=== PATIENT | male | born 1960 | race African-American/Black ===

== ENCOUNTER 2017-02-05 11:26 | Inpatient (IN) | payer OTHER ==
[2017-02-05 11:47] VITALS: BMI 31.8
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
[2017-02-05] MEDS ORDERED: guaiFENesin/D-METHORPHAN HB 10 ML UNIT-DOSE CUPS PO PRN (15:00)
[2017-02-05] MEDS ORDERED: MAGNESIUM CITRATE 300 ML BOTTLE PO PRN (15:00)
[2017-02-05] MEDS ORDERED: LOPERAMIDE HCL 2 MG CAPSULE PO PRN (15:00)
[2017-02-05] MEDS ORDERED: diphenhydrAMINE HCL 50 MG CAPSULE PO PRN (15:00)
[2017-02-05] MEDS ORDERED: chlordiazePOXIDE HCL 25 MG CAPSULE PO PRN (15:00)
[2017-02-05] MEDS ORDERED: P-EPHED 60MG/TRIPROLIDI 2.5MG TABLET PO PRN (15:00)
[2017-02-05] MEDS ORDERED: NICOTINE POLACRILEX 2 MG GUM BUC PRN (15:00)
[2017-02-05] MEDS ORDERED: MAG HYDROX/AL HYDROX/SIMETH 30 ML UNIT-DOSE CUP PO PRN (15:00)
[2017-02-05] MEDS ORDERED: hydrOXYzine PAMOATE 25 MG CAPSULE (FP) PO PRN (15:00)
[2017-02-05] MEDS ORDERED: MAGNESIUM HYDROX 2400MG/30ML ORAL SUSPENSION 30 ML CUP PO PRN (15:00)
[2017-02-05] MEDS ORDERED: MENTHOL/PHENOL 1 EACH UD MM PRN (15:00)
[2017-02-05] MEDS ORDERED: IBUPROFEN 400 MG TABLET (FP) PO PRN (15:00)
[2017-02-05] MEDS ORDERED: chlordiazePOXIDE HCL 25 MG CAPSULE PO ONE (15:32)
[2017-02-05] MEDS: NICOTINE 14 MG/24 HOURS TOPICAL PATCH TD SCH (15:37)
[2017-02-05] MEDS: metFORMIN HCL 500 MG TABLET (FP) PO SCH (16:47)
[2017-02-05] MEDS: chlordiazePOXIDE HCL 25 MG CAPSULE PO SCH ×2 (16:47→22:04)
[2017-02-05 19:13] LABS: URINE APPEARANCE CLEAR; URINE BILIRUBIN NEGATIVE (NEGATIVE); URINE BLOOD NEGATIVE (NEGATIVE); URINE COLOR LTYELLOW; URINE GLUCOSE (UA) 3+ (NEGATIVE); URINE KETONE NEGATIVE (NEGATIVE); URINE LEUK ESTERASE NEGATIVE (NEGATIVE); URINE NITRITE NEGATIVE (NEGATIVE); URINE PROTEIN NEGATIVE (NEGATIVE); URINE UROBILINOGEN NEGATIVE E.U./dl (0.2-1.0)
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
[2017-02-05 19:48] LABS: HIV 1 & 2 AB NEGATIVE; HIV 1 AGp24 NEGATIVE
[2017-02-05] MEDS: QUEtiapine FUMARATE 200 MG TABLET PO SCH (22:04)
[2017-02-05] MEDS: THIAMINE HCL 100 MG TABLET (FP) PO SCH (22:04)
[2017-02-05] MEDS: ACETAMINOPHEN 325 MG TABLET (FP) PO PRN (22:06)
[2017-02-06] MEDS: chlordiazePOXIDE HCL 25 MG CAPSULE PO SCH ×4 (05:32→22:12)
[2017-02-06] MEDS: metFORMIN HCL 500 MG TABLET (FP) PO SCH ×2 (06:36→17:17)
[2017-02-06] MEDS: sitaGLIPtin PHOSPHATE 100 MG TABLET (FP) PO SCH (06:37)
[2017-02-06] MEDS: cloNIDine HCL 0.1 MG TABLET PO SCH ×2 (10:08→22:13)
[2017-02-06] MEDS: NICOTINE 14 MG/24 HOURS TOPICAL PATCH TD SCH (10:08)
[2017-02-06] MEDS: PRENATAL VITAMINS W/ FOLIC ACID TABLET (FP) PO SCH (10:08)
[2017-02-06] MEDS: SERTRALINE HCL 50 MG TABLET (FP) PO SCH (10:08)
[2017-02-06 10:10] LABS: MCH 32.4 pg (25.7-33.7); MCHC 33.9 g/dl (32.0-35.9); MEAN CELL VOLUME 95.6 fl (80-96); MEAN PLT VOLUME 8.5 fl (7.5-11.1); PLATELET COUNT 437 K/MM3 (134-434); RDW 12.5 % (11.9-15.9); WHITE BLOOD COUNT 10.8 K/mm3 (4.0-10.0)
--- NOTE | 2017-02-06 10:11 | PN ---
[facility] CIWA - CIWA Score Nausea/Vomitin-No Nausea/No Vomiting Muscle Tremors: 4-Moderate,w/Arms Extend Anxiety: 4-Mod. Anxious/Guarded Agitation: 4-Moderately Restless Paroxysmal Sweats: 1-Minimal Palms Moist Orientation: 0-Oriented Tacttile Disturbances: 3-Moderate Itch/Numb/Burn Auditory Disturbances: 0-None Visual Disturbances: 0-None Headache: 0-None Present CIWA-Ar Total Score: 16 [facility] Progress Note (SOAP) Subjective: ANIETY,TREMORS,SWEATS,INTERMITTENT SLEEP. I REVIEWED PT'S HOME MEDS ON HOME PHARMACY LIST TODAY. PT ON ENALAPRIL 10 MG PO DAILY ,SIMVASTATIN 40 MG PO NIGHTLY AND ATRIPLA 1 TAB PO DAILY(PROPHYLAXIS). PT DECLINED THESE MEDS REFUSING REORDERING AND WILL NOT TAKE THEM. HOWEVER, PT WANTS HIS CLONIDINE 0.2 MG PO BID REORDERED. PT ALSO ON VENTOLIN INH PRN AND SYMBICORT 160/4.5 MCG 2 PUFFS INH BID. Objective: 02/06/17 10:16 Vital Signs Temperature 96.6 F L 02/06/17 09:31 Pulse Rate 84 02/06/17 09:31 Respiratory Rate 20 02/06/17 09:31 Blood Pressure 143/79 02/06/17 09:31 O2 Sat by Pulse Oximetry (%) Laboratory Last Values WBC 10.8 K/mm3 (4.0-10.0) H 02/06/17 06:00 RBC 4.61 M/mm3 (4.00-5.60) 02/06/17 06:00 Hgb 14.9 GM/dL (11.7-16.9) 02/06/17 06:00 Hct 44.0 % (35.4-49) 02/06/17 06:00 MCV 95.6 fl (80-96) 02/06/17 06:00 MCHC 33.9 g/dl (32.0-35.9) 02/06/17 06:00 RDW 12.5 % (11.9-15.9) 02/06/17 06:00 Plt Count 437 K/MM3 (134-434) H 02/06/17 06:00 MPV 8.5 fl (7.5-11.1) 02/06/17 06:00 POC Glucometer 207 UNITS (()) 02/06/17 05:34 Urine Color Ltyellow 02/05/17 17:30 Urine Appearance Clear 02/05/17 17:30 Urine pH 5.0 (5.0-8.0) 02/05/17 17:30 Ur Specific [place] 1.015 (1.001-1.035) 02/05/17 17:30 Urine Protein Negative (NEGATIVE) 02/05/17 17:30 Urine Glucose (UA) 3+ (NEGATIVE) H 02/05/17 17:30 Urine Ketones Negative (NEGATIVE) 02/05/17 17:30 Urine Blood Negative (NEGATIVE) 02/05/17 17:30 Urine Nitrite Negative (NEGATIVE) 02/05/17 17:30 Urine Bilirubin Negative (NEGATIVE) 02/05/17 17:30 Urine Urobilinogen Negative E.U./dl (0.2-1.0) 02/05/17 17:30 Ur Leukocyte Esterase Negative (NEGATIVE) 02/05/17 17:30 HIV 1&2 Antibody Screen Negative 02/05/17 13:50 HIV P24 Antigen Negative 02/05/17 13:50 OTHER LAB RESULTS PENDING Assessment: 02/06/17 10:17 WITHDRAWAL SX Plan: CONTINUE DETOX INCREASE PO FLUIDS
[2017-02-06] MEDS ORDERED: ALBUTEROL SO4 18 GM HFA INHALER IH PRN (10:13)
[2017-02-06] MEDS ORDERED: ALBUTEROL SO4 18 GM HFA INHALER IH SCH (10:15)
[2017-02-06 11:05] LABS: ALBUMIN 4.2 g/dl (3.4-5.0); ALK PHOS 125 U/L (45-117); ANION GAP 9 (8-16); BILIRUBIN,TOTAL 0.4 mg/dL (0.2-1.0); CALCIUM 9.3 mg/dL (8.5-10.1); CO2 26 mmol/L (21-32); COCKROFT - GAULT 117.02; GLUCOSE,RANDOM 218 mg/dL (74-106); SGOT/AST 25 U/L (15-37); SGPT/ALT 46 U/L (12-78); TOT PROT 7.9 g/dl (6.4-8.2)
[2017-02-06] MEDS: BUDESONIDE/FORMETEROL FUMARATE 160/4.5 mcg INHALER IH SCH ×2 (12:33→22:12)
--- NOTE | 2017-02-06 17:38 | EKG ---
Test Reason : Blood Pressure : / mmHG Vent. Rate : 076 BPM Atrial Rate : 076 BPM P-R Int : 164 ms QRS Dur : 090 ms QT Int : 370 ms P-R-T Axes : 045 087 044 degrees QTc Int : 416 ms NORMAL SINUS RHYTHM MINIMAL VOLTAGE CRITERIA FOR LVH, MAY BE NORMAL VARIANT BORDERLINE ECG NO PREVIOUS ECGS AVAILABLE Confirmed by ETHEL LUO MD ([id number]) on 02/06/2017 5:37:51 PM Referred By: Confirmed By:ETHEL LUO MD
[2017-02-06] MEDS: QUEtiapine FUMARATE 200 MG TABLET PO SCH (22:13)
[2017-02-06] MEDS: ATORVASTATIN CA 20 MG TABLET (FP) PO SCH (22:13)
[2017-02-06] MEDS: THIAMINE HCL 100 MG TABLET (FP) PO SCH (22:13)
[2017-02-07] MEDS: chlordiazePOXIDE HCL 25 MG CAPSULE PO SCH ×2 (05:56→10:07)
[2017-02-07] MEDS: ACETAMINOPHEN 325 MG TABLET (FP) PO PRN ×2 (05:57→17:22)
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
[2017-02-07] MEDS: sitaGLIPtin PHOSPHATE 100 MG TABLET (FP) PO SCH (08:02)
[2017-02-07] MEDS: metFORMIN HCL 500 MG TABLET (FP) PO SCH ×2 (08:02→17:19)
[2017-02-07] MEDS: BUDESONIDE/FORMETEROL FUMARATE 160/4.5 mcg INHALER IH SCH ×2 (10:06→22:06)
[2017-02-07] MEDS: NICOTINE 14 MG/24 HOURS TOPICAL PATCH TD SCH (10:07)
[2017-02-07] MEDS: cloNIDine HCL 0.1 MG TABLET PO SCH ×2 (10:07→22:06)
[2017-02-07] MEDS: PRENATAL VITAMINS W/ FOLIC ACID TABLET (FP) PO SCH (10:07)
[2017-02-07] MEDS: SERTRALINE HCL 50 MG TABLET (FP) PO SCH (10:07)
--- NOTE | 2017-02-07 10:17 | PN ---
[facility] CIWA - CIWA Score Nausea/Vomitin-No Nausea/No Vomiting Muscle Tremors: 3 Anxiety: 3 Agitation: 4-Moderately Restless Paroxysmal Sweats: 3 Orientation: 0-Oriented Tacttile Disturbances: 0-None Auditory Disturbances: 0-None Visual Disturbances: 0-None Headache: 0-None Present CIWA-Ar Total Score: 13 [facility] Progress Note (SOAP) Subjective: Tremors,sweating,anxiety,interrupted sleep,restless. Pt. denies head trauma, he hit left shoulder against the wall on the side of his bed. Objective: 02/07/17 10:14 Vital Signs - 8 hr 02/07/17 02/07/17 02/07/17 03:30 05:50 05:52 Temperature 96.4 F L 96.4 F L Pulse Rate 82 82 Respiratory 18 18 18 Rate Blood Pressure 121/80 121/80 Laboratory Tests 02/05/17 02/05/17 02/05/17 06:00 13:50 13:52 WBC RBC Hgb Hct MCV MCHC RDW Plt Count MPV Sodium Potassium Chloride Carbon Dioxide Anion Gap BUN Creatinine Creat Clearance w eGFR POC Glucometer 177 Random Glucose Calcium Total Bilirubin AST ALT Alkaline Phosphatase Total Protein Albumin Urine Color Urine Appearance Urine pH Ur Specific [place] Urine Protein Urine Glucose (UA) Urine Ketones Urine Blood Urine Nitrite Urine Bilirubin Urine Urobilinogen Ur Leukocyte Esterase RPR Titer Hepatitis C Antibody <0.1 HIV 1&2 Antibody Screen Negative HIV P24 Antigen Negative 02/05/17 02/05/17 02/06/17 16:14 17:30 05:34 WBC RBC Hgb Hct MCV MCHC RDW Plt Count MPV Sodium Potassium Chloride Carbon Dioxide Anion Gap BUN Creatinine Creat Clearance w eGFR POC Glucometer 191 207 Random Glucose Calcium Total Bilirubin AST ALT Alkaline Phosphatase Total Protein Albumin Urine Color Ltyellow Urine Appearance Clear Urine pH 5.0 Ur Specific [place] 1.015 Urine Protein Negative Urine Glucose (UA) 3+ H Urine Ketones Negative Urine Blood Negative Urine Nitrite Negative Urine Bilirubin Negative Urine Urobilinogen Negative Ur Leukocyte Esterase Negative RPR Titer Hepatitis C Antibody HIV 1&2 Antibody Screen HIV P24 Antigen 02/06/17 02/06/17 02/06/17 06:00 06:00 06:00 WBC 10.8 H RBC 4.61 Hgb 14.9 Hct 44.0 MCV 95.6 MCHC 33.9 RDW 12.5 Plt Count 437 H MPV 8.5 Sodium 136 Potassium 5.3 H Chloride 101 Carbon Dioxide 26 Anion Gap 9 BUN 12 D Creatinine 1.0 Creat Clearance w eGFR > 60 POC Glucometer Random Glucose 218 H Calcium 9.3 Total Bilirubin 0.4 AST 25 ALT 46 D Alkaline Phosphatase 125 H Total Protein 7.9 Albumin 4.2 Urine Color Urine Appearance Urine pH Ur Specific [place] Urine Protein Urine Glucose (UA) Urine Ketones Urine Blood Urine Nitrite Urine Bilirubin Urine Urobilinogen Ur Leukocyte Esterase RPR Titer Nonreactive Hepatitis C Antibody HIV 1&2 Antibody Screen HIV P24 Antigen 02/06/17 02/07/17 16:19 05:55 WBC RBC Hgb Hct MCV MCHC RDW Plt Count MPV Sodium Potassium Chloride Carbon Dioxide Anion Gap BUN Creatinine Creat Clearance w eGFR POC Glucometer 154 229 Random Glucose Calcium Total Bilirubin AST ALT Alkaline Phosphatase Total Protein Albumin Urine Color Urine Appearance Urine pH Ur Specific [place] Urine Protein Urine Glucose (UA) Urine Ketones Urine Blood Urine Nitrite Urine Bilirubin Urine Urobilinogen Ur Leukocyte Esterase RPR Titer Hepatitis C Antibody HIV 1&2 Antibody Screen HIV P24 Antigen labs noted Assessment: 02/07/17 10:14 Withdrawal Sx. Plan: Continue detox Lt. shoulder x-ray D/C head Ct.
[2017-02-07] MEDS: chlordiazePOXIDE 5 MG CAPSULE PO SCH ×2 (17:19→22:06)
[2017-02-07] MEDS: QUEtiapine FUMARATE 200 MG TABLET PO SCH (22:06)
[2017-02-07] MEDS: ATORVASTATIN CA 20 MG TABLET (FP) PO SCH (22:06)
[2017-02-07] MEDS: THIAMINE HCL 100 MG TABLET (FP) PO SCH (22:06)
[2017-02-08] MEDS: chlordiazePOXIDE 5 MG CAPSULE PO SCH ×2 (05:53→10:09)
[2017-02-08] MEDS: metFORMIN HCL 500 MG TABLET (FP) PO SCH ×2 (06:04→17:03)
[2017-02-08] MEDS: sitaGLIPtin PHOSPHATE 100 MG TABLET (FP) PO SCH (07:06)
[2017-02-08] MEDS: BUDESONIDE/FORMETEROL FUMARATE 160/4.5 mcg INHALER IH SCH ×2 (10:08→22:09)
[2017-02-08] MEDS: SERTRALINE HCL 50 MG TABLET (FP) PO SCH (10:09)
[2017-02-08] MEDS: NICOTINE 14 MG/24 HOURS TOPICAL PATCH TD SCH (10:09)
[2017-02-08] MEDS: PRENATAL VITAMINS W/ FOLIC ACID TABLET (FP) PO SCH (10:09)
[2017-02-08] MEDS: cloNIDine HCL 0.1 MG TABLET PO SCH ×2 (10:09→22:10)
[2017-02-08] MEDS: ACETAMINOPHEN 325 MG TABLET (FP) PO PRN ×2 (15:02→22:55)
[2017-02-08] MEDS: chlordiazePOXIDE HCL 10 MG CAPSULE PO SCH ×2 (17:03→22:10)
--- NOTE | 2017-02-08 17:25 | PN ---
[facility] Progress Note (SOAP) Subjective: Tremors, Body aches, Sweating. Objective: PT. A & O X 2 (DISORIENTED ABOUT DAY /DATE). PT. OBSERVED AMBULATING ON UNIT. 02/08/17 17:23 Vital Signs Temperature 98.0 F 02/08/17 15:29 Pulse Rate 80 02/08/17 15:29 Respiratory Rate 20 02/08/17 15:29 Blood Pressure 138/76 02/08/17 15:29 O2 Sat by Pulse Oximetry (%) Laboratory Last Values WBC 10.8 K/mm3 (4.0-10.0) H 02/06/17 06:00 RBC 4.61 M/mm3 (4.00-5.60) 02/06/17 06:00 Hgb 14.9 GM/dL (11.7-16.9) 02/06/17 06:00 Hct 44.0 % (35.4-49) 02/06/17 06:00 MCV 95.6 fl (80-96) 02/06/17 06:00 MCHC 33.9 g/dl (32.0-35.9) 02/06/17 06:00 RDW 12.5 % (11.9-15.9) 02/06/17 06:00 Plt Count 437 K/MM3 (134-434) H 02/06/17 06:00 MPV 8.5 fl (7.5-11.1) 02/06/17 06:00 Sodium 136 mmol/L (136-145) 02/06/17 06:00 Potassium 5.3 mmol/L (3.5-5.1) H 02/06/17 06:00 Chloride 101 mmol/L (98-107) 02/06/17 06:00 Carbon Dioxide 26 mmol/L (21-32) 02/06/17 06:00 Anion Gap 9 (8-16) 02/06/17 06:00 BUN 12 mg/dL (7-18) D 02/06/17 06:00 Creatinine 1.0 mg/dL (0.7-1.3) 02/06/17 06:00 Creat Clearance w eGFR > 60 (>60) 02/06/17 06:00 POC Glucometer 239 UNITS (()) 02/08/17 16:20 Random Glucose 218 mg/dL (74-106) H 02/06/17 06:00 Calcium 9.3 mg/dL (8.5-10.1) 02/06/17 06:00 Total Bilirubin 0.4 mg/dL (0.2-1.0) 02/06/17 06:00 AST 25 U/L (15-37) 02/06/17 06:00 ALT 46 U/L (12-78) D 02/06/17 06:00 Alkaline Phosphatase 125 U/L (45-117) H 02/06/17 06:00 Total Protein 7.9 g/dl (6.4-8.2) 02/06/17 06:00 Albumin 4.2 g/dl (3.4-5.0) 02/06/17 06:00 Urine Color Ltyellow 02/05/17 17:30 Urine Appearance Clear 02/05/17 17:30 Urine pH 5.0 (5.0-8.0) 02/05/17 17:30 Ur Specific [place] 1.015 (1.001-1.035) 02/05/17 17:30 Urine Protein Negative (NEGATIVE) 02/05/17 17:30 Urine Glucose (UA) 3+ (NEGATIVE) H 02/05/17 17:30 Urine Ketones Negative (NEGATIVE) 02/05/17 17:30 Urine Blood Negative (NEGATIVE) 02/05/17 17:30 Urine Nitrite Negative (NEGATIVE) 02/05/17 17:30 Urine Bilirubin Negative (NEGATIVE) 02/05/17 17:30 Urine Urobilinogen Negative E.U./dl (0.2-1.0) 02/05/17 17:30 Ur Leukocyte Esterase Negative (NEGATIVE) 02/05/17 17:30 RPR Titer Nonreactive (NONREACTIVE) 02/06/17 06:00 Hepatitis C Antibody <0.1 s/co ratio (0.0-0.9) 02/05/17 06:00 HIV 1&2 Antibody Screen Negative 02/05/17 13:50 HIV P24 Antigen Negative 02/05/17 13:50 LABS NOTED. Assessment: 02/08/17 17:24 WITHDRAWAL SYMPTOMS. Plan: CONTINUE DETOX. ADVISED PATIENT TO FOLLOW-UP WITH [facility] / REHAB MEDICAL PROVIDER AFTER DISCHARGE FROM DETOX FOR GENERAL MEDICAL ASSESSMENT AND FOR ABNORMAL ADMISSION LAB VALUES.
[2017-02-08] MEDS: ATORVASTATIN CA 20 MG TABLET (FP) PO SCH (22:10)
[2017-02-08] MEDS: QUEtiapine FUMARATE 200 MG TABLET PO SCH (22:10)
[2017-02-08] MEDS: THIAMINE HCL 100 MG TABLET (FP) PO SCH (22:10)
[2017-02-09] MEDS: chlordiazePOXIDE HCL 10 MG CAPSULE PO SCH ×2 (05:37→10:09)
[2017-02-09] MEDS: ACETAMINOPHEN 325 MG TABLET (FP) PO PRN ×2 (06:01→17:14)
[2017-02-09] MEDS: metFORMIN HCL 500 MG TABLET (FP) PO SCH ×2 (07:19→17:13)
[2017-02-09] MEDS: sitaGLIPtin PHOSPHATE 100 MG TABLET (FP) PO SCH (07:19)
[2017-02-09] MEDS: BUDESONIDE/FORMETEROL FUMARATE 160/4.5 mcg INHALER IH SCH ×2 (10:08→22:09)
[2017-02-09] MEDS: cloNIDine HCL 0.1 MG TABLET PO SCH ×2 (10:08→22:09)
[2017-02-09] MEDS: SERTRALINE HCL 50 MG TABLET (FP) PO SCH (10:09)
[2017-02-09] MEDS: PRENATAL VITAMINS W/ FOLIC ACID TABLET (FP) PO SCH (10:09)
[2017-02-09] MEDS: NICOTINE 14 MG/24 HOURS TOPICAL PATCH TD SCH (10:09)
--- NOTE | 2017-02-09 14:54 | PN ---
[facility] Progress Note (SOAP) Subjective: Diarrhea, tremor, irritable, interrupted sleep, left shoulder pain s/p fall as per patient (stated xray negative) Objective: 02/09/17 14:52 Last Vital Signs Temp Pulse Resp BP Pulse Ox 98.1 F 85 20 151/85 02/09/17 13:35 02/09/17 13:35 02/09/17 13:35 02/09/17 13:35 Laboratory Tests 02/05/17 02/05/17 02/05/17 06:00 13:50 13:52 WBC RBC Hgb Hct MCV MCHC RDW Plt Count MPV Sodium Potassium Chloride Carbon Dioxide Anion Gap BUN Creatinine Creat Clearance w eGFR POC Glucometer 177 Random Glucose Calcium Total Bilirubin AST ALT Alkaline Phosphatase Total Protein Albumin Urine Color Urine Appearance Urine pH Ur Specific [place] Urine Protein Urine Glucose (UA) Urine Ketones Urine Blood Urine Nitrite Urine Bilirubin Urine Urobilinogen Ur Leukocyte Esterase RPR Titer Hepatitis C Antibody <0.1 HIV 1&2 Antibody Screen Negative HIV P24 Antigen Negative 02/05/17 02/05/17 02/06/17 16:14 17:30 05:34 WBC RBC Hgb Hct MCV MCHC RDW Plt Count MPV Sodium Potassium Chloride Carbon Dioxide Anion Gap BUN Creatinine Creat Clearance w eGFR POC Glucometer 191 207 Random Glucose Calcium Total Bilirubin AST ALT Alkaline Phosphatase Total Protein Albumin Urine Color Ltyellow Urine Appearance Clear Urine pH 5.0 Ur Specific [place] 1.015 Urine Protein Negative Urine Glucose (UA) 3+ H Urine Ketones Negative Urine Blood Negative Urine Nitrite Negative Urine Bilirubin Negative Urine Urobilinogen Negative Ur Leukocyte Esterase Negative RPR Titer Hepatitis C Antibody HIV 1&2 Antibody Screen HIV P24 Antigen 02/06/17 02/06/17 02/06/17 06:00 06:00 06:00 WBC 10.8 H RBC 4.61 Hgb 14.9 Hct 44.0 MCV 95.6 MCHC 33.9 RDW 12.5 Plt Count 437 H MPV 8.5 Sodium 136 Potassium 5.3 H Chloride 101 Carbon Dioxide 26 Anion Gap 9 BUN 12 D Creatinine 1.0 Creat Clearance w eGFR > 60 POC Glucometer Random Glucose 218 H Calcium 9.3 Total Bilirubin 0.4 AST 25 ALT 46 D Alkaline Phosphatase 125 H Total Protein 7.9 Albumin 4.2 Urine Color Urine Appearance Urine pH Ur Specific [place] Urine Protein Urine Glucose (UA) Urine Ketones Urine Blood Urine Nitrite Urine Bilirubin Urine Urobilinogen Ur Leukocyte Esterase RPR Titer Nonreactive Hepatitis C Antibody HIV 1&2 Antibody Screen HIV P24 Antigen 02/06/17 02/07/17 02/07/17 16:19 05:55 16:17 WBC RBC Hgb Hct MCV MCHC RDW Plt Count MPV Sodium Potassium Chloride Carbon Dioxide Anion Gap BUN Creatinine Creat Clearance w eGFR POC Glucometer 154 229 182 Random Glucose Calcium Total Bilirubin AST ALT Alkaline Phosphatase Total Protein Albumin Urine Color Urine Appearance Urine pH Ur Specific [place] Urine Protein Urine Glucose (UA) Urine Ketones Urine Blood Urine Nitrite Urine Bilirubin Urine Urobilinogen Ur Leukocyte Esterase RPR Titer Hepatitis C Antibody HIV 1&2 Antibody Screen HIV P24 Antigen 02/08/17 02/08/17 02/09/17 05:52 16:20 05:35 WBC RBC Hgb Hct MCV MCHC RDW Plt Count MPV Sodium Potassium Chloride Carbon Dioxide Anion Gap BUN Creatinine Creat Clearance w eGFR POC Glucometer 206 239 163 Random Glucose Calcium Total Bilirubin AST ALT Alkaline Phosphatase Total Protein Albumin Urine Color Urine Appearance Urine pH Ur Specific [place] Urine Protein Urine Glucose (UA) Urine Ketones Urine Blood Urine Nitrite Urine Bilirubin Urine Urobilinogen Ur Leukocyte Esterase RPR Titer Hepatitis C Antibody HIV 1&2 Antibody Screen HIV P24 Antigen Labs noted Assessment: 02/09/17 14:53 Withdrawal symptoms Plan: Continue detox
[2017-02-09] MEDS: THIAMINE HCL 100 MG TABLET (FP) PO SCH (22:08)
[2017-02-09] MEDS: ATORVASTATIN CA 20 MG TABLET (FP) PO SCH (22:09)
[2017-02-09] MEDS: QUEtiapine FUMARATE 200 MG TABLET PO SCH (22:10)
[2017-02-10] MEDS: sitaGLIPtin PHOSPHATE 100 MG TABLET (FP) PO SCH (06:18)
[2017-02-10] MEDS: ACETAMINOPHEN 325 MG TABLET (FP) PO PRN ×2 (06:20→09:46)
[2017-02-10] MEDS: metFORMIN HCL 500 MG TABLET (FP) PO SCH (06:20)
[2017-02-10 06:35] VITALS: TEMP 96.4
[2017-02-10 07:48] VITALS: BP 173/79; PULSE 71
[2017-02-10] MEDS: PRENATAL VITAMINS W/ FOLIC ACID TABLET (FP) PO SCH (09:46)
[2017-02-10] MEDS: cloNIDine HCL 0.1 MG TABLET PO SCH (09:46)
[2017-02-10] MEDS: SERTRALINE HCL 50 MG TABLET (FP) PO SCH (09:46)
[2017-02-10] MEDS: BUDESONIDE/FORMETEROL FUMARATE 160/4.5 mcg INHALER IH SCH (09:49)
[2017-02-10] MEDS: NICOTINE 14 MG/24 HOURS TOPICAL PATCH TD SCH (09:49)
--- NOTE | 2017-02-10 16:03 | DS ---
[facility] Detox Discharge Summary Admission Date: 02/05/17 Discharge Date: 02/10/17 - History Present History: Alcohol Dependence, Cocaine Dependence Pertinent Past History: HTN Hyperlipidemia Type II DM - Physical Exam Results Vital Signs: Vital Signs Temperature 96.4 F L 02/10/17 06:35 Pulse Rate 71 02/10/17 07:47 Respiratory Rate 18 02/10/17 06:35 Blood Pressure 173/79 02/10/17 07:47 O2 Sat by Pulse Oximetry (%) Pertinent Admission Physical Exam Findings: Withdrawal sx. Laboratory Last Values WBC 10.8 K/mm3 (4.0-10.0) H 02/06/17 06:00 RBC 4.61 M/mm3 (4.00-5.60) 02/06/17 06:00 Hgb 14.9 GM/dL (11.7-16.9) 02/06/17 06:00 Hct 44.0 % (35.4-49) 02/06/17 06:00 MCV 95.6 fl (80-96) 02/06/17 06:00 MCHC 33.9 g/dl (32.0-35.9) 02/06/17 06:00 RDW 12.5 % (11.9-15.9) 02/06/17 06:00 Plt Count 437 K/MM3 (134-434) H 02/06/17 06:00 MPV 8.5 fl (7.5-11.1) 02/06/17 06:00 Sodium 136 mmol/L (136-145) 02/06/17 06:00 Potassium 5.3 mmol/L (3.5-5.1) H 02/06/17 06:00 Chloride 101 mmol/L (98-107) 02/06/17 06:00 Carbon Dioxide 26 mmol/L (21-32) 02/06/17 06:00 Anion Gap 9 (8-16) 02/06/17 06:00 BUN 12 mg/dL (7-18) D 02/06/17 06:00 Creatinine 1.0 mg/dL (0.7-1.3) 02/06/17 06:00 Creat Clearance w eGFR > 60 (>60) 02/06/17 06:00 POC Glucometer 190 UNITS (()) 02/10/17 06:17 Random Glucose 218 mg/dL (74-106) H 02/06/17 06:00 Calcium 9.3 mg/dL (8.5-10.1) 02/06/17 06:00 Total Bilirubin 0.4 mg/dL (0.2-1.0) 02/06/17 06:00 AST 25 U/L (15-37) 02/06/17 06:00 ALT 46 U/L (12-78) D 02/06/17 06:00 Alkaline Phosphatase 125 U/L (45-117) H 02/06/17 06:00 Total Protein 7.9 g/dl (6.4-8.2) 02/06/17 06:00 Albumin 4.2 g/dl (3.4-5.0) 02/06/17 06:00 Urine Color Ltyellow 02/05/17 17:30 Urine Appearance Clear 02/05/17 17:30 Urine pH 5.0 (5.0-8.0) 02/05/17 17:30 Ur Specific [place] 1.015 (1.001-1.035) 02/05/17 17:30 Urine Protein Negative (NEGATIVE) 02/05/17 17:30 Urine Glucose (UA) 3+ (NEGATIVE) H 02/05/17 17:30 Urine Ketones Negative (NEGATIVE) 02/05/17 17:30 Urine Blood Negative (NEGATIVE) 02/05/17 17:30 Urine Nitrite Negative (NEGATIVE) 02/05/17 17:30 Urine Bilirubin Negative (NEGATIVE) 02/05/17 17:30 Urine Urobilinogen Negative E.U./dl (0.2-1.0) 02/05/17 17:30 Ur Leukocyte Esterase Negative (NEGATIVE) 02/05/17 17:30 RPR Titer Nonreactive (NONREACTIVE) 02/06/17 06:00 Hepatitis C Antibody <0.1 s/co ratio (0.0-0.9) 02/05/17 06:00 HIV 1&2 Antibody Screen Negative 02/05/17 13:50 HIV P24 Antigen Negative 02/05/17 13:50 labs noted - Treatment Hospital Course: Detox Protocol Followed, Detoxed Safely, Responded well, Discharged Condition Good, Rehab Referral Accepted Patient has Accepted a Rehab Referral to: Rehab in-pt. - Medication Discharge Medications: Ambulatory Orders Metformin HCl [Glucophage] 1,000 mg PO BID 07/15/15 Sitagliptin Phosphate [Januvia] 100 mg PO DAILY 07/15/15 Zolpidem Tartrate [Ambien] 10 mg PO HS #14 tablet 07/17/15 Albuterol Sulfate Inhaler - [Ventolin HFA Inhaler -] 2 puff IH Q4H PRN 02/06/17 Budesonide/Formeterol Fumarate [SYMBICORT 160/4.5mcg -] 2 puff IH BID 02/06/17 Clonidine HCl 0.2 mg PO BID 02/06/17 Sertraline HCl [Zoloft -] 50 mg PO DAILY #30 tablet 02/06/17 Simvastatin [Zocor -] 40 mg PO HS 02/06/17 - Diagnosis (1) Alcohol dependence with uncomplicated withdrawal Status: Acute (2) Cocaine dependence Status: Acute Qualifiers: Substance use status: uncomplicated Qualified Code(s): F14.20 - Cocaine dependence, uncomplicated (3) Nicotine dependence, uncomplicated Status: Acute Qualifiers: Nicotine product type: cigarettes Qualified Code(s): F17.210 - Nicotine dependence, cigarettes, uncomplicated (4) Substance induced mood disorder Status: Acute (5) Hyperlipidemia Status: Chronic (6) Hypertension Status: Chronic Qualifiers: Hypertension type: essential hypertension Qualified Code(s): I10 - Essential (primary) hypertension (7) Insomnia Status: Chronic (8) Type II diabetes mellitus Status: Chronic Qualifiers: Diabetes mellitus complication status: without complication Diabetes mellitus longterm insulin use: without tow operator use Qualified Code(s): E11.9 - Type 2 diabetes mellitus without complications - AMA Did Patient Leave Against Medical Advice: No
== END 2017-02-10 10:12 | disposition home or self-care (01) | DRG 774 ==
LOC: YASAS 11:26 → Y3N 14:22
PROVIDERS: ADMIT Internal Medicine; ATTEND Internal Medicine
PROC: HZ2ZZZZ Detoxification Services for Substance Abuse Treatment (ICD-10-PCS; principal; 2017-02-10)
DX: F10.230 Alcohol dependence with withdrawal, uncomplicated (principal); F14.20 Cocaine dependence, uncomplicated; F17.210 Nicotine dependence, cigarettes, uncomplicated; F19.24 Other psychoactive substance dependence with psychoactive substance-induced mood disorder; G47.00 Insomnia, unspecified; J45.20 Mild intermittent asthma, uncomplicated; I10 Essential (primary) hypertension; E11.9 Type 2 diabetes mellitus without complications; Z79.84 Long term (current) use of oral hypoglycemic drugs; E78.5 Hyperlipidemia, unspecified; M25.512 Pain in left shoulder; M79.672 Pain in left foot; Z87.828 Personal history of other (healed) physical injury and trauma
CPT/HCPCS: 36415; 71020-TC; 73030-TC-LT; 80053; 81003; 85027; 86593; 87389; 93005; 93010

== ENCOUNTER 2017-10-22 10:27 | Inpatient (IN) | payer OTHER ==
[2017-10-22 12:18] VITALS: BMI 31.3
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
[2017-10-22] MEDS ORDERED: MAG HYDROX/AL HYDROX/SIMETH 30 ML UNIT-DOSE CUP PO PRN (16:41)
[2017-10-22] MEDS ORDERED: MAGNESIUM HYDROX 2400MG/30ML ORAL SUSPENSION 30 ML CUP PO PRN (16:41)
[2017-10-22] MEDS ORDERED: guaiFENesin/D-METHORPHAN HB 10 ML UNIT-DOSE CUPS PO PRN (16:41)
[2017-10-22] MEDS ORDERED: LOPERAMIDE HCL 2 MG CAPSULE PO PRN (16:41)
[2017-10-22] MEDS ORDERED: IBUPROFEN 400 MG TABLET (FP) PO PRN (16:41)
[2017-10-22] MEDS ORDERED: MAGNESIUM CITRATE 300 ML BOTTLE PO PRN (16:41)
[2017-10-22] MEDS ORDERED: MENTHOL/PHENOL 1 EACH UD MM PRN (16:41)
[2017-10-22] MEDS ORDERED: P-EPHED 60MG/TRIPROLIDI 2.5MG TABLET PO PRN (16:41)
[2017-10-22] MEDS ORDERED: NICOTINE POLACRILEX 2 MG GUM BC PRN (16:41)
[2017-10-22] MEDS ORDERED: ALBUTEROL SO4 18 GM HFA INHALER IH PRN (16:43)
[2017-10-22] MEDS: ENALAPRIL MALEATE 10 MG TABLET (FP) PO SCH (18:51)
[2017-10-22] MEDS: chlordiazePOXIDE HCL 25 MG CAPSULE PO PRN (18:51)
[2017-10-22] MEDS: ACETAMINOPHEN 325 MG TABLET (FP) PO PRN ×2 (18:52→22:34)
[2017-10-22] MEDS: BUDESONIDE/FORMETEROL FUMARATE 160/4.5 mcg INHALER IH SCH (22:32)
[2017-10-22] MEDS: RANITIDINE HCL 150 MG TABLET (FP) PO SCH (22:32)
[2017-10-22] MEDS: THIAMINE HCL 100 MG TABLET (FP) PO SCH (22:32)
[2017-10-22] MEDS: chlordiazePOXIDE HCL 25 MG CAPSULE PO SCH (22:33)
[2017-10-22] MEDS ORDERED: hydrOXYzine PAMOATE 25 MG CAPSULE (FP) PO ONE (23:05)
[2017-10-22 23:30] LABS: URINE APPEARANCE CLEAR; URINE BILIRUBIN NEGATIVE (NEGATIVE); URINE BLOOD NEGATIVE (NEGATIVE); URINE COLOR YELLOW; URINE GLUCOSE (UA) 2+ (NEGATIVE); URINE KETONE NEGATIVE (NEGATIVE); URINE LEUK ESTERASE NEGATIVE (NEGATIVE); URINE NITRITE NEGATIVE (NEGATIVE); URINE PROTEIN NEGATIVE (NEGATIVE)
[2017-10-22] MEDS ORDERED: METHOCARBAMOL 500 MG TABLET PO ONE (23:45)
[2017-10-23] MEDS: chlordiazePOXIDE HCL 25 MG CAPSULE PO SCH ×4 (05:44→22:14)
[2017-10-23] MEDS: ACETAMINOPHEN 325 MG TABLET (FP) PO PRN ×4 (05:46→22:15)
[2017-10-23] MEDS: metFORMIN HCL 500 MG TABLET (FP) PO SCH ×2 (07:26→17:48)
[2017-10-23] MEDS: sitaGLIPtin PHOSPHATE 100 MG TABLET (FP) PO SCH (07:26)
[2017-10-23] MEDS: INSULIN SLIDING SCALE (NOVOLOG) 1 VIAL SQ SCH ×2 (07:27→17:55)
[2017-10-23] MEDS ORDERED: diphenhydrAMINE HCL 50 MG CAPSULE PO PRN (10:03)
[2017-10-23] MEDS: ENALAPRIL MALEATE 10 MG TABLET (FP) PO SCH (10:35)
[2017-10-23] MEDS: BUDESONIDE/FORMETEROL FUMARATE 160/4.5 mcg INHALER IH SCH ×2 (10:35→22:25)
[2017-10-23] MEDS: NICOTINE 14 MG/24 HOURS TOPICAL PATCH TD SCH (10:35)
[2017-10-23] MEDS: RANITIDINE HCL 150 MG TABLET (FP) PO SCH ×2 (10:35→22:13)
[2017-10-23] MEDS: PRENATAL VITAMINS W/ FOLIC ACID TABLET (FP) PO SCH (10:35)
[2017-10-23 10:45] LABS: HEMATOCRIT 44.6 % (35.4-49); MCHC 33.6 g/dl (32.0-35.9); MEAN CELL VOLUME 95.3 fl (80-96); MEAN PLT VOLUME 8.4 fl (7.5-11.1); PLATELET COUNT 478 K/MM3 (134-434); RBC 4.68 M/mm3 (4.00-5.60); RDW 12.6 % (11.9-15.9); WHITE BLOOD COUNT 8.8 K/mm3 (4.0-10.0)
[2017-10-23 10:50] LABS: ALBUMIN 3.9 g/dl (3.4-5.0); ANION GAP 10 (8-16); BILIRUBIN,TOTAL 0.4 mg/dL (0.2-1.0); BLOOD UREA NITROGEN 13 mg/dL (7-18); CALCIUM 9.3 mg/dL (8.5-10.1); CHLORIDE 102 mmol/L (98-107); CO2 28 mmol/L (21-32); CREATININE 1.2 mg/dL (0.7-1.3); POTASSIUM 4.7 mmol/L (3.5-5.1); SGOT/AST 30 U/L (15-37); SGPT/ALT 56 U/L (12-78); SODIUM 140 mmol/L (136-145)
[2017-10-23 10:51] LABS: ALK PHOS 112 U/L (45-117)
--- NOTE | 2017-10-23 10:58 | CONSULT ---
[facility] Psychiatric Consult - Data Date of interview: 10/23/17 Admission source: [facility] Identifying data: Pt. is a 57 year old male, single, father of four, and currently unemployed. This is patient's first admission to [facility]. Pt. admitted to detox for alcohol and cocaine dependence. Substance Abuse History: Following information confirmed with Mr. Davalos: Smoking Cessation. Smoking history: Current every day smoker. Have you smoked in the past 12 months: Yes. Aproximately how many cigarettes per day: 4. Cigars Per Day: 0. Hx Chewing Tobacco Use: No. Initiated information on smoking cessation: Yes. 'Breaking Loose' booklet given: 10/15/17. - Substance & Tx. History. Hx Alcohol Use: Yes. Hx Substance Use: Yes. Substance Use Type : Alcohol, Cocaine. Hx Substance Use Treatment: Yes (02/2017 [facility]). - Substances Abused. Alcohol. Route: Oral. Frequency: Daily. Amount used: 10 beers/ 2 pints whiskey. Age of first use: 34. Date of Last Use: 10/21/17. Cocaine. Route: Smoking. Frequency: Daily. Amount used: $50-60. Age of first use: 34. Date of Last Use: 10/20/17 Medical History: Hypercholesterolemia, COPD, and diabetes Psychiatric History: Pt. reports h/o one psychiatric hospitalization last year in [place]. Pt unable to recall the hospital. States that in the past he has been prescribed seroquel, ambien, and "other medications for depression I can't remember." Reports a diagnosis of MDD and is not compliant with his medication regime. Pt denies OPC. Pt. currently attends the [facility] in [place]. Pt. requesting a sleep aid during his stay at detox. Pt. denies h/o suicide attempt. Physical/Sexual Abuse/Trauma History: Denies. Mental Status Exam - Mental Status Exam Alert and Oriented to: Time, Place, Person Cognitive Function: Good Patient Appearance: Well Groomed Mood: Hopeful Affect: Appropriate Patient Behavior: Appropriate, Cooperative Speech Pattern: Clear, Appropriate Voice Loudness: Normal Thought Process: Goal Oriented Thought Disorder: Not Present Hallucinations: Denies Suicidal Ideation: Denies Homicidal Ideation: Denies Insight/Judgement: Poor Sleep: Poorly Appetite: Fair Muscle strength/Tone: Normal Gait/Station: Antalgic Psychiatric Findings - Problem List ([place] 1, 2,3) (1) Alcohol dependence with uncomplicated withdrawal Current Visit: Yes Status: Acute (2) Nicotine dependence, uncomplicated Current Visit: Yes Status: Acute Qualifiers: Nicotine product type: cigarettes Qualified Code(s): F17.210 - Nicotine dependence, cigarettes, uncomplicated (3) Cocaine dependence Current Visit: Yes Status: Acute Qualifiers: Substance use status: uncomplicated Qualified Code(s): F14.20 - Cocaine dependence, uncomplicated (4) Substance induced mood disorder Current Visit: No Status: Suspected (5) Cocaine abuse, uncomplicated Current Visit: Yes Status: Chronic (6) Insomnia Current Visit: Yes Status: Acute Qualifiers: Insomnia type: unspecified Qualified Code(s): G47.00 - Insomnia, unspecified (7) MDD (major depressive disorder) Current Visit: No Status: Chronic Comment: Self reports. - Initial Treatment Plan Initial Treatment Plan: Psychoeducation provided. Detoxification in progress. Ambien 10mg qhs prn ordered. Pt. reports favorable effect from previoulsy taking ambien. Benfits and side effects (sleep walking) discussed. Verbal consent given. Will continue to monitor patient.
--- NOTE | 2017-10-23 12:36 | EKG ---
Test Reason : Blood Pressure : / mmHG Vent. Rate : 082 BPM Atrial Rate : 082 BPM P-R Int : 160 ms QRS Dur : 090 ms QT Int : 370 ms P-R-T Axes : 052 084 035 degrees QTc Int : 432 ms NORMAL SINUS RHYTHM NORMAL ECG WHEN COMPARED WITH ECG OF 05-FEB-2017 14:47, NO SIGNIFICANT CHANGE WAS FOUND Confirmed by ETHEL LUO MD ([id number]) on 10/23/2017 12:36:16 PM Referred By: Confirmed By:ETHEL LUO MD
[2017-10-23 12:52] LABS: GLUCOSE,RANDOM 148 mg/dL (74-106)
--- NOTE | 2017-10-23 13:43 | PN ---
[facility] CIWA - CIWA Score Nausea/Vomitin-No Nausea/No Vomiting Muscle Tremors: 3 Anxiety: 3 Agitation: 2 Paroxysmal Sweats: 3 Orientation: 0-Oriented Tacttile Disturbances: 3-Moderate Itch/Numb/Burn Auditory Disturbances: 0-None Visual Disturbances: 2-Mild Sensitivity Headache: 0-None Present CIWA-Ar Total Score: 16 S Progress Note (SOAP) Subjective: Diarrhea, Stomach Cramping, Interrupted Sleep, Body Aches, Sweating. Objective: PT. A & O X 3, OBSERVED AMBULATING ON UNIT. NO ACUTE DISTRESS. 10/23/17 13:41 Vital Signs Temperature 96.7 F L 10/23/17 13:29 Pulse Rate 81 10/23/17 13:29 Respiratory Rate 18 10/23/17 13:29 Blood Pressure 156/85 10/23/17 13:29 O2 Sat by Pulse Oximetry (%) Laboratory Tests 10/22/17 10/22/17 10/23/17 14:07 21:00 05:43 WBC RBC Hgb Hct MCV MCH MCHC RDW Plt Count MPV Sodium Potassium Chloride Carbon Dioxide Anion Gap BUN Creatinine Creat Clearance w eGFR POC Glucometer 163 177 Random Glucose Calcium Total Bilirubin AST ALT Alkaline Phosphatase Total Protein Albumin Urine Color Yellow Urine Appearance Clear Urine pH 5.0 Ur Specific [place] 1.024 Urine Protein Negative Urine Glucose (UA) 2+ H Urine Ketones Negative Urine Blood Negative Urine Nitrite Negative Urine Bilirubin Negative Urine Urobilinogen 2.0 Ur Leukocyte Esterase Negative 10/23/17 10/23/17 06:00 06:00 WBC 8.8 RBC 4.68 Hgb 15.0 Hct 44.6 MCV 95.3 MCH 32.0 MCHC 33.6 RDW 12.6 Plt Count 478 H MPV 8.4 Sodium 140 Potassium 4.7 Chloride 102 Carbon Dioxide 28 Anion Gap 10 BUN 13 Creatinine 1.2 Creat Clearance w eGFR > 60 POC Glucometer Random Glucose 148 H D Calcium 9.3 Total Bilirubin 0.4 AST 30 ALT 56 D Alkaline Phosphatase 112 Total Protein 8.0 Albumin 3.9 Urine Color Urine Appearance Urine pH Ur Specific [place] Urine Protein Urine Glucose (UA) Urine Ketones Urine Blood Urine Nitrite Urine Bilirubin Urine Urobilinogen Ur Leukocyte Esterase LABS NOTED. HIV AB, HCV AB, AND RPR RESULTS PENDING. 10/23/17 13:56 Assessment: 10/23/17 13:41 WITHDRAWAL SYMPTOMS. Plan: CONTINUE DETOX.
[2017-10-23] MEDS: chlordiazePOXIDE HCL 25 MG CAPSULE PO PRN (14:56)
[2017-10-23] MEDS ORDERED: METHOCARBAMOL 500 MG TABLET PO ONE ×2 (19:00→21:30)
[2017-10-23] MEDS: THIAMINE HCL 100 MG TABLET (FP) PO SCH (22:13)
[2017-10-23] MEDS: ZOLPIDEM TARTRATE 10 MG TABLET (PARK CARE ONLY) PO PRN (22:13)
[2017-10-24] MEDS: chlordiazePOXIDE HCL 25 MG CAPSULE PO SCH ×3 (05:23→17:02)
[2017-10-24] MEDS: sitaGLIPtin PHOSPHATE 100 MG TABLET (FP) PO SCH (07:42)
[2017-10-24] MEDS: INSULIN SLIDING SCALE (NOVOLOG) 1 VIAL SQ SCH ×2 (07:43→16:48)
[2017-10-24] MEDS: metFORMIN HCL 500 MG TABLET (FP) PO SCH ×2 (07:43→17:01)
[2017-10-24] MEDS: RANITIDINE HCL 150 MG TABLET (FP) PO SCH ×2 (10:22→22:56)
[2017-10-24] MEDS: BUDESONIDE/FORMETEROL FUMARATE 160/4.5 mcg INHALER IH SCH ×2 (10:22→23:01)
[2017-10-24] MEDS: PRENATAL VITAMINS W/ FOLIC ACID TABLET (FP) PO SCH (10:22)
[2017-10-24] MEDS: ENALAPRIL MALEATE 10 MG TABLET (FP) PO SCH (10:22)
[2017-10-24] MEDS: NICOTINE 14 MG/24 HOURS TOPICAL PATCH TD SCH (10:23)
--- NOTE | 2017-10-24 11:53 | PN ---
[facility] CIWA - CIWA Score Nausea/Vomitin-No Nausea/No Vomiting Muscle Tremors: 4-Moderate,w/Arms Extend Anxiety: 4-Mod. Anxious/Guarded Agitation: 2 Paroxysmal Sweats: 3 Orientation: 0-Oriented Tacttile Disturbances: 1-Very Mild Itch/Numbness Auditory Disturbances: 2-Mild Harshness/Frighten Visual Disturbances: 0-None Headache: 0-None Present CIWA-Ar Total Score: 16 BHS Progress Note (SOAP) Subjective: Anxious, Tremors, Sweating, Body Aches. Objective: PT. A & O X 3, OBSERVED AMBULATING ON UNIT. NO ACUTE DISTRESS. PT. DENIES CHEST PAIN. 10/24/17 11:50 Vital Signs Temperature 96.8 F L 10/24/17 09:56 Pulse Rate 72 10/24/17 09:56 Respiratory Rate 18 10/24/17 09:56 Blood Pressure 157/91 10/24/17 09:56 O2 Sat by Pulse Oximetry (%) Laboratory Tests 10/22/17 10/22/17 10/22/17 06:00 06:00 14:07 WBC RBC Hgb Hct MCV MCH MCHC RDW Plt Count MPV Sodium Potassium Chloride Carbon Dioxide Anion Gap BUN Creatinine Creat Clearance w eGFR POC Glucometer 163 Random Glucose Calcium Total Bilirubin AST ALT Alkaline Phosphatase Total Protein Albumin Urine Color Urine Appearance Urine pH Ur Specific [place] Urine Protein Urine Glucose (UA) Urine Ketones Urine Blood Urine Nitrite Urine Bilirubin Urine Urobilinogen Ur Leukocyte Esterase RPR Titer Hepatitis C Antibody <0.1 HIV 1&2 Antibody Screen Negative HIV P24 Antigen Negative 10/22/17 10/23/17 10/23/17 21:00 05:43 06:00 WBC 8.8 RBC 4.68 Hgb 15.0 Hct 44.6 MCV 95.3 MCH 32.0 MCHC 33.6 RDW 12.6 Plt Count 478 H MPV 8.4 Sodium Potassium Chloride Carbon Dioxide Anion Gap BUN Creatinine Creat Clearance w eGFR POC Glucometer 177 Random Glucose Calcium Total Bilirubin AST ALT Alkaline Phosphatase Total Protein Albumin Urine Color Yellow Urine Appearance Clear Urine pH 5.0 Ur Specific [place] 1.024 Urine Protein Negative Urine Glucose (UA) 2+ H Urine Ketones Negative Urine Blood Negative Urine Nitrite Negative Urine Bilirubin Negative Urine Urobilinogen 2.0 Ur Leukocyte Esterase Negative RPR Titer Hepatitis C Antibody HIV 1&2 Antibody Screen HIV P24 Antigen 10/23/17 10/23/17 10/23/17 06:00 06:00 16:27 WBC RBC Hgb Hct MCV MCH MCHC RDW Plt Count MPV Sodium 140 Potassium 4.7 Chloride 102 Carbon Dioxide 28 Anion Gap 10 BUN 13 Creatinine 1.2 Creat Clearance w eGFR > 60 POC Glucometer 143 Random Glucose 148 H D Calcium 9.3 Total Bilirubin 0.4 AST 30 ALT 56 D Alkaline Phosphatase 112 Total Protein 8.0 Albumin 3.9 Urine Color Urine Appearance Urine pH Ur Specific [place] Urine Protein Urine Glucose (UA) Urine Ketones Urine Blood Urine Nitrite Urine Bilirubin Urine Urobilinogen Ur Leukocyte Esterase RPR Titer Nonreactive Hepatitis C Antibody HIV 1&2 Antibody Screen HIV P24 Antigen 10/24/17 05:22 WBC RBC Hgb Hct MCV MCH MCHC RDW Plt Count MPV Sodium Potassium Chloride Carbon Dioxide Anion Gap BUN Creatinine Creat Clearance w eGFR POC Glucometer 191 Random Glucose Calcium Total Bilirubin AST ALT Alkaline Phosphatase Total Protein Albumin Urine Color Urine Appearance Urine pH Ur Specific [place] Urine Protein Urine Glucose (UA) Urine Ketones Urine Blood Urine Nitrite Urine Bilirubin Urine Urobilinogen Ur Leukocyte Esterase RPR Titer Hepatitis C Antibody HIV 1&2 Antibody Screen HIV P24 Antigen LABS NOTED. Assessment: 10/24/17 11:50 WITHDRAWAL SYMPTOMS. Plan: CONTINUE DETOX. PATIENT REPORTS HISTORY OF TAKING CLONIDINE, 0.2 MG PO BID FOR HTN. THIS CONFIRMED BY PATIENT'S MEDICATION PRESCRIPTION HISTORY. PATIENT HAS NOT TAKEN CLONIDINE FOR APPROX. 1 WEEK, START CLONIDINE, 0.1 MG PO BID, POSSIBLY TO BE TITRATED UP OVER NEXT FEW DAYS.
[2017-10-24] MEDS: cloNIDine HCL 0.1 MG TABLET PO SCH ×2 (11:56→22:56)
[2017-10-24] MEDS: ACETAMINOPHEN 325 MG TABLET (FP) PO PRN (12:41)
[2017-10-24] MEDS: CYCLOBENZAPRINE HCL 10 MG TABLET (FP) PO PRN (17:07)
[2017-10-24] MEDS: THIAMINE HCL 100 MG TABLET (FP) PO SCH (22:56)
[2017-10-24] MEDS: chlordiazePOXIDE 5 MG CAPSULE PO SCH (22:57)
[2017-10-24] MEDS: ZOLPIDEM TARTRATE 10 MG TABLET (PARK CARE ONLY) PO PRN (22:57)
[2017-10-25] MEDS: chlordiazePOXIDE 5 MG CAPSULE PO SCH ×3 (05:22→17:25)
[2017-10-25] MEDS: metFORMIN HCL 500 MG TABLET (FP) PO SCH ×2 (06:10→17:26)
[2017-10-25] MEDS: sitaGLIPtin PHOSPHATE 100 MG TABLET (FP) PO SCH (06:10)
[2017-10-25] MEDS: INSULIN SLIDING SCALE (NOVOLOG) 1 VIAL SQ SCH ×2 (06:11→16:30)
[2017-10-25] MEDS: RANITIDINE HCL 150 MG TABLET (FP) PO SCH ×2 (10:33→23:02)
[2017-10-25] MEDS: ENALAPRIL MALEATE 10 MG TABLET (FP) PO SCH (10:33)
[2017-10-25] MEDS: cloNIDine HCL 0.1 MG TABLET PO SCH ×2 (10:33→23:03)
[2017-10-25] MEDS: NICOTINE 14 MG/24 HOURS TOPICAL PATCH TD SCH (10:33)
[2017-10-25] MEDS: PRENATAL VITAMINS W/ FOLIC ACID TABLET (FP) PO SCH (10:33)
[2017-10-25] MEDS: BUDESONIDE/FORMETEROL FUMARATE 160/4.5 mcg INHALER IH SCH ×2 (10:36→23:05)
--- NOTE | 2017-10-25 16:57 | PN ---
[facility] Progress Note (SOAP) Subjective: Diarrhea, Sweating, Body Aches. Objective: PT. A & O X 3, OBSERVED AMBULATING ON UNIT. NO ACUTE DISTRESS. 10/25/17 16:55 Vital Signs Temperature 97.3 F L 10/25/17 13:18 Pulse Rate 79 10/25/17 13:18 Respiratory Rate 18 10/25/17 13:18 Blood Pressure 162/90 10/25/17 13:18 O2 Sat by Pulse Oximetry (%) Laboratory Tests 10/22/17 10/22/17 10/22/17 06:00 06:00 14:07 WBC RBC Hgb Hct MCV MCH MCHC RDW Plt Count MPV Sodium Potassium Chloride Carbon Dioxide Anion Gap BUN Creatinine Creat Clearance w eGFR POC Glucometer 163 Random Glucose Calcium Total Bilirubin AST ALT Alkaline Phosphatase Total Protein Albumin Urine Color Urine Appearance Urine pH Ur Specific [place] Urine Protein Urine Glucose (UA) Urine Ketones Urine Blood Urine Nitrite Urine Bilirubin Urine Urobilinogen Ur Leukocyte Esterase RPR Titer Hepatitis C Antibody <0.1 HIV 1&2 Antibody Screen Negative HIV P24 Antigen Negative 10/22/17 10/23/17 10/23/17 21:00 05:43 06:00 WBC 8.8 RBC 4.68 Hgb 15.0 Hct 44.6 MCV 95.3 MCH 32.0 MCHC 33.6 RDW 12.6 Plt Count 478 H MPV 8.4 Sodium Potassium Chloride Carbon Dioxide Anion Gap BUN Creatinine Creat Clearance w eGFR POC Glucometer 177 Random Glucose Calcium Total Bilirubin AST ALT Alkaline Phosphatase Total Protein Albumin Urine Color Yellow Urine Appearance Clear Urine pH 5.0 Ur Specific [place] 1.024 Urine Protein Negative Urine Glucose (UA) 2+ H Urine Ketones Negative Urine Blood Negative Urine Nitrite Negative Urine Bilirubin Negative Urine Urobilinogen 2.0 Ur Leukocyte Esterase Negative RPR Titer Hepatitis C Antibody HIV 1&2 Antibody Screen HIV P24 Antigen 10/23/17 10/23/17 10/23/17 06:00 06:00 16:27 WBC RBC Hgb Hct MCV MCH MCHC RDW Plt Count MPV Sodium 140 Potassium 4.7 Chloride 102 Carbon Dioxide 28 Anion Gap 10 BUN 13 Creatinine 1.2 Creat Clearance w eGFR > 60 POC Glucometer 143 Random Glucose 148 H D Calcium 9.3 Total Bilirubin 0.4 AST 30 ALT 56 D Alkaline Phosphatase 112 Total Protein 8.0 Albumin 3.9 Urine Color Urine Appearance Urine pH Ur Specific [place] Urine Protein Urine Glucose (UA) Urine Ketones Urine Blood Urine Nitrite Urine Bilirubin Urine Urobilinogen Ur Leukocyte Esterase RPR Titer Nonreactive Hepatitis C Antibody HIV 1&2 Antibody Screen HIV P24 Antigen 10/24/17 10/24/17 10/25/17 05:22 16:06 05:21 WBC RBC Hgb Hct MCV MCH MCHC RDW Plt Count MPV Sodium Potassium Chloride Carbon Dioxide Anion Gap BUN Creatinine Creat Clearance w eGFR POC Glucometer 191 200 180 Random Glucose Calcium Total Bilirubin AST ALT Alkaline Phosphatase Total Protein Albumin Urine Color Urine Appearance Urine pH Ur Specific [place] Urine Protein Urine Glucose (UA) Urine Ketones Urine Blood Urine Nitrite Urine Bilirubin Urine Urobilinogen Ur Leukocyte Esterase RPR Titer Hepatitis C Antibody HIV 1&2 Antibody Screen HIV P24 Antigen 10/25/17 16:18 WBC RBC Hgb Hct MCV MCH MCHC RDW Plt Count MPV Sodium Potassium Chloride Carbon Dioxide Anion Gap BUN Creatinine Creat Clearance w eGFR POC Glucometer 197 Random Glucose Calcium Total Bilirubin AST ALT Alkaline Phosphatase Total Protein Albumin Urine Color Urine Appearance Urine pH Ur Specific [place] Urine Protein Urine Glucose (UA) Urine Ketones Urine Blood Urine Nitrite Urine Bilirubin Urine Urobilinogen Ur Leukocyte Esterase RPR Titer Hepatitis C Antibody HIV 1&2 Antibody Screen HIV P24 Antigen LABS NOTED. Assessment: 10/25/17 16:55 WITHDRAWAL SYMPTOMS. Plan: CONTINUE DETOX. INCREASE DAILY PO FLUID INTAKE.
[2017-10-25] MEDS: CYCLOBENZAPRINE HCL 10 MG TABLET (FP) PO PRN (17:29)
[2017-10-25] MEDS: THIAMINE HCL 100 MG TABLET (FP) PO SCH (23:02)
[2017-10-25] MEDS: chlordiazePOXIDE HCL 10 MG CAPSULE PO SCH (23:02)
[2017-10-25] MEDS: ZOLPIDEM TARTRATE 10 MG TABLET (PARK CARE ONLY) PO PRN (23:03)
[2017-10-26] MEDS: chlordiazePOXIDE HCL 10 MG CAPSULE PO SCH ×3 (05:44→17:20)
[2017-10-26] MEDS: metFORMIN HCL 500 MG TABLET (FP) PO SCH ×2 (06:32→17:19)
[2017-10-26] MEDS: ACETAMINOPHEN 325 MG TABLET (FP) PO PRN ×3 (06:33→20:50)
[2017-10-26] MEDS: sitaGLIPtin PHOSPHATE 100 MG TABLET (FP) PO SCH (06:33)
[2017-10-26] MEDS: INSULIN SLIDING SCALE (NOVOLOG) 1 VIAL SQ SCH ×2 (07:28→16:44)
[2017-10-26] MEDS: cloNIDine HCL 0.1 MG TABLET PO SCH ×2 (10:33→22:48)
[2017-10-26] MEDS: ENALAPRIL MALEATE 10 MG TABLET (FP) PO SCH (10:33)
[2017-10-26] MEDS: PRENATAL VITAMINS W/ FOLIC ACID TABLET (FP) PO SCH (10:34)
[2017-10-26] MEDS: BUDESONIDE/FORMETEROL FUMARATE 160/4.5 mcg INHALER IH SCH ×2 (10:34→22:56)
[2017-10-26] MEDS: RANITIDINE HCL 150 MG TABLET (FP) PO SCH ×2 (10:34→22:48)
[2017-10-26] MEDS: NICOTINE 14 MG/24 HOURS TOPICAL PATCH TD SCH (10:34)
--- NOTE | 2017-10-26 16:34 | PN ---
S Progress Note (SOAP) Subjective: Anxious, sweating, interrupted sleep. Patient is for discharge to [facility] tomorrow. Discharge for today cancelled as patient at risk for illicit substance use if discharged today which would void [facility] plus patient has to be picked up directly from this facility in order to be admitted there. Patient is willing to go to rehab and is looking forward to his admission tomorrow. Objective: 10/26/17 16:32 Last Vital Signs Temp Pulse Resp BP Pulse Ox 98.1 F 86 18 143/79 10/26/17 13:28 10/26/17 13:28 10/26/17 13:28 10/26/17 13:28 Laboratory Tests 10/22/17 10/22/17 10/22/17 06:00 06:00 14:07 WBC RBC Hgb Hct MCV MCH MCHC RDW Plt Count MPV Sodium Potassium Chloride Carbon Dioxide Anion Gap BUN Creatinine Creat Clearance w eGFR POC Glucometer 163 Random Glucose Calcium Total Bilirubin AST ALT Alkaline Phosphatase Total Protein Albumin Urine Color Urine Appearance Urine pH Ur Specific [place] Urine Protein Urine Glucose (UA) Urine Ketones Urine Blood Urine Nitrite Urine Bilirubin Urine Urobilinogen Ur Leukocyte Esterase RPR Titer Hepatitis C Antibody <0.1 HIV 1&2 Antibody Screen Negative HIV P24 Antigen Negative 10/22/17 10/23/17 10/23/17 21:00 05:43 06:00 WBC 8.8 RBC 4.68 Hgb 15.0 Hct 44.6 MCV 95.3 MCH 32.0 MCHC 33.6 RDW 12.6 Plt Count 478 H MPV 8.4 Sodium Potassium Chloride Carbon Dioxide Anion Gap BUN Creatinine Creat Clearance w eGFR POC Glucometer 177 Random Glucose Calcium Total Bilirubin AST ALT Alkaline Phosphatase Total Protein Albumin Urine Color Yellow Urine Appearance Clear Urine pH 5.0 Ur Specific [place] 1.024 Urine Protein Negative Urine Glucose (UA) 2+ H Urine Ketones Negative Urine Blood Negative Urine Nitrite Negative Urine Bilirubin Negative Urine Urobilinogen 2.0 Ur Leukocyte Esterase Negative RPR Titer Hepatitis C Antibody HIV 1&2 Antibody Screen HIV P24 Antigen 10/23/17 10/23/17 10/23/17 06:00 06:00 16:27 WBC RBC Hgb Hct MCV MCH MCHC RDW Plt Count MPV Sodium 140 Potassium 4.7 Chloride 102 Carbon Dioxide 28 Anion Gap 10 BUN 13 Creatinine 1.2 Creat Clearance w eGFR > 60 POC Glucometer 143 Random Glucose 148 H D Calcium 9.3 Total Bilirubin 0.4 AST 30 ALT 56 D Alkaline Phosphatase 112 Total Protein 8.0 Albumin 3.9 Urine Color Urine Appearance Urine pH Ur Specific [place] Urine Protein Urine Glucose (UA) Urine Ketones Urine Blood Urine Nitrite Urine Bilirubin Urine Urobilinogen Ur Leukocyte Esterase RPR Titer Nonreactive Hepatitis C Antibody HIV 1&2 Antibody Screen HIV P24 Antigen 10/24/17 10/24/17 10/25/17 05:22 16:06 05:21 WBC RBC Hgb Hct MCV MCH MCHC RDW Plt Count MPV Sodium Potassium Chloride Carbon Dioxide Anion Gap BUN Creatinine Creat Clearance w eGFR POC Glucometer 191 200 180 Random Glucose Calcium Total Bilirubin AST ALT Alkaline Phosphatase Total Protein Albumin Urine Color Urine Appearance Urine pH Ur Specific [place] Urine Protein Urine Glucose (UA) Urine Ketones Urine Blood Urine Nitrite Urine Bilirubin Urine Urobilinogen Ur Leukocyte Esterase RPR Titer Hepatitis C Antibody HIV 1&2 Antibody Screen HIV P24 Antigen 10/25/17 10/26/17 16:18 16:10 WBC RBC Hgb Hct MCV MCH MCHC RDW Plt Count MPV Sodium Potassium Chloride Carbon Dioxide Anion Gap BUN Creatinine Creat Clearance w eGFR POC Glucometer 197 170 Random Glucose Calcium Total Bilirubin AST ALT Alkaline Phosphatase Total Protein Albumin Urine Color Urine Appearance Urine pH Ur Specific [place] Urine Protein Urine Glucose (UA) Urine Ketones Urine Blood Urine Nitrite Urine Bilirubin Urine Urobilinogen Ur Leukocyte Esterase RPR Titer Hepatitis C Antibody HIV 1&2 Antibody Screen HIV P24 Antigen Labs noted Assessment: 10/26/17 16:33 Withdrawal symptoms Plan: Continue detox Encouraged to drink lots of water Discharge cancelled for today; discharge to [facility] rehab in AM; transportation to pick patient up in AM.
[2017-10-26] MEDS: CYCLOBENZAPRINE HCL 10 MG TABLET (FP) PO PRN (17:22)
[2017-10-26] MEDS: ZOLPIDEM TARTRATE 10 MG TABLET (PARK CARE ONLY) PO PRN (21:31)
[2017-10-26] MEDS: THIAMINE HCL 100 MG TABLET (FP) PO SCH (22:48)
[2017-10-27] MEDS: metFORMIN HCL 500 MG TABLET (FP) PO SCH (06:38)
[2017-10-27] MEDS: sitaGLIPtin PHOSPHATE 100 MG TABLET (FP) PO SCH (06:39)
[2017-10-27] MEDS: INSULIN SLIDING SCALE (NOVOLOG) 1 VIAL SQ SCH (06:40)
[2017-10-27 09:47] VITALS: BP 151/91; PULSE 87; TEMP 97
[2017-10-27] MEDS: cloNIDine HCL 0.1 MG TABLET PO SCH (10:51)
[2017-10-27] MEDS: ENALAPRIL MALEATE 10 MG TABLET (FP) PO SCH (10:51)
[2017-10-27] MEDS: PRENATAL VITAMINS W/ FOLIC ACID TABLET (FP) PO SCH (10:51)
[2017-10-27] MEDS: NICOTINE 14 MG/24 HOURS TOPICAL PATCH TD SCH (10:51)
[2017-10-27] MEDS: RANITIDINE HCL 150 MG TABLET (FP) PO SCH (10:52)
--- NOTE | 2017-10-27 11:52 | DS ---
[facility] Detox Discharge Summary Admission Date: 10/22/17 Discharge Date: 10/27/17 - History Present History: Alcohol Dependence, Cocaine Dependence Additional Comments: DETOX COMPLETED. ALERT O X 3. NAD. [facility]. INSTRUCTED PT TO FOLLOW UP WITH HIS PRIMARY CARE DOCTOR FOR MEDICAL MANAGEMENT NEEDED. Pertinent Past History: HEP C ASTHMA - Physical Exam Results Vital Signs: Vital Signs Temperature 97.0 F L 10/27/17 09:46 Pulse Rate 87 10/27/17 09:46 Respiratory Rate 18 10/27/17 09:46 Blood Pressure 151/91 10/27/17 09:46 O2 Sat by Pulse Oximetry (%) Pertinent Admission Physical Exam Findings: WITHDRAWAL SX Laboratory Last Values WBC 8.8 K/mm3 (4.0-10.0) 10/23/17 06:00 RBC 4.68 M/mm3 (4.00-5.60) 10/23/17 06:00 Hgb 15.0 GM/dL (11.7-16.9) 10/23/17 06:00 Hct 44.6 % (35.4-49) 10/23/17 06:00 MCV 95.3 fl (80-96) 10/23/17 06:00 MCH 32.0 pg (25.7-33.7) 10/23/17 06:00 MCHC 33.6 g/dl (32.0-35.9) 10/23/17 06:00 RDW 12.6 % (11.9-15.9) 10/23/17 06:00 Plt Count 478 K/MM3 (134-434) H 10/23/17 06:00 MPV 8.4 fl (7.5-11.1) 10/23/17 06:00 Sodium 140 mmol/L (136-145) 10/23/17 06:00 Potassium 4.7 mmol/L (3.5-5.1) 10/23/17 06:00 Chloride 102 mmol/L (98-107) 10/23/17 06:00 Carbon Dioxide 28 mmol/L (21-32) 10/23/17 06:00 Anion Gap 10 (8-16) 10/23/17 06:00 BUN 13 mg/dL (7-18) 10/23/17 06:00 Creatinine 1.2 mg/dL (0.7-1.3) 10/23/17 06:00 Creat Clearance w eGFR > 60 (>60) 10/23/17 06:00 POC Glucometer 232 UNITS (80-120) 10/27/17 05:44 Random Glucose 148 mg/dL (74-106) H D 10/23/17 06:00 Calcium 9.3 mg/dL (8.5-10.1) 10/23/17 06:00 Total Bilirubin 0.4 mg/dL (0.2-1.0) 10/23/17 06:00 AST 30 U/L (15-37) 10/23/17 06:00 ALT 56 U/L (12-78) D 10/23/17 06:00 Alkaline Phosphatase 112 U/L (45-117) 10/23/17 06:00 Total Protein 8.0 g/dl (6.4-8.2) 10/23/17 06:00 Albumin 3.9 g/dl (3.4-5.0) 10/23/17 06:00 Urine Color Yellow 10/22/17 21:00 Urine Appearance Clear 10/22/17 21:00 Urine pH 5.0 (5.0-8.0) 10/22/17 21:00 Ur Specific [place] 1.024 (1.001-1.035) 10/22/17 21:00 Urine Protein Negative (NEGATIVE) 10/22/17 21:00 Urine Glucose (UA) 2+ (NEGATIVE) H 10/22/17 21:00 Urine Ketones Negative (NEGATIVE) 10/22/17 21:00 Urine Blood Negative (NEGATIVE) 10/22/17 21:00 Urine Nitrite Negative (NEGATIVE) 10/22/17 21:00 Urine Bilirubin Negative (NEGATIVE) 10/22/17 21:00 Urine Urobilinogen 2.0 mg/dL (0.2-1.0) 10/22/17 21:00 Ur Leukocyte Esterase Negative (NEGATIVE) 10/22/17 21:00 RPR Titer Nonreactive (NONREACTIVE) 10/23/17 06:00 Hepatitis C Antibody <0.1 s/co ratio (0.0-0.9) 10/22/17 06:00 HIV 1&2 Antibody Screen Negative 10/22/17 06:00 HIV P24 Antigen Negative 10/22/17 06:00 - Treatment Hospital Course: Detox Protocol Followed, Detoxed Safely, Responded well, Discharged Condition Good, Rehab Referral Accepted Patient has Accepted a Rehab Referral to: [facility] - Medication Discharge Medications: Ambulatory Orders Metformin HCl [Glucophage] 1,000 mg PO BID 07/15/15 Sitagliptin Phosphate [Januvia] 100 mg PO DAILY 07/15/15 Zolpidem Tartrate [Ambien] 10 mg PO HS #14 tablet 07/17/15 Albuterol Sulfate Inhaler - [Ventolin HFA Inhaler -] 2 puff IH Q4H PRN 02/06/17 Budesonide/Formeterol Fumarate [SYMBICORT 160/4.5mcg -] 2 puff IH BID 02/06/17 Clonidine HCl 0.2 mg PO BID 02/06/17 Sertraline HCl [Zoloft -] 50 mg PO DAILY #30 tablet 02/06/17 Simvastatin [Zocor -] 40 mg PO HS 02/06/17 Enalapril Maleate [Vasotec -] 10 mg PO DAILY 10/22/17 - Diagnosis (1) Alcohol dependence with uncomplicated withdrawal Status: Acute (2) Nicotine dependence, uncomplicated Status: Acute Qualifiers: Nicotine product type: cigarettes Qualified Code(s): F17.210 - Nicotine dependence, cigarettes, uncomplicated (3) COPD (chronic obstructive pulmonary disease) Status: Chronic Qualifiers: COPD type: emphysema Emphysema type: unspecified Qualified Code(s): J43.9 - Emphysema, unspecified (4) GERD (gastroesophageal reflux disease) Status: Chronic Qualifiers: Esophagitis presence: without esophagitis Qualified Code(s): K21.9 - Gastro -esophageal reflux disease without esophagitis (5) HIV (human immunodeficiency virus infection) Status: Chronic (6) Hepatitis C Status: Chronic Qualifiers: Viral hepatitis chronicity: chronic (7) Hyperlipidemia Status: Chronic Qualifiers: Hyperlipidemia type: pure hypercholesterolemia Qualified Code(s): E78.00 - Pure hypercholesterolemia, unspecified; E78.0 - Pure hypercholesterolemia (8) Hypertension Status: Chronic Qualifiers: Hypertension type: essential hypertension Qualified Code(s): I10 - Essential (primary) hypertension (9) Type II diabetes mellitus Status: Chronic Qualifiers: Diabetes mellitus complication status: without complication Diabetes mellitus detention insulin use: without detention use Qualified Code(s): E11.9 - Type 2 diabetes mellitus without complications (10) Asthma Status: Chronic Qualifiers: Asthma severity: mild Asthma persistence: intermittent Asthma complication type: uncomplicated Qualified Code(s): J45.20 - Mild intermittent asthma, uncomplicated - AMA Did Patient Leave Against Medical Advice: No
== END 2017-10-27 11:47 | disposition home or self-care (01) | DRG 199 ==
LOC: YASAS 10:27 → Y3N 17:31
PROVIDERS: ADMIT Internal Medicine; ATTEND Internal Medicine
PROC: HZ2ZZZZ Detoxification Services for Substance Abuse Treatment (ICD-10-PCS; principal; 2017-10-22)
DX: I10 Essential (primary) hypertension (principal); Z21 Asymptomatic human immunodeficiency virus [HIV] infection status; E11.9 Type 2 diabetes mellitus without complications; E78.5 Hyperlipidemia, unspecified; B18.2 Chronic viral hepatitis C; G47.00 Insomnia, unspecified; J45.22 Mild intermittent asthma with status asthmaticus; J43.9 Emphysema, unspecified; K21.9 Gastro-esophageal reflux disease without esophagitis; E66.9 Obesity, unspecified; Z68.31 Body mass index [BMI] 31.0-31.9, adult; R00.0 Tachycardia, unspecified; Z79.84 Long term (current) use of oral hypoglycemic drugs
CPT/HCPCS: 36415; 80053; 81003; 82962; 85027; 86593; 86803; 87389; 93005; 93010; J0735

== ENCOUNTER 2017-12-11 12:33 | Inpatient (IN) | payer OTHER ==
[2017-12-11 16:54] VITALS: BMI 32.5
[2017-12-11] MEDS ORDERED: ALBUTEROL SO4 18 GM HFA INHALER IH PRN (18:20)
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
[2017-12-11] MEDS ORDERED: MAGNESIUM CITRATE 300 ML BOTTLE PO PRN (18:33)
[2017-12-11] MEDS ORDERED: MAG HYDROX/AL HYDROX/SIMETH 30 ML UNIT-DOSE CUP PO PRN (18:33)
[2017-12-11] MEDS ORDERED: IBUPROFEN 400 MG TABLET (FP) PO PRN (18:33)
[2017-12-11] MEDS ORDERED: hydrOXYzine PAMOATE 50 MG CAPSULE (FP) PO PRN (18:33)
[2017-12-11] MEDS ORDERED: MAGNESIUM HYDROX 2400MG/30ML ORAL SUSPENSION 30 ML CUP PO PRN (18:33)
[2017-12-11] MEDS ORDERED: P-EPHED 60MG/TRIPROLIDI 2.5MG TABLET PO PRN (18:33)
[2017-12-11] MEDS ORDERED: NICOTINE POLACRILEX 2 MG GUM BC PRN (18:33)
[2017-12-11] MEDS ORDERED: chlordiazePOXIDE HCL 25 MG CAPSULE PO ONE (18:33)
[2017-12-11] MEDS ORDERED: guaiFENesin/D-METHORPHAN HB 10 ML UNIT-DOSE CUPS PO PRN (18:33)
[2017-12-11] MEDS ORDERED: LOPERAMIDE HCL 2 MG CAPSULE PO PRN (18:33)
[2017-12-11] MEDS ORDERED: MENTHOL/PHENOL 1 EACH UD MM PRN (18:33)
[2017-12-11] MEDS ORDERED: chlordiazePOXIDE HCL 25 MG CAPSULE PO PRN (18:33)
[2017-12-11] MEDS ORDERED: CYCLOBENZAPRINE HCL 10 MG TABLET (FP) PO PRN (18:39)
[2017-12-11] MEDS: ENALAPRIL MALEATE 10 MG TABLET (FP) PO SCH (19:40)
[2017-12-11 21:06] LABS: URINE APPEARANCE SLCLOUDY; URINE BILIRUBIN NEGATIVE (NEGATIVE); URINE BLOOD NEGATIVE (NEGATIVE); URINE COLOR AMBER; URINE GLUCOSE (UA) 1+ (NEGATIVE); URINE KETONE TRACE (NEGATIVE); URINE LEUK ESTERASE TRACE (NEGATIVE); URINE NITRITE NEGATIVE (NEGATIVE); URINE PROTEIN 1+ (NEGATIVE); URINE UROBILINOGEN 4.0 E.U/dl mg/dL (0.2-1.0)
[2017-12-11 21:10] LABS: EPI CELLS RARE /HPF (FEW); URINE HYALINE CAST 12 /lpf; URINE MUCUS MANY
--- NOTE | 2017-12-11 21:49 | PN ---
S Progress Note Note: Patient evaluate for abnormal ekg. Patient AOx 3, in no apparent distress. Patient denies chest pain, SOB, dyspnea, vertigo or parenthesis. HR and Rythmn within normal limits No adventitious breath sounds Skin integrity intact, no cyanosis Increase fluids repeat EKG Continue to monitor
[2017-12-11] MEDS: THIAMINE HCL 100 MG TABLET (FP) PO SCH (22:33)
[2017-12-11] MEDS: ACETAMINOPHEN 325 MG TABLET (FP) PO PRN (22:33)
[2017-12-11] MEDS: cloNIDine HCL 0.1 MG TABLET PO SCH (22:33)
[2017-12-11] MEDS: chlordiazePOXIDE HCL 25 MG CAPSULE PO SCH (22:33)
[2017-12-11] MEDS: BUDESONIDE/FORMETEROL FUMARATE 160/4.5 mcg INHALER IH SCH (22:47)
[2017-12-12] MEDS: chlordiazePOXIDE HCL 25 MG CAPSULE PO SCH ×4 (05:11→22:25)
[2017-12-12] MEDS: ACETAMINOPHEN 325 MG TABLET (FP) PO PRN ×2 (05:14→17:07)
[2017-12-12] MEDS: metFORMIN HCL 500 MG TABLET (FP) PO SCH ×2 (06:33→17:05)
[2017-12-12] MEDS: sitaGLIPtin PHOSPHATE 100 MG TABLET (FP) PO SCH (06:34)
--- NOTE | 2017-12-12 08:43 | EKG ---
Test Reason : Blood Pressure : / mmHG Vent. Rate : 102 BPM Atrial Rate : 102 BPM P-R Int : 158 ms QRS Dur : 088 ms QT Int : 342 ms P-R-T Axes : 000 090 167 degrees QTc Int : 445 ms SINUS TACHYCARDIA LATERAL INFARCT , AGE UNDETERMINED ABNORMAL ECG WHEN COMPARED WITH ECG OF 22-OCT-2017 19:39, LATERAL INFARCT IS NOW PRESENT T WAVE INVERSION NOW EVIDENT IN LATERAL LEADS Confirmed by LYDIA POSADAS, KRISTA ([id number]) on 12/12/2017 8:43:09 AM Referred By: Confirmed By:KRISTA FREEMAN MD
[2017-12-12] MEDS ORDERED: CYCLOBENZAPRINE HCL 5 MG TABLET PO PRN (09:18)
[2017-12-12] MEDS: cloNIDine HCL 0.1 MG TABLET PO SCH ×2 (10:07→22:25)
[2017-12-12] MEDS: ENALAPRIL MALEATE 10 MG TABLET (FP) PO SCH (10:07)
[2017-12-12] MEDS: PANTOPRAZOLE 40 MG TABLET (FP) PO SCH (10:07)
[2017-12-12] MEDS: SERTRALINE HCL 50 MG TABLET (FP) PO SCH (10:07)
[2017-12-12] MEDS: PRENATAL VITAMINS W/ FOLIC ACID TABLET (FP) PO SCH (10:08)
[2017-12-12] MEDS: NICOTINE 14 MG/24 HOURS TOPICAL PATCH TD SCH (10:10)
[2017-12-12 10:32] LABS: ANION GAP 13 (8-16); BLOOD UREA NITROGEN 14 mg/dL (7-18); CALCIUM 9.8 mg/dL (8.5-10.1); CHLORIDE 99 mmol/L (98-107); CO2 27 mmol/L (21-32); CREATININE 1.2 mg/dL (0.7-1.3); GLUCOSE,RANDOM 290 mg/dL (74-106); POTASSIUM 4.2 mmol/L (3.5-5.1); SGOT/AST 28 U/L (15-37); SGPT/ALT 44 U/L (12-78); SODIUM 139 mmol/L (136-145)
[2017-12-12 10:34] LABS: ALK PHOS 110 U/L (45-117); BILIRUBIN,TOTAL 0.5 mg/dL (0.2-1.0); TOT PROT 7.9 g/dl (6.4-8.2)
[2017-12-12 10:38] LABS: HEMATOCRIT 41.5 % (35.4-49); HEMOGLOBIN 14.3 GM/dL (11.7-16.9); MCH 32.9 pg (25.7-33.7); MCHC 34.5 g/dl (32.0-35.9); MEAN CELL VOLUME 95.2 fl (80-96); PLATELET COUNT 418 K/MM3 (134-434); RBC 4.36 M/mm3 (4.00-5.60); RDW 13.5 % (11.9-15.9); WHITE BLOOD COUNT 7.8 K/mm3 (4.0-10.0)
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
[2017-12-12] MEDS: BUDESONIDE/FORMETEROL FUMARATE 160/4.5 mcg INHALER IH SCH ×2 (11:02→22:27)
--- NOTE | 2017-12-12 11:50 | PN ---
S CIWA - CIWA Score Nausea/Vomitin Muscle Tremors: 3 Anxiety: 3 Agitation: 2 Paroxysmal Sweats: 3 Orientation: 0-Oriented Tacttile Disturbances: 2-Mild Itch/Numbness/Burn Auditory Disturbances: 0-None Visual Disturbances: 0-None Headache: 0-None Present CIWA-Ar Total Score: 15 S Progress Note (SOAP) Subjective: interrupted sleep, sweats, lbp, OS driness Objective: 12/12/17 11:51 Vital Signs Temperature 97.5 F L 12/12/17 09:41 Pulse Rate 87 12/12/17 09:41 Respiratory Rate 20 12/12/17 09:41 Blood Pressure 140/76 12/12/17 09:41 O2 Sat by Pulse Oximetry (%) Laboratory Last Values WBC 7.8 K/mm3 (4.0-10.0) 12/12/17 05:50 RBC 4.36 M/mm3 (4.00-5.60) 12/12/17 05:50 Hgb 14.3 GM/dL (11.7-16.9) 12/12/17 05:50 Hct 41.5 % (35.4-49) 12/12/17 05:50 MCV 95.2 fl (80-96) 12/12/17 05:50 MCH 32.9 pg (25.7-33.7) 12/12/17 05:50 MCHC 34.5 g/dl (32.0-35.9) 12/12/17 05:50 RDW 13.5 % (11.9-15.9) 12/12/17 05:50 Plt Count 418 K/MM3 (134-434) 12/12/17 05:50 MPV 9.0 fl (7.5-11.1) 12/12/17 05:50 Sodium 139 mmol/L (136-145) 12/12/17 05:50 Potassium 4.2 mmol/L (3.5-5.1) 12/12/17 05:50 Chloride 99 mmol/L (98-107) 12/12/17 05:50 Carbon Dioxide 27 mmol/L (21-32) 12/12/17 05:50 Anion Gap 13 (8-16) 12/12/17 05:50 BUN 14 mg/dL (7-18) 12/12/17 05:50 Creatinine 1.2 mg/dL (0.7-1.3) 12/12/17 05:50 Creat Clearance w eGFR > 60 (>60) 12/12/17 05:50 POC Glucometer 278 UNITS (80-120) 12/12/17 05:10 Random Glucose 290 mg/dL (74-106) H D 12/12/17 05:50 Calcium 9.8 mg/dL (8.5-10.1) 12/12/17 05:50 Total Bilirubin 0.5 mg/dL (0.2-1.0) D 12/12/17 05:50 AST 28 U/L (15-37) 12/12/17 05:50 ALT 44 U/L (12-78) D 12/12/17 05:50 Alkaline Phosphatase 110 U/L (45-117) 12/12/17 05:50 Total Protein 7.9 g/dl (6.4-8.2) 12/12/17 05:50 Albumin 4.0 g/dl (3.4-5.0) 12/12/17 05:50 Urine Color Mar 12/11/17 18:40 Urine Appearance Slcloudy 12/11/17 18:40 Urine pH 5.0 (5.0-8.0) 12/11/17 18:40 Ur Specific [place] 1.025 (1.001-1.035) 12/11/17 18:40 Urine Protein 1+ (NEGATIVE) H 12/11/17 18:40 Urine Glucose (UA) 1+ (NEGATIVE) H 12/11/17 18:40 Urine Ketones Trace (NEGATIVE) H 12/11/17 18:40 Urine Blood Negative (NEGATIVE) 12/11/17 18:40 Urine Nitrite Negative (NEGATIVE) 12/11/17 18:40 Urine Bilirubin Negative (NEGATIVE) 12/11/17 18:40 Urine Urobilinogen 4.0 e.u/dl mg/dL (0.2-1.0) 12/11/17 18:40 Ur Leukocyte Esterase Trace (NEGATIVE) 12/11/17 18:40 Urine WBC (Auto) 13 /hpf (3-5) 12/11/17 18:40 Urine RBC (Auto) 1 /hpf (0-3) 12/11/17 18:40 Ur Epithelial Cells Rare /HPF (FEW) 12/11/17 18:40 Hyaline Casts 12 /lpf 12/11/17 18:40 Urine Mucus Many 12/11/17 18:40 RPR Titer Nonreactive (NONREACTIVE) 12/12/17 05:50 pt aox3 in nad , lying in bed os bells palsy Assessment: 12/12/17 11:52 withdrawal sx's dm bells palsy OS with eye driness leucocytes in U/A 12/12/17 11:54 Plan: cont detox increase fluids artifical tears repeat u/a monitor bgm cover age with insulin sliding scale.
[2017-12-12] MEDS ORDERED: ARTIFICIAL TEARS (POLYVINYL ALCOHOL 1.4%) OPTH DROPS OU PRN (11:59)
--- NOTE | 2017-12-12 15:40 | EKG ---
Test Reason : Blood Pressure : / mmHG Vent. Rate : 089 BPM Atrial Rate : 089 BPM P-R Int : 160 ms QRS Dur : 092 ms QT Int : 394 ms P-R-T Axes : 052 085 066 degrees QTc Int : 479 ms NORMAL SINUS RHYTHM NONSPECIFIC ST ABNORMALITY ABNORMAL ECG WHEN COMPARED WITH ECG OF 11-DEC-2017 19:44, T WAVE INVERSION NO LONGER EVIDENT IN INFERIOR LEADS Confirmed by LYDIA POSADAS, KRISTA ([id number]) on 12/12/2017 3:39:56 PM Referred By: Confirmed By:KRISTA FREEMAN MD
[2017-12-12] MEDS: THIAMINE HCL 100 MG TABLET (FP) PO SCH (22:25)
[2017-12-12] MEDS: ZOLPIDEM TARTRATE 10 MG TABLET (PARK CARE ONLY) PO PRN (22:25)
[2017-12-13] MEDS: ACETAMINOPHEN 325 MG TABLET (FP) PO PRN ×2 (05:26→18:15)
[2017-12-13] MEDS: chlordiazePOXIDE HCL 25 MG CAPSULE PO SCH ×3 (05:26→17:00)
[2017-12-13] MEDS: sitaGLIPtin PHOSPHATE 100 MG TABLET (FP) PO SCH (06:44)
[2017-12-13] MEDS: metFORMIN HCL 500 MG TABLET (FP) PO SCH ×2 (06:45→16:59)
[2017-12-13] MEDS: BUDESONIDE/FORMETEROL FUMARATE 160/4.5 mcg INHALER IH SCH ×2 (10:53→22:06)
[2017-12-13] MEDS: PANTOPRAZOLE 40 MG TABLET (FP) PO SCH (10:53)
[2017-12-13] MEDS: SERTRALINE HCL 50 MG TABLET (FP) PO SCH (10:53)
[2017-12-13] MEDS: cloNIDine HCL 0.1 MG TABLET PO SCH ×2 (10:53→22:06)
[2017-12-13] MEDS: PRENATAL VITAMINS W/ FOLIC ACID TABLET (FP) PO SCH (10:53)
[2017-12-13] MEDS: ENALAPRIL MALEATE 10 MG TABLET (FP) PO SCH (10:53)
[2017-12-13] MEDS: NICOTINE 14 MG/24 HOURS TOPICAL PATCH TD SCH (10:54)
--- NOTE | 2017-12-13 15:37 | PN ---
S CIWA - CIWA Score Nausea/Vomitin Muscle Tremors: 3 Anxiety: 5 Agitation: 5 Paroxysmal Sweats: 2 Orientation: 0-Oriented Tacttile Disturbances: 0-None Auditory Disturbances: 0-None Visual Disturbances: 0-None Headache: 0-None Present CIWA-Ar Total Score: 17 BHS Progress Note (SOAP) Subjective: Shakes sleep disturbance Objective: 12/13/17 15:36 A & O x3 agitated no acute distress noted Vital Signs Temperature 97.2 F L 12/13/17 14:28 Pulse Rate 89 12/13/17 14:28 Respiratory Rate 20 12/13/17 14:28 Blood Pressure 130/62 12/13/17 14:28 O2 Sat by Pulse Oximetry (%) Assessment: 12/13/17 15:38 withdrawal sx Plan: continue detox continue increase hydration
[2017-12-13] MEDS: THIAMINE HCL 100 MG TABLET (FP) PO SCH (22:06)
[2017-12-13] MEDS: chlordiazePOXIDE 5 MG CAPSULE PO SCH (22:07)
[2017-12-14] MEDS: chlordiazePOXIDE 5 MG CAPSULE PO SCH ×3 (05:58→18:14)
[2017-12-14] MEDS: ACETAMINOPHEN 325 MG TABLET (FP) PO PRN ×2 (05:59→18:18)
[2017-12-14] MEDS: sitaGLIPtin PHOSPHATE 100 MG TABLET (FP) PO SCH (07:26)
[2017-12-14] MEDS: metFORMIN HCL 500 MG TABLET (FP) PO SCH ×2 (07:26→18:14)
[2017-12-14] MEDS: cloNIDine HCL 0.1 MG TABLET PO SCH ×2 (09:43→22:21)
[2017-12-14] MEDS: SERTRALINE HCL 50 MG TABLET (FP) PO SCH (09:44)
[2017-12-14] MEDS: PRENATAL VITAMINS W/ FOLIC ACID TABLET (FP) PO SCH (09:44)
[2017-12-14] MEDS: PANTOPRAZOLE 40 MG TABLET (FP) PO SCH (09:44)
[2017-12-14] MEDS: ENALAPRIL MALEATE 10 MG TABLET (FP) PO SCH (09:44)
[2017-12-14] MEDS: BUDESONIDE/FORMETEROL FUMARATE 160/4.5 mcg INHALER IH SCH ×2 (09:44→22:21)
[2017-12-14] MEDS: NICOTINE 14 MG/24 HOURS TOPICAL PATCH TD SCH (10:21)
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
[2017-12-14] MEDS: chlordiazePOXIDE HCL 10 MG CAPSULE PO SCH (22:21)
[2017-12-14] MEDS: THIAMINE HCL 100 MG TABLET (FP) PO SCH (22:21)
[2017-12-14] MEDS: ZOLPIDEM TARTRATE 10 MG TABLET (PARK CARE ONLY) PO PRN (22:23)
[2017-12-15] MEDS ORDERED: ACETAMINOPHEN 325 MG TABLET (FP) PO ONE (05:46)
[2017-12-15] MEDS: chlordiazePOXIDE HCL 10 MG CAPSULE PO SCH ×2 (06:00→10:16)
[2017-12-15] MEDS: metFORMIN HCL 500 MG TABLET (FP) PO SCH (06:26)
[2017-12-15] MEDS: sitaGLIPtin PHOSPHATE 100 MG TABLET (FP) PO SCH (06:27)
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
--- NOTE | 2017-12-15 09:18 | DS ---
[facility] Detox Discharge Summary Admission Date: 12/11/17 Discharge Date: 12/15/17 - History Present History: Alcohol Dependence - Physical Exam Results Vital Signs: Vital Signs Temperature 97.9 F 12/15/17 05:33 Pulse Rate 72 12/15/17 05:33 Respiratory Rate 18 12/15/17 06:30 Blood Pressure 158/98 12/15/17 05:33 O2 Sat by Pulse Oximetry (%) Pertinent Admission Physical Exam Findings: withdrawal sx Vital Signs Temperature 97.9 F 12/15/17 05:33 Pulse Rate 72 12/15/17 05:33 Respiratory Rate 18 12/15/17 06:30 Blood Pressure 158/98 12/15/17 05:33 O2 Sat by Pulse Oximetry (%) prior to 10 am antihypertensant Laboratory Last Values WBC 7.8 K/mm3 (4.0-10.0) 12/12/17 05:50 RBC 4.36 M/mm3 (4.00-5.60) 12/12/17 05:50 Hgb 14.3 GM/dL (11.7-16.9) 12/12/17 05:50 Hct 41.5 % (35.4-49) 12/12/17 05:50 MCV 95.2 fl (80-96) 12/12/17 05:50 MCH 32.9 pg (25.7-33.7) 12/12/17 05:50 MCHC 34.5 g/dl (32.0-35.9) 12/12/17 05:50 RDW 13.5 % (11.9-15.9) 12/12/17 05:50 Plt Count 418 K/MM3 (134-434) 12/12/17 05:50 MPV 9.0 fl (7.5-11.1) 12/12/17 05:50 Sodium 139 mmol/L (136-145) 12/12/17 05:50 Potassium 4.2 mmol/L (3.5-5.1) 12/12/17 05:50 Chloride 99 mmol/L (98-107) 12/12/17 05:50 Carbon Dioxide 27 mmol/L (21-32) 12/12/17 05:50 Anion Gap 13 (8-16) 12/12/17 05:50 BUN 14 mg/dL (7-18) 12/12/17 05:50 Creatinine 1.2 mg/dL (0.7-1.3) 12/12/17 05:50 Creat Clearance w eGFR > 60 (>60) 12/12/17 05:50 POC Glucometer 196 UNITS (80-120) 12/14/17 05:57 Random Glucose 290 mg/dL (74-106) H D 12/12/17 05:50 Calcium 9.8 mg/dL (8.5-10.1) 12/12/17 05:50 Total Bilirubin 0.5 mg/dL (0.2-1.0) D 12/12/17 05:50 AST 28 U/L (15-37) 12/12/17 05:50 ALT 44 U/L (12-78) D 12/12/17 05:50 Alkaline Phosphatase 110 U/L (45-117) 12/12/17 05:50 Total Protein 7.9 g/dl (6.4-8.2) 12/12/17 05:50 Albumin 4.0 g/dl (3.4-5.0) 12/12/17 05:50 Urine Color Mar 12/11/17 18:40 Urine Appearance Slcloudy 12/11/17 18:40 Urine pH 5.0 (5.0-8.0) 12/11/17 18:40 Ur Specific [place] 1.025 (1.001-1.035) 12/11/17 18:40 Urine Protein 1+ (NEGATIVE) H 12/11/17 18:40 Urine Glucose (UA) 1+ (NEGATIVE) H 12/11/17 18:40 Urine Ketones Trace (NEGATIVE) H 12/11/17 18:40 Urine Blood Negative (NEGATIVE) 12/11/17 18:40 Urine Nitrite Negative (NEGATIVE) 12/11/17 18:40 Urine Bilirubin Negative (NEGATIVE) 12/11/17 18:40 Urine Urobilinogen 4.0 e.u/dl mg/dL (0.2-1.0) 12/11/17 18:40 Ur Leukocyte Esterase Trace (NEGATIVE) 12/11/17 18:40 Urine WBC (Auto) 13 /hpf (3-5) 12/11/17 18:40 Urine RBC (Auto) 1 /hpf (0-3) 12/11/17 18:40 Ur Epithelial Cells Rare /HPF (FEW) 12/11/17 18:40 Hyaline Casts 12 /lpf 12/11/17 18:40 Urine Mucus Many 12/11/17 18:40 RPR Titer Nonreactive (NONREACTIVE) 12/12/17 05:50 lab noted - Treatment Hospital Course: Detox Protocol Followed, Detoxed Safely, Responded well, Discharged Condition Good, Rehab Referral Accepted Patient has Accepted a Rehab Referral to: [facility] in patient rehab - Medication Discharge Medications: Ambulatory Orders Sitagliptin Phosphate [Januvia] 100 mg PO DAILY 07/15/15 Zolpidem Tartrate [Ambien] 10 mg PO HS #14 tablet 07/17/15 Sertraline HCl [Zoloft -] 50 mg PO DAILY #30 tablet 02/06/17 Chlordiazepoxide [Librium -] 20 mg PO Q6HPO 12/14/17 Mag Hydrox/Al Hydrox/Simeth [Mylanta Oral Suspension -] 30 ml PO DAILY 12/14/17 Thiamine HCl 100 mg PO HS 12/14/17 Albuterol Sulfate Inhaler - [Ventolin HFA Inhaler -] 2 puff IH Q4H PRN #1 inhaler 12/15/17 Budesonide/Formeterol Fumarate [SYMBICORT 160/4.5mcg -] 2 puff IH BID #1 inhaler 12/15/17 Clonidine HCl 0.2 mg PO BID #60 tablet 12/15/17 Enalapril Maleate [Vasotec -] 10 mg PO DAILY #30 tablet 12/15/17 Metformin HCl [Glucophage] 1,000 mg PO BID #60 tablet 12/15/17 Pantoprazole Sodium 40 mg PO DAILY #14 tablet. 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 (4) HIV (human immunodeficiency virus infection) Current Visit: Yes Status: Chronic (5) Hepatitis C Current Visit: Yes Status: Resolved Qualifiers: Viral hepatitis chronicity: chronic Hepatic coma status: without hepatic coma Qualified Code(s): B18.2 - Chronic viral hepatitis C (6) Hypertension Current Visit: Yes Status: Chronic Qualifiers: Hypertension type: essential hypertension Qualified Code(s): I10 - Essential (primary) hypertension (7) Type II diabetes mellitus Current Visit: Yes Status: Chronic Qualifiers: Diabetes mellitus senior living insulin use: without terminal carman use Diabetes mellitus complication status: without complication Qualified Code(s): E11.9 - Type 2 diabetes mellitus without complications (8) Asthma Current Visit: Yes Status: Chronic Qualifiers: Asthma severity: mild Asthma persistence: intermittent Asthma complication type: uncomplicated Qualified Code(s): J45.20 - Mild intermittent asthma, uncomplicated (9) COPD (chronic obstructive pulmonary disease) Current Visit: Yes Status: Chronic Qualifiers: COPD type: emphysema Emphysema type: unspecified Qualified Code(s): J43.9 - Emphysema, unspecified - AMA Did Patient Leave Against Medical Advice: No
[2017-12-15] MEDS: PANTOPRAZOLE 40 MG TABLET (FP) PO SCH (10:16)
[2017-12-15] MEDS: PRENATAL VITAMINS W/ FOLIC ACID TABLET (FP) PO SCH (10:16)
[2017-12-15] MEDS: cloNIDine HCL 0.1 MG TABLET PO SCH (10:16)
[2017-12-15] MEDS: BUDESONIDE/FORMETEROL FUMARATE 160/4.5 mcg INHALER IH SCH (10:16)
[2017-12-15] MEDS: ENALAPRIL MALEATE 10 MG TABLET (FP) PO SCH (10:16)
[2017-12-15] MEDS: SERTRALINE HCL 50 MG TABLET (FP) PO SCH (10:16)
[2017-12-15] MEDS: NICOTINE 14 MG/24 HOURS TOPICAL PATCH TD SCH (10:38)
[2017-12-15 12:48] VITALS: BP 142/80; PULSE 74; TEMP 96.7
== END 2017-12-15 13:12 | disposition other institution (70) | DRG 774 ==
LOC: YASAS 12:33 → Y6N 17:55
PROVIDERS: ADMIT Internal Medicine; ATTEND Internal Medicine
PROC: HZ2ZZZZ Detoxification Services for Substance Abuse Treatment (ICD-10-PCS; principal; 2017-12-11)
DX: F10.230 Alcohol dependence with withdrawal, uncomplicated (principal); F14.20 Cocaine dependence, uncomplicated; F17.210 Nicotine dependence, cigarettes, uncomplicated; F34.1 Dysthymic disorder; F39 Unspecified mood [affective] disorder; G47.00 Insomnia, unspecified; K21.9 Gastro-esophageal reflux disease without esophagitis; Z21 Asymptomatic human immunodeficiency virus [HIV] infection status; G51.0 Bell's palsy; B18.2 Chronic viral hepatitis C; I10 Essential (primary) hypertension; E11.9 Type 2 diabetes mellitus without complications; E78.5 Hyperlipidemia, unspecified; J45.20 Mild intermittent asthma, uncomplicated; J43.9 Emphysema, unspecified; M54.5 Low back pain; M79.672 Pain in left foot; M25.512 Pain in left shoulder; R25.1 Tremor, unspecified; R94.31 Abnormal electrocardiogram [ECG] [EKG]; D72.829 Elevated white blood cell count, unspecified; S09.90XA Unspecified injury of head, initial encounter; S01.531A Puncture wound without foreign body of lip, initial encounter; Y04.0XXA Assault by unarmed brawl or fight, initial encounter; Y93.9 Activity, unspecified; Y92.239 Unspecified place in hospital as the place of occurrence of the external cause; Z79.84 Long term (current) use of oral hypoglycemic drugs
CPT/HCPCS: 36415; 80053; 81003; 81015; 82962; 85027; 86593; 93005; 93010; J0735

== ENCOUNTER 2017-12-14 10:18 | Emergency (ER) | payer OTHER ==
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
[2017-12-14 10:46] VITALS: BP 155/91; PULSE 80; TEMP 98; BMI 32.5
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
[2017-12-14] MEDS ORDERED: chlordiazePOXIDE 5 MG CAPSULE PO ONE (11:00)
[2017-12-14 11:22] LABS: BASO % 1.2 % (0-2.0); EOS % 1.4 % (0-4.5); HEMATOCRIT 36.7 % (35.4-49); HEMOGLOBIN 12.8 GM/dL (11.7-16.9); LYMPH % 26.2 % (8-40); MCH 32.7 pg (25.7-33.7); MCHC 34.8 g/dl (32.0-35.9); MEAN CELL VOLUME 93.9 fl (80-96); MEAN PLT VOLUME 7.9 fl (7.5-11.1); MONO % 7.9 % (3.8-10.2); NEUT % 63.3 % (42.8-82.8); PLATELET COUNT 392 K/MM3 (134-434); RDW 13.2 % (11.9-15.9); WHITE BLOOD COUNT 7.4 K/mm3 (4.0-10.0)
[2017-12-14 11:23] LABS: URINE APPEARANCE CLEAR; URINE BILIRUBIN NEGATIVE (NEGATIVE); URINE BLOOD NEGATIVE (NEGATIVE); URINE COLOR YELLOW; URINE GLUCOSE (UA) 1+ (NEGATIVE); URINE KETONE NEGATIVE (NEGATIVE); URINE LEUK ESTERASE NEGATIVE (NEGATIVE); URINE NITRITE NEGATIVE (NEGATIVE); URINE PROTEIN NEGATIVE (NEGATIVE)
[2017-12-14] MEDS ORDERED: chlordiazePOXIDE 5 MG CAPSULE ONE (11:27)
[2017-12-14 11:48] LABS: ALBUMIN 3.4 g/dl (3.4-5.0); ANION GAP 7 (8-16); BILIRUBIN,TOTAL 0.3 mg/dL (0.2-1.0); BLOOD UREA NITROGEN 10 mg/dL (7-18); CALCIUM 8.3 mg/dL (8.5-10.1); CHLORIDE 107 mmol/L (98-107); CO2 26 mmol/L (21-32); GLUCOSE,RANDOM 203 mg/dL (74-106); POTASSIUM 4.1 mmol/L (3.5-5.1); SGOT/AST 15 U/L (15-37); SGPT/ALT 32 U/L (12-78); SODIUM 140 mmol/L (136-145); TOT PROT 6.5 g/dl (6.4-8.2)
[2017-12-14 11:49] LABS: ALK PHOS 93 U/L (45-117)
== END 2017-12-14 18:01 | disposition home or self-care (01) ==
LOC: JER 10:18
DX: S09.8XXA Other specified injuries of head, initial encounter (principal); Y04.2XXA Assault by strike against or bumped into by another person, initial encounter; Y93.89 Activity, other specified; Y92.238 Other place in hospital as the place of occurrence of the external cause; I10 Essential (primary) hypertension; E11.9 Type 2 diabetes mellitus without complications; Z79.84 Long term (current) use of oral hypoglycemic drugs; E78.00 Pure hypercholesterolemia, unspecified; J44.9 Chronic obstructive pulmonary disease, unspecified; G51.0 Bell's palsy; F10.20 Alcohol dependence, uncomplicated; F14.20 Cocaine dependence, uncomplicated; F17.210 Nicotine dependence, cigarettes, uncomplicated
CPT/HCPCS: 36415; 70450-TC; 76700-TC; 80053; 81003; 82962; 85025; 99283-25

== ENCOUNTER 2017-12-15 13:11 | Inpatient (IN) | payer OTHER ==
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
[2017-12-15] MEDS ORDERED: MAGNESIUM HYDROX 2400MG/30ML ORAL SUSPENSION 30 ML CUP PO PRN (14:38)
[2017-12-15] MEDS ORDERED: MAGNESIUM CITRATE 300 ML BOTTLE PO PRN (14:38)
[2017-12-15] MEDS ORDERED: MENTHOL/PHENOL 1 EACH UD MM PRN (14:38)
[2017-12-15] MEDS ORDERED: NICOTINE 14 MG/24 HOURS TOPICAL PATCH TD PRN (14:38)
[2017-12-15] MEDS ORDERED: ALBUTEROL SO4 18 GM HFA INHALER IH PRN (14:38)
[2017-12-15] MEDS ORDERED: LOPERAMIDE HCL 2 MG CAPSULE PO PRN (14:38)
[2017-12-15] MEDS ORDERED: IBUPROFEN 400 MG TABLET (FP) PO PRN (14:38)
[2017-12-15] MEDS ORDERED: NICOTINE POLACRILEX 2 MG GUM BUC PRN (14:38)
[2017-12-15] MEDS ORDERED: P-EPHED 60MG/TRIPROLIDI 2.5MG TABLET PO PRN (14:38)
[2017-12-15] MEDS ORDERED: guaiFENesin/D-METHORPHAN HB 10 ML UNIT-DOSE CUPS PO PRN (14:38)
--- NOTE | 2017-12-15 14:42 | HP ---
[facility] Rehab Assess/Revision - Admission History Admitted to Rehab from: [facility] [place] Date of Admission to Rehab: 12/15/17 - Findings Detox History & Physical reviewed: Yes Concur with findings: Yes Comments/Additional Findings: transferred from detox to rehab admission as per protocol Inpatient Rehab Admission - Initial Determination Are CD services needed?: Yes Free of communicable disease: Yes Not in need of hospitalization: Yes - Rehab Admission Criteria Previous failed treatment: Yes Poor recovery environment: Yes Comorbidities: Yes Lacks judgement: No Patient is meeting Inpatient Rehab admission criteria:: Yes
[2017-12-15] MEDS: metFORMIN HCL 500 MG TABLET (FP) PO SCH (16:54)
[2017-12-15] MEDS: ACETAMINOPHEN 325 MG TABLET (FP) PO PRN ×2 (16:55→21:28)
[2017-12-15] MEDS: THIAMINE HCL 100 MG TABLET (FP) PO SCH (21:25)
[2017-12-15] MEDS: ATORVASTATIN CA 20 MG TABLET (FP) PO SCH (21:25)
[2017-12-15] MEDS: CYCLOBENZAPRINE HCL 10 MG TABLET (FP) PO SCH (21:26)
[2017-12-15] MEDS: BUDESONIDE/FORMETEROL FUMARATE 160/4.5 mcg INHALER IH SCH (21:47)
[2017-12-15] MEDS: cloNIDine HCL 0.1 MG TABLET PO SCH (21:48)
[2017-12-15] MEDS ORDERED: cloNIDine HCL 0.1 MG TABLET PO SCH (22:00)
[2017-12-15] MEDS ORDERED: SUVOREXANT 10 MG TABLET PO PRN (22:00)
[2017-12-16] MEDS: CYCLOBENZAPRINE HCL 10 MG TABLET (FP) PO SCH ×3 (06:33→22:12)
[2017-12-16] MEDS: ACETAMINOPHEN 325 MG TABLET (FP) PO PRN (06:34)
[2017-12-16] MEDS: metFORMIN HCL 500 MG TABLET (FP) PO SCH ×2 (07:09→16:55)
[2017-12-16] MEDS: sitaGLIPtin PHOSPHATE 100 MG TABLET (FP) PO SCH (07:09)
[2017-12-16] MEDS: PANTOPRAZOLE 40 MG TABLET (FP) PO SCH (10:14)
[2017-12-16] MEDS: ENALAPRIL MALEATE 10 MG TABLET (FP) PO SCH (10:14)
[2017-12-16] MEDS: PRENATAL VITAMINS W/ FOLIC ACID TABLET (FP) PO SCH (10:14)
[2017-12-16] MEDS: cloNIDine HCL 0.1 MG TABLET PO SCH ×2 (10:14→22:12)
[2017-12-16] MEDS: BUDESONIDE/FORMETEROL FUMARATE 160/4.5 mcg INHALER IH SCH ×2 (10:15→22:13)
[2017-12-16] MEDS: SERTRALINE HCL 50 MG TABLET (FP) PO SCH (10:15)
[2017-12-16] MEDS ORDERED: FLU VACCINE QUAD 60 MCG/0.5 ML (MDV 17-18) IM ONE (12:00)
[2017-12-16] MEDS ORDERED: PT OWN MED DRAWER 7, Y5N ONE (22:03)
[2017-12-16] MEDS: ATORVASTATIN CA 20 MG TABLET (FP) PO SCH (22:13)
[2017-12-16] MEDS: THIAMINE HCL 100 MG TABLET (FP) PO SCH (22:13)
[2017-12-17] MEDS: CYCLOBENZAPRINE HCL 10 MG TABLET (FP) PO SCH ×3 (06:43→21:25)
[2017-12-17] MEDS: metFORMIN HCL 500 MG TABLET (FP) PO SCH ×2 (07:46→16:45)
[2017-12-17] MEDS: sitaGLIPtin PHOSPHATE 100 MG TABLET (FP) PO SCH (07:46)
[2017-12-17] MEDS: ACETAMINOPHEN 325 MG TABLET (FP) PO PRN ×2 (08:52→16:46)
[2017-12-17] MEDS: cloNIDine HCL 0.1 MG TABLET PO SCH ×2 (09:51→21:25)
[2017-12-17] MEDS: PRENATAL VITAMINS W/ FOLIC ACID TABLET (FP) PO SCH (09:51)
[2017-12-17] MEDS: SERTRALINE HCL 50 MG TABLET (FP) PO SCH (09:51)
[2017-12-17] MEDS: PANTOPRAZOLE 40 MG TABLET (FP) PO SCH (09:51)
[2017-12-17] MEDS: ENALAPRIL MALEATE 10 MG TABLET (FP) PO SCH (09:51)
[2017-12-17] MEDS: BUDESONIDE/FORMETEROL FUMARATE 160/4.5 mcg INHALER IH SCH ×2 (09:52→21:26)
[2017-12-17] MEDS ORDERED: PT OWN MED DRAWER 7, Y5N ONE (20:09)
[2017-12-17] MEDS: THIAMINE HCL 100 MG TABLET (FP) PO SCH (21:24)
[2017-12-17] MEDS: ATORVASTATIN CA 20 MG TABLET (FP) PO SCH (21:25)
[2017-12-18] MEDS: sitaGLIPtin PHOSPHATE 100 MG TABLET (FP) PO SCH (06:14)
[2017-12-18] MEDS: metFORMIN HCL 500 MG TABLET (FP) PO SCH ×2 (06:14→16:45)
[2017-12-18] MEDS: CYCLOBENZAPRINE HCL 10 MG TABLET (FP) PO SCH ×3 (06:14→22:06)
[2017-12-18] MEDS ORDERED: SUVOREXANT 10 MG TABLET PO PRN (06:14)
[2017-12-18] MEDS ORDERED: INSULIN (NOVOLOG) ASPART 100 UNITS/ML 10ML VIAL ONE (06:41)
[2017-12-18] MEDS: SERTRALINE HCL 50 MG TABLET (FP) PO SCH (10:07)
[2017-12-18] MEDS: PRENATAL VITAMINS W/ FOLIC ACID TABLET (FP) PO SCH (10:07)
[2017-12-18] MEDS: cloNIDine HCL 0.1 MG TABLET PO SCH ×2 (10:07→22:06)
[2017-12-18] MEDS: PANTOPRAZOLE 40 MG TABLET (FP) PO SCH (10:07)
[2017-12-18] MEDS: ENALAPRIL MALEATE 10 MG TABLET (FP) PO SCH (10:07)
[2017-12-18] MEDS: BUDESONIDE/FORMETEROL FUMARATE 160/4.5 mcg INHALER IH SCH ×2 (10:07→22:07)
--- NOTE | 2017-12-18 15:22 | PN ---
[facility] Progress Note Note: Patient requested HIV testing. Order place, pending results
[2017-12-18] MEDS: ACETAMINOPHEN 325 MG TABLET (FP) PO PRN (16:45)
[2017-12-18] MEDS: ATORVASTATIN CA 20 MG TABLET (FP) PO SCH (22:07)
[2017-12-18] MEDS: THIAMINE HCL 100 MG TABLET (FP) PO SCH (22:07)
[2017-12-19] MEDS: ACETAMINOPHEN 325 MG TABLET (FP) PO PRN ×3 (06:54→16:58)
[2017-12-19] MEDS: CYCLOBENZAPRINE HCL 10 MG TABLET (FP) PO SCH ×3 (06:55→21:23)
[2017-12-19] MEDS: sitaGLIPtin PHOSPHATE 100 MG TABLET (FP) PO SCH (07:29)
[2017-12-19] MEDS: metFORMIN HCL 500 MG TABLET (FP) PO SCH ×2 (07:29→16:57)
[2017-12-19] MEDS: cloNIDine HCL 0.1 MG TABLET PO SCH ×2 (10:04→21:23)
[2017-12-19] MEDS: PANTOPRAZOLE 40 MG TABLET (FP) PO SCH (10:05)
[2017-12-19] MEDS: SERTRALINE HCL 50 MG TABLET (FP) PO SCH (10:05)
[2017-12-19] MEDS: ENALAPRIL MALEATE 10 MG TABLET (FP) PO SCH (10:05)
[2017-12-19] MEDS: PRENATAL VITAMINS W/ FOLIC ACID TABLET (FP) PO SCH (10:05)
[2017-12-19] MEDS: BUDESONIDE/FORMETEROL FUMARATE 160/4.5 mcg INHALER IH SCH ×2 (10:06→21:24)
[2017-12-19] MEDS: ATORVASTATIN CA 20 MG TABLET (FP) PO SCH (21:23)
[2017-12-19] MEDS: THIAMINE HCL 100 MG TABLET (FP) PO SCH (21:23)
[2017-12-19] MEDS: SUVOREXANT 10 MG TABLET PO PRN (21:23)
[2017-12-20] MEDS: CYCLOBENZAPRINE HCL 10 MG TABLET (FP) PO SCH ×3 (06:17→21:21)
[2017-12-20] MEDS: ACETAMINOPHEN 325 MG TABLET (FP) PO PRN ×2 (06:18→16:58)
[2017-12-20] MEDS: metFORMIN HCL 500 MG TABLET (FP) PO SCH ×2 (07:45→16:56)
[2017-12-20] MEDS: sitaGLIPtin PHOSPHATE 100 MG TABLET (FP) PO SCH (07:45)
[2017-12-20] MEDS: SERTRALINE HCL 50 MG TABLET (FP) PO SCH (10:13)
[2017-12-20] MEDS: PANTOPRAZOLE 40 MG TABLET (FP) PO SCH (10:13)
[2017-12-20] MEDS: ENALAPRIL MALEATE 10 MG TABLET (FP) PO SCH (10:13)
[2017-12-20] MEDS: BUDESONIDE/FORMETEROL FUMARATE 160/4.5 mcg INHALER IH SCH ×2 (10:13→21:22)
[2017-12-20] MEDS: PRENATAL VITAMINS W/ FOLIC ACID TABLET (FP) PO SCH (10:13)
[2017-12-20] MEDS: cloNIDine HCL 0.1 MG TABLET PO SCH ×2 (10:13→21:21)
[2017-12-20] MEDS: SUVOREXANT 10 MG TABLET PO PRN (21:21)
[2017-12-20] MEDS: ATORVASTATIN CA 20 MG TABLET (FP) PO SCH (21:21)
[2017-12-20] MEDS: THIAMINE HCL 100 MG TABLET (FP) PO SCH (21:21)
[2017-12-21] MEDS: ACETAMINOPHEN 325 MG TABLET (FP) PO PRN ×2 (06:19→21:31)
[2017-12-21] MEDS: CYCLOBENZAPRINE HCL 10 MG TABLET (FP) PO SCH ×3 (06:20→21:30)
[2017-12-21] MEDS: sitaGLIPtin PHOSPHATE 100 MG TABLET (FP) PO SCH (07:10)
[2017-12-21] MEDS: metFORMIN HCL 500 MG TABLET (FP) PO SCH ×2 (07:10→16:47)
[2017-12-21] MEDS: BUDESONIDE/FORMETEROL FUMARATE 160/4.5 mcg INHALER IH SCH ×2 (10:33→21:32)
[2017-12-21] MEDS: SERTRALINE HCL 50 MG TABLET (FP) PO SCH (10:33)
[2017-12-21] MEDS: ENALAPRIL MALEATE 10 MG TABLET (FP) PO SCH (10:33)
[2017-12-21] MEDS: cloNIDine HCL 0.1 MG TABLET PO SCH ×2 (10:33→21:30)
[2017-12-21] MEDS: PRENATAL VITAMINS W/ FOLIC ACID TABLET (FP) PO SCH (10:33)
[2017-12-21] MEDS: PANTOPRAZOLE 40 MG TABLET (FP) PO SCH (10:33)
[2017-12-21] MEDS: THIAMINE HCL 100 MG TABLET (FP) PO SCH (21:30)
[2017-12-21] MEDS: ATORVASTATIN CA 20 MG TABLET (FP) PO SCH (21:30)
[2017-12-21] MEDS: SUVOREXANT 10 MG TABLET PO PRN (21:30)
[2017-12-22] MEDS: CYCLOBENZAPRINE HCL 10 MG TABLET (FP) PO SCH (06:33)
[2017-12-22] MEDS: metFORMIN HCL 500 MG TABLET (FP) PO SCH ×2 (06:33→16:51)
[2017-12-22] MEDS: ACETAMINOPHEN 325 MG TABLET (FP) PO PRN ×3 (06:33→21:27)
[2017-12-22] MEDS: sitaGLIPtin PHOSPHATE 100 MG TABLET (FP) PO SCH (06:33)
[2017-12-22] MEDS ORDERED: SUVOREXANT 10 MG TABLET PO PRN (06:35)
[2017-12-22] MEDS ORDERED: INSULIN (NOVOLOG) ASPART 100 UNITS/ML 10ML VIAL ONE (06:58)
[2017-12-22] MEDS: PANTOPRAZOLE 40 MG TABLET (FP) PO SCH (09:58)
[2017-12-22] MEDS: ENALAPRIL MALEATE 10 MG TABLET (FP) PO SCH (09:58)
[2017-12-22] MEDS: BUDESONIDE/FORMETEROL FUMARATE 160/4.5 mcg INHALER IH SCH ×2 (09:58→21:34)
[2017-12-22] MEDS: SERTRALINE HCL 50 MG TABLET (FP) PO SCH (09:58)
[2017-12-22] MEDS: cloNIDine HCL 0.1 MG TABLET PO SCH (09:58)
[2017-12-22] MEDS: PRENATAL VITAMINS W/ FOLIC ACID TABLET (FP) PO SCH (09:59)
--- NOTE | 2017-12-22 10:01 | PN ---
Psychiatric Progress Note Vital Signs: Vital Signs Period Temp Pulse Resp BP Sys/Riojas Pulse Ox Last 24 Hr 98.1 F 78-102 18-18 145-171/85-94 Date of Session: 12/22/17 Chief Complaint:: Insomnia HPI: Patient addressing Alcohol, Cocaine Dependence comorbid with Nicotine Dependence, MDD, PTSD, Substance-Induced Mood Disorder and Substance-Induced Sleep Disorder ROS: COPD, HTN, GERD, Canales's palsy Current Medications: Active Medications Generic Name Dose Route Start Last Admin Trade Name Freq PRN Reason Stop Dose Admin Acetaminophen 650 mg 12/15/17 14:38 12/22/17 06:33 Tylenol - PO 650 mg Q4H PRN Administration FEVER Al Hydroxide/Mg Hydroxide 30 ml 12/15/17 14:38 Mylanta Oral Suspension - PO Q6H PRN DYSPEPSIA Albuterol Sulfate 2 puff 12/15/17 14:38 Ventolin Hfa Inhaler - IH Q4H PRN SHORT OF BREATH/WHEEZING Atorvastatin Calcium 20 mg 12/15/17 22:00 12/21/17 21:30 Lipitor - PO 20 mg HS CAROLIN Administration Budesonide/Formoterol Fumarate 2 puff 12/15/17 22:00 12/21/17 21:32 Symbicort 160/4.5mcg - IH Not Given BID CAROLIN Clonidine 0.1 mg 12/15/17 22:00 12/21/17 21:30 Catapres - PO 0.1 mg BID CAROLIN Administration Cyclobenzaprine HCl 10 mg 12/15/17 22:00 12/22/17 06:33 Flexeril - PO 10 mg TID CAROLIN Administration Enalapril Maleate 10 mg 12/16/17 10:00 12/21/17 10:33 Vasotec - PO 10 mg DAILY CAROLIN Administration Eucalyptus/Menthol/Phenol/Sorbitol 1 each 12/15/17 14:38 Cepastat Lozenge - MM Q4H PRN SORE THROAT Guaifenesin 10 ml 12/15/17 14:38 Robitussin Dm - PO Q6H PRN COUGH Ibuprofen 400 mg 12/15/17 14:38 12/19/17 21:23 Motrin - PO 400 mg Q6H PRN Administration Pain Level 4-6 Loperamide HCl 4 mg 12/15/17 14:38 Imodium - PO Q6H PRN DIARRHEA Magnesium Citrate 300 ml 12/15/17 14:38 Citroma - PO Q48H PRN CONSTIPATION Magnesium Hydroxide 30 ml 12/15/17 14:38 Milk Of Magnesia - PO DAILY PRN CONSTIPATION Metformin HCl 1,000 mg 12/15/17 16:30 12/22/17 06:33 Glucophage - PO 1,000 mg BID@0700,1630 CAROLIN Administration Nicotine 14 mg 12/15/17 14:38 Nicoderm Patch - TD DAILY PRN WITHDRAWAL(CONT SUBST) Nicotine Polacrilex 2 mg 12/15/17 14:38 Nicorette Gum - BUC Q2H PRN NICOTINE REPLACEMENT RX Pantoprazole Sodium 40 mg 12/16/17 10:00 12/21/17 10:33 Protonix - PO 40 mg DAILY CAROLIN Administration Multivit/Folic Acid/Iron 1 tab 12/16/17 10:00 12/21/17 10:33 Vitamins (Sjr) - PO 1 tab DAILY CAROLIN Administration Pseudoephedrine/Triprolidine 1 combo 12/15/17 14:38 Actifed - PO TID PRN NASAL CONGESTION Sertraline HCl 50 mg 12/16/17 10:00 12/21/17 10:33 Zoloft - PO Not Given DAILY CAROLIN Thiamine HCl 100 mg 12/15/17 22:00 12/21/17 21:30 Vitamin B1 - PO 100 mg HS CAROLIN Administration Current Side Effect: No Lab tests ordered: Yes Lab tests reviewed: Yes Provider note:: Patient reports experiencing difficulty to sleep. Told real estate underwriter that he has been sleeping poorly despite taking Belsomra 10 mg po HS. Discussed with patient about increasing Belsomra dosage and he agreed with that plan Total face to face time:: 15 Mental Status Exam - Mental Status Exam Alert and Oriented to: Time, Place, Person Cognitive Function: Fair Patient Appearance: Well Groomed Mood: Hopeful, Euthymic Affect: Appropriate Patient Behavior: Cooperative Speech Pattern: Clear Voice Loudness: Normal Thought Process: Intact, Goal Oriented Thought Disorder: Not Present Hallucinations: Denies Suicidal Ideation: Denies Homicidal Ideation: Denies Insight/Judgement: Fair Sleep: Fair Appetite: Good Muscle strength/Tone: Normal Gait/Station: Normal Psychiatric Treatment Plan - Problem List (1) Alcohol dependence Current Visit: Yes (2) Cocaine dependence Current Visit: Yes (3) Nicotine dependence Current Visit: No Qualifiers: Nicotine product type: cigarettes Substance use status: uncomplicated Qualified Code(s): F17.210 - Nicotine dependence, cigarettes, uncomplicated (4) MDD (major depressive disorder) Current Visit: No Comment: Self reports. (5) PTSD (post-traumatic stress disorder) Current Visit: Yes (6) Substance induced mood disorder Current Visit: No (7) Substance-induced sleep disorder Current Visit: Yes (8) COPD (chronic obstructive pulmonary disease) Current Visit: No Qualifiers: COPD type: emphysema Emphysema type: unspecified Qualified Code(s): J43.9 - Emphysema, unspecified (9) GERD (gastroesophageal reflux disease) Current Visit: No Qualifiers: Esophagitis presence: without esophagitis Qualified Code(s): K21.9 - Gastro -esophageal reflux disease without esophagitis (10) H/O Canales's palsy Current Visit: No Comment: reports was tx (11) Hypertension Current Visit: No Qualifiers: Hypertension type: essential hypertension Qualified Code(s): I10 - Essential (primary) hypertension Initial treatment plan: 1) Discontinue Belsomra 10 mg po HS prn. 2) Start Belsomra 15 mg po HS prn for insomnia. 3) Monitor progress
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
[2017-12-22] MEDS: LIDOCAINE 5% TOPICAL PATCH TP SCH (15:47)
[2017-12-22] MEDS: BACLOFEN 10 MG TABLET (FP) PO SCH ×2 (15:47→21:25)
[2017-12-22] MEDS: ATORVASTATIN CA 20 MG TABLET (FP) PO SCH (21:24)
[2017-12-22] MEDS: SUVOREXANT 5 MG TABLET PO PRN (21:24)
[2017-12-22] MEDS: LIDOCAINE PATCH REMOVAL MC SCH (21:34)
[2017-12-22] MEDS: THIAMINE HCL 100 MG TABLET (FP) PO SCH (21:34)
[2017-12-23] MEDS: BACLOFEN 10 MG TABLET (FP) PO SCH ×3 (06:23→21:33)
[2017-12-23] MEDS: ACETAMINOPHEN 325 MG TABLET (FP) PO PRN (06:25)
[2017-12-23] MEDS: metFORMIN HCL 500 MG TABLET (FP) PO SCH ×2 (07:22→16:53)
[2017-12-23] MEDS: sitaGLIPtin PHOSPHATE 100 MG TABLET (FP) PO SCH (07:22)
[2017-12-23] MEDS: BUDESONIDE/FORMETEROL FUMARATE 160/4.5 mcg INHALER IH SCH ×2 (10:08→21:35)
[2017-12-23] MEDS: PANTOPRAZOLE 40 MG TABLET (FP) PO SCH (10:08)
[2017-12-23] MEDS: PRENATAL VITAMINS W/ FOLIC ACID TABLET (FP) PO SCH (10:08)
[2017-12-23] MEDS ORDERED: PT OWN MED DRAWER 7, Y5N ONE (10:09)
[2017-12-23] MEDS: ENALAPRIL MALEATE 10 MG TABLET (FP) PO SCH (10:09)
[2017-12-23] MEDS: SERTRALINE HCL 50 MG TABLET (FP) PO SCH (10:09)
[2017-12-23] MEDS: LIDOCAINE 5% TOPICAL PATCH TP SCH (10:10)
--- NOTE | 2017-12-23 10:44 | PN ---
Psychiatric Progress Note Vital Signs: Vital Signs Period Temp Pulse Resp BP Sys/Riojas Pulse Ox Last 24 Hr 97.8 F 91-112 20 139-150/70-94 Date of Session: 12/23/17 Chief Complaint:: Insomnia HPI: Patient addressing Alcohol, Cocaine Dependence comorbid with Nicotine Dependence, MDD, PTSD, Substance-Induced Mood Disorder and Substance-Induced Sleep Disorder ROS: COPD, HTN, GERD, Canales's palsy Current Medications: Active Medications Generic Name Dose Route Start Last Admin Trade Name Freq PRN Reason Stop Dose Admin Acetaminophen 650 mg 12/15/17 14:38 12/23/17 06:25 Tylenol - PO 650 mg Q4H PRN Administration FEVER Al Hydroxide/Mg Hydroxide 30 ml 12/15/17 14:38 Mylanta Oral Suspension - PO Q6H PRN DYSPEPSIA Albuterol Sulfate 2 puff 12/15/17 14:38 Ventolin Hfa Inhaler - IH Q4H PRN SHORT OF BREATH/WHEEZING Atorvastatin Calcium 20 mg 12/15/17 22:00 12/22/17 21:24 Lipitor - PO 20 mg HS CAROLIN Administration Baclofen 10 mg 12/22/17 14:00 12/23/17 06:23 Lioresal - PO 10 mg TID CAROLIN Administration Budesonide/Formoterol Fumarate 2 puff 12/15/17 22:00 12/23/17 10:08 Symbicort 160/4.5mcg - IH 2 puff BID CAROLIN Administration Enalapril Maleate 20 mg 12/23/17 10:00 12/23/17 10:09 Vasotec - PO 20 mg DAILY CAROLIN Administration Eucalyptus/Menthol/Phenol/Sorbitol 1 each 12/15/17 14:38 Cepastat Lozenge - MM Q4H PRN SORE THROAT Guaifenesin 10 ml 12/15/17 14:38 Robitussin Dm - PO Q6H PRN COUGH Lidocaine 1 patch 12/22/17 14:45 12/23/17 10:10 Lidoderm Patch - TP 1 patch DAILY CAROLIN Administration Loperamide HCl 4 mg 12/15/17 14:38 Imodium - PO Q6H PRN DIARRHEA Magnesium Citrate 300 ml 12/15/17 14:38 Citroma - PO Q48H PRN CONSTIPATION Magnesium Hydroxide 30 ml 12/15/17 14:38 Milk Of Magnesia - PO DAILY PRN CONSTIPATION Metformin HCl 1,000 mg 12/15/17 16:30 12/23/17 07:22 Glucophage - PO 1,000 mg BID@0700,1630 CAROLIN Administration Miscellaneous 1 each 12/22/17 22:00 12/22/17 21:34 Lidoderm Patch Removal MC 1 each DAILY@2200 CAROLIN Administration Nicotine 14 mg 12/15/17 14:38 Nicoderm Patch - TD DAILY PRN WITHDRAWAL(CONT SUBST) Nicotine Polacrilex 2 mg 12/15/17 14:38 Nicorette Gum - BUC Q2H PRN NICOTINE REPLACEMENT RX Pantoprazole Sodium 40 mg 12/16/17 10:00 12/23/17 10:08 Protonix - PO 40 mg DAILY CAROLIN Administration Multivit/Folic Acid/Iron 1 tab 12/16/17 10:00 12/23/17 10:08 Vitamins (Sjr) - PO 1 tab DAILY CAROLIN Administration Pseudoephedrine/Triprolidine 1 combo 12/15/17 14:38 Actifed - PO TID PRN NASAL CONGESTION Sertraline HCl 50 mg 12/16/17 10:00 12/23/17 10:09 Zoloft - PO 50 mg DAILY CAROLIN Administration Sitagliptin Phosphate 100 mg 12/23/17 07:00 12/23/17 07:22 Januvia - PO 100 mg DAILY@0700 CAROLIN Administration Thiamine HCl 100 mg 12/15/17 22:00 12/22/17 21:34 Vitamin B1 - PO 100 mg HS CAROLIN Administration Medication(s) Change(s): Start Benadryl 50 mg po HS prn for insomnia Current Side Effect: No Lab tests ordered: Yes Lab tests reviewed: Yes Provider note:: Patient reports that he continues to experience difficulty to sleep despite taking Belsomra 15 mg at bedtime last night. Discussed with patient about adding Benadryl 50 mg po HS prn for insomnia Total face to face time:: 15 Mental Status Exam - Mental Status Exam Alert and Oriented to: Time, Place, Person Cognitive Function: Fair Patient Appearance: Well Groomed Mood: Hopeful, Euthymic Affect: Appropriate Patient Behavior: Cooperative Speech Pattern: Clear Voice Loudness: Normal Thought Process: Intact, Goal Oriented Thought Disorder: Not Present Hallucinations: Denies Suicidal Ideation: Denies Homicidal Ideation: Denies Insight/Judgement: Fair Sleep: Poorly Appetite: Good Muscle strength/Tone: Normal Gait/Station: Normal Psychiatric Treatment Plan - Problem List (1) Alcohol dependence Current Visit: Yes (2) Cocaine dependence Current Visit: Yes (3) Nicotine dependence Current Visit: No Qualifiers: Nicotine product type: cigarettes Substance use status: uncomplicated Qualified Code(s): F17.210 - Nicotine dependence, cigarettes, uncomplicated (4) MDD (major depressive disorder) Current Visit: No Comment: Self reports. (5) PTSD (post-traumatic stress disorder) Current Visit: Yes (6) Substance induced mood disorder Current Visit: No (7) Substance-induced sleep disorder Current Visit: Yes (8) COPD (chronic obstructive pulmonary disease) Current Visit: No Qualifiers: COPD type: emphysema Emphysema type: unspecified Qualified Code(s): J43.9 - Emphysema, unspecified (9) GERD (gastroesophageal reflux disease) Current Visit: No Qualifiers: Esophagitis presence: without esophagitis Qualified Code(s): K21.9 - Gastro -esophageal reflux disease without esophagitis (10) H/O Canales's palsy Current Visit: No Comment: reports was tx (11) Hypertension Current Visit: No Qualifiers: Hypertension type: essential hypertension Qualified Code(s): I10 - Essential (primary) hypertension Initial treatment plan: 1) Start Benadryl 50 mg po HS prn for insomnia. 2) Monitor progress
[2017-12-23] MEDS: ATORVASTATIN CA 20 MG TABLET (FP) PO SCH (21:33)
[2017-12-23] MEDS: SUVOREXANT 5 MG TABLET PO PRN (21:33)
[2017-12-23] MEDS: THIAMINE HCL 100 MG TABLET (FP) PO SCH (21:35)
[2017-12-23] MEDS: LIDOCAINE PATCH REMOVAL MC SCH (22:11)
[2017-12-24] MEDS: BACLOFEN 10 MG TABLET (FP) PO SCH ×3 (06:00→21:55)
[2017-12-24] MEDS: ACETAMINOPHEN 325 MG TABLET (FP) PO PRN (06:46)
[2017-12-24] MEDS: metFORMIN HCL 500 MG TABLET (FP) PO SCH ×2 (07:03→16:51)
[2017-12-24] MEDS: sitaGLIPtin PHOSPHATE 100 MG TABLET (FP) PO SCH (07:03)
[2017-12-24] MEDS: LIDOCAINE 5% TOPICAL PATCH TP SCH ×2 (10:11→14:42)
[2017-12-24] MEDS: BUDESONIDE/FORMETEROL FUMARATE 160/4.5 mcg INHALER IH SCH ×2 (10:11→21:56)
[2017-12-24] MEDS: SERTRALINE HCL 50 MG TABLET (FP) PO SCH (10:11)
[2017-12-24] MEDS: ENALAPRIL MALEATE 10 MG TABLET (FP) PO SCH (10:11)
[2017-12-24] MEDS: PANTOPRAZOLE 40 MG TABLET (FP) PO SCH (10:11)
[2017-12-24] MEDS: PRENATAL VITAMINS W/ FOLIC ACID TABLET (FP) PO SCH (10:11)
[2017-12-24] MEDS: GABAPENTIN 100 MG CAPSULE (FP) PO SCH ×2 (14:41→21:55)
[2017-12-24] MEDS: LIDOCAINE PATCH REMOVAL MC SCH ×2 (21:55→21:56)
[2017-12-24] MEDS: THIAMINE HCL 100 MG TABLET (FP) PO SCH (21:55)
[2017-12-24] MEDS: ATORVASTATIN CA 20 MG TABLET (FP) PO SCH (21:55)
[2017-12-24] MEDS: SUVOREXANT 5 MG TABLET PO PRN (21:58)
[2017-12-24] MEDS: diphenhydrAMINE HCL 50 MG CAPSULE PO PRN (21:58)
[2017-12-25] MEDS: ACETAMINOPHEN 325 MG TABLET (FP) PO PRN ×2 (06:01→17:42)
[2017-12-25] MEDS: BACLOFEN 10 MG TABLET (FP) PO SCH ×3 (06:02→21:35)
[2017-12-25] MEDS: GABAPENTIN 100 MG CAPSULE (FP) PO SCH ×3 (06:02→21:35)
[2017-12-25] MEDS: metFORMIN HCL 500 MG TABLET (FP) PO SCH ×2 (07:17→17:41)
[2017-12-25] MEDS: sitaGLIPtin PHOSPHATE 100 MG TABLET (FP) PO SCH (07:17)
[2017-12-25] MEDS: ENALAPRIL MALEATE 10 MG TABLET (FP) PO SCH (09:56)
[2017-12-25] MEDS: SERTRALINE HCL 50 MG TABLET (FP) PO SCH (09:56)
[2017-12-25] MEDS: LIDOCAINE 5% TOPICAL PATCH TP SCH ×2 (09:56)
[2017-12-25] MEDS: PANTOPRAZOLE 40 MG TABLET (FP) PO SCH (09:56)
[2017-12-25] MEDS: PRENATAL VITAMINS W/ FOLIC ACID TABLET (FP) PO SCH (09:56)
[2017-12-25] MEDS: BUDESONIDE/FORMETEROL FUMARATE 160/4.5 mcg INHALER IH SCH ×2 (09:56→21:36)
[2017-12-25] MEDS: THIAMINE HCL 100 MG TABLET (FP) PO SCH (21:35)
[2017-12-25] MEDS: ATORVASTATIN CA 20 MG TABLET (FP) PO SCH (21:35)
[2017-12-25] MEDS: LIDOCAINE PATCH REMOVAL MC SCH ×2 (21:36)
[2017-12-25] MEDS: diphenhydrAMINE HCL 50 MG CAPSULE PO PRN (21:39)
[2017-12-25] MEDS ORDERED: PT OWN MED DRAWER 7, Y5N ONE (22:38)
[2017-12-25] MEDS: SUVOREXANT 5 MG TABLET PO PRN (22:46)
[2017-12-26] MEDS: sitaGLIPtin PHOSPHATE 100 MG TABLET (FP) PO SCH (06:08)
[2017-12-26] MEDS: GABAPENTIN 100 MG CAPSULE (FP) PO SCH ×3 (06:08→21:36)
[2017-12-26] MEDS: BACLOFEN 10 MG TABLET (FP) PO SCH ×3 (06:08→21:36)
[2017-12-26] MEDS: metFORMIN HCL 500 MG TABLET (FP) PO SCH ×2 (06:08→16:53)
[2017-12-26] MEDS: ACETAMINOPHEN 325 MG TABLET (FP) PO PRN (06:45)
[2017-12-26] MEDS ORDERED: PT OWN MED DRAWER 7, Y5N ONE (09:16)
[2017-12-26] MEDS: PRENATAL VITAMINS W/ FOLIC ACID TABLET (FP) PO SCH (10:33)
[2017-12-26] MEDS: SERTRALINE HCL 50 MG TABLET (FP) PO SCH (10:33)
[2017-12-26] MEDS: ENALAPRIL MALEATE 10 MG TABLET (FP) PO SCH (10:33)
[2017-12-26] MEDS: LIDOCAINE 5% TOPICAL PATCH TP SCH ×2 (10:33→10:34)
[2017-12-26] MEDS: PANTOPRAZOLE 40 MG TABLET (FP) PO SCH (10:33)
[2017-12-26] MEDS: BUDESONIDE/FORMETEROL FUMARATE 160/4.5 mcg INHALER IH SCH ×2 (10:36→21:37)
[2017-12-26] MEDS: diphenhydrAMINE HCL 50 MG CAPSULE PO PRN (21:36)
[2017-12-26] MEDS: THIAMINE HCL 100 MG TABLET (FP) PO SCH (21:36)
[2017-12-26] MEDS: SUVOREXANT 5 MG TABLET PO PRN (21:36)
[2017-12-26] MEDS: ATORVASTATIN CA 20 MG TABLET (FP) PO SCH (21:36)
[2017-12-26] MEDS: LIDOCAINE PATCH REMOVAL MC SCH ×2 (21:38)
[2017-12-27] MEDS: metFORMIN HCL 500 MG TABLET (FP) PO SCH ×2 (06:41→16:55)
[2017-12-27] MEDS: ACETAMINOPHEN 325 MG TABLET (FP) PO PRN (06:41)
[2017-12-27] MEDS: sitaGLIPtin PHOSPHATE 100 MG TABLET (FP) PO SCH (06:41)
[2017-12-27] MEDS: GABAPENTIN 100 MG CAPSULE (FP) PO SCH ×3 (06:41→21:49)
[2017-12-27] MEDS: BACLOFEN 10 MG TABLET (FP) PO SCH ×3 (06:41→21:49)
[2017-12-27] MEDS ORDERED: PT OWN MED DRAWER 7, Y5N ONE ×2 (08:50→20:12)
[2017-12-27] MEDS: BUDESONIDE/FORMETEROL FUMARATE 160/4.5 mcg INHALER IH SCH ×2 (10:00→22:13)
[2017-12-27] MEDS: PANTOPRAZOLE 40 MG TABLET (FP) PO SCH (10:01)
[2017-12-27] MEDS: ENALAPRIL MALEATE 10 MG TABLET (FP) PO SCH (10:01)
[2017-12-27] MEDS: PRENATAL VITAMINS W/ FOLIC ACID TABLET (FP) PO SCH (10:01)
[2017-12-27] MEDS: LIDOCAINE 5% TOPICAL PATCH TP SCH ×2 (10:01→10:02)
[2017-12-27] MEDS: SERTRALINE HCL 50 MG TABLET (FP) PO SCH (10:01)
[2017-12-27] MEDS: LIDOCAINE PATCH REMOVAL MC SCH ×2 (21:48)
[2017-12-27] MEDS: ATORVASTATIN CA 20 MG TABLET (FP) PO SCH (21:49)
[2017-12-27] MEDS: THIAMINE HCL 100 MG TABLET (FP) PO SCH (21:49)
[2017-12-27] MEDS: diphenhydrAMINE HCL 50 MG CAPSULE PO PRN (21:51)
[2017-12-27] MEDS: SUVOREXANT 5 MG TABLET PO PRN (21:51)
[2017-12-28] MEDS: metFORMIN HCL 500 MG TABLET (FP) PO SCH ×2 (06:09→16:34)
[2017-12-28] MEDS: sitaGLIPtin PHOSPHATE 100 MG TABLET (FP) PO SCH (06:09)
[2017-12-28] MEDS: BACLOFEN 10 MG TABLET (FP) PO SCH ×3 (06:09→21:55)
[2017-12-28] MEDS: ACETAMINOPHEN 325 MG TABLET (FP) PO PRN ×2 (06:09→16:37)
[2017-12-28] MEDS: GABAPENTIN 100 MG CAPSULE (FP) PO SCH ×3 (06:09→21:55)
[2017-12-28] MEDS ORDERED: SUVOREXANT 10 MG TABLET PO PRN (06:27)
[2017-12-28] MEDS ORDERED: PT OWN MED DRAWER 7, Y5N ONE ×2 (08:52→19:37)
[2017-12-28] MEDS: BUDESONIDE/FORMETEROL FUMARATE 160/4.5 mcg INHALER IH SCH ×2 (09:45→21:55)
[2017-12-28] MEDS: PRENATAL VITAMINS W/ FOLIC ACID TABLET (FP) PO SCH (09:46)
[2017-12-28] MEDS: LIDOCAINE 5% TOPICAL PATCH TP SCH ×2 (09:46)
[2017-12-28] MEDS: PANTOPRAZOLE 40 MG TABLET (FP) PO SCH (09:46)
[2017-12-28] MEDS: ENALAPRIL MALEATE 10 MG TABLET (FP) PO SCH (09:46)
[2017-12-28] MEDS: SERTRALINE HCL 50 MG TABLET (FP) PO SCH (09:46)
[2017-12-28] MEDS: LIDOCAINE PATCH REMOVAL MC SCH ×2 (21:54)
[2017-12-28] MEDS: ATORVASTATIN CA 20 MG TABLET (FP) PO SCH (21:55)
[2017-12-28] MEDS: THIAMINE HCL 100 MG TABLET (FP) PO SCH (21:55)
[2017-12-28] MEDS: SUVOREXANT 5 MG TABLET PO PRN (21:56)
[2017-12-28] MEDS: diphenhydrAMINE HCL 50 MG CAPSULE PO PRN (21:56)
[2017-12-29] MEDS: BACLOFEN 10 MG TABLET (FP) PO SCH ×3 (06:11→21:32)
[2017-12-29] MEDS: GABAPENTIN 100 MG CAPSULE (FP) PO SCH ×3 (06:11→21:32)
[2017-12-29] MEDS: ACETAMINOPHEN 325 MG TABLET (FP) PO PRN ×2 (06:12→13:21)
[2017-12-29] MEDS: sitaGLIPtin PHOSPHATE 100 MG TABLET (FP) PO SCH (07:16)
[2017-12-29] MEDS: metFORMIN HCL 500 MG TABLET (FP) PO SCH ×2 (07:16→16:42)
[2017-12-29] MEDS: PRENATAL VITAMINS W/ FOLIC ACID TABLET (FP) PO SCH (10:16)
[2017-12-29] MEDS: LIDOCAINE 5% TOPICAL PATCH TP SCH ×2 (10:16)
[2017-12-29] MEDS: SERTRALINE HCL 50 MG TABLET (FP) PO SCH (10:16)
[2017-12-29] MEDS: PANTOPRAZOLE 40 MG TABLET (FP) PO SCH (10:16)
[2017-12-29] MEDS: BUDESONIDE/FORMETEROL FUMARATE 160/4.5 mcg INHALER IH SCH ×2 (10:17→21:33)
[2017-12-29] MEDS: ENALAPRIL MALEATE 10 MG TABLET (FP) PO SCH (10:18)
[2017-12-29] MEDS: ATORVASTATIN CA 20 MG TABLET (FP) PO SCH (21:32)
[2017-12-29] MEDS: diphenhydrAMINE HCL 50 MG CAPSULE PO PRN (21:32)
[2017-12-29] MEDS: THIAMINE HCL 100 MG TABLET (FP) PO SCH (21:32)
[2017-12-29] MEDS: LIDOCAINE PATCH REMOVAL MC SCH ×2 (21:33)
[2017-12-29] MEDS: SUVOREXANT 5 MG TABLET PO PRN (21:33)
[2017-12-30] MEDS: ACETAMINOPHEN 325 MG TABLET (FP) PO PRN ×2 (06:00→14:56)
[2017-12-30] MEDS: GABAPENTIN 100 MG CAPSULE (FP) PO SCH ×3 (06:01→22:01)
[2017-12-30] MEDS: BACLOFEN 10 MG TABLET (FP) PO SCH ×3 (06:01→22:01)
[2017-12-30] MEDS: metFORMIN HCL 500 MG TABLET (FP) PO SCH ×2 (07:28→16:52)
[2017-12-30] MEDS: sitaGLIPtin PHOSPHATE 100 MG TABLET (FP) PO SCH (07:29)
[2017-12-30] MEDS: PRENATAL VITAMINS W/ FOLIC ACID TABLET (FP) PO SCH (10:03)
[2017-12-30] MEDS: ENALAPRIL MALEATE 10 MG TABLET (FP) PO SCH (10:03)
[2017-12-30] MEDS: SERTRALINE HCL 50 MG TABLET (FP) PO SCH (10:03)
[2017-12-30] MEDS: PANTOPRAZOLE 40 MG TABLET (FP) PO SCH (10:03)
[2017-12-30] MEDS: BUDESONIDE/FORMETEROL FUMARATE 160/4.5 mcg INHALER IH SCH ×2 (10:04→22:03)
[2017-12-30] MEDS: LIDOCAINE 5% TOPICAL PATCH TP SCH ×2 (10:04)
[2017-12-30] MEDS: SUVOREXANT 5 MG TABLET PO PRN (22:01)
[2017-12-30] MEDS: ATORVASTATIN CA 20 MG TABLET (FP) PO SCH (22:01)
[2017-12-30] MEDS: diphenhydrAMINE HCL 50 MG CAPSULE PO PRN (22:01)
[2017-12-30] MEDS: THIAMINE HCL 100 MG TABLET (FP) PO SCH (22:01)
[2017-12-30] MEDS: LIDOCAINE PATCH REMOVAL MC SCH ×2 (22:03)
[2017-12-31] MEDS: ACETAMINOPHEN 325 MG TABLET (FP) PO PRN ×3 (05:57→22:31)
[2017-12-31] MEDS: GABAPENTIN 100 MG CAPSULE (FP) PO SCH ×3 (05:59→22:29)
[2017-12-31] MEDS: BACLOFEN 10 MG TABLET (FP) PO SCH ×3 (05:59→22:29)
[2017-12-31] MEDS: sitaGLIPtin PHOSPHATE 100 MG TABLET (FP) PO SCH (07:28)
[2017-12-31] MEDS: metFORMIN HCL 500 MG TABLET (FP) PO SCH ×2 (07:28→16:55)
[2017-12-31] MEDS: ENALAPRIL MALEATE 10 MG TABLET (FP) PO SCH (10:50)
[2017-12-31] MEDS: PANTOPRAZOLE 40 MG TABLET (FP) PO SCH (10:50)
[2017-12-31] MEDS: PRENATAL VITAMINS W/ FOLIC ACID TABLET (FP) PO SCH (10:50)
[2017-12-31] MEDS: LIDOCAINE 5% TOPICAL PATCH TP SCH ×2 (10:51)
[2017-12-31] MEDS: SERTRALINE HCL 50 MG TABLET (FP) PO SCH (10:51)
[2017-12-31] MEDS: BUDESONIDE/FORMETEROL FUMARATE 160/4.5 mcg INHALER IH SCH ×2 (10:51→22:33)
[2017-12-31] MEDS: SUVOREXANT 5 MG TABLET PO PRN (22:29)
[2017-12-31] MEDS: ATORVASTATIN CA 20 MG TABLET (FP) PO SCH (22:29)
[2017-12-31] MEDS: diphenhydrAMINE HCL 50 MG CAPSULE PO PRN (22:29)
[2017-12-31] MEDS: THIAMINE HCL 100 MG TABLET (FP) PO SCH (22:29)
[2017-12-31] MEDS: LIDOCAINE PATCH REMOVAL MC SCH ×2 (22:33)
[2018-01-01] MEDS: BACLOFEN 10 MG TABLET (FP) PO SCH ×3 (06:06→21:21)
[2018-01-01] MEDS: metFORMIN HCL 500 MG TABLET (FP) PO SCH ×2 (06:06→17:03)
[2018-01-01] MEDS: sitaGLIPtin PHOSPHATE 100 MG TABLET (FP) PO SCH (06:06)
[2018-01-01] MEDS: GABAPENTIN 100 MG CAPSULE (FP) PO SCH ×3 (06:06→21:21)
[2018-01-01] MEDS ORDERED: SUVOREXANT 5 MG TABLET PO PRN (06:10)
[2018-01-01] MEDS: ACETAMINOPHEN 325 MG TABLET (FP) PO PRN ×2 (06:55→21:23)
[2018-01-01] MEDS ORDERED: PT OWN MED DRAWER 7, Y5N ONE ×2 (09:02→20:53)
--- NOTE | 2018-01-01 09:54 | PN ---
Psychiatric Progress Note Vital Signs: Vital Signs Period Temp Pulse Resp BP Sys/Riojas Pulse Ox Last 24 Hr 98.3 F 84-94 18-18 132-149/79-82 Date of Session: 01/01/18 Chief Complaint:: Discharge Note HPI: Patient addressing Alcohol, Cocaine Dependence comorbid Nicotine Dependence , MDD, Posttraumatic Stress Disorder, Substance-Induced Mood Disorder and Substance-Induced Sleep Disorder ROS: COPD, GERD, HTN were medically managed Current Medications: Active Medications Generic Name Dose Route Start Last Admin Trade Name Freq PRN Reason Stop Dose Admin Acetaminophen 650 mg 12/15/17 14:38 01/01/18 06:55 Tylenol - PO 650 mg Q4H PRN Administration FEVER Al Hydroxide/Mg Hydroxide 30 ml 12/15/17 14:38 Mylanta Oral Suspension - PO Q6H PRN DYSPEPSIA Albuterol Sulfate 2 puff 12/15/17 14:38 Ventolin Hfa Inhaler - IH Q4H PRN SHORT OF BREATH/WHEEZING Atorvastatin Calcium 20 mg 12/15/17 22:00 12/31/17 22:29 Lipitor - PO 20 mg HS CAROLIN Administration Baclofen 10 mg 12/22/17 14:00 01/01/18 06:06 Lioresal - PO 10 mg TID CARLOIN Administration Budesonide/Formoterol Fumarate 2 puff 12/15/17 22:00 12/31/17 22:33 Symbicort 160/4.5mcg - IH Not Given BID CAROLIN Diphenhydramine HCl 50 mg 12/24/17 22:00 12/31/17 22:29 Benadryl - PO 50 mg HS PRN Administration INSOMNIA Enalapril Maleate 20 mg 12/23/17 10:00 12/31/17 10:50 Vasotec - PO 20 mg DAILY CAROLIN Administration Eucalyptus/Menthol/Phenol/Sorbitol 1 each 12/15/17 14:38 Cepastat Lozenge - MM Q4H PRN SORE THROAT Gabapentin 100 mg 12/24/17 14:00 01/01/18 06:06 Neurontin - PO 100 mg TID CAROLIN Administration Guaifenesin 10 ml 12/15/17 14:38 Robitussin Dm - PO Q6H PRN COUGH Lidocaine 1 patch 12/22/17 14:45 12/31/17 10:51 Lidoderm Patch - TP 1 patch DAILY CAROLIN Administration Lidocaine 1 patch 12/24/17 13:00 12/31/17 10:51 Lidoderm Patch - TP 1 patch DAILY CAROLIN Administration Loperamide HCl 4 mg 12/15/17 14:38 Imodium - PO Q6H PRN DIARRHEA Magnesium Citrate 300 ml 12/15/17 14:38 Citroma - PO Q48H PRN CONSTIPATION Magnesium Hydroxide 30 ml 12/15/17 14:38 Milk Of Magnesia - PO DAILY PRN CONSTIPATION Metformin HCl 1,000 mg 12/15/17 16:30 01/01/18 06:06 Glucophage - PO 1,000 mg BID@0700,1630 CAROLIN Administration Miscellaneous 1 each 12/22/17 22:00 12/31/17 22:33 Lidoderm Patch Removal MC 1 each DAILY@2200 CAROLIN Administration Miscellaneous 1 each 12/24/17 22:00 12/31/17 22:33 Lidoderm Patch Removal MC 1 each DAILY@2200 CAROLIN Administration Nicotine 14 mg 12/15/17 14:38 Nicoderm Patch - TD DAILY PRN WITHDRAWAL(CONT SUBST) Nicotine Polacrilex 2 mg 12/15/17 14:38 Nicorette Gum - BUC Q2H PRN NICOTINE REPLACEMENT RX Pantoprazole Sodium 40 mg 12/16/17 10:00 12/31/17 10:50 Protonix - PO 40 mg DAILY CAROLIN Administration Multivit/Folic Acid/Iron 1 tab 12/16/17 10:00 12/31/17 10:50 Vitamins (Sjr) - PO 1 tab DAILY CAROLIN Administration Pseudoephedrine/Triprolidine 1 combo 12/15/17 14:38 Actifed - PO TID PRN NASAL CONGESTION Sertraline HCl 50 mg 12/16/17 10:00 12/31/17 10:51 Zoloft - PO Not Given DAILY CAROLIN Sitagliptin Phosphate 100 mg 12/23/17 07:00 01/01/18 06:06 Januvia - PO 100 mg DAILY@0700 CAROLIN Administration Suvorexant 15 mg 01/01/18 06:10 Belsomra PO HS PRN INSOMNIA Thiamine HCl 100 mg 12/15/17 22:00 12/31/17 22:29 Vitamin B1 - PO 100 mg HS CAROLIN Administration Current Side Effect: No Lab tests ordered: Yes Lab tests reviewed: Yes Provider note:: Patient will complete this program on 01/02/18. He has met his treatment goals and will continue to address his issues in outpatient treatment at [facility]. He responded well to Zoloft 50 mg po daily, Belsomra 10 mg po HS prn for insomnia and Benadryl 50 mg po HS prn for indsomnia.Script for 30 days supply of Zoloft will be electronically transmitted to [facility] at [address] [place] [address]. He is stable for discharge on 01/02/18 Total face to face time:: 35 Mental Status Exam - Mental Status Exam Alert and Oriented to: Time, Place, Person Cognitive Function: Fair Patient Appearance: Well Groomed Mood: Hopeful, Euthymic Affect: Appropriate Patient Behavior: Cooperative Speech Pattern: Clear Voice Loudness: Normal Thought Process: Intact, Goal Oriented Thought Disorder: Not Present Hallucinations: Denies Homicidal Ideation: Denies Insight/Judgement: Fair Sleep: Fair Appetite: Good Muscle strength/Tone: Normal Gait/Station: Normal Psychiatric Treatment Plan - Problem List (1) Alcohol dependence Current Visit: Yes (2) Cocaine dependence Current Visit: Yes (3) Nicotine dependence Current Visit: No Qualifiers: Nicotine product type: cigarettes Substance use status: uncomplicated Qualified Code(s): F17.210 - Nicotine dependence, cigarettes, uncomplicated (4) MDD (major depressive disorder) Current Visit: No Comment: Self reports. 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
[2018-01-01] MEDS: LIDOCAINE 5% TOPICAL PATCH TP SCH ×2 (10:24)
[2018-01-01] MEDS: ENALAPRIL MALEATE 10 MG TABLET (FP) PO SCH (10:24)
[2018-01-01] MEDS: PRENATAL VITAMINS W/ FOLIC ACID TABLET (FP) PO SCH (10:24)
[2018-01-01] MEDS: PANTOPRAZOLE 40 MG TABLET (FP) PO SCH (10:25)
[2018-01-01] MEDS: SERTRALINE HCL 50 MG TABLET (FP) PO SCH (10:25)
[2018-01-01] MEDS: BUDESONIDE/FORMETEROL FUMARATE 160/4.5 mcg INHALER IH SCH ×2 (10:25→21:20)
[2018-01-01] MEDS: MAG HYDROX/AL HYDROX/SIMETH 30 ML UNIT-DOSE CUP PO PRN (17:03)
[2018-01-01] MEDS: LIDOCAINE PATCH REMOVAL MC SCH ×2 (21:20→21:21)
[2018-01-01] MEDS: THIAMINE HCL 100 MG TABLET (FP) PO SCH (21:21)
[2018-01-01] MEDS: ATORVASTATIN CA 20 MG TABLET (FP) PO SCH (21:23)
[2018-01-01] MEDS: diphenhydrAMINE HCL 50 MG CAPSULE PO PRN (21:23)
[2018-01-02] MEDS: ACETAMINOPHEN 325 MG TABLET (FP) PO PRN (05:58)
[2018-01-02] MEDS: GABAPENTIN 100 MG CAPSULE (FP) PO SCH (06:00)
[2018-01-02] MEDS: BACLOFEN 10 MG TABLET (FP) PO SCH (06:00)
[2018-01-02] MEDS: MAG HYDROX/AL HYDROX/SIMETH 30 ML UNIT-DOSE CUP PO PRN (06:48)
[2018-01-02] MEDS: metFORMIN HCL 500 MG TABLET (FP) PO SCH (07:05)
[2018-01-02] MEDS: sitaGLIPtin PHOSPHATE 100 MG TABLET (FP) PO SCH (07:05)
[2018-01-02 07:23] VITALS: BP 142/86; PULSE 83; TEMP 98
[2018-01-02] MEDS: ENALAPRIL MALEATE 10 MG TABLET (FP) PO SCH (09:25)
[2018-01-02] MEDS: PRENATAL VITAMINS W/ FOLIC ACID TABLET (FP) PO SCH (09:25)
[2018-01-02] MEDS: SERTRALINE HCL 50 MG TABLET (FP) PO SCH (09:26)
[2018-01-02] MEDS: LIDOCAINE 5% TOPICAL PATCH TP SCH ×2 (09:26)
[2018-01-02] MEDS: BUDESONIDE/FORMETEROL FUMARATE 160/4.5 mcg INHALER IH SCH (09:26)
[2018-01-02] MEDS: PANTOPRAZOLE 40 MG TABLET (FP) PO SCH (09:26)
== END 2018-01-02 09:30 | disposition home or self-care (01) | DRG 772 ==
LOC: YASAS 13:11 → Y3W 13:12
PROVIDERS: ADMIT Psychiatry & Neurology Psychiatry; ATTEND Psychiatry & Neurology Psychiatry
PROC: HZ42ZZZ Group Counseling for Substance Abuse Treatment, Cognitive-Behavioral (ICD-10-PCS; principal; 2017-12-15)
DX: F10.20 Alcohol dependence, uncomplicated (principal); F14.20 Cocaine dependence, uncomplicated; F17.210 Nicotine dependence, cigarettes, uncomplicated; F33.9 Major depressive disorder, recurrent, unspecified; F43.10 Post-traumatic stress disorder, unspecified; F19.24 Other psychoactive substance dependence with psychoactive substance-induced mood disorder; F19.282 Other psychoactive substance dependence with psychoactive substance-induced sleep disorder; I10 Essential (primary) hypertension; J43.9 Emphysema, unspecified; K21.9 Gastro-esophageal reflux disease without esophagitis; Z86.69 Personal history of other diseases of the nervous system and sense organs
CPT/HCPCS: 36415; 82962; 87389; J0475; J0735

== ENCOUNTER 2018-06-08 14:36 | Inpatient (IN) | payer OTHER ==
[2018-06-08 16:02] VITALS: BMI 30.1
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
[2018-06-08] MEDS ORDERED: MAGNESIUM CITRATE 300 ML BOTTLE PO PRN (19:37)
[2018-06-08] MEDS ORDERED: P-EPHED 60MG/TRIPROLIDI 2.5MG TABLET PO PRN (19:37)
[2018-06-08] MEDS ORDERED: NICOTINE POLACRILEX 2 MG GUM BC PRN (19:37)
[2018-06-08] MEDS ORDERED: guaiFENesin/D-METHORPHAN HB 10 ML UNIT-DOSE CUPS PO PRN (19:37)
[2018-06-08] MEDS ORDERED: MAGNESIUM HYDROX 2400MG/30ML ORAL SUSPENSION 30 ML CUP PO PRN (19:37)
[2018-06-08] MEDS ORDERED: chlordiazePOXIDE HCL 25 MG CAPSULE PO PRN (19:37)
[2018-06-08] MEDS ORDERED: IBUPROFEN 400 MG TABLET (FP) PO PRN (19:37)
[2018-06-08] MEDS ORDERED: MENTHOL/PHENOL 1 EACH UD MM PRN (19:37)
[2018-06-08] MEDS ORDERED: LOPERAMIDE HCL 2 MG CAPSULE PO PRN (19:37)
[2018-06-08] MEDS ORDERED: ALBUTEROL SO4 8 GM HFA INHALER IH PRN (19:41)
[2018-06-08] MEDS ORDERED: chlordiazePOXIDE HCL 25 MG CAPSULE PO ONE (20:00)
[2018-06-08] MEDS: metFORMIN HCL 500 MG TABLET (FP) PO SCH (20:19)
[2018-06-08] MEDS: ACETAMINOPHEN 325 MG TABLET (FP) PO PRN (20:41)
[2018-06-08] MEDS ORDERED: MELATONIN 5 MG TABLETS PO PRN (22:00)
[2018-06-08] MEDS: cloNIDine HCL 0.1 MG TABLET PO SCH (22:05)
[2018-06-08] MEDS: THIAMINE HCL 100 MG TABLET (FP) PO SCH (22:05)
[2018-06-08] MEDS: chlordiazePOXIDE HCL 25 MG CAPSULE PO SCH (22:05)
[2018-06-08] MEDS: MAG HYDROX/AL HYDROX/SIMETH 30 ML UNIT-DOSE CUP PO PRN (22:18)
[2018-06-08] MEDS: hydrOXYzine PAMOATE 50 MG CAPSULE (FP) PO PRN (22:19)
[2018-06-08] MEDS: BUDESONIDE/FORMETEROL FUMARATE 160/4.5 mcg INHALER IH SCH (22:25)
[2018-06-08] MEDS: INSULIN SLIDING SCALE (NOVOLOG) 1 VIAL SQ SCH (23:23)
[2018-06-08] MEDS: CLOTRIMAZOLE 1% CREAM 15 GM TUBE TP SCH (23:26)
[2018-06-09 00:17] LABS: URINE APPEARANCE CLEAR; URINE BILIRUBIN NEGATIVE (<2.0 mg/dL); URINE COLOR DKYELLOW; URINE GLUCOSE (UA) 1+ (NEGATIVE); URINE KETONE NEGATIVE (NEGATIVE); URINE LEUK ESTERASE NEGATIVE (NEGATIVE); URINE NITRITE NEGATIVE (NEGATIVE); URINE PROTEIN NEGATIVE (NEGATIVE); URINE UROBILINOGEN 4.0 E.U/dl mg/dL (0.2-1.0)
[2018-06-09] MEDS: chlordiazePOXIDE HCL 25 MG CAPSULE PO SCH ×4 (05:17→22:01)
[2018-06-09] MEDS: ACETAMINOPHEN 325 MG TABLET (FP) PO PRN (05:18)
[2018-06-09] MEDS: metFORMIN HCL 500 MG TABLET (FP) PO SCH ×2 (06:00→17:09)
[2018-06-09] MEDS: sitaGLIPtin PHOSPHATE 100 MG TABLET (FP) PO SCH (06:06)
[2018-06-09] MEDS ORDERED: INSULIN (NOVOLOG) ASPART 100 UNITS/ML 10ML VIAL ONE (07:46)
[2018-06-09] MEDS: INSULIN SLIDING SCALE (NOVOLOG) 1 VIAL SQ SCH ×4 (07:56→21:43)
[2018-06-09] MEDS: BUDESONIDE/FORMETEROL FUMARATE 160/4.5 mcg INHALER IH SCH ×2 (10:04→21:43)
[2018-06-09] MEDS: PANTOPRAZOLE 40 MG TABLET (FP) PO SCH (10:04)
[2018-06-09] MEDS: CLOTRIMAZOLE 1% CREAM 15 GM TUBE TP SCH ×2 (10:05→21:48)
[2018-06-09] MEDS: PRENATAL VITAMINS W/ FOLIC ACID TABLET (FP) PO SCH (10:05)
[2018-06-09] MEDS: cloNIDine HCL 0.1 MG TABLET PO SCH ×2 (10:05→21:47)
--- NOTE | 2018-06-09 10:12 | PN ---
S CIWA - CIWA Score Nausea/Vomitin-No Nausea/No Vomiting Muscle Tremors: 4-Moderate,w/Arms Extend Anxiety: 4-Mod. Anxious/Guarded Agitation: 4-Moderately Restless Paroxysmal Sweats: 1-Minimal Palms Moist Orientation: 0-Oriented Tacttile Disturbances: 0-None Auditory Disturbances: 0-None Visual Disturbances: 0-None Headache: 0-None Present CIWA-Ar Total Score: 13 BHS Progress Note (SOAP) Subjective: ANXIETY,SWEATS,INTERMITTENT SLEEP Objective: 06/09/18 10:11 Vital Signs 06/09/18 06/09/18 06/09/18 03:42 05:51 09:34 Temperature 97.7 F 96.4 F L Pulse Rate 60 73 Respiratory 18 18 20 Rate Blood Pressure 165/85 132/68 Laboratory Tests 06/08/18 06/08/18 06/08/18 16:50 21:26 23:26 POC Glucometer 191 173 Urine Color Dkyellow Urine Appearance Clear Urine pH 5.0 Ur Specific [place] 1.026 Urine Protein Negative Urine Glucose (UA) 1+ H Urine Ketones Negative Urine Blood Negative Urine Nitrite Negative Urine Bilirubin Negative Urine Urobilinogen 4.0 e.u/dl Ur Leukocyte Esterase Negative 06/09/18 05:16 POC Glucometer 202 Urine Color Urine Appearance Urine pH Ur Specific [place] Urine Protein Urine Glucose (UA) Urine Ketones Urine Blood Urine Nitrite Urine Bilirubin Urine Urobilinogen Ur Leukocyte Esterase OTHER LABS PENDING Assessment: 06/09/18 10:11 WITHDRAWAL SX Plan: CONTINUE DETOX
[2018-06-09 10:14] LABS: HEMATOCRIT 38.9 % (35.4-49); HEMOGLOBIN 13.1 GM/dL (11.7-16.9); MCHC 33.6 g/dl (32.0-35.9); MEAN CELL VOLUME 95.4 fl (80-96); MEAN PLT VOLUME 8.3 fl (7.5-11.1); PLATELET COUNT 383 K/MM3 (134-434); RBC 4.08 M/mm3 (4.00-5.60); RDW 12.9 % (11.9-15.9); WHITE BLOOD COUNT 9.9 K/mm3 (4.0-10.0)
[2018-06-09 11:05] LABS: ALBUMIN 3.3 g/dl (3.4-5.0); ANION GAP 9 MMOL/L (8-16); BILIRUBIN,TOTAL 0.3 mg/dL (0.2-1.0); BLOOD UREA NITROGEN 14 mg/dL (7-18); CALCIUM 8.7 mg/dL (8.5-10.1); CHLORIDE 106 mmol/L (98-107); CO2 28 mmol/L (21-32); CREATININE 0.9 mg/dL (0.7-1.3); GLUCOSE,RANDOM 125 mg/dL (74-106); SGPT/ALT 48 U/L (12-78); SODIUM 143 mmol/L (136-145); TOT PROT 6.4 g/dl (6.4-8.2)
[2018-06-09 11:06] LABS: ALK PHOS 109 U/L (45-117); SGOT/AST 33 U/L (15-37)
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
--- NOTE | 2018-06-09 16:32 | EKG ---
Test Reason : Blood Pressure : / mmHG Vent. Rate : 067 BPM Atrial Rate : 067 BPM P-R Int : 170 ms QRS Dur : 092 ms QT Int : 388 ms P-R-T Axes : 053 084 053 degrees QTc Int : 409 ms NORMAL SINUS RHYTHM POSSIBLE LEFT ATRIAL ENLARGEMENT LEFT VENTRICULAR HYPERTROPHY ABNORMAL ECG WHEN COMPARED WITH ECG OF 12-DEC-2017 09:20, T WAVE AMPLITUDE HAS INCREASED IN ANTERIOR LEADS QT HAS SHORTENED Confirmed by Surya Crowell ([id number]) on 06/09/2018 4:32:37 PM Referred By: Confirmed By:Surya Crowell
[2018-06-09] MEDS: THIAMINE HCL 100 MG TABLET (FP) PO SCH (21:47)
[2018-06-10] MEDS: ACETAMINOPHEN 325 MG TABLET (FP) PO PRN ×2 (04:32→14:53)
[2018-06-10] MEDS: chlordiazePOXIDE HCL 25 MG CAPSULE PO SCH ×3 (04:32→17:45)
[2018-06-10] MEDS: metFORMIN HCL 500 MG TABLET (FP) PO SCH ×2 (07:44→17:44)
[2018-06-10] MEDS: sitaGLIPtin PHOSPHATE 100 MG TABLET (FP) PO SCH (07:44)
[2018-06-10] MEDS: INSULIN SLIDING SCALE (NOVOLOG) 1 VIAL SQ SCH ×4 (08:16→22:53)
--- NOTE | 2018-06-10 09:46 | PN ---
S CIWA - CIWA Score Nausea/Vomitin-No Nausea/No Vomiting Muscle Tremors: 4-Moderate,w/Arms Extend Anxiety: 4-Mod. Anxious/Guarded Agitation: 4-Moderately Restless Paroxysmal Sweats: 1-Minimal Palms Moist Orientation: 0-Oriented Tacttile Disturbances: 0-None Auditory Disturbances: 0-None Visual Disturbances: 0-None Headache: 0-None Present CIWA-Ar Total Score: 13 S Progress Note (SOAP) Subjective: ANXIETY, SWEATS, TREMORS BODY ACHES, FATIGUE. Objective: 06/10/18 10:05 Vital Signs 06/10/18 06/10/18 06/10/18 03:19 06:14 07:37 Temperature 97.9 F 97.5 F L Pulse Rate 59 L 68 Respiratory 20 18 18 Rate Blood Pressure 162/79 137/83 06/10/18 09:01 Temperature 97.2 F L Pulse Rate 72 Respiratory 18 Rate Blood Pressure 111/72 Laboratory Tests 06/08/18 06/08/18 06/08/18 16:50 21:26 23:26 WBC RBC Hgb Hct MCV MCH MCHC RDW Plt Count MPV Sodium Potassium Chloride Carbon Dioxide Anion Gap BUN Creatinine Creat Clearance w eGFR POC Glucometer 191 173 Random Glucose Calcium Total Bilirubin AST ALT Alkaline Phosphatase Total Protein Albumin Urine Color Dkyellow Urine Appearance Clear Urine pH 5.0 Ur Specific [place] 1.026 Urine Protein Negative Urine Glucose (UA) 1+ H Urine Ketones Negative Urine Blood Negative Urine Nitrite Negative Urine Bilirubin Negative Urine Urobilinogen 4.0 e.u/dl Ur Leukocyte Esterase Negative RPR Titer HIV 1&2 Antibody Screen HIV P24 Antigen 06/09/18 06/09/18 06/09/18 05:16 07:00 07:00 WBC 9.9 RBC 4.08 Hgb 13.1 Hct 38.9 MCV 95.4 MCH 32.0 MCHC 33.6 RDW 12.9 Plt Count 383 MPV 8.3 Sodium Potassium Chloride Carbon Dioxide Anion Gap BUN Creatinine Creat Clearance w eGFR POC Glucometer 202 Random Glucose Calcium Total Bilirubin AST ALT Alkaline Phosphatase Total Protein Albumin Urine Color Urine Appearance Urine pH Ur Specific [place] Urine Protein Urine Glucose (UA) Urine Ketones Urine Blood Urine Nitrite Urine Bilirubin Urine Urobilinogen Ur Leukocyte Esterase RPR Titer HIV 1&2 Antibody Screen Negative HIV P24 Antigen Negative 06/09/18 06/09/1806/09/18 07:00 07:00 10:57 WBC RBC Hgb Hct MCV MCH MCHC RDW Plt Count MPV Sodium 143 Potassium 4.0 Chloride 106 Carbon Dioxide 28 Anion Gap 9 BUN 14 Creatinine 0.9 Creat Clearance w eGFR > 60 POC Glucometer 139 Random Glucose 125 H D Calcium 8.7 Total Bilirubin 0.3 AST 33 D ALT 48 D Alkaline Phosphatase 109 Total Protein 6.4 Albumin 3.3 L Urine Color Urine Appearance Urine pH Ur Specific [place] Urine Protein Urine Glucose (UA) Urine Ketones Urine Blood Urine Nitrite Urine Bilirubin Urine Urobilinogen Ur Leukocyte Esterase RPR Titer Nonreactive HIV 1&2 Antibody Screen HIV P24 Antigen 06/09/18 06/09/18 06/10/18 16:28 21:42 04:26 WBC RBC Hgb Hct MCV MCH MCHC RDW Plt Count MPV Sodium Potassium Chloride Carbon Dioxide Anion Gap BUN Creatinine Creat Clearance w eGFR POC Glucometer 141 169 156 Random Glucose Calcium Total Bilirubin AST ALT Alkaline Phosphatase Total Protein Albumin Urine Color Urine Appearance Urine pH Ur Specific [place] Urine Protein Urine Glucose (UA) Urine Ketones Urine Blood Urine Nitrite Urine Bilirubin Urine Urobilinogen Ur Leukocyte Esterase RPR Titer HIV 1&2 Antibody Screen HIV P24 Antigen Assessment: 06/10/18 10:06 WITHDRAWAL SX Plan: CONTINUE DETOX
[2018-06-10] MEDS: PANTOPRAZOLE 40 MG TABLET (FP) PO SCH (10:05)
[2018-06-10] MEDS: cloNIDine HCL 0.1 MG TABLET PO SCH ×2 (10:05→22:56)
[2018-06-10] MEDS: SERTRALINE HCL 50 MG TABLET (FP) PO SCH (10:05)
[2018-06-10] MEDS: PRENATAL VITAMINS W/ FOLIC ACID TABLET (FP) PO SCH (10:05)
[2018-06-10] MEDS: CLOTRIMAZOLE 1% CREAM 15 GM TUBE TP SCH ×2 (10:05→22:59)
[2018-06-10] MEDS: BUDESONIDE/FORMETEROL FUMARATE 160/4.5 mcg INHALER IH SCH ×2 (10:05→22:59)
[2018-06-10] MEDS: hydrOXYzine PAMOATE 50 MG CAPSULE (FP) PO PRN (17:48)
[2018-06-10] MEDS: MAG HYDROX/AL HYDROX/SIMETH 30 ML UNIT-DOSE CUP PO PRN (17:50)
[2018-06-10] MEDS: chlordiazePOXIDE 5 MG CAPSULE PO SCH (22:56)
[2018-06-10] MEDS: THIAMINE HCL 100 MG TABLET (FP) PO SCH (22:56)
[2018-06-10] MEDS: ZOLPIDEM TARTRATE 10 MG TABLET (PARK CARE ONLY) PO PRN (22:59)
[2018-06-11] MEDS: chlordiazePOXIDE 5 MG CAPSULE PO SCH ×3 (05:15→17:25)
[2018-06-11] MEDS: ACETAMINOPHEN 325 MG TABLET (FP) PO PRN ×2 (05:15→17:28)
[2018-06-11] MEDS: metFORMIN HCL 500 MG TABLET (FP) PO SCH ×2 (07:20→17:25)
[2018-06-11] MEDS: sitaGLIPtin PHOSPHATE 100 MG TABLET (FP) PO SCH (07:20)
[2018-06-11] MEDS: INSULIN SLIDING SCALE (NOVOLOG) 1 VIAL SQ SCH ×4 (07:21→21:17)
[2018-06-11] MEDS: SERTRALINE HCL 50 MG TABLET (FP) PO SCH (10:06)
[2018-06-11] MEDS: PRENATAL VITAMINS W/ FOLIC ACID TABLET (FP) PO SCH (10:06)
[2018-06-11] MEDS: ENALAPRIL MALEATE 10 MG TABLET (FP) PO SCH (10:06)
[2018-06-11] MEDS: PANTOPRAZOLE 40 MG TABLET (FP) PO SCH (10:06)
[2018-06-11] MEDS: cloNIDine HCL 0.1 MG TABLET PO SCH ×2 (10:06→22:05)
[2018-06-11] MEDS: BUDESONIDE/FORMETEROL FUMARATE 160/4.5 mcg INHALER IH SCH ×2 (10:07→22:04)
[2018-06-11] MEDS: CLOTRIMAZOLE 1% CREAM 15 GM TUBE TP SCH ×2 (10:07→22:04)
--- NOTE | 2018-06-11 11:34 | PN ---
[facility] Progress Note (SOAP) Subjective: C/O SWEATS BUT REPORTS DETOX PROCEEDING WELL Objective: 06/11/18 11:33 Vital Signs 06/11/18 06/11/18 06/11/18 06:14 06:30 07:25 Temperature 97 F L Pulse Rate 66 72 Respiratory 18 18 Rate Blood Pressure 174/95 123/74 06/11/18 10:05 Temperature 96.8 F L Pulse Rate 70 Respiratory 18 Rate Blood Pressure 160/89 Laboratory Tests 06/08/18 06/08/18 06/08/18 16:50 21:26 23:26 WBC RBC Hgb Hct MCV MCH MCHC RDW Plt Count MPV Sodium Potassium Chloride Carbon Dioxide Anion Gap BUN Creatinine Creat Clearance w eGFR POC Glucometer 191 173 Random Glucose Calcium Total Bilirubin AST ALT Alkaline Phosphatase Total Protein Albumin Urine Color Dkyellow Urine Appearance Clear Urine pH 5.0 Ur Specific [place] 1.026 Urine Protein Negative Urine Glucose (UA) 1+ H Urine Ketones Negative Urine Blood Negative Urine Nitrite Negative Urine Bilirubin Negative Urine Urobilinogen 4.0 e.u/dl Ur Leukocyte Esterase Negative RPR Titer HIV 1&2 Antibody Screen HIV P24 Antigen 06/09/18 06/09/18 06/09/18 05:16 07:00 07:00 WBC 9.9 RBC 4.08 Hgb 13.1 Hct 38.9 MCV 95.4 MCH 32.0 MCHC 33.6 RDW 12.9 Plt Count 383 MPV 8.3 Sodium Potassium Chloride Carbon Dioxide Anion Gap BUN Creatinine Creat Clearance w eGFR POC Glucometer 202 Random Glucose Calcium Total Bilirubin AST ALT Alkaline Phosphatase Total Protein Albumin Urine Color Urine Appearance Urine pH Ur Specific [place] Urine Protein Urine Glucose (UA) Urine Ketones Urine Blood Urine Nitrite Urine Bilirubin Urine Urobilinogen Ur Leukocyte Esterase RPR Titer HIV 1&2 Antibody Screen Negative HIV P24 Antigen Negative 06/09/18 06/09/18 06/09/18 07:00 07:00 10:57 WBC RBC Hgb Hct MCV MCH MCHC RDW Plt Count MPV Sodium 143 Potassium 4.0 Chloride 106 Carbon Dioxide 28 Anion Gap 9 BUN 14 Creatinine 0.9 Creat Clearance w eGFR > 60 POC Glucometer 139 Random Glucose 125 H D Calcium 8.7 Total Bilirubin 0.3 AST 33 D ALT 48 D Alkaline Phosphatase 109 Total Protein 6.4 Albumin 3.3 L Urine Color Urine Appearance Urine pH Ur Specific [place] Urine Protein Urine Glucose (UA) Urine Ketones Urine Blood Urine Nitrite Urine Bilirubin Urine Urobilinogen Ur Leukocyte Esterase RPR Titer Nonreactive HIV 1&2 Antibody Screen HIV P24 Antigen 06/09/18 06/09/18 06/10/18 16:28 21:42 04:26 WBC RBC Hgb Hct MCV MCH MCHC RDW Plt Count MPV Sodium Potassium Chloride Carbon Dioxide Anion Gap BUN Creatinine Creat Clearance w eGFR POC Glucometer 141 169 156 Random Glucose Calcium Total Bilirubin AST ALT Alkaline Phosphatase Total Protein Albumin Urine Color Urine Appearance Urine pH Ur Specific [place] Urine Protein Urine Glucose (UA) Urine Ketones Urine Blood Urine Nitrite Urine Bilirubin Urine Urobilinogen Ur Leukocyte Esterase RPR Titer HIV 1&2 Antibody Screen HIV P24 Antigen 06/10/18 06/10/18 06/10/18 11:09 16:20 20:48 WBC RBC Hgb Hct MCV MCH MCHC RDW Plt Count MPV Sodium Potassium Chloride Carbon Dioxide Anion Gap BUN Creatinine Creat Clearance w eGFR POC Glucometer 133 187 174 Random Glucose Calcium Total Bilirubin AST ALT Alkaline Phosphatase Total Protein Albumin Urine Color Urine Appearance Urine pH Ur Specific [place] Urine Protein Urine Glucose (UA) Urine Ketones Urine Blood Urine Nitrite Urine Bilirubin Urine Urobilinogen Ur Leukocyte Esterase RPR Titer HIV 1&2 Antibody Screen HIV P24 Antigen 06/11/18 06/11/18 05:14 11:03 WBC RBC Hgb Hct MCV MCH MCHC RDW Plt Count MPV Sodium Potassium Chloride Carbon Dioxide Anion Gap BUN Creatinine Creat Clearance w eGFR POC Glucometer 154 142 Random Glucose Calcium Total Bilirubin AST ALT Alkaline Phosphatase Total Protein Albumin Urine Color Urine Appearance Urine pH Ur Specific [place] Urine Protein Urine Glucose (UA) Urine Ketones Urine Blood Urine Nitrite Urine Bilirubin Urine Urobilinogen Ur Leukocyte Esterase RPR Titer HIV 1&2 Antibody Screen HIV P24 Antigen Assessment: 06/11/18 11:34 WITHDRAWAL SX Plan: CONTINUE DETOX
[2018-06-11] MEDS: MAG HYDROX/AL HYDROX/SIMETH 30 ML UNIT-DOSE CUP PO PRN (15:27)
[2018-06-11] MEDS: hydrOXYzine PAMOATE 50 MG CAPSULE (FP) PO PRN (17:29)
[2018-06-11] MEDS: THIAMINE HCL 100 MG TABLET (FP) PO SCH (22:04)
[2018-06-11] MEDS: ZOLPIDEM TARTRATE 10 MG TABLET (PARK CARE ONLY) PO PRN (22:05)
[2018-06-11] MEDS: chlordiazePOXIDE HCL 10 MG CAPSULE PO SCH (22:05)
[2018-06-12] MEDS: chlordiazePOXIDE HCL 10 MG CAPSULE PO SCH ×2 (05:42→10:43)
[2018-06-12] MEDS: sitaGLIPtin PHOSPHATE 100 MG TABLET (FP) PO SCH (06:46)
[2018-06-12] MEDS: metFORMIN HCL 500 MG TABLET (FP) PO SCH (06:46)
[2018-06-12] MEDS: INSULIN SLIDING SCALE (NOVOLOG) 1 VIAL SQ SCH ×2 (06:50→11:58)
[2018-06-12] MEDS ORDERED: cloNIDine HCL 0.1 MG TABLET PO SCH (08:11)
[2018-06-12 09:34] VITALS: BP 138/77; PULSE 90; TEMP 97.6
[2018-06-12] MEDS: SERTRALINE HCL 50 MG TABLET (FP) PO SCH (10:43)
[2018-06-12] MEDS: PANTOPRAZOLE 40 MG TABLET (FP) PO SCH (10:43)
[2018-06-12] MEDS: ENALAPRIL MALEATE 10 MG TABLET (FP) PO SCH (10:43)
[2018-06-12] MEDS: hydrOXYzine PAMOATE 50 MG CAPSULE (FP) PO PRN (10:44)
[2018-06-12] MEDS: PRENATAL VITAMINS W/ FOLIC ACID TABLET (FP) PO SCH (10:44)
[2018-06-12] MEDS: BUDESONIDE/FORMETEROL FUMARATE 160/4.5 mcg INHALER IH SCH (10:44)
[2018-06-12] MEDS: ACETAMINOPHEN 325 MG TABLET (FP) PO PRN (10:45)
[2018-06-12] MEDS: CLOTRIMAZOLE 1% CREAM 15 GM TUBE TP SCH (10:47)
--- NOTE | 2018-06-12 11:23 | PN ---
[facility] Progress Note (SOAP) Subjective: DETOX COMPLETED. ALERT O X 3. NAD. PT REPORTS HE HAS PMD DR. TATI PRESTON FOR MEDICAL MANAGEMENT. Objective: 06/12/18 11:23 Vital Signs 06/12/18 06/12/18 06/12/18 06:17 07:50 09:33 Temperature 97 F L 97.6 F Pulse Rate 63 77 90 Respiratory 18 20 Rate Blood Pressure 183/81 137/81 138/77 Laboratory Tests 06/08/18 06/08/18 06/08/18 16:50 21:26 23:26 WBC RBC Hgb Hct MCV MCH MCHC RDW Plt Count MPV Sodium Potassium Chloride Carbon Dioxide Anion Gap BUN Creatinine Creat Clearance w eGFR POC Glucometer 191 173 Random Glucose Calcium Total Bilirubin AST ALT Alkaline Phosphatase Total Protein Albumin Urine Color Dkyellow Urine Appearance Clear Urine pH 5.0 Ur Specific [place] 1.026 Urine Protein Negative Urine Glucose (UA) 1+ H Urine Ketones Negative Urine Blood Negative Urine Nitrite Negative Urine Bilirubin Negative Urine Urobilinogen 4.0 e.u/dl Ur Leukocyte Esterase Negative RPR Titer HIV 1&2 Antibody Screen HIV P24 Antigen 06/09/18 06/09/18 06/09/18 05:16 07:00 07:00 WBC 9.9 RBC 4.08 Hgb 13.1 Hct 38.9 MCV 95.4 MCH 32.0 MCHC 33.6 RDW 12.9 Plt Count 383 MPV 8.3 Sodium Potassium Chloride Carbon Dioxide Anion Gap BUN Creatinine Creat Clearance w eGFR POC Glucometer 202 Random Glucose Calcium Total Bilirubin AST ALT Alkaline Phosphatase Total Protein Albumin Urine Color Urine Appearance Urine pH Ur Specific [place] Urine Protein Urine Glucose (UA) Urine Ketones Urine Blood Urine Nitrite Urine Bilirubin Urine Urobilinogen Ur Leukocyte Esterase RPR Titer HIV 1&2 Antibody Screen Negative HIV P24 Antigen Negative 06/09/18 06/09/18 06/09/18 07:00 07:00 10:57 WBC RBC Hgb Hct MCV MCH MCHC RDW Plt Count MPV Sodium 143 Potassium 4.0 Chloride 106 Carbon Dioxide 28 Anion Gap 9 BUN 14 Creatinine 0.9 Creat Clearance w eGFR > 60 POC Glucometer 139 Random Glucose 125 H D Calcium 8.7 Total Bilirubin 0.3 AST 33 D ALT 48 D Alkaline Phosphatase 109 Total Protein 6.4 Albumin 3.3 L Urine Color Urine Appearance Urine pH Ur Specific [place] Urine Protein Urine Glucose (UA) Urine Ketones Urine Blood Urine Nitrite Urine Bilirubin Urine Urobilinogen Ur Leukocyte Esterase RPR Titer Nonreactive HIV 1&2 Antibody Screen HIV P24 Antigen 06/09/18 06/09/18 06/10/18 16:28 21:42 04:26 WBC RBC Hgb Hct MCV MCH MCHC RDW Plt Count MPV Sodium Potassium Chloride Carbon Dioxide Anion Gap BUN Creatinine Creat Clearance w eGFR POC Glucometer 141 169 156 Random Glucose Calcium Total Bilirubin AST ALT Alkaline Phosphatase Total Protein Albumin Urine Color Urine Appearance Urine pH Ur Specific [place] Urine Protein Urine Glucose (UA) Urine Ketones Urine Blood Urine Nitrite Urine Bilirubin Urine Urobilinogen Ur Leukocyte Esterase RPR Titer HIV 1&2 Antibody Screen HIV P24 Antigen 06/10/18 06/10/18 06/10/18 11:09 16:20 20:48 WBC RBC Hgb Hct MCV MCH MCHC RDW Plt Count MPV Sodium Potassium Chloride Carbon Dioxide Anion Gap BUN Creatinine Creat Clearance w eGFR POC Glucometer 133 187 174 Random Glucose Calcium Total Bilirubin AST ALT Alkaline Phosphatase Total Protein Albumin Urine Color Urine Appearance Urine pH Ur Specific [place] Urine Protein Urine Glucose (UA) Urine Ketones Urine Blood Urine Nitrite Urine Bilirubin Urine Urobilinogen Ur Leukocyte Esterase RPR Titer HIV 1&2 Antibody Screen HIV P24 Antigen 06/11/18 06/11/18 06/11/18 05:14 11:03 16:15 WBC RBC Hgb Hct MCV MCH MCHC RDW Plt Count MPV Sodium Potassium Chloride Carbon Dioxide Anion Gap BUN Creatinine Creat Clearance w eGFR POC Glucometer 154 142 199 Random Glucose Calcium Total Bilirubin AST ALT Alkaline Phosphatase Total Protein Albumin Urine Color Urine Appearance Urine pH Ur Specific [place] Urine Protein Urine Glucose (UA) Urine Ketones Urine Blood Urine Nitrite Urine Bilirubin Urine Urobilinogen Ur Leukocyte Esterase RPR Titer HIV 1&2 Antibody Screen HIV P24 Antigen 06/11/18 06/12/18 20:14 05:41 WBC RBC Hgb Hct MCV MCH MCHC RDW Plt Count MPV Sodium Potassium Chloride Carbon Dioxide Anion Gap BUN Creatinine Creat Clearance w eGFR POC Glucometer 137 198 Random Glucose Calcium Total Bilirubin AST ALT Alkaline Phosphatase Total Protein Albumin Urine Color Urine Appearance Urine pH Ur Specific [place] Urine Protein Urine Glucose (UA) Urine Ketones Urine Blood Urine Nitrite Urine Bilirubin Urine Urobilinogen Ur Leukocyte Esterase RPR Titer HIV 1&2 Antibody Screen HIV P24 Antigen Assessment: 06/12/18 11:23 MEDICALLY STABLE Plan: D/C PT TODAY FOLLOW UP WITH PMD 1-2 WEEKS AFTER DISCHARGE.
--- NOTE | 2018-06-12 12:33 | DS ---
[facility] Detox Discharge Summary Admission Date: 06/08/18 Discharge Date: 06/12/18 - History Present History: Alcohol Dependence Additional Comments: DETOX COMPLETED. ALERT O X 3. NAD. PT TO F/U WITH HIS PMD DR. RAMIRO PRESTON FOR MEDICAL MANAGEMENT. Pertinent Past History: PLEASE SEE DX BELOW - Physical Exam Results Vital Signs: Vital Signs Temperature 97.6 F 06/12/18 09:33 Pulse Rate 90 06/12/18 09:33 Respiratory Rate 20 06/12/18 09:33 Blood Pressure 138/77 06/12/18 09:33 O2 Sat by Pulse Oximetry (%) - Treatment Hospital Course: Detox Protocol Followed, Detoxed Safely, Responded well - Medication Discharge Medications: Ambulatory Orders Sitagliptin Phosphate [Januvia] 100 mg PO DAILY 07/15/15 Zolpidem Tartrate [Ambien] 10 mg PO HS #14 tablet 07/17/15 Sertraline HCl [Zoloft -] 50 mg PO DAILY #30 tablet 02/06/17 Mag Hydrox/Al Hydrox/Simeth [Mylanta Oral Suspension -] 30 ml PO DAILY 12/14/17 Albuterol Sulfate Inhaler - [Ventolin HFA Inhaler -] 2 puff IH Q4H PRN #1 inhaler 12/15/17 Budesonide/Formeterol Fumarate [SYMBICORT 160/4.5mcg -] 2 puff IH BID #1 inhaler 12/15/17 Enalapril Maleate [Vasotec -] 10 mg PO DAILY #30 tablet 12/15/17 Pantoprazole Sodium 40 mg PO DAILY #14 tablet. 12/15/17 Simvastatin [Zocor -] 40 mg PO HS #30 tablet 12/15/17 Clonidine HCl 0.2 mg PO BID #60 tablet 01/02/18 Metformin HCl [Glucophage] 1,000 mg PO BID #60 tablet 01/02/18 Sertraline HCl [Zoloft -] 50 mg PO DAILY #30 tablet 06/10/18 - Diagnosis (1) Alcohol dependence with uncomplicated withdrawal Status: Acute (2) COPD (chronic obstructive pulmonary disease) Status: Chronic Qualifiers: COPD type: emphysema Emphysema type: unspecified Qualified Code(s): J43.9 - Emphysema, unspecified (3) Cocaine dependence Status: Acute Qualifiers: Substance use status: uncomplicated Qualified Code(s): F14.20 - Cocaine dependence, uncomplicated (4) GERD (gastroesophageal reflux disease) Status: Chronic Qualifiers: Esophagitis presence: without esophagitis Qualified Code(s): K21.9 - Gastro -esophageal reflux disease without esophagitis (5) Hyperlipidemia Status: Chronic Qualifiers: Hyperlipidemia type: pure hypercholesterolemia Qualified Code(s): E78.00 - Pure hypercholesterolemia, unspecified; E78.0 - Pure hypercholesterolemia (6) Hypertension Status: Chronic Qualifiers: Hypertension type: essential hypertension Qualified Code(s): I10 - Essential (primary) hypertension (7) H/O Canales's palsy Status: Chronic (8) Type II diabetes mellitus Status: Chronic Qualifiers: Diabetes mellitus dedicated intermodal truck driver insulin use: without dedicated intermodal truck driver use Diabetes mellitus complication status: without complication Qualified Code(s): E11.9 - Type 2 diabetes mellitus without complications - AMA Did Patient Leave Against Medical Advice: No
== END 2018-06-12 12:04 | disposition home or self-care (01) | DRG 774 ==
LOC: YASAS 14:36 → Y3N 17:45
PROC: HZ2ZZZZ Detoxification Services for Substance Abuse Treatment (ICD-10-PCS; principal; 2018-06-08)
DX: F10.230 Alcohol dependence with withdrawal, uncomplicated (principal); F14.20 Cocaine dependence, uncomplicated; F17.210 Nicotine dependence, cigarettes, uncomplicated; F19.24 Other psychoactive substance dependence with psychoactive substance-induced mood disorder; F43.10 Post-traumatic stress disorder, unspecified; I10 Essential (primary) hypertension; E11.9 Type 2 diabetes mellitus without complications; Z79.84 Long term (current) use of oral hypoglycemic drugs; J43.9 Emphysema, unspecified; K21.9 Gastro-esophageal reflux disease without esophagitis; B35.4 Tinea corporis; G47.00 Insomnia, unspecified; R01.1 Cardiac murmur, unspecified
CPT/HCPCS: 36415; 80053; 81003; 82962; 85027; 86593; 87389; 93005; 93010; J0735

== ENCOUNTER 2018-12-02 15:15 | Inpatient (IN) | payer OTHER ==
[2018-12-02 17:09] VITALS: BMI 32.2
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
[2018-12-02] MEDS ORDERED: MENTHOL/PHENOL 1 EACH UD MM PRN (19:08)
[2018-12-02] MEDS ORDERED: chlordiazePOXIDE HCL 25 MG CAPSULE PO ONE (19:08)
[2018-12-02] MEDS ORDERED: MAG HYDROX/AL HYDROX/SIMETH 30 ML UNIT-DOSE CUP PO PRN (19:08)
[2018-12-02] MEDS ORDERED: LOPERAMIDE HCL 2 MG CAPSULE PO PRN (19:08)
[2018-12-02] MEDS ORDERED: IBUPROFEN 400 MG TABLET (FP) PO PRN (19:08)
[2018-12-02] MEDS ORDERED: MAGNESIUM HYDROX 2400MG/30ML ORAL SUSPENSION 30 ML CUP PO PRN (19:08)
[2018-12-02] MEDS ORDERED: chlordiazePOXIDE HCL 25 MG CAPSULE PO PRN (19:08)
[2018-12-02] MEDS ORDERED: MAGNESIUM CITRATE 300 ML BOTTLE PO PRN (19:08)
[2018-12-02] MEDS ORDERED: guaiFENesin 200 MG/10 ML 10 ML UNIT-DOSE CUPS PO PRN (19:17)
[2018-12-02] MEDS ORDERED: ALBUTEROL SO4 0.083% IH SOL 2.5 MG/3 ML VIAL.NEB. NEB PRN (19:18)
[2018-12-02] MEDS: ACETAMINOPHEN 325 MG TABLET (FP) PO PRN (20:31)
[2018-12-02] MEDS: INSULIN SLIDING SCALE (NOVOLOG) 1 VIAL SQ SCH (21:33)
[2018-12-02] MEDS: THIAMINE HCL 100 MG TABLET (FP) PO SCH (22:26)
[2018-12-02] MEDS: chlordiazePOXIDE HCL 25 MG CAPSULE PO SCH (22:26)
[2018-12-02] MEDS: cloNIDine HCL 0.1 MG TABLET PO SCH (22:26)
[2018-12-02] MEDS: MELATONIN 5 MG TABLETS PO PRN (22:27)
[2018-12-02] MEDS: TOLNAFTATE 1% CREAM 15 GM TUBE TP SCH (22:27)
[2018-12-02 23:27] LABS: URINE APPEARANCE CLEAR; URINE BILIRUBIN NEGATIVE (<2.0 mg/dL); URINE COLOR YELLOW; URINE GLUCOSE (UA) 1+ (NEGATIVE); URINE KETONE NEGATIVE (NEGATIVE); URINE LEUK ESTERASE NEGATIVE (NEGATIVE); URINE NITRITE NEGATIVE (NEGATIVE); URINE PROTEIN NEGATIVE (NEGATIVE)
[2018-12-03] MEDS: chlordiazePOXIDE HCL 25 MG CAPSULE PO SCH ×4 (05:09→22:13)
[2018-12-03] MEDS: ACETAMINOPHEN 325 MG TABLET (FP) PO PRN ×3 (05:11→22:15)
[2018-12-03] MEDS: INSULIN SLIDING SCALE (NOVOLOG) 1 VIAL SQ SCH ×4 (07:23→21:54)
[2018-12-03] MEDS: sitaGLIPtin PHOSPHATE 100 MG TABLET (FP) PO SCH (07:24)
[2018-12-03] MEDS: metFORMIN HCL 500 MG TABLET (FP) PO SCH ×2 (07:24→17:24)
--- NOTE | 2018-12-03 09:17 | PN ---
S CIWA - CIWA Score Nausea/Vomitin-Mild Nausea/No Vomiting Muscle Tremors: 3 Anxiety: 2 Agitation: 2 Paroxysmal Sweats: 1-Minimal Palms Moist Orientation: 1-Uncertain about Date Tacttile Disturbances: 0-None Auditory Disturbances: 0-None Visual Disturbances: 0-None Headache: 1-Very Mild CIWA-Ar Total Score: 11 BHS Progress Note (SOAP) Subjective: tremor sweating anxiety low energy Objective: 12/03/18 09:16 Vital Signs Temperature 96.4 F L 12/03/18 09:08 Pulse Rate 69 12/03/18 09:08 Respiratory Rate 18 12/03/18 09:08 Blood Pressure 120/68 12/03/18 09:08 O2 Sat by Pulse Oximetry (%) Laboratory Last Values POC Glucometer 197 UNITS (80-120) 12/03/18 05:08 Urine Color Yellow 12/02/18 23:20 Urine Appearance Clear 12/02/18 23:20 Urine pH 7.0 (5.0-8.0) D 12/02/18 23:20 Ur Specific [place] 1.017 (1.010-1.035) 12/02/18 23:20 Urine Protein Negative (NEGATIVE) 12/02/18 23:20 Urine Glucose (UA) 1+ (NEGATIVE) H 12/02/18 23:20 Urine Ketones Negative (NEGATIVE) 12/02/18 23:20 Urine Blood Negative (NEGATIVE) 12/02/18 23:20 Urine Nitrite Negative (NEGATIVE) 12/02/18 23:20 Urine Bilirubin Negative (<2.0 mg/dL) 12/02/18 23:20 Urine Urobilinogen 2.0 mg/dL (0.2-1.0) 12/02/18 23:20 Ur Leukocyte Esterase Negative (NEGATIVE) 12/02/18 23:20 lab noted Assessment: 12/03/18 09:16 withdrawal sx Plan: continue detox
[2018-12-03] MEDS: PANTOPRAZOLE 40 MG TABLET (FP) PO SCH (10:16)
[2018-12-03] MEDS: ENALAPRIL MALEATE 10 MG TABLET (FP) PO SCH (10:16)
[2018-12-03] MEDS: PRENATAL VITAMINS W/ FOLIC ACID TABLET (FP) PO SCH (10:16)
[2018-12-03] MEDS: TOLNAFTATE 1% CREAM 15 GM TUBE TP SCH ×2 (10:16→22:13)
[2018-12-03] MEDS: NICOTINE 7 MG/24 HOURS TOPICAL PATCH TD SCH (10:19)
[2018-12-03] MEDS: cloNIDine HCL 0.1 MG TABLET PO SCH ×2 (10:19→22:13)
[2018-12-03] MEDS: MAG HYDROX/AL HYDROX/SIMETH 30 ML UNIT-DOSE CUP PO SCH (10:19)
[2018-12-03 10:39] LABS: ALBUMIN 3.4 g/dl (3.4-5.0); ALK PHOS 101 U/L (45-117); ANION GAP 6 MMOL/L (8-16); BILIRUBIN,TOTAL 0.3 mg/dL (0.2-1); BLOOD UREA NITROGEN 12 mg/dL (7-18); CALCIUM 8.5 mg/dL (8.5-10.1); CHLORIDE 105 mmol/L (98-107); CO2 29 mmol/L (21-32); CREATININE 1.1 mg/dL (0.55-1.3); GLUCOSE,RANDOM 176 mg/dL (74-106); HEMATOCRIT 38.2 % (35.4-49); HEMOGLOBIN 12.9 GM/dL (11.7-16.9); MCH 32.7 pg (25.7-33.7); MCHC 33.9 g/dl (32.0-35.9); MEAN CELL VOLUME 96.4 fl (80-96); MEAN PLT VOLUME 8.1 fl (7.5-11.1); PLATELET COUNT 382 K/MM3 (134-434); POTASSIUM 4.1 mmol/L (3.5-5.1); RBC 3.96 M/mm3 (4.00-5.60); RDW 12.9 % (11.9-15.9); SGOT/AST 18 U/L (15-37); SGPT/ALT 30 U/L (13-61); SODIUM 139 mmol/L (136-145); TOT PROT 6.4 g/dl (6.4-8.2); WHITE BLOOD COUNT 8.1 K/mm3 (4.0-10.0)
--- NOTE | 2018-12-03 16:58 | EKG ---
Test Reason : Blood Pressure : / mmHG Vent. Rate : 070 BPM Atrial Rate : 070 BPM P-R Int : 160 ms QRS Dur : 088 ms QT Int : 402 ms P-R-T Axes : 051 084 050 degrees QTc Int : 434 ms POOR DATA QUALITY, INTERPRETATION MAY BE ADVERSELY AFFECTED NORMAL SINUS RHYTHM NONSPECIFIC T WAVE ABNORMALITY ABNORMAL ECG WHEN COMPARED WITH ECG OF 08-JUN-2018 19:53, NO SIGNIFICANT CHANGE WAS FOUND Confirmed by VALERIO POSADAS, ETHEL ([id number]) on 12/03/2018 4:58:30 PM Referred By: Confirmed By:ETHEL LUO MD
[2018-12-03] MEDS: THIAMINE HCL 100 MG TABLET (FP) PO SCH (22:13)
[2018-12-03] MEDS: MELATONIN 5 MG TABLETS PO PRN (22:14)
[2018-12-04] MEDS: chlordiazePOXIDE HCL 25 MG CAPSULE PO SCH ×3 (05:37→17:09)
[2018-12-04] MEDS: ACETAMINOPHEN 325 MG TABLET (FP) PO PRN ×3 (05:38→17:10)
[2018-12-04] MEDS: sitaGLIPtin PHOSPHATE 100 MG TABLET (FP) PO SCH (06:18)
[2018-12-04] MEDS: metFORMIN HCL 500 MG TABLET (FP) PO SCH ×2 (06:18→17:08)
[2018-12-04] MEDS: INSULIN SLIDING SCALE (NOVOLOG) 1 VIAL SQ SCH ×4 (06:19→22:51)
[2018-12-04] MEDS: PANTOPRAZOLE 40 MG TABLET (FP) PO SCH (10:04)
[2018-12-04] MEDS: TOLNAFTATE 1% CREAM 15 GM TUBE TP SCH ×2 (10:04→22:51)
[2018-12-04] MEDS: ENALAPRIL MALEATE 10 MG TABLET (FP) PO SCH (10:04)
[2018-12-04] MEDS: PRENATAL VITAMINS W/ FOLIC ACID TABLET (FP) PO SCH (10:04)
[2018-12-04] MEDS: cloNIDine HCL 0.1 MG TABLET PO SCH ×2 (10:04→22:48)
[2018-12-04] MEDS: MAG HYDROX/AL HYDROX/SIMETH 30 ML UNIT-DOSE CUP PO SCH (10:06)
[2018-12-04] MEDS: NICOTINE 7 MG/24 HOURS TOPICAL PATCH TD SCH (10:06)
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
[2018-12-04] MEDS ORDERED: IBUPROFEN 600 MG TABLET (FP) PO PRN (21:48)
[2018-12-04] MEDS: chlordiazePOXIDE 5 MG CAPSULE PO SCH (22:48)
[2018-12-04] MEDS: THIAMINE HCL 100 MG TABLET (FP) PO SCH (22:51)
[2018-12-04] MEDS: MELATONIN 5 MG TABLETS PO PRN (23:01)
[2018-12-05] MEDS: chlordiazePOXIDE 5 MG CAPSULE PO SCH ×3 (05:14→17:55)
[2018-12-05] MEDS: sitaGLIPtin PHOSPHATE 100 MG TABLET (FP) PO SCH (06:14)
[2018-12-05] MEDS: metFORMIN HCL 500 MG TABLET (FP) PO SCH ×2 (06:14→17:34)
[2018-12-05] MEDS: INSULIN SLIDING SCALE (NOVOLOG) 1 VIAL SQ SCH ×4 (07:01→22:43)
[2018-12-05] MEDS: PANTOPRAZOLE 40 MG TABLET (FP) PO SCH (10:29)
[2018-12-05] MEDS: PRENATAL VITAMINS W/ FOLIC ACID TABLET (FP) PO SCH (10:29)
[2018-12-05] MEDS: TOLNAFTATE 1% CREAM 15 GM TUBE TP SCH ×2 (10:29→22:22)
[2018-12-05] MEDS: ENALAPRIL MALEATE 10 MG TABLET (FP) PO SCH (10:29)
[2018-12-05] MEDS: ACETAMINOPHEN 325 MG TABLET (FP) PO PRN ×3 (10:31→22:22)
[2018-12-05] MEDS: NICOTINE 7 MG/24 HOURS TOPICAL PATCH TD SCH (10:33)
[2018-12-05] MEDS: cloNIDine HCL 0.1 MG TABLET PO SCH ×2 (10:33→22:20)
[2018-12-05] MEDS: MAG HYDROX/AL HYDROX/SIMETH 30 ML UNIT-DOSE CUP PO SCH (11:57)
--- NOTE | 2018-12-05 13:43 | PN ---
BHS Progress Note (SOAP) Subjective: Sweating, Body Aches, Anxious. Objective: PATIENT A & O X 3, OBSERVED AMBULATING ON UNIT. IN NO ACUTE DISTRESS. 12/05/18 13:40 Vital Signs Temperature 96.4 F L 12/05/18 09:16 Pulse Rate 74 12/05/18 09:16 Respiratory Rate 18 12/05/18 09:16 Blood Pressure 129/66 12/05/18 09:16 O2 Sat by Pulse Oximetry (%) Laboratory Tests 12/02/18 12/02/18 12/02/18 18:19 20:27 23:20 WBC RBC Hgb Hct MCV MCH MCHC RDW Plt Count MPV Sodium Potassium Chloride Carbon Dioxide Anion Gap BUN Creatinine Creat Clearance w eGFR POC Glucometer 197 175 Random Glucose Calcium Total Bilirubin AST ALT Alkaline Phosphatase Total Protein Albumin Urine Color Yellow Urine Appearance Clear Urine pH 7.0 D Ur Specific [place] 1.017 Urine Protein Negative Urine Glucose (UA) 1+ H Urine Ketones Negative Urine Blood Negative Urine Nitrite Negative Urine Bilirubin Negative Urine Urobilinogen 2.0 Ur Leukocyte Esterase Negative RPR Titer HIV 1&2 Antibody Screen HIV P24 Antigen 12/03/18 12/03/18 12/03/18 05:08 07:00 07:00 WBC 8.1 RBC 3.96 L Hgb 12.9 Hct 38.2 MCV 96.4 H MCH 32.7 MCHC 33.9 RDW 12.9 Plt Count 382 MPV 8.1 Sodium Potassium Chloride Carbon Dioxide Anion Gap BUN Creatinine Creat Clearance w eGFR POC Glucometer 197 Random Glucose Calcium Total Bilirubin AST ALT Alkaline Phosphatase Total Protein Albumin Urine Color Urine Appearance Urine pH Ur Specific [place] Urine Protein Urine Glucose (UA) Urine Ketones Urine Blood Urine Nitrite Urine Bilirubin Urine Urobilinogen Ur Leukocyte Esterase RPR Titer HIV 1&2 Antibody Screen Negative HIV P24 Antigen Negative 12/03/18 12/03/18 12/03/18 07:00 07:00 11:49 WBC RBC Hgb Hct MCV MCH MCHC RDW Plt Count MPV Sodium 139 Potassium 4.1 Chloride 105 Carbon Dioxide 29 Anion Gap 6 L BUN 12 Creatinine 1.1 Creat Clearance w eGFR > 60 POC Glucometer 149 Random Glucose 176 H Calcium 8.5 Total Bilirubin 0.3 AST 18 ALT 30 Alkaline Phosphatase 101 Total Protein 6.4 Albumin 3.4 Urine Color Urine Appearance Urine pH Ur Specific [place] Urine Protein Urine Glucose (UA) Urine Ketones Urine Blood Urine Nitrite Urine Bilirubin Urine Urobilinogen Ur Leukocyte Esterase RPR Titer Nonreactive HIV 1&2 Antibody Screen HIV P24 Antigen 12/03/18 12/03/18 12/04/18 16:27 20:45 05:36 WBC RBC Hgb Hct MCV MCH MCHC RDW Plt Count MPV Sodium Potassium Chloride Carbon Dioxide Anion Gap BUN Creatinine Creat Clearance w eGFR POC Glucometer 199 137 176 Random Glucose Calcium Total Bilirubin AST ALT Alkaline Phosphatase Total Protein Albumin Urine Color Urine Appearance Urine pH Ur Specific [place] Urine Protein Urine Glucose (UA) Urine Ketones Urine Blood Urine Nitrite Urine Bilirubin Urine Urobilinogen Ur Leukocyte Esterase RPR Titer HIV 1&2 Antibody Screen HIV P24 Antigen 12/04/18 12/04/18 12/04/18 11:38 16:23 21:41 WBC RBC Hgb Hct MCV MCH MCHC RDW Plt Count MPV Sodium Potassium Chloride Carbon Dioxide Anion Gap BUN Creatinine Creat Clearance w eGFR POC Glucometer 129 150 169 Random Glucose Calcium Total Bilirubin AST ALT Alkaline Phosphatase Total Protein Albumin Urine Color Urine Appearance Urine pH Ur Specific [place] Urine Protein Urine Glucose (UA) Urine Ketones Urine Blood Urine Nitrite Urine Bilirubin Urine Urobilinogen Ur Leukocyte Esterase RPR Titer HIV 1&2 Antibody Screen HIV P24 Antigen 12/05/18 12/05/18 05:13 11:45 WBC RBC Hgb Hct MCV MCH MCHC RDW Plt Count MPV Sodium Potassium Chloride Carbon Dioxide Anion Gap BUN Creatinine Creat Clearance w eGFR POC Glucometer 164 147 Random Glucose Calcium Total Bilirubin AST ALT Alkaline Phosphatase Total Protein Albumin Urine Color Urine Appearance Urine pH Ur Specific [place] Urine Protein Urine Glucose (UA) Urine Ketones Urine Blood Urine Nitrite Urine Bilirubin Urine Urobilinogen Ur Leukocyte Esterase RPR Titer HIV 1&2 Antibody Screen HIV P24 Antigen LABS NOTED. Assessment: 12/05/18 13:41 WITHDRAWAL SYMPTOMS. 12/05/18 13:42 Plan: CONTINUE DETOX.
[2018-12-05] MEDS: chlordiazePOXIDE HCL 10 MG CAPSULE PO SCH (22:20)
[2018-12-05] MEDS: THIAMINE HCL 100 MG TABLET (FP) PO SCH (22:20)
[2018-12-05] MEDS: MELATONIN 5 MG TABLETS PO PRN (22:21)
[2018-12-06] MEDS: chlordiazePOXIDE HCL 10 MG CAPSULE PO SCH (05:26)
[2018-12-06] MEDS: ACETAMINOPHEN 325 MG TABLET (FP) PO PRN (05:27)
[2018-12-06] MEDS: sitaGLIPtin PHOSPHATE 100 MG TABLET (FP) PO SCH (06:15)
[2018-12-06] MEDS: metFORMIN HCL 500 MG TABLET (FP) PO SCH (06:15)
[2018-12-06] MEDS: INSULIN SLIDING SCALE (NOVOLOG) 1 VIAL SQ SCH (06:15)
[2018-12-06 06:16] VITALS: BP 173/77; PULSE 67; TEMP 97.3
--- NOTE | 2018-12-06 14:15 | DS ---
[facility] Detox Discharge Summary Admission Date: 12/02/18 Discharge Date: 12/06/18 - History Present History: Alcohol Dependence Additional Comments: 58 years old male admitted on 12/02/18 for alcohol withdrawal stabilization completed alcohol detox regimen aftercare [facility] Physical Exam Results Vital Signs: Vital Signs Temperature 97.3 F L 12/06/18 06:15 Pulse Rate 67 12/06/18 06:15 Respiratory Rate 18 12/06/18 06:15 Blood Pressure 173/77 H 12/06/18 06:15 O2 Sat by Pulse Oximetry (%) Pertinent Admission Physical Exam Findings: alcohol withdrawal sx Laboratory Last Values WBC 8.1 K/mm3 (4.0-10.0) 12/03/18 07:00 RBC 3.96 M/mm3 (4.00-5.60) L 12/03/18 07:00 Hgb 12.9 GM/dL (11.7-16.9) 12/03/18 07:00 Hct 38.2 % (35.4-49) 12/03/18 07:00 MCV 96.4 fl (80-96) H 12/03/18 07:00 MCH 32.7 pg (25.7-33.7) 12/03/18 07:00 MCHC 33.9 g/dl (32.0-35.9) 12/03/18 07:00 RDW 12.9 % (11.9-15.9) 12/03/18 07:00 Plt Count 382 K/MM3 (134-434) 12/03/18 07:00 MPV 8.1 fl (7.5-11.1) 12/03/18 07:00 Sodium 139 mmol/L (136-145) 12/03/18 07:00 Potassium 4.1 mmol/L (3.5-5.1) 12/03/18 07:00 Chloride 105 mmol/L (98-107) 12/03/18 07:00 Carbon Dioxide 29 mmol/L (21-32) 12/03/18 07:00 Anion Gap 6 MMOL/L (8-16) L 12/03/18 07:00 BUN 12 mg/dL (7-18) 12/03/18 07:00 Creatinine 1.1 mg/dL (0.55-1.3) 12/03/18 07:00 Creat Clearance w eGFR > 60 (>60) 12/03/18 07:00 POC Glucometer 186 UNITS (80-120) 12/06/18 05:25 Random Glucose 176 mg/dL (74-106) H 12/03/18 07:00 Calcium 8.5 mg/dL (8.5-10.1) 12/03/18 07:00 Total Bilirubin 0.3 mg/dL (0.2-1) 12/03/18 07:00 AST 18 U/L (15-37) 12/03/18 07:00 ALT 30 U/L (13-61) 12/03/18 07:00 Alkaline Phosphatase 101 U/L (45-117) 12/03/18 07:00 Total Protein 6.4 g/dl (6.4-8.2) 12/03/18 07:00 Albumin 3.4 g/dl (3.4-5.0) 12/03/18 07:00 Urine Color Yellow 12/02/18 23:20 Urine Appearance Clear 12/02/18 23:20 Urine pH 7.0 (5.0-8.0) D 12/02/18 23:20 Ur Specific [place] 1.017 (1.010-1.035) 12/02/18 23:20 Urine Protein Negative (NEGATIVE) 12/02/18 23:20 Urine Glucose (UA) 1+ (NEGATIVE) H 12/02/18 23:20 Urine Ketones Negative (NEGATIVE) 12/02/18 23:20 Urine Blood Negative (NEGATIVE) 12/02/18 23:20 Urine Nitrite Negative (NEGATIVE) 12/02/18 23:20 Urine Bilirubin Negative (<2.0 mg/dL) 12/02/18 23:20 Urine Urobilinogen 2.0 mg/dL (0.2-1.0) 12/02/18 23:20 Ur Leukocyte Esterase Negative (NEGATIVE) 12/02/18 23:20 RPR Titer Nonreactive (NONREACTIVE) 12/03/18 07:00 HIV 1&2 Antibody Screen Negative 12/03/18 07:00 HIV P24 Antigen Negative 12/03/18 07:00 lab noted - Treatment Hospital Course: Detox Protocol Followed, Detoxed Safely, Responded well, Discharged Condition Good, Rehab Referral Accepted Patient has Accepted a Rehab Referral to: [facility] - Medication Discharge Medications: Ambulatory Orders Sitagliptin Phosphate [Januvia] 100 mg PO DAILY 07/15/15 Zolpidem Tartrate [Ambien] 10 mg PO HS #14 tablet 07/17/15 Sertraline HCl [Zoloft -] 50 mg PO DAILY #30 tablet 02/06/17 Mag Hydrox/Al Hydrox/Simeth [Mylanta Oral Suspension -] 30 ml PO DAILY 12/14/17 Pantoprazole Sodium 40 mg PO DAILY #14 tablet.dr 12/15/17 Simvastatin [Zocor -] 40 mg PO HS #30 tablet 12/15/17 Sertraline HCl [Zoloft -] 50 mg PO DAILY #30 tablet 06/10/18 Albuterol Sulfate Inhaler - [Ventolin HFA Inhaler -] 2 puff IH Q4H PRN #1 inhaler 12/06/18 Budesonide/Formeterol Fumarate [SYMBICORT 160/4.5mcg -] 2 puff IH BID #1 inhaler 12/06/18 Clonidine HCl 0.2 mg PO BID #60 tablet 12/06/18 Enalapril Maleate [Vasotec -] 10 mg PO DAILY #30 tablet 12/06/18 Metformin HCl [Glucophage] 1,000 mg PO BID #60 tablet 12/06/18 Sitagliptin Phosphate [Januvia -] 100 mg PO DAILY@0700 #30 ud 12/06/18 - Diagnosis (1) Alcohol dependence with uncomplicated withdrawal Status: Acute (2) HIV (human immunodeficiency virus infection) Status: Chronic Qualifiers: HIV symptom status: asymptomatic Qualified Code(s): Z21 - Asymptomatic human immunodeficiency virus [HIV] infection status (3) Asthma Status: Chronic Qualifiers: Asthma severity: mild Asthma persistence: intermittent Asthma complication type: uncomplicated Qualified Code(s): J45.20 - Mild intermittent asthma, uncomplicated (4) COPD (chronic obstructive pulmonary disease) Status: Chronic Qualifiers: COPD type: emphysema Emphysema type: unspecified Qualified Code(s): J43.9 - Emphysema, unspecified (5) GERD (gastroesophageal reflux disease) Status: Chronic Qualifiers: Esophagitis presence: without esophagitis Qualified Code(s): K21.9 - Gastro -esophageal reflux disease without esophagitis (6) Hypertension Status: Chronic Qualifiers: Hypertension type: essential hypertension Qualified Code(s): I10 - Essential (primary) hypertension (7) Nicotine dependence, uncomplicated Status: Acute Qualifiers: Nicotine product type: cigarettes Qualified Code(s): F17.210 - Nicotine dependence, cigarettes, uncomplicated (8) Type II diabetes mellitus Status: Chronic Qualifiers: Diabetes mellitus snf insulin use: without manager terminal use Diabetes mellitus complication status: without complication Qualified Code(s): E11.9 - Type 2 diabetes mellitus without complications - AMA Did Patient Leave Against Medical Advice: No
== END 2018-12-06 08:56 | disposition home or self-care (01) | DRG 774 ==
LOC: YASAS 15:15 → Y3N 19:21
PROVIDERS: ADMIT Surgery; ATTEND Surgery
PROC: HZ2ZZZZ Detoxification Services for Substance Abuse Treatment (ICD-10-PCS; principal; 2018-12-02)
DX: F10.230 Alcohol dependence with withdrawal, uncomplicated (principal); F14.20 Cocaine dependence, uncomplicated; F17.210 Nicotine dependence, cigarettes, uncomplicated; I10 Essential (primary) hypertension; Z21 Asymptomatic human immunodeficiency virus [HIV] infection status; L98.9 Disorder of the skin and subcutaneous tissue, unspecified; J45.20 Mild intermittent asthma, uncomplicated; J43.9 Emphysema, unspecified; K21.9 Gastro-esophageal reflux disease without esophagitis; E11.9 Type 2 diabetes mellitus without complications; E01.1 Iodine-deficiency related multinodular (endemic) goiter; E78.00 Pure hypercholesterolemia, unspecified; B35.3 Tinea pedis; G47.00 Insomnia, unspecified; R63.8 Other symptoms and signs concerning food and fluid intake; Z79.84 Long term (current) use of oral hypoglycemic drugs
CPT/HCPCS: 36415; 80053; 81003; 82962; 85027; 86593; 87389; 93005; 93010; J0735

== ENCOUNTER 2018-12-30 09:35 | Inpatient (IN) | payer OTHER ==
[2018-12-30 09:52] VITALS: BMI 32.0
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
[2018-12-30] MEDS ORDERED: chlordiazePOXIDE HCL 25 MG CAPSULE PO PRN (13:26)
[2018-12-30] MEDS ORDERED: MAGNESIUM HYDROX 2400MG/30ML ORAL SUSPENSION 30 ML CUP PO PRN (13:27)
[2018-12-30] MEDS ORDERED: MAG HYDROX/AL HYDROX/SIMETH 30 ML UNIT-DOSE CUP PO PRN (13:27)
[2018-12-30] MEDS ORDERED: MAGNESIUM CITRATE 300 ML BOTTLE PO PRN (13:27)
[2018-12-30] MEDS ORDERED: hydrOXYzine PAMOATE 25 MG CAPSULE (FP) PO PRN (13:27)
[2018-12-30] MEDS ORDERED: MENTHOL/PHENOL 1 EACH UD MM PRN (13:27)
[2018-12-30] MEDS ORDERED: BISMUTH SUBSALICYLATE 262 MG/15 ML BTL PO PRN (13:27)
[2018-12-30] MEDS ORDERED: ACETAMINOPHEN 325 MG TABLET (FP) PO PRN (13:27)
[2018-12-30] MEDS ORDERED: IBUPROFEN 400 MG TABLET (FP) PO PRN (13:27)
[2018-12-30] MEDS ORDERED: ALBUTEROL SO4 8 GM HFA INHALER IH PRN (13:30)
[2018-12-30] MEDS: ACETAMINOPHEN 325 MG TABLET (FP) PO PRN ×2 (14:38→22:54)
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
[2018-12-30] MEDS: chlordiazePOXIDE HCL 25 MG CAPSULE PO SCH ×2 (18:11→22:51)
[2018-12-30] MEDS: metFORMIN HCL 500 MG TABLET (FP) PO SCH (18:12)
[2018-12-30] MEDS: METHOCARBAMOL 500 MG TABLET PO PRN (18:15)
[2018-12-30] MEDS: cloNIDine HCL 0.1 MG TABLET PO SCH (22:51)
[2018-12-30] MEDS: THIAMINE HCL 100 MG TABLET (FP) PO SCH (22:52)
[2018-12-30] MEDS: ATORVASTATIN CA 20 MG TABLET (FP) PO SCH (22:52)
[2018-12-31] MEDS: ACETAMINOPHEN 325 MG TABLET (FP) PO PRN ×4 (05:37→22:27)
[2018-12-31] MEDS: chlordiazePOXIDE HCL 25 MG CAPSULE PO SCH ×4 (05:37→22:25)
[2018-12-31] MEDS: metFORMIN HCL 500 MG TABLET (FP) PO SCH ×2 (07:32→17:05)
[2018-12-31] MEDS: sitaGLIPtin PHOSPHATE 100 MG TABLET (FP) PO SCH (07:32)
[2018-12-31] MEDS: PRENATAL VITAMINS W/ FOLIC ACID TABLET (FP) PO SCH (10:25)
[2018-12-31] MEDS: cloNIDine HCL 0.1 MG TABLET PO SCH ×2 (10:25→22:25)
[2018-12-31] MEDS: PANTOPRAZOLE 40 MG TABLET (FP) PO SCH (10:25)
[2018-12-31] MEDS: METHOCARBAMOL 500 MG TABLET PO PRN ×2 (10:29→22:43)
[2018-12-31 10:56] LABS: HEMATOCRIT 38.9 % (35.4-49); HEMOGLOBIN 12.9 GM/dL (11.7-16.9); MCHC 33.1 g/dl (32.0-35.9); MEAN CELL VOLUME 96.6 fl (80-96); MEAN PLT VOLUME 8.4 fl (7.5-11.1); PLATELET COUNT 368 K/MM3 (134-434); RBC 4.02 M/mm3 (4.00-5.60); RDW 12.9 % (11.9-15.9); WHITE BLOOD COUNT 9.1 K/mm3 (4.0-10.0)
[2018-12-31 11:00] LABS: ALBUMIN 3.4 g/dl (3.4-5.0); ALK PHOS 100 U/L (45-117); ANION GAP 7 MMOL/L (8-16); BILIRUBIN,TOTAL 0.4 mg/dL (0.2-1); BLOOD UREA NITROGEN 13 mg/dL (7-18); CALCIUM 8.2 mg/dL (8.5-10.1); CHLORIDE 106 mmol/L (98-107); CO2 26 mmol/L (21-32); GLUCOSE,RANDOM 128 mg/dL (74-106); POTASSIUM 4.1 mmol/L (3.5-5.1); SGOT/AST 22 U/L (15-37); SGPT/ALT 29 U/L (13-61); SODIUM 139 mmol/L (136-145); TOT PROT 6.4 g/dl (6.4-8.2)
--- NOTE | 2018-12-31 15:20 | PN ---
[facility] CIWA - CIWA Score Nausea/Vomitin-No Nausea/No Vomiting Muscle Tremors: 2 Anxiety: 2 Agitation: 2 Paroxysmal Sweats: 1-Minimal Palms Moist Orientation: 2-Disoriented Date<2 days Tacttile Disturbances: 0-None Auditory Disturbances: 0-None Visual Disturbances: 0-None Headache: 1-Very Mild CIWA-Ar Total Score: 10 [facility] Progress Note (SOAP) Subjective: doing ok but headache with tremor patient wants to take clonidine 0.2 mg po bid hold enalapril 10 mg continue clonidin 0.2 mg bid Objective: 12/31/18 15:21 Vital Signs Temperature 98.5 F 12/31/18 14:51 Pulse Rate 74 12/31/18 14:51 Respiratory Rate 20 12/31/18 14:51 Blood Pressure 138/74 12/31/18 14:51 O2 Sat by Pulse Oximetry (%) Laboratory Last Values WBC 9.1 K/mm3 (4.0-10.0) 12/31/18 07:00 RBC 4.02 M/mm3 (4.00-5.60) 12/31/18 07:00 Hgb 12.9 GM/dL (11.7-16.9) 12/31/18 07:00 Hct 38.9 % (35.4-49) 12/31/18 07:00 MCV 96.6 fl (80-96) H 12/31/18 07:00 MCH 32.0 pg (25.7-33.7) 12/31/18 07:00 MCHC 33.1 g/dl (32.0-35.9) 12/31/18 07:00 RDW 12.9 % (11.9-15.9) 12/31/18 07:00 Plt Count 368 K/MM3 (134-434) 12/31/18 07:00 MPV 8.4 fl (7.5-11.1) 12/31/18 07:00 Sodium 139 mmol/L (136-145) 12/31/18 07:00 Potassium 4.1 mmol/L (3.5-5.1) 12/31/18 07:00 Chloride 106 mmol/L (98-107) 12/31/18 07:00 Carbon Dioxide 26 mmol/L (21-32) 12/31/18 07:00 Anion Gap 7 MMOL/L (8-16) L 12/31/18 07:00 BUN 13 mg/dL (7-18) 12/31/18 07:00 Creatinine 1.0 mg/dL (0.55-1.3) 12/31/18 07:00 Creat Clearance w eGFR 77.30 (>60) 12/31/18 07:00 POC Glucometer 171 UNITS (80-120) 12/31/18 05:36 Random Glucose 128 mg/dL (74-106) H 12/31/18 07:00 Calcium 8.2 mg/dL (8.5-10.1) L 12/31/18 07:00 Total Bilirubin 0.4 mg/dL (0.2-1) 12/31/18 07:00 AST 22 U/L (15-37) 12/31/18 07:00 ALT 29 U/L (13-61) 12/31/18 07:00 Alkaline Phosphatase 100 U/L (45-117) 12/31/18 07:00 Total Protein 6.4 g/dl (6.4-8.2) 12/31/18 07:00 Albumin 3.4 g/dl (3.4-5.0) 12/31/18 07:00 RPR Titer Nonreactive (NONREACTIVE) 12/31/18 07:00 HIV 1&2 Antibody Screen Negative 12/31/18 07:00 HIV P24 Antigen Negative 12/31/18 07:00 lab noted Assessment: 12/31/18 15:22 withdrawal sx Plan: continue detox
[2018-12-31] MEDS: THIAMINE HCL 100 MG TABLET (FP) PO SCH (22:25)
[2018-12-31] MEDS: ATORVASTATIN CA 20 MG TABLET (FP) PO SCH (22:25)
[2018-12-31] MEDS: MELATONIN 5 MG TABLETS PO PRN (22:28)
[2019-01-01] MEDS: chlordiazePOXIDE HCL 25 MG CAPSULE PO SCH ×2 (05:56→10:04)
[2019-01-01] MEDS: ACETAMINOPHEN 325 MG TABLET (FP) PO PRN ×2 (05:56→18:16)
[2019-01-01] MEDS: sitaGLIPtin PHOSPHATE 100 MG TABLET (FP) PO SCH (07:35)
[2019-01-01] MEDS: metFORMIN HCL 500 MG TABLET (FP) PO SCH ×2 (07:35→17:40)
[2019-01-01] MEDS: PRENATAL VITAMINS W/ FOLIC ACID TABLET (FP) PO SCH (10:04)
[2019-01-01] MEDS: METHOCARBAMOL 500 MG TABLET PO PRN ×2 (10:04→18:47)
[2019-01-01] MEDS: PANTOPRAZOLE 40 MG TABLET (FP) PO SCH (10:04)
[2019-01-01] MEDS: cloNIDine HCL 0.1 MG TABLET PO SCH ×2 (10:04→22:40)
--- NOTE | 2019-01-01 14:52 | PN ---
[facility] CIWA - CIWA Score Nausea/Vomitin-No Nausea/No Vomiting Muscle Tremors: None Anxiety: 4-Mod. Anxious/Guarded Agitation: 1-Slight > Activity Paroxysmal Sweats: 2 Orientation: 0-Oriented Tacttile Disturbances: 1-Very Mild Itch/Numbness Auditory Disturbances: 0-None Visual Disturbances: 3-Moderate Sensitivity Headache: 0-None Present CIWA-Ar Total Score: 11 S Progress Note (SOAP) Subjective: Body Aches, Anxious, Sweating. Objective: PATIENT A & O X 3, OBSERVED AMBULATING ON UNIT. IN NO ACUTE DISTRESS. 01/01/19 14:53 Vital Signs Temperature 96.7 F L 01/01/19 13:38 Pulse Rate 81 01/01/19 13:38 Respiratory Rate 18 01/01/19 13:38 Blood Pressure 137/82 01/01/19 13:38 O2 Sat by Pulse Oximetry (%) Laboratory Tests 12/30/18 12/30/18 12/31/18 13:25 16:34 05:36 WBC RBC Hgb Hct MCV MCH MCHC RDW Plt Count MPV Sodium Potassium Chloride Carbon Dioxide Anion Gap BUN Creatinine Creat Clearance w eGFR POC Glucometer 199 187 171 Random Glucose Calcium Total Bilirubin AST ALT Alkaline Phosphatase Total Protein Albumin RPR Titer HIV 1&2 Antibody Screen HIV P24 Antigen 12/31/18 12/31/18 12/31/18 07:00 07:00 07:00 WBC 9.1 RBC 4.02 Hgb 12.9 Hct 38.9 MCV 96.6 H MCH 32.0 MCHC 33.1 RDW 12.9 Plt Count 368 MPV 8.4 Sodium 139 Potassium 4.1 Chloride 106 Carbon Dioxide 26 Anion Gap 7 L BUN 13 Creatinine 1.0 Creat Clearance w eGFR 77.30 POC Glucometer Random Glucose 128 H Calcium 8.2 L Total Bilirubin 0.4 AST 22 ALT 29 Alkaline Phosphatase 100 Total Protein 6.4 Albumin 3.4 RPR Titer HIV 1&2 Antibody Screen Negative HIV P24 Antigen Negative 12/31/18 12/31/18 01/01/19 07:00 16:21 05:55 WBC RBC Hgb Hct MCV MCH MCHC RDW Plt Count MPV Sodium Potassium Chloride Carbon Dioxide Anion Gap BUN Creatinine Creat Clearance w eGFR POC Glucometer 152 176 Random Glucose Calcium Total Bilirubin AST ALT Alkaline Phosphatase Total Protein Albumin RPR Titer Nonreactive HIV 1&2 Antibody Screen HIV P24 Antigen LABS NOTED. Assessment: 01/01/19 14:53 WITHDRAWAL SYMPTOMS. Plan: CONTINUE DETOX.
[2019-01-01] MEDS ORDERED: chlordiazePOXIDE HCL 10 MG CAPSULE PO PRN (17:00)
[2019-01-01] MEDS: chlordiazePOXIDE HCL 10 MG CAPSULE PO SCH ×2 (17:40→22:40)
[2019-01-01] MEDS: THIAMINE HCL 100 MG TABLET (FP) PO SCH (22:40)
[2019-01-01] MEDS: MELATONIN 5 MG TABLETS PO PRN (22:40)
[2019-01-01] MEDS: ATORVASTATIN CA 20 MG TABLET (FP) PO SCH (22:40)
[2019-01-02] MEDS: ACETAMINOPHEN 325 MG TABLET (FP) PO PRN ×3 (05:16→17:57)
[2019-01-02] MEDS: METHOCARBAMOL 500 MG TABLET PO PRN (05:16)
[2019-01-02] MEDS: chlordiazePOXIDE HCL 10 MG CAPSULE PO SCH ×3 (05:17→17:55)
[2019-01-02] MEDS: metFORMIN HCL 500 MG TABLET (FP) PO SCH ×2 (06:03→17:55)
[2019-01-02] MEDS: sitaGLIPtin PHOSPHATE 100 MG TABLET (FP) PO SCH (06:03)
[2019-01-02] MEDS: cloNIDine HCL 0.1 MG TABLET PO SCH ×2 (10:40→23:00)
[2019-01-02] MEDS: PANTOPRAZOLE 40 MG TABLET (FP) PO SCH (10:40)
[2019-01-02] MEDS: PRENATAL VITAMINS W/ FOLIC ACID TABLET (FP) PO SCH (10:40)
--- NOTE | 2019-01-02 13:26 | PN ---
[facility] Progress Note (SOAP) Subjective: Anxious about pending a.m discharge sweats Objective: 01/02/19 13:24 A & O x 3 Not in acute distress Vital Signs Temperature 96.5 F L 01/02/19 09:49 Pulse Rate 68 01/02/19 09:49 Respiratory Rate 20 01/02/19 09:49 Blood Pressure 132/82 01/02/19 09:49 O2 Sat by Pulse Oximetry (%) Assessment: 01/02/19 13:25 Withdrawal sx Plan: Continue detox Referred to Counselor for d/c plans For d/c in a.m
[2019-01-02] MEDS: ATORVASTATIN CA 20 MG TABLET (FP) PO SCH (23:00)
[2019-01-02] MEDS: THIAMINE HCL 100 MG TABLET (FP) PO SCH (23:00)
[2019-01-02] MEDS: MELATONIN 5 MG TABLETS PO PRN (23:02)
[2019-01-03] MEDS: chlordiazePOXIDE HCL 10 MG CAPSULE PO SCH (05:21)
[2019-01-03] MEDS: METHOCARBAMOL 500 MG TABLET PO PRN (05:21)
[2019-01-03] MEDS: metFORMIN HCL 500 MG TABLET (FP) PO SCH (06:12)
[2019-01-03] MEDS: sitaGLIPtin PHOSPHATE 100 MG TABLET (FP) PO SCH (06:13)
--- NOTE | 2019-01-03 08:44 | DS ---
[facility] Detox Discharge Summary Admission Date: 12/30/18 Discharge Date: 01/03/19 - History Present History: Alcohol Dependence Additional Comments: 58 years old male admitted on 12/30/18 for alcohol withdrawal stabilization completed detox regimen [facility] - Physical Exam Results Vital Signs: Vital Signs Temperature 98.3 F 01/03/19 06:19 Pulse Rate 63 01/03/19 06:19 Respiratory Rate 18 01/03/19 06:19 Blood Pressure 183/89 H 01/03/19 06:19 O2 Sat by Pulse Oximetry (%) Pertinent Admission Physical Exam Findings: alcohol withdrawal sx Laboratory Last Values WBC 9.1 K/mm3 (4.0-10.0) 12/31/18 07:00 RBC 4.02 M/mm3 (4.00-5.60) 12/31/18 07:00 Hgb 12.9 GM/dL (11.7-16.9) 12/31/18 07:00 Hct 38.9 % (35.4-49) 12/31/18 07:00 MCV 96.6 fl (80-96) H 12/31/18 07:00 MCH 32.0 pg (25.7-33.7) 12/31/18 07:00 MCHC 33.1 g/dl (32.0-35.9) 12/31/18 07:00 RDW 12.9 % (11.9-15.9) 12/31/18 07:00 Plt Count 368 K/MM3 (134-434) 12/31/18 07:00 MPV 8.4 fl (7.5-11.1) 12/31/18 07:00 Sodium 139 mmol/L (136-145) 12/31/18 07:00 Potassium 4.1 mmol/L (3.5-5.1) 12/31/18 07:00 Chloride 106 mmol/L (98-107) 12/31/18 07:00 Carbon Dioxide 26 mmol/L (21-32) 12/31/18 07:00 Anion Gap 7 MMOL/L (8-16) L 12/31/18 07:00 BUN 13 mg/dL (7-18) 12/31/18 07:00 Creatinine 1.0 mg/dL (0.55-1.3) 12/31/18 07:00 Creat Clearance w eGFR 77.30 (>60) 12/31/18 07:00 POC Glucometer 162 UNITS (80-120) 01/03/19 05:19 Random Glucose 128 mg/dL (74-106) H 12/31/18 07:00 Calcium 8.2 mg/dL (8.5-10.1) L 12/31/18 07:00 Total Bilirubin 0.4 mg/dL (0.2-1) 12/31/18 07:00 AST 22 U/L (15-37) 12/31/18 07:00 ALT 29 U/L (13-61) 12/31/18 07:00 Alkaline Phosphatase 100 U/L (45-117) 12/31/18 07:00 Total Protein 6.4 g/dl (6.4-8.2) 12/31/18 07:00 Albumin 3.4 g/dl (3.4-5.0) 12/31/18 07:00 RPR Titer Nonreactive (NONREACTIVE) 12/31/18 07:00 HIV 1&2 Antibody Screen Negative 12/31/18 07:00 HIV P24 Antigen Negative 12/31/18 07:00 lab noted - Treatment Hospital Course: Detox Protocol Followed, Detoxed Safely, Responded well, Discharged Condition Good, Rehab Referral Accepted Patient has Accepted a Rehab Referral to: [facility] - Medication Discharge Medications: Ambulatory Orders Zolpidem Tartrate [Ambien] 10 mg PO HS #14 tablet 07/17/15 Pantoprazole Sodium 40 mg PO DAILY #14 tablet. 12/15/17 Simvastatin [Zocor -] 40 mg PO HS #30 tablet 12/15/17 Sertraline HCl [Zoloft -] 50 mg PO DAILY #30 tablet 06/10/18 Albuterol Sulfate Inhaler - [Ventolin HFA Inhaler -] 2 puff IH Q4H PRN #1 inhaler 12/06/18 Clonidine HCl 0.2 mg PO BID #60 tablet 12/06/18 Metformin HCl [Glucophage] 1,000 mg PO BID #60 tablet 12/06/18 Sitagliptin Phosphate [Januvia -] 100 mg PO DAILY@0700 #30 ud 12/06/18 Enalapril Maleate [Vasotec] 10 mg PO DAILY 12/31/18 - Diagnosis (1) Alcohol dependence with uncomplicated withdrawal Current Visit: Yes Status: Acute (2) Nicotine dependence, uncomplicated Current Visit: Yes Status: Acute Qualifiers: Nicotine product type: cigarettes Qualified Code(s): F17.210 - Nicotine dependence, cigarettes, uncomplicated (3) Asthma Current Visit: Yes Status: Chronic Qualifiers: Asthma severity: mild Asthma persistence: intermittent Asthma complication type: uncomplicated Qualified Code(s): J45.20 - Mild intermittent asthma, uncomplicated (4) COPD (chronic obstructive pulmonary disease) Current Visit: Yes Status: Chronic Qualifiers: COPD type: emphysema Emphysema type: unspecified Qualified Code(s): J43.9 - Emphysema, unspecified (5) GERD (gastroesophageal reflux disease) Current Visit: Yes Status: Chronic Qualifiers: Esophagitis presence: without esophagitis Qualified Code(s): K21.9 - Gastro -esophageal reflux disease without esophagitis (6) Hyperlipidemia Current Visit: Yes Status: Chronic Qualifiers: Hyperlipidemia type: pure hypercholesterolemia Qualified Code(s): E78.00 - Pure hypercholesterolemia, unspecified; E78.0 - Pure hypercholesterolemia (7) Hypertension Current Visit: Yes Status: Chronic Qualifiers: Hypertension type: essential hypertension Qualified Code(s): I10 - Essential (primary) hypertension (8) Type II diabetes mellitus Current Visit: Yes Status: Chronic Qualifiers: Diabetes mellitus halfway insulin use: without halfway use Diabetes mellitus complication status: without complication Qualified Code(s): E11.9 - Type 2 diabetes mellitus without complications - AMA Did Patient Leave Against Medical Advice: No
[2019-01-03 09:56] VITALS: BP 135/69; PULSE 61; TEMP 96.7
[2019-01-03] MEDS: PRENATAL VITAMINS W/ FOLIC ACID TABLET (FP) PO SCH (10:10)
[2019-01-03] MEDS: ACETAMINOPHEN 325 MG TABLET (FP) PO PRN (10:11)
[2019-01-03] MEDS: PANTOPRAZOLE 40 MG TABLET (FP) PO SCH (11:35)
[2019-01-03] MEDS: cloNIDine HCL 0.1 MG TABLET PO SCH (11:35)
== END 2019-01-03 13:41 | disposition home or self-care (01) | DRG 774 ==
LOC: YASAS 09:35 → Y3N 13:39
PROVIDERS: ADMIT Surgery; ATTEND Surgery
PROC: HZ2ZZZZ Detoxification Services for Substance Abuse Treatment (ICD-10-PCS; principal; 2018-12-30)
DX: F10.230 Alcohol dependence with withdrawal, uncomplicated (principal); F14.20 Cocaine dependence, uncomplicated; F17.210 Nicotine dependence, cigarettes, uncomplicated; F19.24 Other psychoactive substance dependence with psychoactive substance-induced mood disorder; F19.282 Other psychoactive substance dependence with psychoactive substance-induced sleep disorder; F43.10 Post-traumatic stress disorder, unspecified; I10 Essential (primary) hypertension; E78.00 Pure hypercholesterolemia, unspecified; E11.9 Type 2 diabetes mellitus without complications; Z79.84 Long term (current) use of oral hypoglycemic drugs; J44.9 Chronic obstructive pulmonary disease, unspecified; J45.20 Mild intermittent asthma, uncomplicated; K21.9 Gastro-esophageal reflux disease without esophagitis; Z87.828 Personal history of other (healed) physical injury and trauma
CPT/HCPCS: 36415; 80053; 82962; 85027; 86593; 87389; J0735

== ENCOUNTER 2019-01-23 09:37 | Inpatient (IN) | payer OTHER ==
[2019-01-23 10:04] VITALS: BMI 31.9
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
[2019-01-23] MEDS ORDERED: hydrOXYzine PAMOATE 25 MG CAPSULE (FP) PO PRN (10:33)
[2019-01-23] MEDS ORDERED: MAGNESIUM CITRATE 300 ML BOTTLE PO PRN (10:33)
[2019-01-23] MEDS ORDERED: IBUPROFEN 400 MG TABLET (FP) PO PRN (10:33)
[2019-01-23] MEDS ORDERED: chlordiazePOXIDE HCL 25 MG CAPSULE PO PRN (10:33)
[2019-01-23] MEDS ORDERED: NICOTINE POLACRILEX 2 MG GUM BUC PRN (10:33)
[2019-01-23] MEDS ORDERED: MAG HYDROX/AL HYDROX/SIMETH 30 ML UNIT-DOSE CUP PO PRN (10:33)
[2019-01-23] MEDS ORDERED: BISMUTH SUBSALICYLATE 524 MG/30 ML UD PO PRN (10:33)
[2019-01-23] MEDS ORDERED: MAGNESIUM HYDROX 2400MG/30ML ORAL SUSPENSION 30 ML CUP PO PRN (10:33)
[2019-01-23] MEDS ORDERED: MENTHOL/PHENOL 1 EACH UD MM PRN (10:33)
[2019-01-23] MEDS ORDERED: ALBUTEROL SO4 8 GM HFA INHALER IH PRN (10:35)
[2019-01-23] MEDS ORDERED: chlordiazePOXIDE HCL 25 MG CAPSULE PO ONE (11:00)
[2019-01-23] MEDS: ENALAPRIL MALEATE 10 MG TABLET (FP) PO SCH (11:40)
[2019-01-23] MEDS: ACETAMINOPHEN 325 MG TABLET (FP) PO PRN ×3 (11:40→22:21)
[2019-01-23] MEDS: chlordiazePOXIDE HCL 25 MG CAPSULE PO SCH ×3 (11:41→22:18)
[2019-01-23] MEDS: METHOCARBAMOL 500 MG TABLET PO PRN ×2 (11:44→17:16)
[2019-01-23] MEDS: TOLNAFTATE 1% CREAM 15 GM TUBE TP SCH ×2 (13:05→22:19)
[2019-01-23] MEDS: METHYL SALICYLATE/MENTHOL OINT 30 GM TUBE TP SCH ×2 (13:05→22:19)
[2019-01-23] MEDS: metFORMIN HCL 500 MG TABLET (FP) PO SCH (17:14)
[2019-01-23] MEDS: INSULIN SLIDING SCALE (NOVOLOG) 1 VIAL SQ SCH (17:16)
[2019-01-23] MEDS: THIAMINE HCL 100 MG TABLET (FP) PO SCH (22:18)
[2019-01-23] MEDS: MELATONIN 5 MG TABLETS PO PRN (22:18)
[2019-01-24] MEDS: ACETAMINOPHEN 325 MG TABLET (FP) PO PRN ×2 (05:39→16:50)
[2019-01-24] MEDS: METHOCARBAMOL 500 MG TABLET PO PRN ×2 (05:39→22:04)
[2019-01-24] MEDS: chlordiazePOXIDE HCL 25 MG CAPSULE PO SCH ×4 (05:39→22:04)
[2019-01-24] MEDS: metFORMIN HCL 500 MG TABLET (FP) PO SCH ×2 (06:57→16:48)
[2019-01-24] MEDS: sitaGLIPtin PHOSPHATE 100 MG TABLET (FP) PO SCH (06:57)
[2019-01-24] MEDS: INSULIN SLIDING SCALE (NOVOLOG) 1 VIAL SQ SCH ×2 (07:07→16:42)
--- NOTE | 2019-01-24 09:59 | PN ---
[facility] CIWA - CIWA Score Nausea/Vomitin-Mild Nausea/No Vomiting Muscle Tremors: 3 Anxiety: 2 Agitation: 2 Paroxysmal Sweats: 1-Minimal Palms Moist Orientation: 3-Disoriented Date>2 days Tacttile Disturbances: 0-None Auditory Disturbances: 0-None Visual Disturbances: 0-None Headache: 2-Mild CIWA-Ar Total Score: 14 [facility] Progress Note (SOAP) Subjective: muscle cramping tremor tired low energy Objective: 01/24/19 10:00 Vital Signs Temperature 96.6 F L 01/24/19 09:03 Pulse Rate 79 01/24/19 09:03 Respiratory Rate 18 01/24/19 09:03 Blood Pressure 135/80 01/24/19 09:03 O2 Sat by Pulse Oximetry (%) Laboratory Last Values POC Glucometer 217 UNITS (80-120) 01/24/19 05:38 lab pending Assessment: 01/24/19 10:00 alcohol withdrawal sx Plan: continue detox
[2019-01-24 10:23] LABS: ALBUMIN 3.5 g/dl (3.4-5.0); ALK PHOS 135 U/L (45-117); ANION GAP 6 MMOL/L (8-16); BILIRUBIN,TOTAL 0.3 mg/dL (0.2-1); BLOOD UREA NITROGEN 14 mg/dL (7-18); CALCIUM 9.1 mg/dL (8.5-10.1); CHLORIDE 109 mmol/L (98-107); CO2 26 mmol/L (21-32); GLUCOSE,RANDOM 144 mg/dL (74-106); POTASSIUM 4.2 mmol/L (3.5-5.1); SGOT/AST 22 U/L (15-37); SGPT/ALT 40 U/L (13-61); SODIUM 141 mmol/L (136-145); TOT PROT 6.4 g/dl (6.4-8.2)
[2019-01-24] MEDS: METHYL SALICYLATE/MENTHOL OINT 30 GM TUBE TP SCH ×2 (10:32→22:03)
[2019-01-24] MEDS: PRENATAL VITAMINS W/ FOLIC ACID TABLET (FP) PO SCH (10:32)
[2019-01-24] MEDS: ENALAPRIL MALEATE 10 MG TABLET (FP) PO SCH (10:33)
[2019-01-24] MEDS: TOLNAFTATE 1% CREAM 15 GM TUBE TP SCH ×2 (10:34→22:04)
[2019-01-24 10:39] LABS: HEMATOCRIT 40.1 % (35.4-49); HEMOGLOBIN 13.4 GM/dL (11.7-16.9); MCH 32.1 pg (25.7-33.7); MCHC 33.5 g/dl (32.0-35.9); MEAN CELL VOLUME 95.9 fl (80-96); MEAN PLT VOLUME 8.4 fl (7.5-11.1); PLATELET COUNT 435 K/MM3 (134-434); RBC 4.19 M/mm3 (4.00-5.60); RDW 12.4 % (11.9-15.9); WHITE BLOOD COUNT 7.5 K/mm3 (4.0-10.0)
[2019-01-24] MEDS: THIAMINE HCL 100 MG TABLET (FP) PO SCH (22:04)
[2019-01-24] MEDS: MELATONIN 5 MG TABLETS PO PRN (22:04)
[2019-01-25] MEDS: ACETAMINOPHEN 325 MG TABLET (FP) PO PRN ×2 (05:15→16:42)
[2019-01-25] MEDS: METHOCARBAMOL 500 MG TABLET PO PRN ×2 (05:15→16:41)
[2019-01-25] MEDS: chlordiazePOXIDE HCL 25 MG CAPSULE PO SCH (05:15)
[2019-01-25] MEDS: sitaGLIPtin PHOSPHATE 100 MG TABLET (FP) PO SCH (07:20)
[2019-01-25] MEDS: INSULIN SLIDING SCALE (NOVOLOG) 1 VIAL SQ SCH ×2 (07:21→16:41)
[2019-01-25] MEDS: metFORMIN HCL 500 MG TABLET (FP) PO SCH ×2 (07:21→16:40)
[2019-01-25] MEDS: PRENATAL VITAMINS W/ FOLIC ACID TABLET (FP) PO SCH (10:05)
[2019-01-25] MEDS: TOLNAFTATE 1% CREAM 15 GM TUBE TP SCH ×2 (10:05→22:26)
[2019-01-25] MEDS: METHYL SALICYLATE/MENTHOL OINT 30 GM TUBE TP SCH ×2 (10:05→22:26)
[2019-01-25] MEDS: ENALAPRIL MALEATE 10 MG TABLET (FP) PO SCH (10:06)
[2019-01-25] MEDS: chlordiazePOXIDE HCL 10 MG CAPSULE PO SCH ×3 (10:08→22:27)
[2019-01-25] MEDS ORDERED: chlordiazePOXIDE HCL 10 MG CAPSULE PO PRN (11:00)
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
--- NOTE | 2019-01-25 15:56 | PN ---
[facility] CIWA - CIWA Score Nausea/Vomitin-No Nausea/No Vomiting Muscle Tremors: None Anxiety: 3 Agitation: 1-Slight > Activity Paroxysmal Sweats: No Perspiration Orientation: 2-Disoriented Date<2 days Tacttile Disturbances: 0-None Auditory Disturbances: 1-Very Mild Visual Disturbances: 2-Mild Sensitivity Headache: 0-None Present CIWA-Ar Total Score: 9 S Progress Note (SOAP) Subjective: Body Aches, Fatigue, Anxious. Objective: PATIENT A & O X 2 (UNCERTAIN ABOUT CURRENT DAY / DATE). PATIENT OBSERVED AMBULATING ON UNIT UNASSISTED. IN NO ACUTE DISTRESS. 01/25/19 15:56 Vital Signs Temperature 96.7 F L 01/25/19 13:13 Pulse Rate 81 01/25/19 13:13 Respiratory Rate 18 01/25/19 13:13 Blood Pressure 146/79 01/25/19 13:13 O2 Sat by Pulse Oximetry (%) Laboratory Tests 01/23/19 01/23/19 01/24/19 11:01 16:41 05:38 WBC RBC Hgb Hct MCV MCH MCHC RDW Plt Count MPV Sodium Potassium Chloride Carbon Dioxide Anion Gap BUN Creatinine Creat Clearance w eGFR POC Glucometer 185 169 217 Random Glucose Calcium Total Bilirubin AST ALT Alkaline Phosphatase Total Protein Albumin RPR Titer 01/24/19 01/24/19 01/24/19 07:40 07:40 07:40 WBC 7.5 RBC 4.19 Hgb 13.4 Hct 40.1 MCV 95.9 MCH 32.1 MCHC 33.5 RDW 12.4 Plt Count 435 H MPV 8.4 Sodium 141 Potassium 4.2 Chloride 109 H Carbon Dioxide 26 Anion Gap 6 L BUN 14 Creatinine 1.0 Creat Clearance w eGFR 77.30 POC Glucometer Random Glucose 144 H Calcium 9.1 Total Bilirubin 0.3 AST 22 ALT 40 Alkaline Phosphatase 135 H Total Protein 6.4 Albumin 3.5 RPR Titer Nonreactive 01/24/19 01/25/19 16:41 05:15 WBC RBC Hgb Hct MCV MCH MCHC RDW Plt Count MPV Sodium Potassium Chloride Carbon Dioxide Anion Gap BUN Creatinine Creat Clearance w eGFR POC Glucometer 152 207 Random Glucose Calcium Total Bilirubin AST ALT Alkaline Phosphatase Total Protein Albumin RPR Titer LABS NOTED. Assessment: 01/25/19 15:56 WITHDRAWAL SYMPTOMS. Plan: CONTINUE DETOX. INCREASE DAILY PO FLUID / WATER INTAKE.
[2019-01-25] MEDS: RANITIDINE HCL 150 MG TABLET (FP) PO SCH (17:51)
[2019-01-25] MEDS: THIAMINE HCL 100 MG TABLET (FP) PO SCH (22:27)
[2019-01-25] MEDS: MELATONIN 5 MG TABLETS PO PRN (22:29)
[2019-01-26] MEDS: chlordiazePOXIDE HCL 10 MG CAPSULE PO SCH (05:14)
[2019-01-26] MEDS: METHOCARBAMOL 500 MG TABLET PO PRN ×2 (05:30→12:02)
[2019-01-26] MEDS: ACETAMINOPHEN 325 MG TABLET (FP) PO PRN ×2 (06:01→12:03)
[2019-01-26] MEDS: metFORMIN HCL 500 MG TABLET (FP) PO SCH (07:44)
[2019-01-26] MEDS: sitaGLIPtin PHOSPHATE 100 MG TABLET (FP) PO SCH (07:45)
[2019-01-26] MEDS: INSULIN SLIDING SCALE (NOVOLOG) 1 VIAL SQ SCH (07:45)
[2019-01-26 09:23] VITALS: BP 160/116; PULSE 80; TEMP 96.5
[2019-01-26] MEDS ORDERED: SERTRALINE HCL 50 MG TABLET (FP) PO SCH (10:00)
[2019-01-26] MEDS: ENALAPRIL MALEATE 10 MG TABLET (FP) PO SCH (10:01)
[2019-01-26] MEDS: RANITIDINE HCL 150 MG TABLET (FP) PO SCH (10:01)
[2019-01-26] MEDS: PRENATAL VITAMINS W/ FOLIC ACID TABLET (FP) PO SCH (10:01)
[2019-01-26] MEDS: METHYL SALICYLATE/MENTHOL OINT 30 GM TUBE TP SCH (10:37)
[2019-01-26] MEDS: TOLNAFTATE 1% CREAM 15 GM TUBE TP SCH (10:37)
[2019-01-26] MEDS ORDERED: chlordiazePOXIDE HCL 10 MG CAPSULE PO SCH (11:00)
--- NOTE | 2019-01-26 17:44 | PN ---
S CIWA - CIWA Score Nausea/Vomitin-No Nausea/No Vomiting Muscle Tremors: None Anxiety: 1-Mildly Anxious Agitation: 0-Normal Activity Paroxysmal Sweats: No Perspiration Orientation: 0-Oriented Tacttile Disturbances: 1-Very Mild Itch/Numbness Auditory Disturbances: 0-None Visual Disturbances: 0-None Headache: 0-None Present CIWA-Ar Total Score: 2 BHS Progress Note (SOAP) Subjective: Body Aches (Mild), Anxious (Mild). Objective: PATIENT A & O X 3, OBSERVED AMBULATING ON UNIT UNASSISTED. IN NO ACUTE DISTRESS. 01/26/19 17:45 Vital Signs Temperature 96.5 F L 01/26/19 09:23 Pulse Rate 80 01/26/19 09:23 Respiratory Rate 18 01/26/19 09:23 Blood Pressure 160/116 H 01/26/19 09:23 O2 Sat by Pulse Oximetry (%) Laboratory Tests 01/23/19 01/23/19 01/24/19 11:01 16:41 05:38 WBC RBC Hgb Hct MCV MCH MCHC RDW Plt Count MPV Sodium Potassium Chloride Carbon Dioxide Anion Gap BUN Creatinine Creat Clearance w eGFR POC Glucometer 185 169 217 Random Glucose Calcium Total Bilirubin AST ALT Alkaline Phosphatase Total Protein Albumin RPR Titer 01/24/19 01/24/19 01/24/19 07:40 07:40 07:40 WBC 7.5 RBC 4.19 Hgb 13.4 Hct 40.1 MCV 95.9 MCH 32.1 MCHC 33.5 RDW 12.4 Plt Count 435 H MPV 8.4 Sodium 141 Potassium 4.2 Chloride 109 H Carbon Dioxide 26 Anion Gap 6 L BUN 14 Creatinine 1.0 Creat Clearance w eGFR 77.30 POC Glucometer Random Glucose 144 H Calcium 9.1 Total Bilirubin 0.3 AST 22 ALT 40 Alkaline Phosphatase 135 H Total Protein 6.4 Albumin 3.5 RPR Titer Nonreactive 01/24/19 01/25/19 01/25/19 16:41 05:15 16:23 WBC RBC Hgb Hct MCV MCH MCHC RDW Plt Count MPV Sodium Potassium Chloride Carbon Dioxide Anion Gap BUN Creatinine Creat Clearance w eGFR POC Glucometer 152 207 220 Random Glucose Calcium Total Bilirubin AST ALT Alkaline Phosphatase Total Protein Albumin RPR Titer 01/26/19 05:13 WBC RBC Hgb Hct MCV MCH MCHC RDW Plt Count MPV Sodium Potassium Chloride Carbon Dioxide Anion Gap BUN Creatinine Creat Clearance w eGFR POC Glucometer 191 Random Glucose Calcium Total Bilirubin AST ALT Alkaline Phosphatase Total Protein Albumin RPR Titer LABS NOTED. Assessment: 01/26/19 17:45 COMPLETION OF DETOX REGIMEN. Plan: SINCE PATIENT REPORTS THAT CURRENT WITHDRAWAL / DETOX SYMPTOMS ARE MINIMAL IN DEGREE AND THAT HE FEELS WELL OVERALL AT THIS TIME, AT PATIENTS REQUEST, HE WAS GRANTED AN EARLY DISCHARGE FROM DETOX UNIT TODAY SO THAT HE MAY PROCEED ON TO AFTERCARE PLAN - [facility] ([place], [place] ).
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
== END 2019-01-26 12:14 | disposition home or self-care (01) | DRG 774 ==
LOC: YASAS 09:37 → Y3N 10:46
PROVIDERS: ADMIT Surgery; ATTEND Surgery
PROC: HZ2ZZZZ Detoxification Services for Substance Abuse Treatment (ICD-10-PCS; principal; 2019-01-23)
DX: F10.230 Alcohol dependence with withdrawal, uncomplicated (principal); F14.20 Cocaine dependence, uncomplicated; F17.210 Nicotine dependence, cigarettes, uncomplicated; F43.10 Post-traumatic stress disorder, unspecified; F19.24 Other psychoactive substance dependence with psychoactive substance-induced mood disorder; F19.282 Other psychoactive substance dependence with psychoactive substance-induced sleep disorder; J43.9 Emphysema, unspecified; K21.9 Gastro-esophageal reflux disease without esophagitis; I10 Essential (primary) hypertension; M25.512 Pain in left shoulder; M79.672 Pain in left foot; M54.5 Low back pain; G89.29 Other chronic pain; E11.9 Type 2 diabetes mellitus without complications; B35.3 Tinea pedis; B35.4 Tinea corporis; R01.1 Cardiac murmur, unspecified; E78.5 Hyperlipidemia, unspecified; Z91.14 Patient's other noncompliance with medication regimen; Z86.69 Personal history of other diseases of the nervous system and sense organs; Z91.5 Personal history of self-harm
CPT/HCPCS: 36415; 80053; 82962; 85027; 86593

== ENCOUNTER 2019-04-07 11:42 | Inpatient (IN) | payer OTHER ==
[2019-04-07 12:22] VITALS: BMI 34.7
[2019-04-07] MEDS ORDERED: chlordiazePOXIDE HCL 25 MG CAPSULE PO SCH (13:00)
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
[2019-04-07] MEDS ORDERED: ACETAMINOPHEN 325 MG TABLET (FP) PO PRN (13:45)
[2019-04-07] MEDS ORDERED: MAG HYDROX/AL HYDROX/SIMETH 30 ML UNIT-DOSE CUP PO PRN (13:45)
[2019-04-07] MEDS ORDERED: MENTHOL/PHENOL 1 EACH UD MM PRN (13:45)
[2019-04-07] MEDS ORDERED: BISMUTH SUBSALICYLATE 262 MG/15 ML BTL PO PRN (13:45)
[2019-04-07] MEDS ORDERED: MAGNESIUM HYDROX 2400MG/30ML ORAL SUSPENSION 30 ML CUP PO PRN (13:45)
[2019-04-07] MEDS ORDERED: METHOCARBAMOL 500 MG TABLET PO PRN (13:45)
[2019-04-07] MEDS ORDERED: chlordiazePOXIDE HCL 10 MG CAPSULE PO PRN (13:45)
[2019-04-07] MEDS ORDERED: hydrOXYzine PAMOATE 25 MG CAPSULE (FP) PO PRN (13:45)
[2019-04-07] MEDS ORDERED: MAGNESIUM CITRATE 300 ML BOTTLE PO PRN (13:45)
[2019-04-07] MEDS ORDERED: chlordiazePOXIDE HCL 25 MG CAPSULE PO PRN (13:53)
[2019-04-07] MEDS ORDERED: ALBUTEROL SO4 8 GM HFA INHALER IH PRN (13:54)
[2019-04-07] MEDS ORDERED: PATIENT'S OWN MEDICATION (NON-FORMULARY) (Efavirenz/Emtricitab/Tenofovir 1 TAB) PO SCH (14:00)
--- NOTE | 2019-04-07 14:13 | PN ---
[facility] Progress Note Note: this 58 years old male with alcohol and cocaine dependence and cocaine dependence seeking help I personally present,review history and examination of this patient by Dr.Abbi Higgins,I agreed and concurred that this patient need inpatient detox,Medically Managed with Librium Regimen
[2019-04-07] MEDS: ENALAPRIL MALEATE 10 MG TABLET (FP) PO SCH (15:28)
[2019-04-07] MEDS: PANTOPRAZOLE 40 MG TABLET (FP) PO SCH (15:28)
[2019-04-07 17:45] LABS: BLOOD UREA NITROGEN 13.4 mg/dL (7-18); CALCIUM 9.2 mg/dL (8.5-10.1); CREATININE 1.2 mg/dL (0.55-1.3); POTASSIUM 3.7 mmol/L (3.5-5.1); TOT PROT 7.3 g/dl (6.4-8.2)
[2019-04-07 18:06] LABS: HEMATOCRIT 42.8 % (35.4-49); MCHC 32.7 g/dl (32.0-35.9); MEAN PLT VOLUME 9.1 fl (7.5-11.1); PLATELET COUNT 388 K/MM3 (134-434); RBC 4.51 M/mm3 (4.00-5.60); RDW 12.9 % (11.9-15.9); WHITE BLOOD COUNT 11.8 K/mm3 (4.0-10.0)
[2019-04-07] MEDS: EFAVIRENZ 600 MG TABLET PO SCH (19:36)
[2019-04-07] MEDS: EMTRICITABINE 200MG/TENOFOVIR 300MG PO SCH (19:37)
[2019-04-07] MEDS: INSULIN SLIDING SCALE (NOVOLOG) 1 VIAL SQ SCH ×2 (19:37→22:24)
[2019-04-07] MEDS: metFORMIN HCL 500 MG TABLET (FP) PO SCH (19:37)
[2019-04-07] MEDS: chlordiazePOXIDE HCL 25 MG CAPSULE PO SCH ×2 (19:37→22:26)
[2019-04-07] MEDS: cloNIDine HCL 0.1 MG TABLET PO SCH (22:26)
[2019-04-07] MEDS: THIAMINE HCL 100 MG TABLET (FP) PO SCH (22:26)
[2019-04-08] MEDS: chlordiazePOXIDE HCL 25 MG CAPSULE PO SCH ×4 (05:27→22:15)
[2019-04-08] MEDS: metFORMIN HCL 500 MG TABLET (FP) PO SCH ×2 (06:39→17:06)
[2019-04-08] MEDS: INSULIN SLIDING SCALE (NOVOLOG) 1 VIAL SQ SCH ×4 (06:39→22:18)
[2019-04-08] MEDS: sitaGLIPtin PHOSPHATE 100 MG TABLET (FP) PO SCH (06:54)
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
[2019-04-08 09:33] LABS: PH,URINE 5.5 (5.0-8.0); URINE APPEARANCE CLEAR; URINE BILIRUBIN NEGATIVE (NEGATIVE); URINE COLOR YELLOW; URINE GLUCOSE (UA) 2+ (NEGATIVE); URINE KETONE NEGATIVE (NEGATIVE); URINE LEUK ESTERASE NEGATIVE (NEGATIVE); URINE NITRITE NEGATIVE (NEGATIVE); URINE PROTEIN NEGATIVE (NEGATIVE)
--- NOTE | 2019-04-08 10:28 | EKG ---
Test Reason : Blood Pressure : / mmHG Vent. Rate : 087 BPM Atrial Rate : 087 BPM P-R Int : 172 ms QRS Dur : 094 ms QT Int : 366 ms P-R-T Axes : 048 086 051 degrees QTc Int : 440 ms NORMAL SINUS RHYTHM NONSPECIFIC ST AND T WAVE ABNORMALITY WHEN COMPARED WITH ECG OF 02-DEC-2018 20:03, NO SIGNIFICANT CHANGE WAS FOUND Confirmed by TRE AYOUB MD ([id number]) on 04/08/2019 10:28:09 AM Referred By: Confirmed By:TRE AYOUB MD
[2019-04-08] MEDS: PRENATAL VITAMINS W/ FOLIC ACID TABLET (FP) PO SCH (10:48)
[2019-04-08] MEDS: PANTOPRAZOLE 40 MG TABLET (FP) PO SCH (10:48)
[2019-04-08] MEDS: cloNIDine HCL 0.1 MG TABLET PO SCH ×2 (10:48→22:15)
[2019-04-08] MEDS: ENALAPRIL MALEATE 10 MG TABLET (FP) PO SCH (10:48)
[2019-04-08] MEDS: EMTRICITABINE 200MG/TENOFOVIR 300MG PO SCH (10:49)
[2019-04-08] MEDS: EFAVIRENZ 600 MG TABLET PO SCH (10:49)
--- NOTE | 2019-04-08 10:52 | PN ---
S CIWA - CIWA Score Nausea/Vomitin-Mild Nausea/No Vomiting Muscle Tremors: 2 Anxiety: 2 Agitation: 2 Paroxysmal Sweats: 2 Orientation: 0-Oriented Tacttile Disturbances: 1-Very Mild Itch/Numbness Auditory Disturbances: 0-None Visual Disturbances: 0-None Headache: 1-Very Mild CIWA-Ar Total Score: 11 S Progress Note (SOAP) Subjective: patient reported that he never takes insulin sq patient agrees to increase fluid intake and avoid sugar Objective: 04/08/19 10:50 Vital Signs Temperature 97.3 F L 04/08/19 09:43 Pulse Rate 91 H 04/08/19 09:43 Respiratory Rate 20 04/08/19 09:43 Blood Pressure 112/74 04/08/19 09:43 O2 Sat by Pulse Oximetry (%) Laboratory Last Values WBC 11.8 K/mm3 (4.0-10.0) H 04/07/19 14:10 RBC 4.51 M/mm3 (4.00-5.60) 04/07/19 14:10 Hgb 14.0 GM/dL (11.7-16.9) 04/07/19 14:10 Hct 42.8 % (35.4-49) 04/07/19 14:10 MCV 95.0 fl (80-96) 04/07/19 14:10 MCH 31.0 pg (25.7-33.7) 04/07/19 14:10 MCHC 32.7 g/dl (32.0-35.9) 04/07/19 14:10 RDW 12.9 % (11.9-15.9) 04/07/19 14:10 Plt Count 388 K/MM3 (134-434) 04/07/19 14:10 MPV 9.1 fl (7.5-11.1) 04/07/19 14:10 Sodium 137 mmol/L (136-145) 04/07/19 14:10 Potassium 3.7 mmol/L (3.5-5.1) 04/07/19 14:10 Chloride 104 mmol/L (98-107) 04/07/19 14:10 Carbon Dioxide 27 mmol/L (21-32) 04/07/19 14:10 Anion Gap 7 MMOL/L (8-16) L 04/07/19 14:10 BUN 13.4 mg/dL (7-18) 04/07/19 14:10 Creatinine 1.2 mg/dL (0.55-1.3) 04/07/19 14:10 Est GFR (CKD-EPI)AfAm 77.88 04/07/19 14:10 Est GFR (CKD-EPI)NonAf 67.19 04/07/19 14:10 POC Glucometer 276 UNITS (80-120) 04/08/19 05:26 Random Glucose 229 mg/dL (74-106) H 04/07/19 14:10 Calcium 9.2 mg/dL (8.5-10.1) 04/07/19 14:10 Total Bilirubin 1.0 mg/dL (0.2-1) 04/07/19 14:10 AST 26 U/L (15-37) 04/07/19 14:10 ALT 44 U/L (13-61) 04/07/19 14:10 Alkaline Phosphatase 105 U/L (45-117) 04/07/19 14:10 Total Protein 7.3 g/dl (6.4-8.2) 04/07/19 14:10 Albumin 4.0 g/dl (3.4-5.0) 04/07/19 14:10 Urine Color Yellow 04/07/19 18:38 Urine Appearance Clear 04/07/19 18:38 Urine pH 5.5 (5.0-8.0) D 04/07/19 18:38 Ur Specific [place] 1.021 (1.010-1.035) 04/07/19 18:38 Urine Protein Negative (NEGATIVE) 04/07/19 18:38 Urine Glucose (UA) 2+ (NEGATIVE) H 04/07/19 18:38 Urine Ketones Negative (NEGATIVE) 04/07/19 18:38 Urine Blood Negative (NEGATIVE) 04/07/19 18:38 Urine Nitrite Negative (NEGATIVE) 04/07/19 18:38 Urine Bilirubin Negative (NEGATIVE) 04/07/19 18:38 Urine Urobilinogen 1.0 mg/dL (0.2-1.0) 04/07/19 18:38 Ur Leukocyte Esterase Negative (NEGATIVE) 04/07/19 18:38 RPR Titer Nonreactive (NONREACTIVE) 04/07/19 14:10 lab noted Assessment: 04/08/19 10:51 alcohol withdrawal sx Plan: continue alcohol detox refuse insulin coverage
[2019-04-08] MEDS: THIAMINE HCL 100 MG TABLET (FP) PO SCH (22:15)
[2019-04-09] MEDS ORDERED: chlordiazePOXIDE 5 MG CAPSULE PO SCH (05:00)
[2019-04-09] MEDS: chlordiazePOXIDE HCL 25 MG CAPSULE PO SCH ×4 (05:08→22:21)
[2019-04-09] MEDS: metFORMIN HCL 500 MG TABLET (FP) PO SCH ×2 (06:27→17:20)
[2019-04-09] MEDS: sitaGLIPtin PHOSPHATE 100 MG TABLET (FP) PO SCH (06:28)
[2019-04-09] MEDS: INSULIN SLIDING SCALE (NOVOLOG) 1 VIAL SQ SCH ×4 (08:17→23:26)
[2019-04-09] MEDS: cloNIDine HCL 0.1 MG TABLET PO SCH ×2 (10:18→22:20)
[2019-04-09] MEDS: PANTOPRAZOLE 40 MG TABLET (FP) PO SCH (10:18)
[2019-04-09] MEDS: ENALAPRIL MALEATE 10 MG TABLET (FP) PO SCH (10:18)
[2019-04-09] MEDS: PRENATAL VITAMINS W/ FOLIC ACID TABLET (FP) PO SCH (10:18)
[2019-04-09] MEDS: EFAVIRENZ 600 MG TABLET PO SCH (10:20)
[2019-04-09] MEDS: EMTRICITABINE 200MG/TENOFOVIR 300MG PO SCH (10:20)
[2019-04-09] MEDS: ACETAMINOPHEN 325 MG TABLET (FP) PO PRN (10:23)
[2019-04-09] MEDS ORDERED: ONDANSETRON *ODT* 4 MG TABLET SL PRN (13:16)
--- NOTE | 2019-04-09 13:21 | PN ---
S CIWA - CIWA Score Nausea/Vomitin Muscle Tremors: None Anxiety: 3 Agitation: 3 Paroxysmal Sweats: 3 Orientation: 0-Oriented Tacttile Disturbances: 0-None Auditory Disturbances: 0-None Visual Disturbances: 0-None Headache: 0-None Present CIWA-Ar Total Score: 11 BHS Progress Note (SOAP) Subjective: Anxious, Sweating, Stomach Cramping, Nausea. Objective: PATIENT A & O X 3, OBSERVED AMBULATING ON UNIT UNASSISTED. IN NO ACUTE DISTRESS. PATIENT AFEBRILE. 04/09/19 13:17 Vital Signs Temperature 96.6 F L 04/09/19 09:14 Pulse Rate 81 04/09/19 09:14 Respiratory Rate 18 04/09/19 09:14 Blood Pressure 107/76 04/09/19 09:14 O2 Sat by Pulse Oximetry (%) Laboratory Tests 04/07/19 04/07/19 04/07/19 14:10 14:10 14:10 WBC 11.8 H RBC 4.51 Hgb 14.0 Hct 42.8 MCV 95.0 MCH 31.0 MCHC 32.7 RDW 12.9 Plt Count 388 MPV 9.1 Sodium 137 Potassium 3.7 Chloride 104 Carbon Dioxide 27 Anion Gap 7 L BUN 13.4 Creatinine 1.2 Est GFR (CKD-EPI)AfAm 77.88 Est GFR (CKD-EPI)NonAf 67.19 POC Glucometer Random Glucose 229 H Calcium 9.2 Total Bilirubin 1.0 AST 26 ALT 44 Alkaline Phosphatase 105 Total Protein 7.3 Albumin 4.0 Urine Color Urine Appearance Urine pH Ur Specific [place] Urine Protein Urine Glucose (UA) Urine Ketones Urine Blood Urine Nitrite Urine Bilirubin Urine Urobilinogen Ur Leukocyte Esterase RPR Titer Nonreactive 04/07/19 04/07/19 04/07/19 16:26 18:38 22:00 WBC RBC Hgb Hct MCV MCH MCHC RDW Plt Count MPV Sodium Potassium Chloride Carbon Dioxide Anion Gap BUN Creatinine Est GFR (CKD-EPI)AfAm Est GFR (CKD-EPI)NonAf POC Glucometer 193 316 Random Glucose Calcium Total Bilirubin AST ALT Alkaline Phosphatase Total Protein Albumin Urine Color Yellow Urine Appearance Clear Urine pH 5.5 D Ur Specific [place] 1.021 Urine Protein Negative Urine Glucose (UA) 2+ H Urine Ketones Negative Urine Blood Negative Urine Nitrite Negative Urine Bilirubin Negative Urine Urobilinogen 1.0 Ur Leukocyte Esterase Negative RPR Titer 04/08/19 04/08/19 04/09/19 05:26 16:20 05:07 WBC RBC Hgb Hct MCV MCH MCHC RDW Plt Count MPV Sodium Potassium Chloride Carbon Dioxide Anion Gap BUN Creatinine Est GFR (CKD-EPI)AfAm Est GFR (CKD-EPI)NonAf POC Glucometer 276 169 267 Random Glucose Calcium Total Bilirubin AST ALT Alkaline Phosphatase Total Protein Albumin Urine Color Urine Appearance Urine pH Ur Specific [place] Urine Protein Urine Glucose (UA) Urine Ketones Urine Blood Urine Nitrite Urine Bilirubin Urine Urobilinogen Ur Leukocyte Esterase RPR Titer 04/09/19 11:06 WBC RBC Hgb Hct MCV MCH MCHC RDW Plt Count MPV Sodium Potassium Chloride Carbon Dioxide Anion Gap BUN Creatinine Est GFR (CKD-EPI)AfAm Est GFR (CKD-EPI)NonAf POC Glucometer 222 Random Glucose Calcium Total Bilirubin AST ALT Alkaline Phosphatase Total Protein Albumin Urine Color Urine Appearance Urine pH Ur Specific [place] Urine Protein Urine Glucose (UA) Urine Ketones Urine Blood Urine Nitrite Urine Bilirubin Urine Urobilinogen Ur Leukocyte Esterase RPR Titer LABS NOTED. 04/09/19 13:21 Assessment: 04/09/19 13:17 WITHDRAWAL SYMPTOMS. HYPERGLYCEMIA. LEUKOCYTOSIS. Plan: CONTINUE DETOX. INCREASE DAILY PO WATER INTAKE. PRN ZOFRAN SL FOR NAUSEA. REPEAT CBC TOMORROW AM FOR ELEVATED WBC LEVEL NOTED ON DETOX ADMISSION LABORATORY ASSESSMENT. PATIENT REFUSING TO HAVE INSULIN ADMINISTERED ACCORDING TO PRESCRIBED SLIDING SCALE (FROM DETOX ADMISSION), NOTING THAT HE GENERALLY DOES NOT TAKE REGULAR INSULIN AT HOME, ONLY PO ANTI-DIABETIC MEDICATION. PATIENT SIGNED REFUSAL-OF- CARE FORM.
[2019-04-09] MEDS: THIAMINE HCL 100 MG TABLET (FP) PO SCH (22:20)
[2019-04-09] MEDS: MELATONIN 5 MG TABLETS PO PRN (22:21)
[2019-04-10] MEDS ORDERED: chlordiazePOXIDE HCL 10 MG CAPSULE PO PRN ×2
[2019-04-10] MEDS ORDERED: chlordiazePOXIDE HCL 10 MG CAPSULE PO SCH (05:00)
[2019-04-10] MEDS: ACETAMINOPHEN 325 MG TABLET (FP) PO PRN ×3 (05:37→17:54)
[2019-04-10] MEDS: chlordiazePOXIDE HCL 10 MG CAPSULE PO SCH ×4 (07:04→22:29)
[2019-04-10] MEDS: sitaGLIPtin PHOSPHATE 100 MG TABLET (FP) PO SCH (07:05)
[2019-04-10] MEDS: metFORMIN HCL 500 MG TABLET (FP) PO SCH ×2 (07:05→17:47)
[2019-04-10] MEDS: INSULIN SLIDING SCALE (NOVOLOG) 1 VIAL SQ SCH ×4 (07:06→22:29)
[2019-04-10] MEDS: cloNIDine HCL 0.1 MG TABLET PO SCH ×2 (10:55→20:30)
[2019-04-10] MEDS: PANTOPRAZOLE 40 MG TABLET (FP) PO SCH (10:55)
[2019-04-10] MEDS: ENALAPRIL MALEATE 10 MG TABLET (FP) PO SCH (10:55)
[2019-04-10] MEDS: PRENATAL VITAMINS W/ FOLIC ACID TABLET (FP) PO SCH (10:55)
[2019-04-10] MEDS: EMTRICITABINE 200MG/TENOFOVIR 300MG PO SCH (10:55)
[2019-04-10] MEDS: EFAVIRENZ 600 MG TABLET PO SCH (10:56)
[2019-04-10 11:11] LABS: BASO % 0.6 % (0-2.0); EOS % 1.3 % (0-4.5); HEMATOCRIT 38.6 % (35.4-49); HEMOGLOBIN 12.8 GM/dL (11.7-16.9); LYMPH % 29.9 % (8-40); MCH 31.3 pg (25.7-33.7); MCHC 33.2 g/dl (32.0-35.9); MEAN CELL VOLUME 94.2 fl (80-96); MEAN PLT VOLUME 8.5 fl (7.5-11.1); MONO % 6.8 % (3.8-10.2); NEUT % 61.4 % (42.8-82.8); RBC 4.09 M/mm3 (4.00-5.60); RDW 12.9 % (11.9-15.9); WHITE BLOOD COUNT 8.2 K/mm3 (4.0-10.0)
[2019-04-10 12:16] LABS: PLATELET COUNT 420 K/MM3 (134-434)
--- NOTE | 2019-04-10 13:02 | PN ---
S CIWA - CIWA Score Nausea/Vomitin (Stomach Cramping.) Muscle Tremors: None Anxiety: 3 Agitation: 1-Slight > Activity Paroxysmal Sweats: 2 Orientation: 0-Oriented Tacttile Disturbances: 1-Very Mild Itch/Numbness Auditory Disturbances: 0-None Visual Disturbances: 0-None Headache: 0-None Present CIWA-Ar Total Score: 9 BHS Progress Note (SOAP) Subjective: Anxious, Sweating, Stomach Cramping. Objective: PATIENT A & O X 3, OBSERVED AMBULATING ON UNIT UNASSISTED. IN NO ACUTE DISTRESS. 04/10/19 13:04 Vital Signs Temperature 97.3 F L 04/10/19 09:37 Pulse Rate 77 04/10/19 09:37 Respiratory Rate 20 04/10/19 09:37 Blood Pressure 129/75 04/10/19 09:37 O2 Sat by Pulse Oximetry (%) Laboratory Tests 04/07/19 04/07/19 04/07/19 14:10 14:10 14:10 WBC 11.8 H RBC 4.51 Hgb 14.0 Hct 42.8 MCV 95.0 MCH 31.0 MCHC 32.7 RDW 12.9 Plt Count 388 MPV 9.1 Absolute Neuts (auto) Neutrophils % Lymphocytes % Monocytes % Eosinophils % Basophils % Nucleated RBC % Sodium 137 Potassium 3.7 Chloride 104 Carbon Dioxide 27 Anion Gap 7 L BUN 13.4 Creatinine 1.2 Est GFR (CKD-EPI)AfAm 77.88 Est GFR (CKD-EPI)NonAf 67.19 POC Glucometer Random Glucose 229 H Calcium 9.2 Total Bilirubin 1.0 AST 26 ALT 44 Alkaline Phosphatase 105 Total Protein 7.3 Albumin 4.0 Urine Color Urine Appearance Urine pH Ur Specific [place] Urine Protein Urine Glucose (UA) Urine Ketones Urine Blood Urine Nitrite Urine Bilirubin Urine Urobilinogen Ur Leukocyte Esterase RPR Titer Nonreactive 04/07/19 04/07/19 04/07/19 16:26 18:38 22:00 WBC RBC Hgb Hct MCV MCH MCHC RDW Plt Count MPV Absolute Neuts (auto) Neutrophils % Lymphocytes % Monocytes % Eosinophils % Basophils % Nucleated RBC % Sodium Potassium Chloride Carbon Dioxide Anion Gap BUN Creatinine Est GFR (CKD-EPI)AfAm Est GFR (CKD-EPI)NonAf POC Glucometer 193 316 Random Glucose Calcium Total Bilirubin AST ALT Alkaline Phosphatase Total Protein Albumin Urine Color Yellow Urine Appearance Clear Urine pH 5.5 D Ur Specific [place] 1.021 Urine Protein Negative Urine Glucose (UA) 2+ H Urine Ketones Negative Urine Blood Negative Urine Nitrite Negative Urine Bilirubin Negative Urine Urobilinogen 1.0 Ur Leukocyte Esterase Negative RPR Titer 04/08/19 04/08/19 04/09/19 05:26 16:20 05:07 WBC RBC Hgb Hct MCV MCH MCHC RDW Plt Count MPV Absolute Neuts (auto) Neutrophils % Lymphocytes % Monocytes % Eosinophils % Basophils % Nucleated RBC % Sodium Potassium Chloride Carbon Dioxide Anion Gap BUN Creatinine Est GFR (CKD-EPI)AfAm Est GFR (CKD-EPI)NonAf POC Glucometer 276 169 267 Random Glucose Calcium Total Bilirubin AST ALT Alkaline Phosphatase Total Protein Albumin Urine Color Urine Appearance Urine pH Ur Specific [place] Urine Protein Urine Glucose (UA) Urine Ketones Urine Blood Urine Nitrite Urine Bilirubin Urine Urobilinogen Ur Leukocyte Esterase RPR Titer 04/09/19 04/09/19 04/10/19 11:06 16:23 05:34 WBC RBC Hgb Hct MCV MCH MCHC RDW Plt Count MPV Absolute Neuts (auto) Neutrophils % Lymphocytes % Monocytes % Eosinophils % Basophils % Nucleated RBC % Sodium Potassium Chloride Carbon Dioxide Anion Gap BUN Creatinine Est GFR (CKD-EPI)AfAm Est GFR (CKD-EPI)NonAf POC Glucometer 222 231 219 Random Glucose Calcium Total Bilirubin AST ALT Alkaline Phosphatase Total Protein Albumin Urine Color Urine Appearance Urine pH Ur Specific [place] Urine Protein Urine Glucose (UA) Urine Ketones Urine Blood Urine Nitrite Urine Bilirubin Urine Urobilinogen Ur Leukocyte Esterase RPR Titer 04/10/19 04/10/19 08:00 11:53 WBC 8.2 RBC 4.09 Hgb 12.8 Hct 38.6 MCV 94.2 MCH 31.3 MCHC 33.2 RDW 12.9 Plt Count 420 MPV 8.5 Absolute Neuts (auto) 5.0 Neutrophils % 61.4 Lymphocytes % 29.9 Monocytes % 6.8 Eosinophils % 1.3 Basophils % 0.6 Nucleated RBC % 0 Sodium Potassium Chloride Carbon Dioxide Anion Gap BUN Creatinine Est GFR (CKD-EPI)AfAm Est GFR (CKD-EPI)NonAf POC Glucometer 207 Random Glucose Calcium Total Bilirubin AST ALT Alkaline Phosphatase Total Protein Albumin Urine Color Urine Appearance Urine pH Ur Specific [place] Urine Protein Urine Glucose (UA) Urine Ketones Urine Blood Urine Nitrite Urine Bilirubin Urine Urobilinogen Ur Leukocyte Esterase RPR Titer LABS NOTED. RESULTS OF REPEAT CBC NOTED. WBC LEVEL NOW NOTED TO BE WITHIN NORMAL RANGE. PATIENT AFEBRILE. 04/10/19 13:05 Assessment: 04/10/19 13:04 WITHDRAWAL SYMPTOMS. Plan: CONTINUE DETOX. INCREASE DAILY PO WATER INTAKE.
[2019-04-10] MEDS: THIAMINE HCL 100 MG TABLET (FP) PO SCH (22:28)
[2019-04-11] MEDS ORDERED: chlordiazePOXIDE HCL 10 MG CAPSULE PO ONE (05:00)
[2019-04-11] MEDS: chlordiazePOXIDE HCL 10 MG CAPSULE PO SCH ×2 (05:29→17:51)
[2019-04-11] MEDS: ACETAMINOPHEN 325 MG TABLET (FP) PO PRN ×2 (05:33→17:55)
[2019-04-11] MEDS: metFORMIN HCL 500 MG TABLET (FP) PO SCH ×2 (07:19→17:51)
[2019-04-11] MEDS: sitaGLIPtin PHOSPHATE 100 MG TABLET (FP) PO SCH (07:19)
[2019-04-11] MEDS: INSULIN SLIDING SCALE (NOVOLOG) 1 VIAL SQ SCH ×4 (07:21→21:32)
[2019-04-11] MEDS: IBUPROFEN 400 MG TABLET (FP) PO PRN (08:40)
[2019-04-11] MEDS: PRENATAL VITAMINS W/ FOLIC ACID TABLET (FP) PO SCH (10:27)
[2019-04-11] MEDS: cloNIDine HCL 0.1 MG TABLET PO SCH ×2 (10:27→21:34)
[2019-04-11] MEDS: PANTOPRAZOLE 40 MG TABLET (FP) PO SCH (10:27)
[2019-04-11] MEDS: ENALAPRIL MALEATE 10 MG TABLET (FP) PO SCH (10:27)
[2019-04-11] MEDS: EMTRICITABINE 200MG/TENOFOVIR 300MG PO SCH (10:27)
[2019-04-11] MEDS: EFAVIRENZ 600 MG TABLET PO SCH (10:30)
--- NOTE | 2019-04-11 13:57 | PN ---
S CIWA - CIWA Score Nausea/Vomitin-No Nausea/No Vomiting Muscle Tremors: 2 Anxiety: 2 Agitation: 2 Paroxysmal Sweats: No Perspiration Orientation: 0-Oriented Tacttile Disturbances: 0-None Auditory Disturbances: 0-None Visual Disturbances: 0-None Headache: 0-None Present CIWA-Ar Total Score: 6 BHS Progress Note (SOAP) Subjective: feeling better today less tremor mild anxiety prefers return to [facility] clinic for medical and mental issues Objective: 04/11/19 13:56 Vital Signs Temperature 98 F 04/11/19 09:26 Pulse Rate 68 04/11/19 09:26 Respiratory Rate 18 04/11/19 09:26 Blood Pressure 144/83 04/11/19 09:26 O2 Sat by Pulse Oximetry (%) Laboratory Last Values WBC 8.2 K/mm3 (4.0-10.0) 04/10/19 08:00 RBC 4.09 M/mm3 (4.00-5.60) 04/10/19 08:00 Hgb 12.8 GM/dL (11.7-16.9) 04/10/19 08:00 Hct 38.6 % (35.4-49) 04/10/19 08:00 MCV 94.2 fl (80-96) 04/10/19 08:00 MCH 31.3 pg (25.7-33.7) 04/10/19 08:00 MCHC 33.2 g/dl (32.0-35.9) 04/10/19 08:00 RDW 12.9 % (11.9-15.9) 04/10/19 08:00 Plt Count 420 K/MM3 (134-434) 04/10/19 08:00 MPV 8.5 fl (7.5-11.1) 04/10/19 08:00 Absolute Neuts (auto) 5.0 K/mm3 (1.5-8.0) 04/10/19 08:00 Neutrophils % 61.4 % (42.8-82.8) 04/10/19 08:00 Lymphocytes % 29.9 % (8-40) 04/10/19 08:00 Monocytes % 6.8 % (3.8-10.2) 04/10/19 08:00 Eosinophils % 1.3 % (0-4.5) 04/10/19 08:00 Basophils % 0.6 % (0-2.0) 04/10/19 08:00 Nucleated RBC % 0 % (0-0) 04/10/19 08:00 Sodium 137 mmol/L (136-145) 04/07/19 14:10 Potassium 3.7 mmol/L (3.5-5.1) 04/07/19 14:10 Chloride 104 mmol/L (98-107) 04/07/19 14:10 Carbon Dioxide 27 mmol/L (21-32) 04/07/19 14:10 Anion Gap 7 MMOL/L (8-16) L 04/07/19 14:10 BUN 13.4 mg/dL (7-18) 04/07/19 14:10 Creatinine 1.2 mg/dL (0.55-1.3) 04/07/19 14:10 Est GFR (CKD-EPI)AfAm 77.88 04/07/19 14:10 Est GFR (CKD-EPI)NonAf 67.19 04/07/19 14:10 POC Glucometer 250 UNITS (80-120) 04/11/19 11:53 Random Glucose 229 mg/dL (74-106) H 04/07/19 14:10 Calcium 9.2 mg/dL (8.5-10.1) 04/07/19 14:10 Total Bilirubin 1.0 mg/dL (0.2-1) 04/07/19 14:10 AST 26 U/L (15-37) 04/07/19 14:10 ALT 44 U/L (13-61) 04/07/19 14:10 Alkaline Phosphatase 105 U/L (45-117) 04/07/19 14:10 Total Protein 7.3 g/dl (6.4-8.2) 04/07/19 14:10 Albumin 4.0 g/dl (3.4-5.0) 04/07/19 14:10 Urine Color Yellow 04/07/19 18:38 Urine Appearance Clear 04/07/19 18:38 Urine pH 5.5 (5.0-8.0) D 04/07/19 18:38 Ur Specific [place] 1.021 (1.010-1.035) 04/07/19 18:38 Urine Protein Negative (NEGATIVE) 04/07/19 18:38 Urine Glucose (UA) 2+ (NEGATIVE) H 04/07/19 18:38 Urine Ketones Negative (NEGATIVE) 04/07/19 18:38 Urine Blood Negative (NEGATIVE) 04/07/19 18:38 Urine Nitrite Negative (NEGATIVE) 04/07/19 18:38 Urine Bilirubin Negative (NEGATIVE) 04/07/19 18:38 Urine Urobilinogen 1.0 mg/dL (0.2-1.0) 04/07/19 18:38 Ur Leukocyte Esterase Negative (NEGATIVE) 04/07/19 18:38 RPR Titer Nonreactive (NONREACTIVE) 04/07/19 14:10 lab noted disucss weight loss and diabetes dietary regimen addition amlodipin 10 mg po daily Assessment: 04/11/19 13:57 alcohol withdrawal sx Plan: continue alcohol detox
[2019-04-11] MEDS ORDERED: amLODIPine BESYLATE 10 MG TABLET (FP) PO SCH (14:00)
[2019-04-11] MEDS: THIAMINE HCL 100 MG TABLET (FP) PO SCH (21:34)
[2019-04-11] MEDS: MELATONIN 5 MG TABLETS PO PRN (21:34)
[2019-04-12] MEDS ORDERED: chlordiazePOXIDE HCL 10 MG CAPSULE PO ONE (05:00)
[2019-04-12] MEDS: metFORMIN HCL 500 MG TABLET (FP) PO SCH (06:05)
[2019-04-12] MEDS: ACETAMINOPHEN 325 MG TABLET (FP) PO PRN (06:09)
[2019-04-12] MEDS: sitaGLIPtin PHOSPHATE 100 MG TABLET (FP) PO SCH (07:05)
[2019-04-12] MEDS: INSULIN SLIDING SCALE (NOVOLOG) 1 VIAL SQ SCH (07:06)
[2019-04-12] MEDS: IBUPROFEN 400 MG TABLET (FP) PO PRN (08:43)
[2019-04-12 09:17] VITALS: BP 156/86; PULSE 97; TEMP 98.4
--- NOTE | 2019-04-12 14:23 | DS ---
[facility] Detox Discharge Summary Admission Date: 04/07/19 Discharge Date: 04/12/19 - History Present History: Alcohol Dependence Additional Comments: 58 years old male admitted on 04/07/19 for alcohol withdrawal stabilization completed detox regimen after care revelation patient refuses revelation demands [place] - Physical Exam Results Vital Signs: Vital Signs Temperature 98.4 F 04/12/19 09:00 Pulse Rate 97 H 04/12/19 09:00 Respiratory Rate 20 04/12/19 09:00 Blood Pressure 156/86 04/12/19 09:00 O2 Sat by Pulse Oximetry (%) Pertinent Admission Physical Exam Findings: alcohol withdrawal sx Laboratory Last Values WBC 8.2 K/mm3 (4.0-10.0) 04/10/19 08:00 RBC 4.09 M/mm3 (4.00-5.60) 04/10/19 08:00 Hgb 12.8 GM/dL (11.7-16.9) 04/10/19 08:00 Hct 38.6 % (35.4-49) 04/10/19 08:00 MCV 94.2 fl (80-96) 04/10/19 08:00 MCH 31.3 pg (25.7-33.7) 04/10/19 08:00 MCHC 33.2 g/dl (32.0-35.9) 04/10/19 08:00 RDW 12.9 % (11.9-15.9) 04/10/19 08:00 Plt Count 420 K/MM3 (134-434) 04/10/19 08:00 MPV 8.5 fl (7.5-11.1) 04/10/19 08:00 Absolute Neuts (auto) 5.0 K/mm3 (1.5-8.0) 04/10/19 08:00 Neutrophils % 61.4 % (42.8-82.8) 04/10/19 08:00 Lymphocytes % 29.9 % (8-40) 04/10/19 08:00 Monocytes % 6.8 % (3.8-10.2) 04/10/19 08:00 Eosinophils % 1.3 % (0-4.5) 04/10/19 08:00 Basophils % 0.6 % (0-2.0) 04/10/19 08:00 Nucleated RBC % 0 % (0-0) 04/10/19 08:00 Sodium 137 mmol/L (136-145) 04/07/19 14:10 Potassium 3.7 mmol/L (3.5-5.1) 04/07/19 14:10 Chloride 104 mmol/L (98-107) 04/07/19 14:10 Carbon Dioxide 27 mmol/L (21-32) 04/07/19 14:10 Anion Gap 7 MMOL/L (8-16) L 04/07/19 14:10 BUN 13.4 mg/dL (7-18) 04/07/19 14:10 Creatinine 1.2 mg/dL (0.55-1.3) 04/07/19 14:10 Est GFR (CKD-EPI)AfAm 77.88 04/07/19 14:10 Est GFR (CKD-EPI)NonAf 67.19 04/07/19 14:10 POC Glucometer 258 UNITS (80-120) 04/12/19 06:08 Random Glucose 229 mg/dL (74-106) H 04/07/19 14:10 Calcium 9.2 mg/dL (8.5-10.1) 04/07/19 14:10 Total Bilirubin 1.0 mg/dL (0.2-1) 04/07/19 14:10 AST 26 U/L (15-37) 04/07/19 14:10 ALT 44 U/L (13-61) 04/07/19 14:10 Alkaline Phosphatase 105 U/L (45-117) 04/07/19 14:10 Total Protein 7.3 g/dl (6.4-8.2) 04/07/19 14:10 Albumin 4.0 g/dl (3.4-5.0) 04/07/19 14:10 Urine Color Yellow 04/07/19 18:38 Urine Appearance Clear 04/07/19 18:38 Urine pH 5.5 (5.0-8.0) D 04/07/19 18:38 Ur Specific [place] 1.021 (1.010-1.035) 04/07/19 18:38 Urine Protein Negative (NEGATIVE) 04/07/19 18:38 Urine Glucose (UA) 2+ (NEGATIVE) H 04/07/19 18:38 Urine Ketones Negative (NEGATIVE) 04/07/19 18:38 Urine Blood Negative (NEGATIVE) 04/07/19 18:38 Urine Nitrite Negative (NEGATIVE) 04/07/19 18:38 Urine Bilirubin Negative (NEGATIVE) 04/07/19 18:38 Urine Urobilinogen 1.0 mg/dL (0.2-1.0) 04/07/19 18:38 Ur Leukocyte Esterase Negative (NEGATIVE) 04/07/19 18:38 RPR Titer Nonreactive (NONREACTIVE) 04/07/19 14:10 lab noted - Treatment Hospital Course: Detox Protocol Followed, Detoxed Safely, Responded well, Discharged Condition Good, Rehab Referral Accepted Patient has Accepted a Rehab Referral to: [facility] - Medication Discharge Medications: Ambulatory Orders Clonidine HCl 0.2 mg PO BID 01/23/19 Efavirenz/Emtricitab/Tenofovir [Atripla Tablet -] 1 tab PO DAILY 01/23/19 Pantoprazole Sodium 40 mg PO DAILY 01/23/19 Sertraline HCl [Zoloft -] 50 mg PO DAILY 01/23/19 Albuterol Sulfate Inhaler - [Ventolin HFA Inhaler -] 2 puff IH Q4H PRN #1 inhaler 04/11/19 Enalapril Maleate [Vasotec] 10 mg PO DAILY #30 tablet 04/11/19 Metformin HCl [Glucophage] 1,000 mg PO BID #60 tablet 04/11/19 Sitagliptin Phosphate [Januvia -] 100 mg PO DAILY@0700 #30 ud 04/11/19 Albuterol Sulfate Inhaler - [Ventolin HFA Inhaler -] 2 puff IH Q4H PRN #1 inhaler 04/12/19 Amlodipine Besylate [Norvasc -] 10 mg PO DAILY #30 tablet 04/12/19 Enalapril Maleate [Vasotec -] 10 mg PO DAILY #30 tablet 04/12/19 Sitagliptin Phosphate [Januvia -] 100 mg PO DAILY@0700 #30 ud 04/12/19 metFORMIN HCL [Glucophage -] 1,000 mg PO BID@0700,1630 #60 tablet 04/12/19 - Diagnosis (1) HIV (human immunodeficiency virus infection) Status: Chronic Qualifiers: HIV symptom status: asymptomatic Qualified Code(s): Z21 - Asymptomatic human immunodeficiency virus [HIV] infection status (2) Alcohol dependence with uncomplicated withdrawal Status: Acute (3) Leukocytosis Status: Chronic Qualifiers: Leukocytosis type: unspecified Qualified Code(s): D72.829 - Elevated white blood cell count, unspecified (4) Asthma Status: Chronic Qualifiers: Asthma severity: mild Asthma persistence: intermittent Asthma complication type: uncomplicated Qualified Code(s): J45.20 - Mild intermittent asthma, uncomplicated (5) COPD (chronic obstructive pulmonary disease) Status: Chronic Qualifiers: COPD type: emphysema Emphysema type: unspecified Qualified Code(s): J43.9 - Emphysema, unspecified (6) GERD (gastroesophageal reflux disease) Status: Chronic Qualifiers: Esophagitis presence: without esophagitis Qualified Code(s): K21.9 - Gastro -esophageal reflux disease without esophagitis (7) Hypertension Status: Chronic Qualifiers: Hypertension type: essential hypertension Qualified Code(s): I10 - Essential (primary) hypertension (8) Nicotine dependence, uncomplicated Status: Acute Qualifiers: Nicotine product type: cigarettes Qualified Code(s): F17.210 - Nicotine dependence, cigarettes, uncomplicated (9) Substance induced mood disorder Status: Suspected (10) Type II diabetes mellitus Status: Chronic Qualifiers: 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
== END 2019-04-12 09:00 | disposition home or self-care (01) | DRG 774 ==
LOC: YASAS 11:42 → Y3N 14:02
PROVIDERS: ADMIT Surgery; ATTEND Surgery
PROC: HZ2ZZZZ Detoxification Services for Substance Abuse Treatment (ICD-10-PCS; principal; 2019-04-07)
DX: F10.230 Alcohol dependence with withdrawal, uncomplicated (principal); F14.20 Cocaine dependence, uncomplicated; F17.210 Nicotine dependence, cigarettes, uncomplicated; F19.24 Other psychoactive substance dependence with psychoactive substance-induced mood disorder; F19.282 Other psychoactive substance dependence with psychoactive substance-induced sleep disorder; F43.10 Post-traumatic stress disorder, unspecified; F32.9 Major depressive disorder, single episode, unspecified; Z21 Asymptomatic human immunodeficiency virus [HIV] infection status; D72.829 Elevated white blood cell count, unspecified; J45.20 Mild intermittent asthma, uncomplicated; J43.9 Emphysema, unspecified; K21.9 Gastro-esophageal reflux disease without esophagitis; I10 Essential (primary) hypertension; E11.65 Type 2 diabetes mellitus with hyperglycemia; Z79.84 Long term (current) use of oral hypoglycemic drugs
CPT/HCPCS: 36415; 80053; 81003; 82962; 85025; 85027; 86593; 93005; 93010; J0735

== ENCOUNTER 2019-05-20 14:13 | Inpatient (IN) | payer OTHER ==
[2019-05-20 15:40] VITALS: BMI 34.7
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
[2019-05-20] MEDS ORDERED: MAGNESIUM CITRATE 300 ML BOTTLE PO PRN (17:21)
[2019-05-20] MEDS ORDERED: MENTHOL/PHENOL 1 EACH UD MM PRN (17:21)
[2019-05-20] MEDS ORDERED: BISMUTH SUBSALICYLATE 524 MG/30 ML UD PO PRN (17:21)
[2019-05-20] MEDS ORDERED: IBUPROFEN 400 MG TABLET (FP) PO PRN (17:21)
[2019-05-20] MEDS ORDERED: ACETAMINOPHEN 325 MG TABLET (FP) PO PRN (17:21)
[2019-05-20] MEDS ORDERED: chlordiazePOXIDE HCL 25 MG CAPSULE PO PRN (17:21)
[2019-05-20] MEDS ORDERED: ALBUTEROL SO4 8 GM HFA INHALER IH PRN (17:23)
[2019-05-20] MEDS ORDERED: chlordiazePOXIDE HCL 25 MG CAPSULE PO ONE (18:30)
[2019-05-20] MEDS: hydrOXYzine PAMOATE 25 MG CAPSULE (FP) PO PRN (19:07)
[2019-05-20] MEDS: ACETAMINOPHEN 325 MG TABLET (FP) PO PRN (19:09)
[2019-05-20] MEDS: INSULIN SLIDING SCALE (NOVOLOG) 1 VIAL SQ SCH (22:13)
[2019-05-20] MEDS: THIAMINE HCL 100 MG TABLET (FP) PO SCH (22:13)
[2019-05-20] MEDS: chlordiazePOXIDE HCL 25 MG CAPSULE PO SCH (22:13)
[2019-05-20] MEDS: MELATONIN 5 MG TABLETS PO PRN (22:14)
[2019-05-21] MEDS: chlordiazePOXIDE HCL 25 MG CAPSULE PO SCH ×4 (05:21→22:14)
[2019-05-21] MEDS: metFORMIN HCL 500 MG TABLET (FP) PO SCH ×2 (06:27→17:18)
[2019-05-21] MEDS: INSULIN SLIDING SCALE (NOVOLOG) 1 VIAL SQ SCH ×4 (07:32→22:30)
[2019-05-21] MEDS: PRENATAL VITAMINS W/ FOLIC ACID TABLET (FP) PO SCH (10:55)
[2019-05-21] MEDS: amLODIPine BESYLATE 10 MG TABLET (FP) PO SCH (10:55)
[2019-05-21 10:56] LABS: ALBUMIN 3.4 g/dl (3.4-5.0); BILIRUBIN,TOTAL 0.7 mg/dL (0.2-1); BLOOD UREA NITROGEN 9.6 mg/dL (7-18); CALCIUM 8.8 mg/dL (8.5-10.1); CREATININE 1.1 mg/dL (0.55-1.3); HEMATOCRIT 39.3 % (35.4-49); HEMOGLOBIN 13.4 GM/dL (11.7-16.9); MCH 31.9 pg (25.7-33.7); MCHC 34.1 g/dl (32.0-35.9); MEAN CELL VOLUME 93.5 fl (80-96); MEAN PLT VOLUME 8.6 fl (7.5-11.1); PLATELET COUNT 384 K/MM3 (134-434); POTASSIUM 4.2 mmol/L (3.5-5.1); RDW 13.1 % (11.9-15.9); TOT PROT 6.4 g/dl (6.4-8.2); WHITE BLOOD COUNT 7.1 K/mm3 (4.0-10.0)
--- NOTE | 2019-05-21 16:02 | PN ---
S CIWA - CIWA Score Nausea/Vomitin (Constipation.) Muscle Tremors: None Anxiety: 4-Mod. Anxious/Guarded Agitation: 0-Normal Activity Paroxysmal Sweats: No Perspiration Orientation: 2-Disoriented Date<2 days Tacttile Disturbances: 1-Very Mild Itch/Numbness Auditory Disturbances: 0-None Visual Disturbances: 2-Mild Sensitivity Headache: 0-None Present CIWA-Ar Total Score: 11 S Progress Note (SOAP) Subjective: Constipation, Stomach Cramping, Anxious. Objective: PATIENT A & O X 2 (UNCERTAIN ABOUT CURRENT DAY / DATE). IN NO ACUTE DISTRESS. 05/21/19 16:00 Vital Signs Temperature 98.1 F 05/21/19 13:36 Pulse Rate 90 05/21/19 13:36 Respiratory Rate 20 05/21/19 13:36 Blood Pressure 135/78 05/21/19 13:36 O2 Sat by Pulse Oximetry (%) Laboratory Tests 05/20/19 05/20/19 05/21/19 18:26 21:01 05:20 WBC RBC Hgb Hct MCV MCH MCHC RDW Plt Count MPV Sodium Potassium Chloride Carbon Dioxide Anion Gap BUN Creatinine Est GFR (CKD-EPI)AfAm Est GFR (CKD-EPI)NonAf POC Glucometer 307 242 246 Random Glucose Calcium Total Bilirubin AST ALT Alkaline Phosphatase Total Protein Albumin RPR Titer 05/21/19 05/21/19 05/21/19 07:30 07:30 07:30 WBC 7.1 RBC 4.20 Hgb 13.4 Hct 39.3 MCV 93.5 MCH 31.9 MCHC 34.1 RDW 13.1 Plt Count 384 MPV 8.6 Sodium 140 Potassium 4.2 Chloride 105 Carbon Dioxide 29 Anion Gap 6 L BUN 9.6 Creatinine 1.1 Est GFR (CKD-EPI)AfAm 86.52 Est GFR (CKD-EPI)NonAf 74.65 POC Glucometer Random Glucose 237 H Calcium 8.8 Total Bilirubin 0.7 AST 34 ALT 55 Alkaline Phosphatase 99 Total Protein 6.4 Albumin 3.4 RPR Titer Nonreactive 05/21/19 11:36 WBC RBC Hgb Hct MCV MCH MCHC RDW Plt Count MPV Sodium Potassium Chloride Carbon Dioxide Anion Gap BUN Creatinine Est GFR (CKD-EPI)AfAm Est GFR (CKD-EPI)NonAf POC Glucometer 225 Random Glucose Calcium Total Bilirubin AST ALT Alkaline Phosphatase Total Protein Albumin RPR Titer LABS NOTED. Assessment: 05/21/19 16:01 WITHDRAWAL SYMPTOMS. Plan: CONTINUE DETOX. INCREASE DAILY PO WATER INTAKE.
[2019-05-21] MEDS: ACETAMINOPHEN 325 MG TABLET (FP) PO PRN (17:20)
[2019-05-21] MEDS: MELATONIN 5 MG TABLETS PO PRN (22:14)
[2019-05-21] MEDS: THIAMINE HCL 100 MG TABLET (FP) PO SCH (22:14)
[2019-05-21] MEDS: MAGNESIUM HYDROX 2400MG/30ML ORAL SUSPENSION 30 ML CUP PO PRN (22:15)
[2019-05-22] MEDS: ACETAMINOPHEN 325 MG TABLET (FP) PO PRN ×2 (06:07→17:09)
[2019-05-22] MEDS: metFORMIN HCL 500 MG TABLET (FP) PO SCH ×2 (06:07→17:07)
[2019-05-22] MEDS: chlordiazePOXIDE HCL 25 MG CAPSULE PO SCH ×4 (06:07→22:40)
[2019-05-22] MEDS: INSULIN SLIDING SCALE (NOVOLOG) 1 VIAL SQ SCH ×4 (07:22→22:40)
[2019-05-22] MEDS: amLODIPine BESYLATE 10 MG TABLET (FP) PO SCH (10:11)
[2019-05-22] MEDS: PRENATAL VITAMINS W/ FOLIC ACID TABLET (FP) PO SCH (10:11)
[2019-05-22] MEDS: ARTIFICIAL TEARS (POLYVINYL ALCOHOL) OPTH DROPS OU PRN ×2 (10:17→21:50)
--- NOTE | 2019-05-22 15:20 | PN ---
S CIWA - CIWA Score Nausea/Vomitin-No Nausea/No Vomiting Muscle Tremors: None Anxiety: 4-Mod. Anxious/Guarded Agitation: 1-Slight > Activity Paroxysmal Sweats: No Perspiration Orientation: 0-Oriented Tacttile Disturbances: 1-Very Mild Itch/Numbness Auditory Disturbances: 0-None Visual Disturbances: 2-Mild Sensitivity Headache: 0-None Present CIWA-Ar Total Score: 8 BHS Progress Note (SOAP) Subjective: Stomach Cramping, Anxious. Patient reports That Current withdrawal Detox Symptoms in General Are Gradually Subsiding in Severity. Objective: PATIENT A & O X 3, OBSERVED AMBULATING ON UNIT UNASSISTED. IN NO ACUTE DISTRESS. 05/22/19 15:19 Vital Signs Temperature 97.5 F L 05/22/19 09:54 Pulse Rate 79 05/22/19 09:54 Respiratory Rate 20 05/22/19 09:54 Blood Pressure 142/87 05/22/19 09:54 O2 Sat by Pulse Oximetry (%) Laboratory Tests 05/20/19 05/20/19 05/21/19 18:26 21:01 05:20 WBC RBC Hgb Hct MCV MCH MCHC RDW Plt Count MPV Sodium Potassium Chloride Carbon Dioxide Anion Gap BUN Creatinine Est GFR (CKD-EPI)AfAm Est GFR (CKD-EPI)NonAf POC Glucometer 307 242 246 Random Glucose Calcium Total Bilirubin AST ALT Alkaline Phosphatase Total Protein Albumin RPR Titer 05/21/19 05/21/19 05/21/19 07:30 07:30 07:30 WBC 7.1 RBC 4.20 Hgb 13.4 Hct 39.3 MCV 93.5 MCH 31.9 MCHC 34.1 RDW 13.1 Plt Count 384 MPV 8.6 Sodium 140 Potassium 4.2 Chloride 105 Carbon Dioxide 29 Anion Gap 6 L BUN 9.6 Creatinine 1.1 Est GFR (CKD-EPI)AfAm 86.52 Est GFR (CKD-EPI)NonAf 74.65 POC Glucometer Random Glucose 237 H Calcium 8.8 Total Bilirubin 0.7 AST 34 ALT 55 Alkaline Phosphatase 99 Total Protein 6.4 Albumin 3.4 RPR Titer Nonreactive 05/21/19 05/21/19 05/22/19 11:36 16:24 06:05 WBC RBC Hgb Hct MCV MCH MCHC RDW Plt Count MPV Sodium Potassium Chloride Carbon Dioxide Anion Gap BUN Creatinine Est GFR (CKD-EPI)AfAm Est GFR (CKD-EPI)NonAf POC Glucometer 225 245 216 Random Glucose Calcium Total Bilirubin AST ALT Alkaline Phosphatase Total Protein Albumin RPR Titer LABS NOTED. Assessment: 05/22/19 15:19 WITHDRAWAL SYMPTOMS. Plan: CONTINUE DETOX. INCREASE DAILY PO WATER INTAKE.
[2019-05-22] MEDS: MAG HYDROX/AL HYDROX/SIMETH 30 ML UNIT-DOSE CUP PO PRN (18:43)
[2019-05-22] MEDS: THIAMINE HCL 100 MG TABLET (FP) PO SCH (21:49)
[2019-05-22] MEDS: MELATONIN 5 MG TABLETS PO PRN (21:50)
[2019-05-23] MEDS ORDERED: chlordiazePOXIDE HCL 10 MG CAPSULE PO PRN
[2019-05-23] MEDS: chlordiazePOXIDE HCL 10 MG CAPSULE PO SCH ×4 (05:42→22:05)
[2019-05-23] MEDS: ACETAMINOPHEN 325 MG TABLET (FP) PO PRN ×3 (05:43→21:44)
[2019-05-23] MEDS: metFORMIN HCL 500 MG TABLET (FP) PO SCH ×2 (07:22→17:18)
[2019-05-23] MEDS: INSULIN SLIDING SCALE (NOVOLOG) 1 VIAL SQ SCH ×4 (07:23→22:05)
[2019-05-23] MEDS: PRENATAL VITAMINS W/ FOLIC ACID TABLET (FP) PO SCH (10:42)
[2019-05-23] MEDS: amLODIPine BESYLATE 10 MG TABLET (FP) PO SCH (10:42)
[2019-05-23] MEDS: ARTIFICIAL TEARS (POLYVINYL ALCOHOL) OPTH DROPS OU PRN ×2 (10:42→21:43)
--- NOTE | 2019-05-23 11:05 | PN ---
S CIWA - CIWA Score Nausea/Vomitin-No Nausea/No Vomiting Muscle Tremors: 2 Anxiety: 2 Agitation: 2 Paroxysmal Sweats: No Perspiration Orientation: 0-Oriented Tacttile Disturbances: 0-None Auditory Disturbances: 0-None Visual Disturbances: 0-None Headache: 0-None Present CIWA-Ar Total Score: 6 BHS Progress Note (SOAP) Subjective: 58 years old male admitted on 05/20/19 for acute alcohol withdrawal sx management doing well with librium detox regimen medical history of hypertension treated with amlodipin asthma treated with albutrol copd treated wtih symbicort hiv treated wt atripla and diabetes II treated with sitagliptin and metformine Objective: 05/23/19 11:12 Vital Signs Temperature 97.4 F L 05/23/19 09:36 Pulse Rate 92 H 05/23/19 09:36 Respiratory Rate 20 05/23/19 09:36 Blood Pressure 180/100 H 05/23/19 09:36 O2 Sat by Pulse Oximetry (%) Laboratory Last Values WBC 7.1 K/mm3 (4.0-10.0) 05/21/19 07:30 RBC 4.20 M/mm3 (4.00-5.60) 05/21/19 07:30 Hgb 13.4 GM/dL (11.7-16.9) 05/21/19 07:30 Hct 39.3 % (35.4-49) 05/21/19 07:30 MCV 93.5 fl (80-96) 05/21/19 07:30 MCH 31.9 pg (25.7-33.7) 05/21/19 07:30 MCHC 34.1 g/dl (32.0-35.9) 05/21/19 07:30 RDW 13.1 % (11.9-15.9) 05/21/19 07:30 Plt Count 384 K/MM3 (134-434) 05/21/19 07:30 MPV 8.6 fl (7.5-11.1) 05/21/19 07:30 Sodium 140 mmol/L (136-145) 05/21/19 07:30 Potassium 4.2 mmol/L (3.5-5.1) 05/21/19 07:30 Chloride 105 mmol/L (98-107) 05/21/19 07:30 Carbon Dioxide 29 mmol/L (21-32) 05/21/19 07:30 Anion Gap 6 MMOL/L (8-16) L 05/21/19 07:30 BUN 9.6 mg/dL (7-18) 05/21/19 07:30 Creatinine 1.1 mg/dL (0.55-1.3) 05/21/19 07:30 Est GFR (CKD-EPI)AfAm 86.52 05/21/19 07:30 Est GFR (CKD-EPI)NonAf 74.65 05/21/19 07:30 POC Glucometer 251 UNITS (80-120) 05/23/19 05:45 Random Glucose 237 mg/dL (74-106) H 05/21/19 07:30 Calcium 8.8 mg/dL (8.5-10.1) 05/21/19 07:30 Total Bilirubin 0.7 mg/dL (0.2-1) 05/21/19 07:30 AST 34 U/L (15-37) 05/21/19 07:30 ALT 55 U/L (13-61) 05/21/19 07:30 Alkaline Phosphatase 99 U/L (45-117) 05/21/19 07:30 Total Protein 6.4 g/dl (6.4-8.2) 05/21/19 07:30 Albumin 3.4 g/dl (3.4-5.0) 05/21/19 07:30 RPR Titer Nonreactive (NONREACTIVE) 05/21/19 07:30 lab noted hypertension 05/23/19 11:14 begin lisinopril along with amlodipin Assessment: 05/23/19 11:15 alcohol withdrawal sx hypertension Plan: continue librium detox regimen amlodipin + lisinopril
[2019-05-23] MEDS: LISINOPRIL 10 MG TABLET (FP) PO SCH (12:03)
[2019-05-23] MEDS ORDERED: cloNIDine HCL 0.1 MG TABLET PO PRN (14:43)
[2019-05-23] MEDS: MAG HYDROX/AL HYDROX/SIMETH 30 ML UNIT-DOSE CUP PO PRN ×2 (14:46→19:25)
[2019-05-23] MEDS: THIAMINE HCL 100 MG TABLET (FP) PO SCH (21:43)
[2019-05-23] MEDS: MELATONIN 5 MG TABLETS PO PRN (21:44)
[2019-05-24] MEDS: ACETAMINOPHEN 325 MG TABLET (FP) PO PRN (05:23)
[2019-05-24] MEDS: chlordiazePOXIDE HCL 10 MG CAPSULE PO SCH ×2 (05:23→17:26)
[2019-05-24] MEDS: INSULIN SLIDING SCALE (NOVOLOG) 1 VIAL SQ SCH ×4 (07:34→22:00)
[2019-05-24] MEDS: metFORMIN HCL 500 MG TABLET (FP) PO SCH ×2 (07:42→17:26)
[2019-05-24] MEDS: PRENATAL VITAMINS W/ FOLIC ACID TABLET (FP) PO SCH (10:32)
[2019-05-24] MEDS: METHOCARBAMOL 500 MG TABLET PO PRN ×2 (10:33→17:37)
[2019-05-24] MEDS: LISINOPRIL 10 MG TABLET (FP) PO SCH (10:33)
--- NOTE | 2019-05-24 13:55 | PN ---
S CIWA - CIWA Score Nausea/Vomitin (Stomach Cramping, Constipation.) Muscle Tremors: None Anxiety: 2 Agitation: 0-Normal Activity Paroxysmal Sweats: No Perspiration Orientation: 0-Oriented Tacttile Disturbances: 0-None Auditory Disturbances: 0-None Visual Disturbances: 1-Very Mild Sensitivity Headache: 0-None Present CIWA-Ar Total Score: 5 BHS Progress Note (SOAP) Subjective: Constipation, Stomach Cramping. Objective: PATIENT A & O X 3, OBSERVED AMBULATING ON UNIT UNASSISTED. IN NO ACUTE DISTRESS. 05/24/19 13:53 Vital Signs Temperature 97.1 F L 05/24/19 13:31 Pulse Rate 96 H 05/24/19 13:31 Respiratory Rate 18 05/24/19 13:31 Blood Pressure 125/77 05/24/19 13:31 O2 Sat by Pulse Oximetry (%) Laboratory Tests 05/20/19 05/20/19 05/21/19 18:26 21:01 05:20 WBC RBC Hgb Hct MCV MCH MCHC RDW Plt Count MPV Sodium Potassium Chloride Carbon Dioxide Anion Gap BUN Creatinine Est GFR (CKD-EPI)AfAm Est GFR (CKD-EPI)NonAf POC Glucometer 307 242 246 Random Glucose Calcium Total Bilirubin AST ALT Alkaline Phosphatase Total Protein Albumin RPR Titer 05/21/19 05/21/19 05/21/19 07:30 07:30 07:30 WBC 7.1 RBC 4.20 Hgb 13.4 Hct 39.3 MCV 93.5 MCH 31.9 MCHC 34.1 RDW 13.1 Plt Count 384 MPV 8.6 Sodium 140 Potassium 4.2 Chloride 105 Carbon Dioxide 29 Anion Gap 6 L BUN 9.6 Creatinine 1.1 Est GFR (CKD-EPI)AfAm 86.52 Est GFR (CKD-EPI)NonAf 74.65 POC Glucometer Random Glucose 237 H Calcium 8.8 Total Bilirubin 0.7 AST 34 ALT 55 Alkaline Phosphatase 99 Total Protein 6.4 Albumin 3.4 RPR Titer Nonreactive 05/21/19 05/21/19 05/22/19 11:36 16:24 06:05 WBC RBC Hgb Hct MCV MCH MCHC RDW Plt Count MPV Sodium Potassium Chloride Carbon Dioxide Anion Gap BUN Creatinine Est GFR (CKD-EPI)AfAm Est GFR (CKD-EPI)NonAf POC Glucometer 225 245 216 Random Glucose Calcium Total Bilirubin AST ALT Alkaline Phosphatase Total Protein Albumin RPR Titer 05/22/19 05/22/19 05/23/19 16:22 21:09 05:45 WBC RBC Hgb Hct MCV MCH MCHC RDW Plt Count MPV Sodium Potassium Chloride Carbon Dioxide Anion Gap BUN Creatinine Est GFR (CKD-EPI)AfAm Est GFR (CKD-EPI)NonAf POC Glucometer 235 239 251 Random Glucose Calcium Total Bilirubin AST ALT Alkaline Phosphatase Total Protein Albumin RPR Titer 05/23/19 05/23/19 05/24/19 11:35 16:21 05:22 WBC RBC Hgb Hct MCV MCH MCHC RDW Plt Count MPV Sodium Potassium Chloride Carbon Dioxide Anion Gap BUN Creatinine Est GFR (CKD-EPI)AfAm Est GFR (CKD-EPI)NonAf POC Glucometer 263 174 270 Random Glucose Calcium Total Bilirubin AST ALT Alkaline Phosphatase Total Protein Albumin RPR Titer 05/24/19 11:04 WBC RBC Hgb Hct MCV MCH MCHC RDW Plt Count MPV Sodium Potassium Chloride Carbon Dioxide Anion Gap BUN Creatinine Est GFR (CKD-EPI)AfAm Est GFR (CKD-EPI)NonAf POC Glucometer 268 Random Glucose Calcium Total Bilirubin AST ALT Alkaline Phosphatase Total Protein Albumin RPR Titer LABS NOTED. Assessment: 05/24/19 13:54 WITHDRAWAL SYMPTOMS. Plan: CONTINUE DETOX. PATIENT SCHEDULED FOR D/C FROM DETOX UNIT TOMORROW.
[2019-05-24] MEDS: SENNOSIDES/DOCUSATE COMBO (SENNA PLUS) TABLET (UD) PO SCH ×2 (14:49→22:00)
[2019-05-24] MEDS: MAGNESIUM HYDROX 2400MG/30ML ORAL SUSPENSION 30 ML CUP PO PRN (16:39)
[2019-05-24] MEDS: hydrOXYzine PAMOATE 25 MG CAPSULE (FP) PO PRN (17:37)
[2019-05-24] MEDS: MAG HYDROX/AL HYDROX/SIMETH 30 ML UNIT-DOSE CUP PO PRN (19:24)
[2019-05-24] MEDS: MELATONIN 5 MG TABLETS PO PRN (22:00)
[2019-05-24] MEDS: THIAMINE HCL 100 MG TABLET (FP) PO SCH (22:00)
[2019-05-25] MEDS ORDERED: chlordiazePOXIDE HCL 10 MG CAPSULE PO ONE (05:00)
[2019-05-25] MEDS: ACETAMINOPHEN 325 MG TABLET (FP) PO PRN (05:03)
[2019-05-25 06:31] VITALS: BP 138/68; PULSE 71; TEMP 97.6
[2019-05-25] MEDS: INSULIN SLIDING SCALE (NOVOLOG) 1 VIAL SQ SCH (07:29)
[2019-05-25] MEDS: metFORMIN HCL 500 MG TABLET (FP) PO SCH (07:29)
--- NOTE | 2019-05-25 14:02 | DS ---
[facility] Detox Discharge Summary Admission Date: 05/20/19 Discharge Date: 05/25/19 - History Present History: Alcohol Dependence Additional Comments: 58 years old male admitted on 05/20/19 for acute alcohol withdrawal sx management doing well with librium detox regimen no complication through out the detox stay patient is alert oriented x 3 cardiac S1S2 Regular no wheezing abdomen soft none tender Pertinent Past History: diabetes II managed well with metformin and januvia hypertension well controlled by prinivil and clonidine constipation dry eyes hiv - Physical Exam Results Vital Signs: Vital Signs Temperature 97.6 F 05/25/19 06:30 Pulse Rate 71 05/25/19 06:30 Respiratory Rate 18 05/25/19 06:30 Blood Pressure 138/68 05/25/19 06:30 O2 Sat by Pulse Oximetry (%) Pertinent Admission Physical Exam Findings: alcohol withdrawal sx Laboratory Last Values WBC 7.1 K/mm3 (4.0-10.0) 05/21/19 07:30 RBC 4.20 M/mm3 (4.00-5.60) 05/21/19 07:30 Hgb 13.4 GM/dL (11.7-16.9) 05/21/19 07:30 Hct 39.3 % (35.4-49) 05/21/19 07:30 MCV 93.5 fl (80-96) 05/21/19 07:30 MCH 31.9 pg (25.7-33.7) 05/21/19 07:30 MCHC 34.1 g/dl (32.0-35.9) 05/21/19 07:30 RDW 13.1 % (11.9-15.9) 05/21/19 07:30 Plt Count 384 K/MM3 (134-434) 05/21/19 07:30 MPV 8.6 fl (7.5-11.1) 05/21/19 07:30 Sodium 140 mmol/L (136-145) 05/21/19 07:30 Potassium 4.2 mmol/L (3.5-5.1) 05/21/19 07:30 Chloride 105 mmol/L (98-107) 05/21/19 07:30 Carbon Dioxide 29 mmol/L (21-32) 05/21/19 07:30 Anion Gap 6 MMOL/L (8-16) L 05/21/19 07:30 BUN 9.6 mg/dL (7-18) 05/21/19 07:30 Creatinine 1.1 mg/dL (0.55-1.3) 05/21/19 07:30 Est GFR (CKD-EPI)AfAm 86.52 05/21/19 07:30 Est GFR (CKD-EPI)NonAf 74.65 05/21/19 07:30 POC Glucometer 245 UNITS (80-120) 05/25/19 05:04 Random Glucose 237 mg/dL (74-106) H 05/21/19 07:30 Calcium 8.8 mg/dL (8.5-10.1) 05/21/19 07:30 Total Bilirubin 0.7 mg/dL (0.2-1) 05/21/19 07:30 AST 34 U/L (15-37) 05/21/19 07:30 ALT 55 U/L (13-61) 05/21/19 07:30 Alkaline Phosphatase 99 U/L (45-117) 05/21/19 07:30 Total Protein 6.4 g/dl (6.4-8.2) 05/21/19 07:30 Albumin 3.4 g/dl (3.4-5.0) 05/21/19 07:30 RPR Titer Nonreactive (NONREACTIVE) 05/21/19 07:30 lab noted - Treatment Hospital Course: Detox Protocol Followed, Detoxed Safely, Responded well, Discharged Condition Good, Rehab Referral Accepted Patient has Accepted a Rehab Referral to: [facility] drug abuse treatment - Medication Discharge Medications: Ambulatory Orders Clonidine HCl 0.2 mg PO BID 01/23/19 Efavirenz/Emtricitab/Tenofovir [Atripla Tablet -] 1 tab PO DAILY 01/23/19 Pantoprazole Sodium 40 mg PO DAILY 01/23/19 Sertraline HCl [Zoloft -] 50 mg PO DAILY 01/23/19 Albuterol Sulfate Inhaler - [Ventolin HFA Inhaler -] 2 puff IH Q4H PRN #1 inhaler 04/12/19 Amlodipine Besylate [Norvasc -] 10 mg PO DAILY #30 tablet 04/12/19 Sitagliptin Phosphate [Januvia -] 100 mg PO DAILY@0700 #30 ud 04/12/19 metFORMIN HCL [Glucophage -] 1,000 mg PO BID@0700,3057 #60 tablet 04/12/19 - Diagnosis (1) Alcohol dependence with uncomplicated withdrawal Status: Acute (2) Nicotine dependence, uncomplicated Status: Acute Qualifiers: Nicotine product type: cigarettes Qualified Code(s): F17.210 - Nicotine dependence, cigarettes, uncomplicated (3) Asthma Status: Chronic Qualifiers: Asthma severity: mild Asthma persistence: intermittent Asthma complication type: uncomplicated Qualified Code(s): J45.20 - Mild intermittent asthma, uncomplicated (4) COPD (chronic obstructive pulmonary disease) Status: Chronic Qualifiers: COPD type: emphysema Emphysema type: unspecified Qualified Code(s): J43.9 - Emphysema, unspecified (5) GERD (gastroesophageal reflux disease) Status: Chronic Qualifiers: Esophagitis presence: without esophagitis Qualified Code(s): K21.9 - Gastro -esophageal reflux disease without esophagitis (6) HIV (human immunodeficiency virus infection) Status: Chronic Qualifiers: HIV symptom status: asymptomatic Qualified Code(s): Z21 - Asymptomatic human immunodeficiency virus [HIV] infection status (7) Hypertension Status: Chronic Qualifiers: Hypertension type: essential hypertension Qualified Code(s): I10 - Essential (primary) hypertension (8) Type II diabetes mellitus Status: Chronic Qualifiers: Diabetes mellitus correction insulin use: without correction use Diabetes mellitus complication status: without complication Qualified Code(s): E11.9 - Type 2 diabetes mellitus without complications (9) Substance induced mood disorder Status: Suspected - AMA Did Patient Leave Against Medical Advice: No CIWA Score - CIWA Score Nausea/Vomitin-Mild Nausea/No Vomiting (Stomach Cramping, Constipation.) Muscle Tremors: None Anxiety: 1-Mildly Anxious Agitation: 0-Normal Activity Paroxysmal Sweats: No Perspiration Orientation: 0-Oriented Tacttile Disturbances: 0-None Auditory Disturbances: 0-None Visual Disturbances: 0-None Headache: 0-None Present CIWA-Ar Total Score: 2
== END 2019-05-25 09:17 | disposition home or self-care (01) | DRG 774 ==
LOC: YASAS 14:13 → Y3N 18:11
PROVIDERS: ADMIT Surgery; ATTEND Surgery
PROC: HZ2ZZZZ Detoxification Services for Substance Abuse Treatment (ICD-10-PCS; principal; 2019-05-20)
DX: F10.230 Alcohol dependence with withdrawal, uncomplicated (principal); F14.20 Cocaine dependence, uncomplicated; F17.210 Nicotine dependence, cigarettes, uncomplicated; F19.24 Other psychoactive substance dependence with psychoactive substance-induced mood disorder; I10 Essential (primary) hypertension; E11.9 Type 2 diabetes mellitus without complications; Z21 Asymptomatic human immunodeficiency virus [HIV] infection status; J45.20 Mild intermittent asthma, uncomplicated; J43.9 Emphysema, unspecified; K21.9 Gastro-esophageal reflux disease without esophagitis; R01.1 Cardiac murmur, unspecified; Z79.84 Long term (current) use of oral hypoglycemic drugs; Z91.14 Patient's other noncompliance with medication regimen; Z91.5 Personal history of self-harm
CPT/HCPCS: 36415; 80053; 82962; 85027; 86593; J0735

== ENCOUNTER 2019-07-27 17:59 | Inpatient (IN) | payer OTHER ==
[2019-07-27 18:37] VITALS: BMI 34.7
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
[2019-07-27] MEDS ORDERED: chlordiazePOXIDE HCL 25 MG CAPSULE PO PRN (22:48)
[2019-07-27] MEDS ORDERED: IBUPROFEN 400 MG TABLET (FP) PO PRN (22:48)
[2019-07-27] MEDS ORDERED: METHOCARBAMOL 500 MG TABLET PO PRN (22:48)
[2019-07-27] MEDS ORDERED: BISMUTH SUBSALICYLATE 524 MG/30 ML UD PO PRN (22:48)
[2019-07-27] MEDS ORDERED: ACETAMINOPHEN 325 MG TABLET (FP) PO PRN (22:48)
[2019-07-27] MEDS ORDERED: MAGNESIUM CITRATE 300 ML BOTTLE PO PRN (22:48)
[2019-07-27] MEDS ORDERED: MAGNESIUM HYDROX 2400MG/30ML ORAL SUSPENSION 30 ML CUP PO PRN (22:48)
[2019-07-27] MEDS ORDERED: hydrOXYzine PAMOATE 25 MG CAPSULE (FP) PO PRN (22:48)
[2019-07-27] MEDS ORDERED: MENTHOL/PHENOL 1 EACH UD MM PRN (22:48)
[2019-07-27] MEDS ORDERED: ALBUTEROL SO4 8 GM HFA INHALER IH PRN (22:50)
[2019-07-27] MEDS: ACETAMINOPHEN 325 MG TABLET (FP) PO PRN (23:31)
[2019-07-27] MEDS: MELATONIN 5 MG TABLETS PO PRN (23:31)
[2019-07-27] MEDS: chlordiazePOXIDE HCL 25 MG CAPSULE PO SCH (23:31)
[2019-07-27] MEDS: cloNIDine HCL 0.1 MG TABLET PO SCH (23:31)
[2019-07-28] MEDS: chlordiazePOXIDE HCL 25 MG CAPSULE PO SCH ×4 (05:53→22:19)
[2019-07-28] MEDS: metFORMIN HCL 500 MG TABLET (FP) PO SCH ×2 (07:39→17:32)
[2019-07-28 09:43] LABS: HEMATOCRIT 43.2 % (35.4-49); MCH 30.5 pg (25.7-33.7); MCHC 32.4 g/dl (32.0-35.9); MEAN PLT VOLUME 8.5 fl (7.5-11.1); PLATELET COUNT 417 K/MM3 (134-434); RDW 13.5 % (11.9-15.9); WHITE BLOOD COUNT 7.9 K/mm3 (4.0-10.0)
[2019-07-28] MEDS ORDERED: PATIENT'S OWN MEDICATION (NON-FORMULARY) (Efavirenz/Emtricitab/Tenofovir 1 TAB) PO SCH (10:00)
[2019-07-28 10:23] LABS: ALBUMIN 3.5 g/dl (3.4-5.0); BILIRUBIN,TOTAL 0.4 mg/dL (0.2-1); BLOOD UREA NITROGEN 14.3 mg/dL (7-18); CALCIUM 9.4 mg/dL (8.5-10.1); CREATININE 1.1 mg/dL (0.55-1.3); POTASSIUM 4.2 mmol/L (3.5-5.1); TOT PROT 6.7 g/dl (6.4-8.2)
--- NOTE | 2019-07-28 10:23 | PN ---
S CIWA - CIWA Score Nausea/Vomitin-Mild Nausea/No Vomiting Muscle Tremors: 2 Anxiety: 2 Agitation: 2 Paroxysmal Sweats: No Perspiration Orientation: 0-Oriented Tacttile Disturbances: 1-Very Mild Itch/Numbness Auditory Disturbances: 0-None Visual Disturbances: 0-None Headache: 2-Mild CIWA-Ar Total Score: 10 BHS Progress Note (SOAP) Subjective: alert,irritable,anxious,interrupted sleep,tremor Objective: 07/28/19 10:22 Vital Signs Temperature 97.4 F L 07/28/19 09:04 Pulse Rate 74 07/28/19 09:04 Respiratory Rate 15 07/28/19 09:04 Blood Pressure 144/94 07/28/19 09:04 O2 Sat by Pulse Oximetry (%) 07/28/19 10:22 Laboratory Last Values WBC 7.9 K/mm3 (4.0-10.0) 07/28/19 08:15 RBC 4.60 M/mm3 (4.00-5.60) 07/28/19 08:15 Hgb 14.0 GM/dL (11.7-16.9) 07/28/19 08:15 Hct 43.2 % (35.4-49) 07/28/19 08:15 MCV 94.0 fl (80-96) 07/28/19 08:15 MCH 30.5 pg (25.7-33.7) 07/28/19 08:15 MCHC 32.4 g/dl (32.0-35.9) 07/28/19 08:15 RDW 13.5 % (11.9-15.9) 07/28/19 08:15 Plt Count 417 K/MM3 (134-434) 07/28/19 08:15 MPV 8.5 fl (7.5-11.1) 07/28/19 08:15 POC Glucometer 311 UNITS (80-120) 07/28/19 05:51 labs pending Assessment: 07/28/19 10:23 withdrawal symptom Plan: continue detox librium regimen
[2019-07-28] MEDS: PRENATAL VITAMINS W/ FOLIC ACID TABLET (FP) PO SCH (11:14)
[2019-07-28] MEDS: cloNIDine HCL 0.1 MG TABLET PO SCH ×2 (11:15→22:19)
[2019-07-28] MEDS: FAMOTIDINE 20 MG TABLET PO SCH (11:15)
[2019-07-28] MEDS: amLODIPine BESYLATE 10 MG TABLET (FP) PO SCH (11:15)
[2019-07-28] MEDS: ASPIRIN COATED 81 MG TABLET.EC PO SCH (11:15)
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
[2019-07-28] MEDS ORDERED: EMTRICITABINE 200MG/TENOFOVIR 300MG PO ONE (11:45)
[2019-07-28] MEDS ORDERED: EFAVIRENZ 600 MG TABLET PO ONE (11:45)
[2019-07-28] MEDS: MELATONIN 5 MG TABLETS PO PRN (22:19)
[2019-07-28] MEDS: AMITRIPTYLINE HCL 25 MG TABLET (FP) PO SCH (22:19)
[2019-07-28] MEDS: THIAMINE HCL 100 MG TABLET (FP) PO SCH (22:19)
[2019-07-29] MEDS: chlordiazePOXIDE HCL 25 MG CAPSULE PO SCH ×4 (05:20→22:51)
[2019-07-29] MEDS: metFORMIN HCL 500 MG TABLET (FP) PO SCH ×2 (06:26→17:15)
--- NOTE | 2019-07-29 09:38 | PN ---
S CIWA - CIWA Score Nausea/Vomitin-Mild Nausea/No Vomiting Muscle Tremors: 1-None Visible, but [place] Anxiety: 2 Agitation: 2 Paroxysmal Sweats: No Perspiration Orientation: 0-Oriented Tacttile Disturbances: 1-Very Mild Itch/Numbness Auditory Disturbances: 0-None Visual Disturbances: 0-None Headache: 2-Mild CIWA-Ar Total Score: 9 BHS Progress Note (SOAP) Subjective: alert,irritable,anxious,interrupted sleep,pain in the body Objective: 07/29/19 09:37 Vital Signs Temperature 96.6 F L 07/29/19 09:35 Pulse Rate 75 07/29/19 09:35 Respiratory Rate 18 07/29/19 09:35 Blood Pressure 150/78 07/29/19 09:35 O2 Sat by Pulse Oximetry (%) Laboratory Last Values WBC 7.9 K/mm3 (4.0-10.0) 07/28/19 08:15 RBC 4.60 M/mm3 (4.00-5.60) 07/28/19 08:15 Hgb 14.0 GM/dL (11.7-16.9) 07/28/19 08:15 Hct 43.2 % (35.4-49) 07/28/19 08:15 MCV 94.0 fl (80-96) 07/28/19 08:15 MCH 30.5 pg (25.7-33.7) 07/28/19 08:15 MCHC 32.4 g/dl (32.0-35.9) 07/28/19 08:15 RDW 13.5 % (11.9-15.9) 07/28/19 08:15 Plt Count 417 K/MM3 (134-434) 07/28/19 08:15 MPV 8.5 fl (7.5-11.1) 07/28/19 08:15 Sodium 138 mmol/L (136-145) 07/28/19 08:15 Potassium 4.2 mmol/L (3.5-5.1) 07/28/19 08:15 Chloride 103 mmol/L (98-107) 07/28/19 08:15 Carbon Dioxide 29 mmol/L (21-32) 07/28/19 08:15 Anion Gap 5 MMOL/L (8-16) L 07/28/19 08:15 BUN 14.3 mg/dL (7-18) 07/28/19 08:15 Creatinine 1.1 mg/dL (0.55-1.3) 07/28/19 08:15 Est GFR (CKD-EPI)AfAm 85.91 07/28/19 08:15 Est GFR (CKD-EPI)NonAf 74.12 07/28/19 08:15 POC Glucometer 318 UNITS (80-120) 07/29/19 05:18 Random Glucose 283 mg/dL (74-106) H 07/28/19 08:15 Calcium 9.4 mg/dL (8.5-10.1) 07/28/19 08:15 Total Bilirubin 0.4 mg/dL (0.2-1) 07/28/19 08:15 AST 15 U/L (15-37) 07/28/19 08:15 ALT 39 U/L (13-61) 07/28/19 08:15 Alkaline Phosphatase 119 U/L (45-117) H 07/28/19 08:15 Total Protein 6.7 g/dl (6.4-8.2) 07/28/19 08:15 Albumin 3.5 g/dl (3.4-5.0) 07/28/19 08:15 RPR Titer Nonreactive (NONREACTIVE) 07/28/19 08:15 Assessment: 07/29/19 09:38 withdrawal symptom Plan: continue detox librium regimen,bgm monitoring with insulin coverage sliding scale
[2019-07-29] MEDS: cloNIDine HCL 0.1 MG TABLET PO SCH ×2 (10:19→22:51)
[2019-07-29] MEDS: PRENATAL VITAMINS W/ FOLIC ACID TABLET (FP) PO SCH (10:19)
[2019-07-29] MEDS: ASPIRIN COATED 81 MG TABLET.EC PO SCH (10:20)
[2019-07-29] MEDS: amLODIPine BESYLATE 10 MG TABLET (FP) PO SCH (10:20)
[2019-07-29] MEDS: EMTRICITABINE 200MG/TENOFOVIR 300MG PO SCH (10:20)
[2019-07-29] MEDS: EFAVIRENZ 600 MG TABLET PO SCH (10:20)
[2019-07-29] MEDS: FAMOTIDINE 20 MG TABLET PO SCH ×2 (10:26)
[2019-07-29] MEDS: ACETAMINOPHEN 325 MG TABLET (FP) PO PRN (10:40)
[2019-07-29] MEDS: INSULIN (NOVOLOG) ASPART 100 UNITS/ML 10ML VIAL SQ SCH ×3 (10:40→22:53)
[2019-07-29] MEDS: THIAMINE HCL 100 MG TABLET (FP) PO SCH (22:51)
[2019-07-29] MEDS: AMITRIPTYLINE HCL 25 MG TABLET (FP) PO SCH (22:51)
[2019-07-29] MEDS: MELATONIN 5 MG TABLETS PO PRN (22:51)
[2019-07-30] MEDS ORDERED: chlordiazePOXIDE HCL 10 MG CAPSULE PO PRN
[2019-07-30] MEDS: chlordiazePOXIDE HCL 10 MG CAPSULE PO SCH ×4 (05:25→22:12)
[2019-07-30] MEDS: metFORMIN HCL 500 MG TABLET (FP) PO SCH ×2 (06:37→17:13)
[2019-07-30] MEDS: INSULIN (NOVOLOG) ASPART 100 UNITS/ML 10ML VIAL SQ SCH ×4 (08:28→22:13)
--- NOTE | 2019-07-30 09:46 | PN ---
S CIWA - CIWA Score Nausea/Vomitin-Mild Nausea/No Vomiting Muscle Tremors: 1-None Visible, but [place] Anxiety: 2 Agitation: 2 Paroxysmal Sweats: No Perspiration Orientation: 0-Oriented Tacttile Disturbances: 1-Very Mild Itch/Numbness Auditory Disturbances: 0-None Visual Disturbances: 0-None Headache: 1-Very Mild CIWA-Ar Total Score: 8 BHS Progress Note (SOAP) Subjective: alert,irritable,anxious,interrupted sleep,pin in the body Objective: 07/30/19 09:45 Vital Signs Temperature 97.0 F L 07/30/19 09:15 Pulse Rate 96 H 07/30/19 09:15 Respiratory Rate 18 07/30/19 09:15 Blood Pressure 146/85 07/30/19 09:15 O2 Sat by Pulse Oximetry (%) Laboratory Results - last 24 hr 07/29/19 07/29/19 07/30/19 10:38 16:23 05:23 POC Glucometer 300 304 266 Assessment: 07/30/19 09:46 withdrawal symptom Plan: continue detox librium regimen,bgm monitoing,ptient refused insulin coverage, diet modification axplained to patient, non compliance issue with diet,diatician consultation
[2019-07-30] MEDS: ASPIRIN COATED 81 MG TABLET.EC PO SCH (10:46)
[2019-07-30] MEDS: PRENATAL VITAMINS W/ FOLIC ACID TABLET (FP) PO SCH (10:46)
[2019-07-30] MEDS: EMTRICITABINE 200MG/TENOFOVIR 300MG PO SCH (10:47)
[2019-07-30] MEDS: cloNIDine HCL 0.1 MG TABLET PO SCH ×2 (10:47→22:12)
[2019-07-30] MEDS: EFAVIRENZ 600 MG TABLET PO SCH (10:47)
[2019-07-30] MEDS: FAMOTIDINE 20 MG TABLET PO SCH (10:47)
[2019-07-30] MEDS: amLODIPine BESYLATE 10 MG TABLET (FP) PO SCH (10:50)
[2019-07-30] MEDS ORDERED: INSULIN SLIDING SCALE (NOVOLOG) 1 VIAL SQ ONE ×3 (12:12→17:08)
[2019-07-30] MEDS: ACETAMINOPHEN 325 MG TABLET (FP) PO PRN (17:32)
[2019-07-30] MEDS: AMITRIPTYLINE HCL 25 MG TABLET (FP) PO SCH (22:12)
[2019-07-30] MEDS: THIAMINE HCL 100 MG TABLET (FP) PO SCH (22:12)
[2019-07-30] MEDS: MELATONIN 5 MG TABLETS PO PRN (22:13)
[2019-07-31] MEDS: chlordiazePOXIDE HCL 10 MG CAPSULE PO SCH ×2 (05:29→17:18)
[2019-07-31] MEDS: ACETAMINOPHEN 325 MG TABLET (FP) PO PRN ×2 (05:30→17:18)
[2019-07-31] MEDS: metFORMIN HCL 500 MG TABLET (FP) PO SCH ×2 (10:11→17:17)
[2019-07-31] MEDS: amLODIPine BESYLATE 10 MG TABLET (FP) PO SCH (10:12)
[2019-07-31] MEDS: INSULIN (NOVOLOG) ASPART 100 UNITS/ML 10ML VIAL SQ SCH ×3 (10:12→21:57)
[2019-07-31] MEDS: cloNIDine HCL 0.1 MG TABLET PO SCH ×2 (10:12→21:54)
[2019-07-31] MEDS: ASPIRIN COATED 81 MG TABLET.EC PO SCH (10:13)
[2019-07-31] MEDS: PRENATAL VITAMINS W/ FOLIC ACID TABLET (FP) PO SCH (10:13)
[2019-07-31] MEDS: FAMOTIDINE 20 MG TABLET PO SCH (10:13)
--- NOTE | 2019-07-31 10:32 | PN ---
S CIWA - CIWA Score Nausea/Vomitin-No Nausea/No Vomiting Muscle Tremors: None Anxiety: 0-No Anxiety, at Ease Agitation: 0-Normal Activity Paroxysmal Sweats: 2 Orientation: 0-Oriented Tacttile Disturbances: 0-None Auditory Disturbances: 0-None Visual Disturbances: 0-None Headache: 1-Very Mild CIWA-Ar Total Score: 3 BHS Progress Note (SOAP) Subjective: c/o mild headache and sweats. Objective: 07/31/19 10:24 Vital Signs 07/31/19 07/31/19 03:30 06:16 Temperature 97.7 F Pulse Rate 68 Respiratory 18 18 Rate Blood Pressure 147/78 Assessment: 07/31/19 10:24 AOX3, in no acute respiratory distress. Full ROM, ambulating in the unit. withdrawal symptoms. For d/c tomorrow. No prescriptions sent, as per pt's pharmacy ([facility] [phone]), pt has enough refills on his medications. Plan: continue detox. D/C in AM.
[2019-07-31] MEDS: EMTRICITABINE 200MG/TENOFOVIR 300MG PO SCH (10:45)
[2019-07-31] MEDS: EFAVIRENZ 600 MG TABLET PO SCH (10:45)
[2019-07-31] MEDS: THIAMINE HCL 100 MG TABLET (FP) PO SCH (21:54)
[2019-07-31] MEDS: AMITRIPTYLINE HCL 25 MG TABLET (FP) PO SCH (21:54)
[2019-07-31] MEDS: MELATONIN 5 MG TABLETS PO PRN (21:55)
[2019-08-01] MEDS ORDERED: chlordiazePOXIDE HCL 10 MG CAPSULE PO ONE (05:00)
[2019-08-01] MEDS: metFORMIN HCL 500 MG TABLET (FP) PO SCH ×2 (06:32→16:52)
[2019-08-01] MEDS: ACETAMINOPHEN 325 MG TABLET (FP) PO PRN (06:34)
[2019-08-01] MEDS: INSULIN (NOVOLOG) ASPART 100 UNITS/ML 10ML VIAL SQ SCH ×4 (07:12→22:19)
[2019-08-01] MEDS: ASPIRIN COATED 81 MG TABLET.EC PO SCH (10:09)
[2019-08-01] MEDS: FAMOTIDINE 20 MG TABLET PO SCH (10:09)
[2019-08-01] MEDS: PRENATAL VITAMINS W/ FOLIC ACID TABLET (FP) PO SCH (10:09)
[2019-08-01] MEDS: cloNIDine HCL 0.1 MG TABLET PO SCH ×2 (10:09→22:19)
[2019-08-01] MEDS: amLODIPine BESYLATE 10 MG TABLET (FP) PO SCH (10:09)
[2019-08-01] MEDS: EMTRICITABINE 200MG/TENOFOVIR 300MG PO SCH (10:10)
[2019-08-01] MEDS: EFAVIRENZ 600 MG TABLET PO SCH (10:10)
--- NOTE | 2019-08-01 11:33 | PN ---
S CIWA - CIWA Score Nausea/Vomitin-No Nausea/No Vomiting Muscle Tremors: None Anxiety: 2 Agitation: 2 Paroxysmal Sweats: No Perspiration Orientation: 0-Oriented Tacttile Disturbances: 0-None Auditory Disturbances: 0-None Visual Disturbances: 0-None Headache: 0-None Present CIWA-Ar Total Score: 4 BHS Progress Note (SOAP) Subjective: Feels anxious, tremor, stomachache, diarrhea, interrupted sleep. Patient scheduled for discharge home today. Patient requested inpatient rehab as he is afraid of relapsing if discharged today. As per counselor, there's a rehab bed available tomorrow at [facility]. Will discharge patient tomorrow to [facility]. As per patient, he is willing to go home tomorrow if no rehab bed available. Objective: 08/01/19 11:33 Last Vital Signs Temp Pulse Resp BP Pulse Ox 97.9 F 97 H 18 148/82 08/01/19 09:27 08/01/19 09:27 08/01/19 09:27 08/01/19 09:27 Elevated b/p: has htn (on medication) Laboratory Tests 07/28/19 07/28/19 07/28/19 05:51 08:15 08:15 WBC 7.9 RBC 4.60 Hgb 14.0 Hct 43.2 MCV 94.0 MCH 30.5 MCHC 32.4 RDW 13.5 Plt Count 417 MPV 8.5 Sodium 138 Potassium 4.2 Chloride 103 Carbon Dioxide 29 Anion Gap 5 L BUN 14.3 Creatinine 1.1 Est GFR (CKD-EPI)AfAm 85.91 Est GFR (CKD-EPI)NonAf 74.12 POC Glucometer 311 Random Glucose 283 H Calcium 9.4 Total Bilirubin 0.4 AST 15 ALT 39 Alkaline Phosphatase 119 H Total Protein 6.7 Albumin 3.5 RPR Titer 07/28/19 07/28/19 07/29/19 08:15 16:33 05:18 WBC RBC Hgb Hct MCV MCH MCHC RDW Plt Count MPV Sodium Potassium Chloride Carbon Dioxide Anion Gap BUN Creatinine Est GFR (CKD-EPI)AfAm Est GFR (CKD-EPI)NonAf POC Glucometer 222 318 Random Glucose Calcium Total Bilirubin AST ALT Alkaline Phosphatase Total Protein Albumin RPR Titer Nonreactive 1007/29/19 07/30/19 10:38 16:23 05:23 WBC RBC Hgb Hct MCV MCH MCHC RDW Plt Count MPV Sodium Potassium Chloride Carbon Dioxide Anion Gap BUN Creatinine Est GFR (CKD-EPI)AfAm Est GFR (CKD-EPI)NonAf POC Glucometer 300 304 266 Random Glucose Calcium Total Bilirubin AST ALT Alkaline Phosphatase Total Protein Albumin RPR Titer 07/30/19 07/30/19 07/30/19 12:06 16:43 21:27 WBC RBC Hgb Hct MCV MCH MCHC RDW Plt Count MPV Sodium Potassium Chloride Carbon Dioxide Anion Gap BUN Creatinine Est GFR (CKD-EPI)AfAm Est GFR (CKD-EPI)NonAf POC Glucometer 316 314 371 Random Glucose Calcium Total Bilirubin AST ALT Alkaline Phosphatase Total Protein Albumin RPR Titer 07/31/19 07/31/19 07/31/19 10:09 16:41 21:50 WBC RBC Hgb Hct MCV MCH MCHC RDW Plt Count MPV Sodium Potassium Chloride Carbon Dioxide Anion Gap BUN Creatinine Est GFR (CKD-EPI)AfAm Est GFR (CKD-EPI)NonAf POC Glucometer 337 301 372 Random Glucose Calcium Total Bilirubin AST ALT Alkaline Phosphatase Total Protein Albumin RPR Titer 08/01/19 06:31 WBC RBC Hgb Hct MCV MCH MCHC RDW Plt Count MPV Sodium Potassium Chloride Carbon Dioxide Anion Gap BUN Creatinine Est GFR (CKD-EPI)AfAm Est GFR (CKD-EPI)NonAf POC Glucometer 276 Random Glucose Calcium Total Bilirubin AST ALT Alkaline Phosphatase Total Protein Albumin RPR Titer Labs reviewed: hyperglycemia due to DM (on meds for DM) Assessment: 08/01/19 11:35 Withdrawal sxs Plan: Continue detox Encouraged PO water intake HTN: monitor b/p, continue medication DMT2 with hyperglycemia: monitor FS, continue medication with sliding scale insulin coverage
[2019-08-01] MEDS: MAG HYDROX/AL HYDROX/SIMETH 30 ML UNIT-DOSE CUP PO PRN (15:13)
[2019-08-01] MEDS: AMITRIPTYLINE HCL 25 MG TABLET (FP) PO SCH (22:19)
[2019-08-01] MEDS: THIAMINE HCL 100 MG TABLET (FP) PO SCH (22:19)
[2019-08-01] MEDS: MELATONIN 5 MG TABLETS PO PRN (22:20)
[2019-08-02] MEDS: metFORMIN HCL 500 MG TABLET (FP) PO SCH (06:17)
[2019-08-02] MEDS: ACETAMINOPHEN 325 MG TABLET (FP) PO PRN (06:18)
[2019-08-02 09:11] VITALS: BP 153/78; PULSE 72; TEMP 97.5
--- NOTE | 2019-08-02 09:12 | PN ---
S CIWA - CIWA Score Nausea/Vomitin-Mild Nausea/No Vomiting Muscle Tremors: 1-None Visible, but [place] Anxiety: 0-No Anxiety, at Ease Agitation: 0-Normal Activity Paroxysmal Sweats: No Perspiration Orientation: 0-Oriented Tacttile Disturbances: 0-None Auditory Disturbances: 0-None Visual Disturbances: 0-None Headache: 0-None Present CIWA-Ar Total Score: 2 BHS Progress Note (SOAP) Subjective: alert,no complaining Objective: 08/02/19 09:07 Vital Signs Temperature 98.1 F 08/01/19 21:27 Pulse Rate 84 08/01/19 21:27 Respiratory Rate 18 08/02/19 03:30 Blood Pressure 132/78 08/01/19 21:27 O2 Sat by Pulse Oximetry (%) Assessment: 08/02/19 09:07 detox completed,no withdrawal symptom Plan: stable for discharge ,follow up with medical problem with cadiologist in [place], and familt docor, stated taking atrpla for hiv medication for 5 years,would like to continue atripla
--- NOTE | 2019-08-02 09:18 | DS ---
[facility] Detox Discharge Summary Admission Date: 07/27/19 Discharge Date: 08/02/19 - History Present History: Alcohol Dependence Additional Comments: follow up with own concrete technician at [place],follow up with family physician for medical problem, and out patient program as arrangement,if any emergency call 911 or to er Pertinent Past History: type 2 dm hypertension hiv low back pain asthma copd - Physical Exam Results Vital Signs: Vital Signs Temperature 97.5 F L 08/02/19 09:05 Pulse Rate 72 08/02/19 09:05 Respiratory Rate 18 08/02/19 09:05 Blood Pressure 153/78 08/02/19 09:05 O2 Sat by Pulse Oximetry (%) Pertinent Admission Physical Exam Findings: withdrawal sisn and symptom - Treatment Hospital Course: Detox Protocol Followed, Detoxed Safely, Responded well, Discharged Condition Good Patient has Accepted a Rehab Referral to: declined - Medication Discharge Medications: Ambulatory Orders Clonidine HCl 0.2 mg PO BID 01/23/19 Efavirenz/Emtricitab/Tenofovir [Atripla Tablet -] 1 tab PO DAILY 01/23/19 Pantoprazole Sodium 40 mg PO DAILY 01/23/19 Sertraline HCl [Zoloft -] 50 mg PO DAILY 01/23/19 Albuterol Sulfate Inhaler - [Ventolin HFA Inhaler -] 2 puff IH Q4H PRN #1 inhaler 04/12/19 Amlodipine Besylate [Norvasc -] 10 mg PO DAILY #30 tablet 04/12/19 Sitagliptin Phosphate [Januvia -] 100 mg PO DAILY@0700 #30 ud 04/12/19 metFORMIN HCL [Glucophage -] 1,000 mg PO BID@0700,1630 #60 tablet 04/12/19 Aspirin [Aspirin EC] 81 mg PO DAILY 07/27/19 - Diagnosis (1) Alcohol dependence with uncomplicated withdrawal Current Visit: Yes Status: Acute (2) Nicotine dependence, uncomplicated Current Visit: Yes Status: Chronic Qualifiers: Nicotine product type: cigarettes Qualified Code(s): F17.210 - Nicotine dependence, cigarettes, uncomplicated (3) H/O Canales's palsy Current Visit: No Status: Chronic (4) HIV (human immunodeficiency virus infection) Current Visit: No Status: Chronic Qualifiers: HIV symptom status: asymptomatic Qualified Code(s): Z21 - Asymptomatic human immunodeficiency virus [HIV] infection status (5) Hypertension Current Visit: No Status: Chronic Qualifiers: Hypertension type: essential hypertension Qualified Code(s): I10 - Essential (primary) hypertension - AMA Did Patient Leave Against Medical Advice: No
[2019-08-02] MEDS: MAG HYDROX/AL HYDROX/SIMETH 30 ML UNIT-DOSE CUP PO PRN (09:36)
== END 2019-08-02 09:35 | disposition home or self-care (01) | DRG 774 ==
LOC: YASAS 17:59 → Y6N 20:47
PROVIDERS: ADMIT Allergy & Immunology; ATTEND Allergy & Immunology
PROC: HZ2ZZZZ Detoxification Services for Substance Abuse Treatment (ICD-10-PCS; principal; 2019-07-27)
DX: F10.230 Alcohol dependence with withdrawal, uncomplicated (principal); F14.20 Cocaine dependence, uncomplicated; F17.210 Nicotine dependence, cigarettes, uncomplicated; F43.10 Post-traumatic stress disorder, unspecified; F32.9 Major depressive disorder, single episode, unspecified; F19.24 Other psychoactive substance dependence with psychoactive substance-induced mood disorder; F19.282 Other psychoactive substance dependence with psychoactive substance-induced sleep disorder; I10 Essential (primary) hypertension; Z21 Asymptomatic human immunodeficiency virus [HIV] infection status; E11.9 Type 2 diabetes mellitus without complications; J45.909 Unspecified asthma, uncomplicated; K21.9 Gastro-esophageal reflux disease without esophagitis; M54.5 Low back pain; G89.29 Other chronic pain; R01.1 Cardiac murmur, unspecified; Z86.69 Personal history of other diseases of the nervous system and sense organs; Z79.84 Long term (current) use of oral hypoglycemic drugs
CPT/HCPCS: 36415; 80053; 82962; 85027; 86593; J0735

== ENCOUNTER 2022-05-12 12:19 | Inpatient (IN) | payer OTHER ==
[2022-05-12 13:45] VITALS: BMI 31.6
[2022-05-12] MEDS ORDERED: ONDANSETRON *ODT* 4 MG TABLET SL PRN (15:41)
[2022-05-12] MEDS ORDERED: NICOTINE POLACRILEX 2 MG GUM BUC PRN (15:41)
[2022-05-12] MEDS ORDERED: BENZOCAINE/MENTHOL (CHLORASEPTIC ) LOZENGE MM PRN (15:41)
[2022-05-12] MEDS ORDERED: MAGNESIUM HYDROX 2400MG/30ML ORAL SUSPENSION 30 ML CUP PO PRN (15:41)
[2022-05-12] MEDS ORDERED: LOPERAMIDE HCL 2 MG CAPSULE PO PRN (15:41)
[2022-05-12] MEDS ORDERED: MAGNESIUM CITRATE 300 ML BOTTLE PO PRN (15:41)
[2022-05-12] MEDS ORDERED: BISMUTH SUBSALICYLATE 524 MG/30 ML PO PRN (15:41)
[2022-05-12] MEDS ORDERED: DICYCLOMINE HCL 10 MG CAPSULE PO PRN (15:41)
[2022-05-12] MEDS ORDERED: IBUPROFEN 400 MG TABLET (FP) PO PRN (15:41)
[2022-05-12] MEDS ORDERED: MAG HYDROX/AL HYDROX/SIMETH 30 ML UNIT-DOSE CUP PO PRN (15:41)
[2022-05-12] MEDS ORDERED: ACETAMINOPHEN 325 MG TABLET (FP) PO PRN ×2 (15:41)
[2022-05-12] MEDS ORDERED: METHOCARBAMOL 500 MG TABLET PO PRN (15:41)
[2022-05-12] MEDS ORDERED: ALBUTEROL SO4 HFA INHALER IH PRN (15:44)
[2022-05-12] MEDS: metFORMIN HCL 500 MG TABLET (FP) PO SCH (18:22)
[2022-05-12] MEDS: IBUPROFEN 600 MG TABLET (FP) PO PRN (18:24)
[2022-05-12] MEDS ORDERED: MELATONIN 5 MG TABLETS PO SCH (22:00)
[2022-05-12] MEDS: THIAMINE HCL 100 MG TABLET (FP) PO SCH (22:32)
[2022-05-13] MEDS: metFORMIN HCL 500 MG TABLET (FP) PO SCH ×2 (06:21→17:35)
[2022-05-13] MEDS: cloNIDine HCL 0.1 MG TABLET PO SCH ×2 (09:44→22:26)
[2022-05-13] MEDS ORDERED: ASPIRIN COATED 81 MG TABLET.EC PO SCH (10:00)
[2022-05-13] MEDS ORDERED: PRENATAL VITAMINS W/ FOLIC ACID TABLET (FP) PO SCH (10:00)
[2022-05-13] MEDS ORDERED: amLODIPine BESYLATE 10 MG TABLET (FP) PO SCH (10:00)
[2022-05-13] MEDS ORDERED: PANTOPRAZOLE 40 MG TABLET PO SCH (10:00)
[2022-05-13 10:26] LABS: BLOOD UREA NITROGEN 17.4 mg/dL (7-18); CALCIUM 9.7 mg/dL (8.5-10.1)
[2022-05-13 10:27] LABS: HEMATOCRIT 45.5 % (35.4-49); HEMOGLOBIN 15.1 GM/dL (11.7-16.9); MCH 30.9 pg (25.7-33.7); MCHC 33.2 g/dl (32.0-35.9); MEAN PLT VOLUME 8.2 fl (7.5-11.1); PLATELET COUNT 415 10^3/uL (134-434); RBC 4.89 M/mm3 (4.00-5.60); RDW 12.6 % (11.9-15.9)
[2022-05-13 10:29] LABS: CREATININE 1.3 mg/dL (0.55-1.3)
[2022-05-13 10:31] LABS: BILIRUBIN,TOTAL 0.4 mg/dL (0.2-1); TOT PROT 7.6 g/dl (6.4-8.2)
[2022-05-13] MEDS ORDERED: FLUoxetine HCL 20 MG CAPSULE PO SCH (11:00)
[2022-05-13 17:15] VITALS: RESP 18
[2022-05-13] MEDS: IBUPROFEN 600 MG TABLET (FP) PO PRN (17:36)
[2022-05-13 20:39] VITALS: BP 136/61; PULSE 66; TEMP 97.8
[2022-05-13] MEDS ORDERED: SUVOREXANT 10 MG TABLET PO PRN (22:00)
[2022-05-13] MEDS: THIAMINE HCL 100 MG TABLET (FP) PO SCH (22:26)
== END 2022-05-13 22:32 | disposition other institution (70) | DRG 774 ==
LOC: YASAS 12:19 → UNDOADMIN 15:50 → Y6N 15:50
PROVIDERS: ADMIT Allergy & Immunology; ATTEND Surgery
PROC: HZ2ZZZZ Detoxification Services for Substance Abuse Treatment (ICD-10-PCS; principal; 2022-05-12)
DX: F10.230 Alcohol dependence with withdrawal, uncomplicated (principal); F14.20 Cocaine dependence, uncomplicated; F17.210 Nicotine dependence, cigarettes, uncomplicated; F32.A Depression, unspecified; F43.10 Post-traumatic stress disorder, unspecified; F19.282 Other psychoactive substance dependence with psychoactive substance-induced sleep disorder; F19.280 Other psychoactive substance dependence with psychoactive substance-induced anxiety disorder; I10 Essential (primary) hypertension; J45.20 Mild intermittent asthma, uncomplicated; J43.9 Emphysema, unspecified; E11.9 Type 2 diabetes mellitus without complications; E78.5 Hyperlipidemia, unspecified; K21.9 Gastro-esophageal reflux disease without esophagitis; R01.1 Cardiac murmur, unspecified; M54.59 Other low back pain; G89.29 Other chronic pain; Z87.828 Personal history of other (healed) physical injury and trauma; Z56.0 Unemployment, unspecified
CPT/HCPCS: 36415; 80053; 82962; 85027; 86593; 86780; 87811; 93005; 93010; C9803-CS; Q0162; U0003; U0005

== ENCOUNTER 2022-05-13 22:52 | Inpatient (IN) | payer OTHER ==
[~2022-05-13 22:52] MED LIST: MELATONIN 5 MG TABLETS PO SCH
[2022-05-13] MEDS ORDERED: P-EPHED 60MG/TRIPROLIDI 2.5MG TABLET PO PRN (23:19)
[2022-05-13] MEDS ORDERED: guaiFENesin 200 MG/10 ML 10 ML UNIT-DOSE CUPS PO PRN (23:19)
[2022-05-13] MEDS ORDERED: MAGNESIUM CITRATE 300 ML BOTTLE PO PRN (23:19)
[2022-05-13] MEDS ORDERED: NICOTINE 10 MG CARTRIDGE (INHALER) IH PRN (23:19)
[2022-05-13] MEDS ORDERED: BENZOCAINE/MENTHOL (CHLORASEPTIC ) LOZENGE MM PRN (23:19)
[2022-05-13] MEDS ORDERED: LOPERAMIDE HCL 2 MG CAPSULE PO PRN (23:19)
[2022-05-13] MEDS ORDERED: MAGNESIUM HYDROX 2400MG/30ML ORAL SUSPENSION 30 ML CUP PO PRN (23:19)
[2022-05-13] MEDS ORDERED: TUBERCULIN PPD 5 TU/0.1ML VIAL ID ONE (23:37)
[2022-05-14] MEDS: PRENATAL VITAMINS W/ FOLIC ACID TABLET (FP) PO SCH (10:04)
[2022-05-14] MEDS: IBUPROFEN 400 MG TABLET (FP) PO PRN (10:05)
[2022-05-14] MEDS: NICOTINE 14 MG/24 HOURS TOPICAL PATCH TD SCH (10:06)
[2022-05-14] MEDS: FLUoxetine HCL 20 MG CAPSULE PO SCH (10:24)
[2022-05-14 14:30] LABS: HIV INTERPRETATION NEGATIVE (NEGATIVE)
[2022-05-14] MEDS ORDERED: ALBUTEROL SO4 HFA INHALER IH PRN (15:57)
[2022-05-14] MEDS: amLODIPine BESYLATE 10 MG TABLET (FP) PO SCH (16:35)
[2022-05-14] MEDS: metFORMIN HCL 500 MG TABLET (FP) PO SCH (16:35)
[2022-05-14] MEDS: ASPIRIN COATED 81 MG TABLET.EC PO SCH (16:35)
[2022-05-14] MEDS: THIAMINE HCL 100 MG TABLET (FP) PO SCH (21:59)
[2022-05-14] MEDS: SUVOREXANT 10 MG TABLET PO PRN (22:01)
[2022-05-15] MEDS: sitaGLIPtin PHOSPHATE 50 MG TABLET PO SCH (06:40)
[2022-05-15] MEDS: metFORMIN HCL 500 MG TABLET (FP) PO SCH ×2 (06:40→17:00)
[2022-05-15] MEDS: IBUPROFEN 400 MG TABLET (FP) PO PRN (06:42)
[2022-05-15] MEDS: amLODIPine BESYLATE 10 MG TABLET (FP) PO SCH (09:50)
[2022-05-15] MEDS: ASPIRIN COATED 81 MG TABLET.EC PO SCH (09:50)
[2022-05-15] MEDS: NICOTINE 14 MG/24 HOURS TOPICAL PATCH TD SCH (09:50)
[2022-05-15] MEDS: FLUoxetine HCL 20 MG CAPSULE PO SCH (09:52)
[2022-05-15] MEDS: PRENATAL VITAMINS W/ FOLIC ACID TABLET (FP) PO SCH (09:52)
[2022-05-15] MEDS ORDERED: cloNIDine HCL 0.1 MG TABLET PO PRN (10:20)
[2022-05-15] MEDS: ACETAMINOPHEN 325 MG TABLET (FP) PO PRN (17:02)
[2022-05-15] MEDS: cloNIDine HCL 0.1 MG TABLET PO SCH (21:37)
[2022-05-15] MEDS: THIAMINE HCL 100 MG TABLET (FP) PO SCH (21:37)
[2022-05-15] MEDS: SUVOREXANT 10 MG TABLET PO PRN (22:25)
[2022-05-16] MEDS: metFORMIN HCL 500 MG TABLET (FP) PO SCH ×2 (06:19→16:40)
[2022-05-16] MEDS: sitaGLIPtin PHOSPHATE 50 MG TABLET PO SCH (06:19)
[2022-05-16] MEDS: ACETAMINOPHEN 325 MG TABLET (FP) PO PRN ×2 (07:31→21:18)
[2022-05-16] MEDS: ASPIRIN COATED 81 MG TABLET.EC PO SCH (10:03)
[2022-05-16] MEDS: cloNIDine HCL 0.1 MG TABLET PO SCH ×2 (10:03→21:17)
[2022-05-16] MEDS: PRENATAL VITAMINS W/ FOLIC ACID TABLET (FP) PO SCH (10:03)
[2022-05-16] MEDS: FLUoxetine HCL 20 MG CAPSULE PO SCH (10:04)
[2022-05-16] MEDS: NICOTINE 14 MG/24 HOURS TOPICAL PATCH TD SCH (10:04)
[2022-05-16] MEDS: MAG HYDROX/AL HYDROX/SIMETH 30 ML UNIT-DOSE CUP PO PRN (16:39)
[2022-05-16] MEDS: THIAMINE HCL 100 MG TABLET (FP) PO SCH (21:16)
[2022-05-16] MEDS: hydrOXYzine PAMOATE 50 MG CAPSULE (FP) PO PRN (21:17)
[2022-05-16] MEDS: SUVOREXANT 15 MG TABLET PO PRN (21:18)
[2022-05-17] MEDS: sitaGLIPtin PHOSPHATE 50 MG TABLET PO SCH (06:10)
[2022-05-17] MEDS: metFORMIN HCL 500 MG TABLET (FP) PO SCH ×2 (06:10→17:07)
[2022-05-17] MEDS: MAG HYDROX/AL HYDROX/SIMETH 30 ML UNIT-DOSE CUP PO PRN ×2 (08:48→21:30)
[2022-05-17] MEDS: FLUoxetine HCL 20 MG CAPSULE PO SCH (10:13)
[2022-05-17] MEDS: ASPIRIN COATED 81 MG TABLET.EC PO SCH (10:13)
[2022-05-17] MEDS: PRENATAL VITAMINS W/ FOLIC ACID TABLET (FP) PO SCH (10:13)
[2022-05-17] MEDS: cloNIDine HCL 0.1 MG TABLET PO SCH ×2 (10:13→21:31)
[2022-05-17] MEDS: NICOTINE 14 MG/24 HOURS TOPICAL PATCH TD SCH (10:14)
[2022-05-17] MEDS: ACETAMINOPHEN 325 MG TABLET (FP) PO PRN (17:08)
[2022-05-17] MEDS: THIAMINE HCL 100 MG TABLET (FP) PO SCH (21:30)
[2022-05-17] MEDS: SUVOREXANT 15 MG TABLET PO PRN (21:31)
[2022-05-17] MEDS: hydrOXYzine PAMOATE 50 MG CAPSULE (FP) PO PRN (21:31)
[2022-05-18] MEDS: sitaGLIPtin PHOSPHATE 50 MG TABLET PO SCH (06:37)
[2022-05-18] MEDS: metFORMIN HCL 500 MG TABLET (FP) PO SCH ×2 (06:37→16:56)
[2022-05-18] MEDS: ACETAMINOPHEN 325 MG TABLET (FP) PO PRN (06:39)
[2022-05-18] MEDS: NICOTINE 14 MG/24 HOURS TOPICAL PATCH TD SCH (10:06)
[2022-05-18] MEDS: cloNIDine HCL 0.1 MG TABLET PO SCH ×2 (10:06→21:40)
[2022-05-18] MEDS: FLUoxetine HCL 20 MG CAPSULE PO SCH (10:06)
[2022-05-18] MEDS: ASPIRIN COATED 81 MG TABLET.EC PO SCH (10:06)
[2022-05-18] MEDS: PRENATAL VITAMINS W/ FOLIC ACID TABLET (FP) PO SCH (10:07)
[2022-05-18] MEDS: MAG HYDROX/AL HYDROX/SIMETH 30 ML UNIT-DOSE CUP PO PRN (20:37)
[2022-05-18] MEDS: IBUPROFEN 400 MG TABLET (FP) PO PRN (21:40)
[2022-05-18] MEDS: THIAMINE HCL 100 MG TABLET (FP) PO SCH (21:40)
[2022-05-19] MEDS: sitaGLIPtin PHOSPHATE 50 MG TABLET PO SCH (06:38)
[2022-05-19] MEDS: metFORMIN HCL 500 MG TABLET (FP) PO SCH ×2 (06:38→16:52)
[2022-05-19] MEDS: ACETAMINOPHEN 325 MG TABLET (FP) PO PRN ×2 (06:39→16:53)
[2022-05-19] MEDS: cloNIDine HCL 0.1 MG TABLET PO SCH ×2 (09:31→21:55)
[2022-05-19] MEDS: ASPIRIN COATED 81 MG TABLET.EC PO SCH (09:31)
[2022-05-19] MEDS: PRENATAL VITAMINS W/ FOLIC ACID TABLET (FP) PO SCH (09:32)
[2022-05-19] MEDS: NICOTINE 14 MG/24 HOURS TOPICAL PATCH TD SCH (09:32)
[2022-05-19] MEDS: FLUoxetine HCL 20 MG CAPSULE PO SCH (09:32)
[2022-05-19] MEDS: THIAMINE HCL 100 MG TABLET (FP) PO SCH (21:55)
[2022-05-19] MEDS: hydrOXYzine PAMOATE 50 MG CAPSULE (FP) PO PRN (21:56)
[2022-05-20] MEDS: ACETAMINOPHEN 325 MG TABLET (FP) PO PRN ×2 (06:14→21:26)
[2022-05-20] MEDS: sitaGLIPtin PHOSPHATE 50 MG TABLET PO SCH (06:14)
[2022-05-20] MEDS: metFORMIN HCL 500 MG TABLET (FP) PO SCH ×2 (06:14→17:04)
[2022-05-20] MEDS: ASPIRIN COATED 81 MG TABLET.EC PO SCH (10:05)
[2022-05-20] MEDS: FLUoxetine HCL 20 MG CAPSULE PO SCH (10:05)
[2022-05-20] MEDS: cloNIDine HCL 0.1 MG TABLET PO SCH ×2 (10:05→21:25)
[2022-05-20] MEDS: NICOTINE 14 MG/24 HOURS TOPICAL PATCH TD SCH (10:06)
[2022-05-20] MEDS: PRENATAL VITAMINS W/ FOLIC ACID TABLET (FP) PO SCH (10:06)
[2022-05-20] MEDS: IBUPROFEN 400 MG TABLET (FP) PO PRN (10:07)
[2022-05-20] MEDS: PANTOPRAZOLE 40 MG TABLET PO SCH (15:00)
[2022-05-20] MEDS: THIAMINE HCL 100 MG TABLET (FP) PO SCH (21:25)
[2022-05-20] MEDS: hydrOXYzine PAMOATE 50 MG CAPSULE (FP) PO PRN (21:28)
[2022-05-21] MEDS: metFORMIN HCL 500 MG TABLET (FP) PO SCH ×2 (06:12→16:28)
[2022-05-21] MEDS: sitaGLIPtin PHOSPHATE 50 MG TABLET PO SCH (06:12)
[2022-05-21] MEDS: MAG HYDROX/AL HYDROX/SIMETH 30 ML UNIT-DOSE CUP PO PRN (08:33)
[2022-05-21] MEDS: cloNIDine HCL 0.1 MG TABLET PO SCH ×2 (10:34→21:23)
[2022-05-21] MEDS: PANTOPRAZOLE 40 MG TABLET PO SCH (10:34)
[2022-05-21] MEDS: FLUoxetine HCL 20 MG CAPSULE PO SCH (10:35)
[2022-05-21] MEDS: ASPIRIN COATED 81 MG TABLET.EC PO SCH (10:35)
[2022-05-21] MEDS: PRENATAL VITAMINS W/ FOLIC ACID TABLET (FP) PO SCH (10:36)
[2022-05-21] MEDS: NICOTINE 14 MG/24 HOURS TOPICAL PATCH TD SCH (10:36)
[2022-05-21] MEDS: ACETAMINOPHEN 325 MG TABLET (FP) PO PRN ×2 (10:37→21:22)
[2022-05-21] MEDS: IBUPROFEN 400 MG TABLET (FP) PO PRN (16:28)
[2022-05-21] MEDS: THIAMINE HCL 100 MG TABLET (FP) PO SCH (21:22)
[2022-05-21] MEDS: hydrOXYzine PAMOATE 50 MG CAPSULE (FP) PO PRN (21:23)
[2022-05-22] MEDS: metFORMIN HCL 500 MG TABLET (FP) PO SCH ×2 (06:36→16:53)
[2022-05-22] MEDS: sitaGLIPtin PHOSPHATE 50 MG TABLET PO SCH (06:36)
[2022-05-22] MEDS: cloNIDine HCL 0.1 MG TABLET PO SCH ×2 (09:01→21:30)
[2022-05-22] MEDS: PANTOPRAZOLE 40 MG TABLET PO SCH (09:02)
[2022-05-22] MEDS: FLUoxetine HCL 20 MG CAPSULE PO SCH (09:02)
[2022-05-22] MEDS: ASPIRIN COATED 81 MG TABLET.EC PO SCH (09:02)
[2022-05-22] MEDS: PRENATAL VITAMINS W/ FOLIC ACID TABLET (FP) PO SCH (09:02)
[2022-05-22] MEDS: ACETAMINOPHEN 325 MG TABLET (FP) PO PRN (09:02)
[2022-05-22] MEDS: NICOTINE 14 MG/24 HOURS TOPICAL PATCH TD SCH (09:02)
[2022-05-22] MEDS: MAG HYDROX/AL HYDROX/SIMETH 30 ML UNIT-DOSE CUP PO PRN (09:03)
[2022-05-22] MEDS: hydrOXYzine PAMOATE 50 MG CAPSULE (FP) PO PRN (21:30)
[2022-05-22] MEDS: THIAMINE HCL 100 MG TABLET (FP) PO SCH (21:30)
[2022-05-22] MEDS: IBUPROFEN 400 MG TABLET (FP) PO PRN (21:30)
[2022-05-23] MEDS: sitaGLIPtin PHOSPHATE 50 MG TABLET PO SCH (06:27)
[2022-05-23] MEDS: metFORMIN HCL 500 MG TABLET (FP) PO SCH ×2 (06:27→16:36)
[2022-05-23] MEDS: cloNIDine HCL 0.1 MG TABLET PO SCH ×2 (10:08→21:26)
[2022-05-23] MEDS: ASPIRIN COATED 81 MG TABLET.EC PO SCH (10:08)
[2022-05-23] MEDS: FLUoxetine HCL 20 MG CAPSULE PO SCH (10:09)
[2022-05-23] MEDS: PANTOPRAZOLE 40 MG TABLET PO SCH (10:09)
[2022-05-23] MEDS: PRENATAL VITAMINS W/ FOLIC ACID TABLET (FP) PO SCH (10:09)
[2022-05-23] MEDS: NICOTINE 14 MG/24 HOURS TOPICAL PATCH TD SCH (10:09)
[2022-05-23] MEDS: ACETAMINOPHEN 325 MG TABLET (FP) PO PRN (10:10)
[2022-05-23] MEDS: hydrOXYzine PAMOATE 50 MG CAPSULE (FP) PO PRN (21:26)
[2022-05-23] MEDS: IBUPROFEN 400 MG TABLET (FP) PO PRN (21:26)
[2022-05-23] MEDS: THIAMINE HCL 100 MG TABLET (FP) PO SCH (21:26)
[2022-05-24] MEDS: ACETAMINOPHEN 325 MG TABLET (FP) PO PRN (06:11)
[2022-05-24] MEDS: metFORMIN HCL 500 MG TABLET (FP) PO SCH ×2 (06:11→17:08)
[2022-05-24] MEDS: sitaGLIPtin PHOSPHATE 50 MG TABLET PO SCH (06:11)
[2022-05-24] MEDS: NICOTINE 14 MG/24 HOURS TOPICAL PATCH TD SCH (10:12)
[2022-05-24] MEDS: PANTOPRAZOLE 40 MG TABLET PO SCH (10:12)
[2022-05-24] MEDS: ASPIRIN COATED 81 MG TABLET.EC PO SCH (10:12)
[2022-05-24] MEDS: cloNIDine HCL 0.1 MG TABLET PO SCH ×2 (10:12→21:45)
[2022-05-24] MEDS: PRENATAL VITAMINS W/ FOLIC ACID TABLET (FP) PO SCH (10:13)
[2022-05-24] MEDS: FLUoxetine HCL 20 MG CAPSULE PO SCH (10:13)
[2022-05-24] MEDS ORDERED: cloNIDine HCL 0.1 MG TABLET PO ONE (12:00)
[2022-05-24] MEDS: hydrOXYzine PAMOATE 50 MG CAPSULE (FP) PO PRN (21:45)
[2022-05-24] MEDS: THIAMINE HCL 100 MG TABLET (FP) PO SCH (21:45)
[2022-05-24] MEDS: IBUPROFEN 400 MG TABLET (FP) PO PRN (21:45)
[2022-05-25] MEDS: metFORMIN HCL 500 MG TABLET (FP) PO SCH ×2 (07:45→16:30)
[2022-05-25] MEDS: sitaGLIPtin PHOSPHATE 50 MG TABLET PO SCH (07:46)
[2022-05-25] MEDS: NICOTINE 14 MG/24 HOURS TOPICAL PATCH TD SCH (10:01)
[2022-05-25] MEDS: ASPIRIN COATED 81 MG TABLET.EC PO SCH (10:02)
[2022-05-25] MEDS: cloNIDine HCL 0.1 MG TABLET PO SCH ×2 (10:02→21:21)
[2022-05-25] MEDS: PANTOPRAZOLE 40 MG TABLET PO SCH (10:02)
[2022-05-25] MEDS: FLUoxetine HCL 20 MG CAPSULE PO SCH (10:02)
[2022-05-25] MEDS: PRENATAL VITAMINS W/ FOLIC ACID TABLET (FP) PO SCH (10:03)
[2022-05-25] MEDS: hydrOXYzine PAMOATE 50 MG CAPSULE (FP) PO PRN (21:21)
[2022-05-25] MEDS: THIAMINE HCL 100 MG TABLET (FP) PO SCH (21:21)
[2022-05-25] MEDS: IBUPROFEN 400 MG TABLET (FP) PO PRN (21:21)
[2022-05-26] MEDS: sitaGLIPtin PHOSPHATE 50 MG TABLET PO SCH (06:01)
[2022-05-26] MEDS: metFORMIN HCL 500 MG TABLET (FP) PO SCH ×2 (06:01→16:51)
[2022-05-26] MEDS: NICOTINE 14 MG/24 HOURS TOPICAL PATCH TD SCH (10:04)
[2022-05-26] MEDS: PANTOPRAZOLE 40 MG TABLET PO SCH (10:04)
[2022-05-26] MEDS: ASPIRIN COATED 81 MG TABLET.EC PO SCH (10:04)
[2022-05-26] MEDS: PRENATAL VITAMINS W/ FOLIC ACID TABLET (FP) PO SCH (10:04)
[2022-05-26] MEDS: cloNIDine HCL 0.1 MG TABLET PO SCH ×2 (10:04→21:27)
[2022-05-26] MEDS: FLUoxetine HCL 20 MG CAPSULE PO SCH (10:05)
[2022-05-26] MEDS: IBUPROFEN 400 MG TABLET (FP) PO PRN (21:27)
[2022-05-26] MEDS: THIAMINE HCL 100 MG TABLET (FP) PO SCH (21:27)
[2022-05-26] MEDS: hydrOXYzine PAMOATE 50 MG CAPSULE (FP) PO PRN (21:27)
[2022-05-27] MEDS: metFORMIN HCL 500 MG TABLET (FP) PO SCH (07:05)
[2022-05-27] MEDS: sitaGLIPtin PHOSPHATE 50 MG TABLET PO SCH (07:05)
[2022-05-27 09:15] VITALS: BP 150/77; PULSE 79; RESP 20; TEMP 96.9
== END 2022-05-27 09:22 | disposition home or self-care (01) | DRG 772 ==
LOC: YASAS 22:52 → Y3E 22:54
PROVIDERS: ADMIT Allergy & Immunology; ATTEND Psychiatry & Neurology Pain Medicine
PROC: HZ42ZZZ Group Counseling for Substance Abuse Treatment, Cognitive-Behavioral (ICD-10-PCS; principal; 2022-05-13)
DX: F10.20 Alcohol dependence, uncomplicated (principal); F14.20 Cocaine dependence, uncomplicated; F17.210 Nicotine dependence, cigarettes, uncomplicated; F31.9 Bipolar disorder, unspecified; F41.9 Anxiety disorder, unspecified; F43.10 Post-traumatic stress disorder, unspecified; Z21 Asymptomatic human immunodeficiency virus [HIV] infection status; I10 Essential (primary) hypertension; J45.909 Unspecified asthma, uncomplicated; K21.9 Gastro-esophageal reflux disease without esophagitis; E11.9 Type 2 diabetes mellitus without complications; Z79.84 Long term (current) use of oral hypoglycemic drugs; Z86.19 Personal history of other infectious and parasitic diseases; R01.1 Cardiac murmur, unspecified
CPT/HCPCS: 36415; 82962; 87389; J0735

== ENCOUNTER 2022-12-16 17:00 | Inpatient (IN) | payer OTHER ==
[2022-12-16 19:30] VITALS: BMI 29.8
[2022-12-16] MEDS ORDERED: MAG HYDROX/AL HYDROX/SIMETH 30 ML UNIT-DOSE CUP PO PRN (20:28)
[2022-12-16] MEDS ORDERED: DICYCLOMINE HCL 10 MG CAPSULE PO PRN (20:28)
[2022-12-16] MEDS ORDERED: BISMUTH SUBSALICYLATE 524 MG/30 ML PO PRN (20:28)
[2022-12-16] MEDS ORDERED: P-EPHED 60MG/TRIPROLIDI 2.5MG TABLET PO PRN (20:28)
[2022-12-16] MEDS ORDERED: ONDANSETRON *ODT* 4 MG TABLET SL PRN (20:28)
[2022-12-16] MEDS ORDERED: POLYETHYLENE GLYCOL (HEALTHYLAX) 3350 17 GM PACKET PO PRN (20:28)
[2022-12-16] MEDS ORDERED: MAGNESIUM HYDROX 2400MG/30ML ORAL SUSPENSION 30 ML CUP PO PRN (20:28)
[2022-12-16] MEDS ORDERED: BENZONATATE 200 MG CAPSULE PO PRN (20:28)
[2022-12-16] MEDS ORDERED: guaiFENesin 600 MG TABLET.ER (FP) PO PRN (20:28)
[2022-12-16] MEDS ORDERED: BENZOCAINE/MENTHOL (CHLORASEPTIC ) LOZENGE MM PRN (20:28)
[2022-12-16] MEDS ORDERED: LOPERAMIDE HCL 2 MG CAPSULE PO PRN (20:28)
[2022-12-16] MEDS ORDERED: diazePAM 5 MG TABLET PO PRN (20:34)
[2022-12-16] MEDS ORDERED: METHOCARBAMOL 500 MG TABLET ONE (21:12)
[2022-12-16] MEDS: METHOCARBAMOL 500 MG TABLET PO PRN (21:13)
[2022-12-16] MEDS ORDERED: MELATONIN 5 MG TABLETS PO SCH (22:00)
[2022-12-16] MEDS: hydrOXYzine PAMOATE 25 MG CAPSULE (FP) PO PRN (22:05)
[2022-12-16] MEDS: THIAMINE HCL 100 MG TABLET (FP) PO SCH (22:05)
[2022-12-16] MEDS: SULFAMETHOXAZOLE/TRIMETHOPRIM 800MG/160MG D.S. TABLET PO SCH (22:05)
[2022-12-16] MEDS: ACETAMINOPHEN 325 MG TABLET (FP) PO PRN (22:08)
[2022-12-17] MEDS: METHOCARBAMOL 500 MG TABLET PO PRN ×3 (07:47→22:49)
[2022-12-17] MEDS: ACETAMINOPHEN 325 MG TABLET (FP) PO PRN ×3 (07:48→22:51)
[2022-12-17] MEDS ORDERED: LORazepam 1 MG TABLET PO PRN (08:53)
[2022-12-17] MEDS ORDERED: ASPIRIN 81 MG CHEWABLE TABLETS PO SCH (10:00)
[2022-12-17 10:08] LABS: HEMATOCRIT 40.4 % (35.4-49); HEMOGLOBIN 13.9 GM/dL (11.7-16.9); MCH 31.5 pg (25.7-33.7); MCHC 34.3 g/dl (32.0-35.9); MEAN CELL VOLUME 91.9 fl (80-96); MEAN PLT VOLUME 7.8 fl (7.5-11.1); PLATELET COUNT 457 10^3/uL (134-434); RDW 12.6 % (11.9-15.9); WHITE BLOOD COUNT 9.5 K/mm3 (4.0-10.0)
[2022-12-17] MEDS: CLOPIDOGREL BISULFATE 75 MG TABLET (FP) PO SCH (10:52)
[2022-12-17] MEDS: SULFAMETHOXAZOLE/TRIMETHOPRIM 800MG/160MG D.S. TABLET PO SCH ×2 (10:52→22:48)
[2022-12-17] MEDS: ASPIRIN COATED 81 MG TABLET.EC PO SCH (10:52)
[2022-12-17] MEDS: PRENATAL VITAMINS W/ FOLIC ACID TABLET (FP) PO SCH (10:53)
[2022-12-17] MEDS: LORazepam 2 MG TABLET PO SCH ×3 (10:53→22:48)
[2022-12-17 12:36] LABS: CALCIUM 9.5 mg/dL (8.5-10.1)
[2022-12-17 12:37] LABS: ALBUMIN 3.7 g/dl (3.4-5.0); BLOOD UREA NITROGEN 13.4 mg/dL (7-18)
[2022-12-17 12:40] LABS: CREATININE 1.3 mg/dL (0.55-1.3)
[2022-12-17 12:41] LABS: BILIRUBIN,TOTAL 0.5 mg/dL (0.2-1)
[2022-12-17 12:49] LABS: TOT PROT 7.4 g/dl (6.4-8.2)
[2022-12-17] MEDS: THIAMINE HCL 100 MG TABLET (FP) PO SCH (22:48)
[2022-12-17] MEDS: SUVOREXANT 10 MG TABLET PO PRN (22:49)
[2022-12-18] MEDS: LORazepam 2 MG TABLET PO SCH ×4 (05:37→22:48)
[2022-12-18] MEDS: ACETAMINOPHEN 325 MG TABLET (FP) PO PRN ×2 (05:41→17:58)
[2022-12-18] MEDS: CLOPIDOGREL BISULFATE 75 MG TABLET (FP) PO SCH (10:40)
[2022-12-18] MEDS: PRENATAL VITAMINS W/ FOLIC ACID TABLET (FP) PO SCH (10:40)
[2022-12-18] MEDS: FLUoxetine HCL 20 MG CAPSULE PO SCH (10:40)
[2022-12-18] MEDS: SULFAMETHOXAZOLE/TRIMETHOPRIM 800MG/160MG D.S. TABLET PO SCH ×2 (10:40→22:48)
[2022-12-18] MEDS: ASPIRIN COATED 81 MG TABLET.EC PO SCH (10:40)
[2022-12-18] MEDS: METHOCARBAMOL 500 MG TABLET PO PRN (10:42)
[2022-12-18] MEDS: THIAMINE HCL 100 MG TABLET (FP) PO SCH (22:48)
[2022-12-19] MEDS: METHOCARBAMOL 500 MG TABLET PO PRN ×2 (02:28→22:01)
[2022-12-19] MEDS: ACETAMINOPHEN 325 MG TABLET (FP) PO PRN ×2 (02:29→10:38)
[2022-12-19] MEDS: LORazepam 1 MG TABLET PO SCH ×4 (05:56→22:02)
[2022-12-19] MEDS: PRENATAL VITAMINS W/ FOLIC ACID TABLET (FP) PO SCH (10:36)
[2022-12-19] MEDS: SULFAMETHOXAZOLE/TRIMETHOPRIM 800MG/160MG D.S. TABLET PO SCH ×2 (10:36→22:01)
[2022-12-19] MEDS: CLOPIDOGREL BISULFATE 75 MG TABLET (FP) PO SCH (10:36)
[2022-12-19] MEDS: ASPIRIN COATED 81 MG TABLET.EC PO SCH (10:36)
[2022-12-19] MEDS: FLUoxetine HCL 20 MG CAPSULE PO SCH (10:38)
[2022-12-19] MEDS: SUVOREXANT 10 MG TABLET PO PRN (22:01)
[2022-12-19] MEDS: THIAMINE HCL 100 MG TABLET (FP) PO SCH (22:01)
[2022-12-20] MEDS ORDERED: LORazepam 0.5 MG TABLET PO PRN
[2022-12-20] MEDS: LORazepam 0.5 MG TABLET PO SCH ×4 (06:00→22:43)
[2022-12-20] MEDS: hydrOXYzine PAMOATE 25 MG CAPSULE (FP) PO PRN (06:00)
[2022-12-20] MEDS: METHOCARBAMOL 500 MG TABLET PO PRN ×2 (06:01→22:43)
[2022-12-20] MEDS: ACETAMINOPHEN 325 MG TABLET (FP) PO PRN ×3 (06:02→22:43)
[2022-12-20] MEDS: PRENATAL VITAMINS W/ FOLIC ACID TABLET (FP) PO SCH (10:06)
[2022-12-20] MEDS: FLUoxetine HCL 20 MG CAPSULE PO SCH (10:07)
[2022-12-20] MEDS: SULFAMETHOXAZOLE/TRIMETHOPRIM 800MG/160MG D.S. TABLET PO SCH ×2 (10:07→22:43)
[2022-12-20] MEDS: ASPIRIN COATED 81 MG TABLET.EC PO SCH (10:07)
[2022-12-20] MEDS: CLOPIDOGREL BISULFATE 75 MG TABLET (FP) PO SCH (10:07)
[2022-12-20] MEDS: cloNIDine HCL 0.1 MG TABLET PO SCH (13:59)
[2022-12-20] MEDS: metFORMIN HCL 500 MG TABLET (FP) PO SCH (17:06)
[2022-12-20 17:48] VITALS: RESP 18
[2022-12-20] MEDS ORDERED: SUVOREXANT 10 MG TABLET PO PRN (22:00)
[2022-12-20] MEDS: THIAMINE HCL 100 MG TABLET (FP) PO SCH (22:43)
[2022-12-21] MEDS ORDERED: LORazepam 0.5 MG TABLET PO ONE (05:00)
[2022-12-21] MEDS ORDERED: sitaGLIPtin PHOSPHATE 50 MG TABLET PO SCH (07:00)
[2022-12-21] MEDS: metFORMIN HCL 500 MG TABLET (FP) PO SCH (07:09)
[2022-12-21] MEDS: ACETAMINOPHEN 325 MG TABLET (FP) PO PRN (07:12)
[2022-12-21 09:09] VITALS: BP 126/73; PULSE 60; TEMP 97.9
[2022-12-21] MEDS: SULFAMETHOXAZOLE/TRIMETHOPRIM 800MG/160MG D.S. TABLET PO SCH (09:29)
[2022-12-21] MEDS: PRENATAL VITAMINS W/ FOLIC ACID TABLET (FP) PO SCH (09:29)
[2022-12-21] MEDS: ASPIRIN COATED 81 MG TABLET.EC PO SCH (09:29)
[2022-12-21] MEDS: cloNIDine HCL 0.1 MG TABLET PO SCH (09:30)
[2022-12-21] MEDS: FLUoxetine HCL 20 MG CAPSULE PO SCH (09:30)
[2022-12-21] MEDS: CLOPIDOGREL BISULFATE 75 MG TABLET (FP) PO SCH (09:30)
== END 2022-12-21 09:57 | disposition home or self-care (01) | DRG 774 ==
LOC: YASAS 17:00 → Y3N 21:23
PROVIDERS: ADMIT Allergy & Immunology; ATTEND Surgery
PROC: HZ2ZZZZ Detoxification Services for Substance Abuse Treatment (ICD-10-PCS; principal; 2022-12-16)
DX: F10.230 Alcohol dependence with withdrawal, uncomplicated (principal); F14.20 Cocaine dependence, uncomplicated; F17.210 Nicotine dependence, cigarettes, uncomplicated; Z21 Asymptomatic human immunodeficiency virus [HIV] infection status; I10 Essential (primary) hypertension; I73.9 Peripheral vascular disease, unspecified; J45.909 Unspecified asthma, uncomplicated; E11.9 Type 2 diabetes mellitus without complications; Z79.84 Long term (current) use of oral hypoglycemic drugs; M54.50 Low back pain, unspecified; G89.29 Other chronic pain; Z98.62 Peripheral vascular angioplasty status
CPT/HCPCS: 36415; 80053; 82962; 85027; 86593; 86780; 87811; C9803-CS; U0003; U0005

== ENCOUNTER 2022-12-19 13:14 | Emergency (ER) | payer OTHER ==
[2022-12-19 13:20] VITALS: BP 145/87; PULSE 78; RESP 16; TEMP 98.3; BMI 29.8
[2022-12-19] MEDS ORDERED: ACETAMINOPHEN 500 MG TABLET (FP) PO ONE (15:12)
[2022-12-19] MEDS ORDERED: ACETAMINOPHEN 325 MG TABLET (FP) ONE (15:21)
[2022-12-19 16:12] LABS: HEMATOCRIT 41.1 % (35.4-49); HEMOGLOBIN 13.5 GM/dL (11.7-16.9); LYMPH % 27.7 % (8-40); MCH 29.8 pg (25.7-33.7); MEAN CELL VOLUME 90.6 fl (80-96); MEAN PLT VOLUME 7.6 fl (7.5-11.1); NEUT % 59.3 % (42.8-82.8); PLATELET COUNT 522 10^3/uL (134-434); RBC 4.54 M/mm3 (4.00-5.60); RDW 12.6 % (11.9-15.9); WHITE BLOOD COUNT 8.1 K/mm3 (4.0-10.0)
[2022-12-19 16:34] LABS: ALBUMIN 3.6 g/dl (3.4-5.0); CALCIUM 9.6 mg/dL (8.5-10.1)
[2022-12-19 16:35] LABS: BLOOD UREA NITROGEN 15.4 mg/dL (7-18)
[2022-12-19 16:39] LABS: BILIRUBIN,TOTAL 0.2 mg/dL (0.2-1); TOT PROT 7.6 g/dl (6.4-8.2)
[2022-12-19 16:40] LABS: URINE APPEARANCE CLEAR; URINE BILIRUBIN NEGATIVE (NEGATIVE); URINE COLOR YELLOW; URINE GLUCOSE (UA) 3+ (NEGATIVE); URINE KETONE NEGATIVE (NEGATIVE); URINE LEUK ESTERASE NEGATIVE (NEGATIVE); URINE NITRITE NEGATIVE (NEGATIVE); URINE PROTEIN NEGATIVE (NEGATIVE)
[2022-12-19] MEDS ORDERED: KETOROLAC TROMETHAMINE 15 MG/ML VIAL IVPUSH ONE (16:54)
[2022-12-19] MEDS ORDERED: KETOROLAC TROMETHAMINE 15 MG/ML VIAL ONE (17:55)
[2022-12-19 17:56] LABS: ERYTHROCYTE SEDIMENTATION RATE 23 mm/hr (0-20)
== END 2022-12-19 19:31 | disposition home or self-care (01) ==
LOC: JER 13:14
PROC: 3E033GC Introduction of Other Therapeutic Substance into Peripheral Vein, Percutaneous Approach (ICD-10-PCS; principal; 2022-12-19)
DX: M79.672 Pain in left foot (principal); I77.89 Other specified disorders of arteries and arterioles
CPT/HCPCS: 36415; 73630-TC-LT; 80053; 81003; 85025; 85651; 86140; 87086; 93926-TC; 99284-25

== ENCOUNTER 2023-01-07 11:48 | Inpatient (IN) | payer OTHER ==
[2023-01-07 12:24] VITALS: BMI 30.7
[2023-01-07] MEDS ORDERED: NICOTINE 10 MG CARTRIDGE (INHALER) IH PRN (12:38)
[2023-01-07] MEDS ORDERED: NALOXONE HCL (KLOXXADO) 8 MG SPRAY NS PRN (12:38)
[2023-01-07] MEDS ORDERED: guaiFENesin 600 MG TABLET.ER (FP) PO PRN (12:38)
[2023-01-07] MEDS ORDERED: LOPERAMIDE HCL 2 MG CAPSULE PO PRN (12:38)
[2023-01-07] MEDS ORDERED: ACETAMINOPHEN 325 MG TABLET (FP) PO PRN (12:38)
[2023-01-07] MEDS ORDERED: POLYETHYLENE GLYCOL (HEALTHYLAX) 3350 17 GM PACKET PO PRN (12:38)
[2023-01-07] MEDS ORDERED: BENZOCAINE/MENTHOL (CHLORASEPTIC ) LOZENGE MM PRN (12:38)
[2023-01-07] MEDS ORDERED: NALOXONE HCL 0.4 MG/ML VIAL IM PRN (12:38)
[2023-01-07] MEDS ORDERED: MAGNESIUM HYDROX 2400MG/30ML ORAL SUSPENSION 30 ML CUP PO PRN (12:38)
[2023-01-07] MEDS ORDERED: BENZONATATE 200 MG CAPSULE PO PRN (12:38)
[2023-01-07] MEDS ORDERED: ASPIRIN 81 MG CHEWABLE TABLETS ONE (13:22)
[2023-01-07] MEDS ORDERED: PRENATAL VITAMINS W/ FOLIC ACID TABLET (FP) PO ONE (13:22)
[2023-01-07] MEDS: PRENATAL VITAMINS W/ FOLIC ACID TABLET (FP) PO SCH (13:25)
[2023-01-07] MEDS: ASPIRIN 81 MG CHEWABLE TABLETS PO SCH (13:25)
[2023-01-07 15:13] LABS: HEMATOCRIT 36.8 % (35.4-49); HEMOGLOBIN 12.5 GM/dL (11.7-16.9); MCH 31.3 pg (25.7-33.7); MCHC 34.1 g/dl (32.0-35.9); MEAN CELL VOLUME 91.8 fl (80-96); MEAN PLT VOLUME 7.4 fl (7.5-11.1); PLATELET COUNT 438 10^3/uL (134-434); RBC 4.01 M/mm3 (4.00-5.60); RDW 13.5 % (11.9-15.9); WHITE BLOOD COUNT 8.7 K/mm3 (4.0-10.0)
[2023-01-07 15:33] LABS: CALCIUM 9.2 mg/dL (8.5-10.1)
[2023-01-07 15:34] LABS: ALBUMIN 3.5 g/dl (3.4-5.0); BLOOD UREA NITROGEN 8.2 mg/dL (7-18)
[2023-01-07] MEDS ORDERED: cloNIDine HCL 0.1 MG TABLET PO ONE (15:37)
[2023-01-07 15:38] LABS: BILIRUBIN,TOTAL 0.4 mg/dL (0.2-1); TOT PROT 6.6 g/dl (6.4-8.2)
[2023-01-07 16:31] LABS: SYPHILIS W/ RPR CONF REACTIVE (NONREACTIVE)
[2023-01-07] MEDS: INSULIN SLIDING SCALE (NOVOLOG) 1 VIAL SQ SCH (17:31)
[2023-01-07] MEDS: THIAMINE HCL 100 MG TABLET (FP) PO SCH (21:50)
[2023-01-07] MEDS ORDERED: MELATONIN 5 MG TABLETS PO SCH (22:00)
[2023-01-07] MEDS ORDERED: SUVOREXANT 10 MG TABLET PO PRN (22:00)
[2023-01-08] MEDS: IBUPROFEN 600 MG TABLET (FP) PO PRN (06:00)
[2023-01-08] MEDS: INSULIN SLIDING SCALE (NOVOLOG) 1 VIAL SQ SCH ×4 (07:51→16:48)
[2023-01-08] MEDS ORDERED: INSULIN (NOVOLOG) ASPART 100 UNITS/ML 10ML VIAL ONE (07:52)
[2023-01-08] MEDS: PRENATAL VITAMINS W/ FOLIC ACID TABLET (FP) PO SCH (09:34)
[2023-01-08] MEDS: cloNIDine HCL 0.1 MG TABLET PO SCH (09:34)
[2023-01-08] MEDS: ASPIRIN 81 MG CHEWABLE TABLETS PO SCH (09:34)
[2023-01-08] MEDS: IBUPROFEN 400 MG TABLET (FP) PO PRN ×2 (12:24→19:29)
[2023-01-08 13:47] LABS: HIV INTERPRETATION NEGATIVE (NEGATIVE)
[2023-01-08 17:16] LABS: PH,URINE 6.5 (5.0-8.0); URINE APPEARANCE CLEAR; URINE BILIRUBIN NEGATIVE (NEGATIVE); URINE COLOR YELLOW; URINE GLUCOSE (UA) 1+ (NEGATIVE); URINE KETONE NEGATIVE (NEGATIVE); URINE LEUK ESTERASE NEGATIVE (NEGATIVE); URINE NITRITE NEGATIVE (NEGATIVE); URINE PROTEIN NEGATIVE (NEGATIVE)
[2023-01-08] MEDS: THIAMINE HCL 100 MG TABLET (FP) PO SCH (21:31)
[2023-01-08] MEDS: BACITRACIN ZINC 15 GM TUBE TOPICAL OINTMENT TP SCH (21:31)
[2023-01-08] MEDS: SUVOREXANT 15 MG TABLET PO PRN (21:32)
[2023-01-09] MEDS: IBUPROFEN 600 MG TABLET (FP) PO PRN (01:23)
[2023-01-09] MEDS: IBUPROFEN 400 MG TABLET (FP) PO PRN ×4 (06:03→21:30)
[2023-01-09] MEDS ORDERED: INSULIN (NOVOLOG) ASPART 100 UNITS/ML 10ML VIAL ONE (06:03)
[2023-01-09] MEDS: INSULIN SLIDING SCALE (NOVOLOG) 1 VIAL SQ SCH ×3 (06:29→16:50)
[2023-01-09] MEDS: cloNIDine HCL 0.1 MG TABLET PO SCH (09:45)
[2023-01-09] MEDS: PRENATAL VITAMINS W/ FOLIC ACID TABLET (FP) PO SCH (09:45)
[2023-01-09] MEDS: ASPIRIN 81 MG CHEWABLE TABLETS PO SCH (09:45)
[2023-01-09] MEDS: BACITRACIN ZINC 15 GM TUBE TOPICAL OINTMENT TP SCH ×2 (09:46→21:28)
[2023-01-09] MEDS: THIAMINE HCL 100 MG TABLET (FP) PO SCH (21:27)
[2023-01-09] MEDS: SUVOREXANT 15 MG TABLET PO PRN (21:29)
[2023-01-09] MEDS: hydrOXYzine PAMOATE 25 MG CAPSULE (FP) PO PRN (21:29)
[2023-01-10] MEDS: IBUPROFEN 600 MG TABLET (FP) PO PRN (01:47)
[2023-01-10] MEDS: INSULIN SLIDING SCALE (NOVOLOG) 1 VIAL SQ SCH ×3 (06:01→16:43)
[2023-01-10] MEDS: ASPIRIN 81 MG CHEWABLE TABLETS PO SCH (09:49)
[2023-01-10] MEDS: PRENATAL VITAMINS W/ FOLIC ACID TABLET (FP) PO SCH (09:49)
[2023-01-10] MEDS: cloNIDine HCL 0.1 MG TABLET PO SCH (09:50)
[2023-01-10] MEDS: BACITRACIN ZINC 15 GM TUBE TOPICAL OINTMENT TP SCH ×2 (09:50→21:20)
[2023-01-10] MEDS: IBUPROFEN 400 MG TABLET (FP) PO PRN ×3 (09:51→21:20)
[2023-01-10] MEDS: hydrOXYzine PAMOATE 25 MG CAPSULE (FP) PO PRN (21:20)
[2023-01-10] MEDS: THIAMINE HCL 100 MG TABLET (FP) PO SCH (21:20)
[2023-01-10] MEDS: SUVOREXANT 15 MG TABLET PO PRN (21:22)
[2023-01-10] MEDS: MAG HYDROX/AL HYDROX/SIMETH 30 ML UNIT-DOSE CUP PO PRN (21:23)
[2023-01-11] MEDS: INSULIN SLIDING SCALE (NOVOLOG) 1 VIAL SQ SCH ×2 (06:56→17:00)
[2023-01-11] MEDS: ASPIRIN 81 MG CHEWABLE TABLETS PO SCH (09:55)
[2023-01-11] MEDS: PRENATAL VITAMINS W/ FOLIC ACID TABLET (FP) PO SCH (09:55)
[2023-01-11] MEDS: BACITRACIN ZINC 15 GM TUBE TOPICAL OINTMENT TP SCH ×2 (09:55→21:42)
[2023-01-11] MEDS: cloNIDine HCL 0.1 MG TABLET PO SCH (09:56)
[2023-01-11] MEDS: IBUPROFEN 600 MG TABLET (FP) PO PRN ×3 (09:57→21:41)
[2023-01-11] MEDS: THIAMINE HCL 100 MG TABLET (FP) PO SCH (21:39)
[2023-01-12] MEDS: INSULIN SLIDING SCALE (NOVOLOG) 1 VIAL SQ SCH ×2 (06:53→17:54)
[2023-01-12] MEDS: IBUPROFEN 600 MG TABLET (FP) PO PRN ×2 (06:56→21:51)
[2023-01-12] MEDS: ASPIRIN 81 MG CHEWABLE TABLETS PO SCH (09:34)
[2023-01-12] MEDS: cloNIDine HCL 0.1 MG TABLET PO SCH (09:34)
[2023-01-12] MEDS: PRENATAL VITAMINS W/ FOLIC ACID TABLET (FP) PO SCH (09:34)
[2023-01-12] MEDS: BACITRACIN ZINC 15 GM TUBE TOPICAL OINTMENT TP SCH ×2 (09:37→22:34)
[2023-01-12] MEDS: THIAMINE HCL 100 MG TABLET (FP) PO SCH (21:51)
[2023-01-12] MEDS: hydrOXYzine PAMOATE 25 MG CAPSULE (FP) PO PRN (21:52)
[2023-01-12] MEDS: SUVOREXANT 15 MG TABLET PO PRN (21:53)
[2023-01-13] MEDS: IBUPROFEN 400 MG TABLET (FP) PO PRN ×2 (05:55→15:50)
[2023-01-13] MEDS: INSULIN SLIDING SCALE (NOVOLOG) 1 VIAL SQ SCH ×2 (07:02→17:01)
[2023-01-13] MEDS: ASPIRIN 81 MG CHEWABLE TABLETS PO SCH (09:47)
[2023-01-13] MEDS: PRENATAL VITAMINS W/ FOLIC ACID TABLET (FP) PO SCH (09:48)
[2023-01-13] MEDS: cloNIDine HCL 0.1 MG TABLET PO SCH (09:48)
[2023-01-13] MEDS: BACITRACIN ZINC 15 GM TUBE TOPICAL OINTMENT TP SCH ×2 (09:48→21:42)
[2023-01-13] MEDS: IBUPROFEN 600 MG TABLET (FP) PO PRN ×2 (09:49→21:40)
[2023-01-13] MEDS: THIAMINE HCL 100 MG TABLET (FP) PO SCH (21:41)
[2023-01-13] MEDS: SUVOREXANT 15 MG TABLET PO PRN (21:41)
[2023-01-13] MEDS: hydrOXYzine PAMOATE 25 MG CAPSULE (FP) PO PRN (21:41)
[2023-01-14] MEDS: INSULIN SLIDING SCALE (NOVOLOG) 1 VIAL SQ SCH ×2 (06:23→16:31)
[2023-01-14] MEDS: BACITRACIN ZINC 15 GM TUBE TOPICAL OINTMENT TP SCH ×2 (09:48→21:17)
[2023-01-14] MEDS: cloNIDine HCL 0.1 MG TABLET PO SCH (09:48)
[2023-01-14] MEDS: ASPIRIN 81 MG CHEWABLE TABLETS PO SCH (09:48)
[2023-01-14] MEDS: PRENATAL VITAMINS W/ FOLIC ACID TABLET (FP) PO SCH (09:49)
[2023-01-14] MEDS: IBUPROFEN 600 MG TABLET (FP) PO PRN ×2 (09:49→21:18)
[2023-01-14] MEDS: hydrOXYzine PAMOATE 25 MG CAPSULE (FP) PO PRN (21:17)
[2023-01-14] MEDS: SUVOREXANT 15 MG TABLET PO PRN (21:17)
[2023-01-14] MEDS: THIAMINE HCL 100 MG TABLET (FP) PO SCH (21:17)
[2023-01-15] MEDS: INSULIN SLIDING SCALE (NOVOLOG) 1 VIAL SQ SCH ×2 (06:02→16:40)
[2023-01-15] MEDS: cloNIDine HCL 0.1 MG TABLET PO SCH (06:02)
[2023-01-15] MEDS: PRENATAL VITAMINS W/ FOLIC ACID TABLET (FP) PO SCH (09:41)
[2023-01-15] MEDS: ASPIRIN 81 MG CHEWABLE TABLETS PO SCH (09:41)
[2023-01-15] MEDS: IBUPROFEN 400 MG TABLET (FP) PO PRN (09:42)
[2023-01-15] MEDS: BACITRACIN ZINC 15 GM TUBE TOPICAL OINTMENT TP SCH ×2 (10:06→22:11)
[2023-01-15] MEDS: THIAMINE HCL 100 MG TABLET (FP) PO SCH (21:19)
[2023-01-15] MEDS: IBUPROFEN 600 MG TABLET (FP) PO PRN (21:19)
[2023-01-15] MEDS: SUVOREXANT 15 MG TABLET PO PRN (21:20)
[2023-01-15] MEDS: hydrOXYzine PAMOATE 25 MG CAPSULE (FP) PO PRN (21:20)
[2023-01-16] MEDS: cloNIDine HCL 0.1 MG TABLET PO SCH (05:51)
[2023-01-16] MEDS: IBUPROFEN 400 MG TABLET (FP) PO PRN (05:51)
[2023-01-16] MEDS: INSULIN SLIDING SCALE (NOVOLOG) 1 VIAL SQ SCH ×2 (06:46→16:31)
[2023-01-16] MEDS: ASPIRIN 81 MG CHEWABLE TABLETS PO SCH (09:58)
[2023-01-16] MEDS: PRENATAL VITAMINS W/ FOLIC ACID TABLET (FP) PO SCH (09:59)
[2023-01-16] MEDS: BACITRACIN ZINC 15 GM TUBE TOPICAL OINTMENT TP SCH ×2 (09:59→21:04)
[2023-01-16] MEDS ORDERED: cloNIDine HCL 0.1 MG TABLET PO SCH (10:00)
[2023-01-16] MEDS: IBUPROFEN 600 MG TABLET (FP) PO PRN ×2 (10:00→21:04)
[2023-01-16] MEDS: SUVOREXANT 15 MG TABLET PO PRN (21:04)
[2023-01-16] MEDS: THIAMINE HCL 100 MG TABLET (FP) PO SCH (21:04)
[2023-01-16] MEDS: hydrOXYzine PAMOATE 25 MG CAPSULE (FP) PO PRN (21:04)
[2023-01-16] MEDS: MAG HYDROX/AL HYDROX/SIMETH 30 ML UNIT-DOSE CUP PO PRN (21:06)
[2023-01-17] MEDS: INSULIN SLIDING SCALE (NOVOLOG) 1 VIAL SQ SCH ×2 (06:50→16:49)
[2023-01-17] MEDS: ASPIRIN 81 MG CHEWABLE TABLETS PO SCH (09:46)
[2023-01-17] MEDS: PRENATAL VITAMINS W/ FOLIC ACID TABLET (FP) PO SCH (09:46)
[2023-01-17] MEDS: IBUPROFEN 400 MG TABLET (FP) PO PRN (09:47)
[2023-01-17] MEDS: BACITRACIN ZINC 15 GM TUBE TOPICAL OINTMENT TP SCH ×2 (09:48→23:24)
[2023-01-17] MEDS: THIAMINE HCL 100 MG TABLET (FP) PO SCH (23:24)
[2023-01-18] MEDS: MAG HYDROX/AL HYDROX/SIMETH 30 ML UNIT-DOSE CUP PO PRN (01:30)
[2023-01-18] MEDS: hydrOXYzine PAMOATE 25 MG CAPSULE (FP) PO PRN ×2 (01:30→21:14)
[2023-01-18] MEDS: IBUPROFEN 600 MG TABLET (FP) PO PRN ×3 (01:30→21:14)
[2023-01-18] MEDS: INSULIN SLIDING SCALE (NOVOLOG) 1 VIAL SQ SCH ×2 (06:43→16:49)
[2023-01-18] MEDS: ASPIRIN 81 MG CHEWABLE TABLETS PO SCH (09:46)
[2023-01-18] MEDS: PRENATAL VITAMINS W/ FOLIC ACID TABLET (FP) PO SCH (09:49)
[2023-01-18] MEDS: IBUPROFEN 400 MG TABLET (FP) PO PRN (09:49)
[2023-01-18] MEDS: BACITRACIN ZINC 15 GM TUBE TOPICAL OINTMENT TP SCH ×2 (09:50→21:15)
[2023-01-18] MEDS: cloNIDine HCL 0.1 MG TABLET PO SCH ×2 (11:35→21:14)
[2023-01-18] MEDS ORDERED: INSULIN (NOVOLOG) ASPART 100 UNITS/ML 10ML VIAL ONE (16:49)
[2023-01-18] MEDS: THIAMINE HCL 100 MG TABLET (FP) PO SCH (21:14)
[2023-01-18] MEDS: SUVOREXANT 15 MG TABLET PO PRN (21:14)
[2023-01-19] MEDS: IBUPROFEN 600 MG TABLET (FP) PO PRN ×2 (05:56→21:22)
[2023-01-19] MEDS: INSULIN SLIDING SCALE (NOVOLOG) 1 VIAL SQ SCH ×2 (06:47→16:47)
[2023-01-19] MEDS: cloNIDine HCL 0.1 MG TABLET PO SCH ×2 (09:36→21:22)
[2023-01-19] MEDS: ASPIRIN 81 MG CHEWABLE TABLETS PO SCH (09:36)
[2023-01-19] MEDS: PRENATAL VITAMINS W/ FOLIC ACID TABLET (FP) PO SCH (09:36)
[2023-01-19] MEDS: IBUPROFEN 400 MG TABLET (FP) PO PRN (09:37)
[2023-01-19] MEDS: BACITRACIN ZINC 15 GM TUBE TOPICAL OINTMENT TP SCH ×2 (09:38→21:36)
[2023-01-19] MEDS: hydrOXYzine PAMOATE 25 MG CAPSULE (FP) PO PRN (21:22)
[2023-01-19] MEDS: THIAMINE HCL 100 MG TABLET (FP) PO SCH (21:22)
[2023-01-20] MEDS: IBUPROFEN 400 MG TABLET (FP) PO PRN ×2 (06:05→10:05)
[2023-01-20] MEDS: INSULIN SLIDING SCALE (NOVOLOG) 1 VIAL SQ SCH ×2 (07:17→16:32)
[2023-01-20] MEDS: ASPIRIN 81 MG CHEWABLE TABLETS PO SCH (10:03)
[2023-01-20] MEDS: PRENATAL VITAMINS W/ FOLIC ACID TABLET (FP) PO SCH (10:04)
[2023-01-20] MEDS: BACITRACIN ZINC 15 GM TUBE TOPICAL OINTMENT TP SCH ×2 (10:04→21:04)
[2023-01-20] MEDS: cloNIDine HCL 0.1 MG TABLET PO SCH ×2 (10:04→21:04)
[2023-01-20] MEDS: THIAMINE HCL 100 MG TABLET (FP) PO SCH (21:03)
[2023-01-20] MEDS: hydrOXYzine PAMOATE 25 MG CAPSULE (FP) PO PRN (21:04)
[2023-01-20] MEDS: IBUPROFEN 600 MG TABLET (FP) PO PRN (21:04)
[2023-01-20] MEDS: MAG HYDROX/AL HYDROX/SIMETH 30 ML UNIT-DOSE CUP PO PRN (22:10)
[2023-01-21] MEDS: IBUPROFEN 400 MG TABLET (FP) PO PRN ×2 (06:03→09:47)
[2023-01-21] MEDS ORDERED: INSULIN (NOVOLOG) ASPART 100 UNITS/ML 10ML VIAL ONE (06:04)
[2023-01-21] MEDS: INSULIN SLIDING SCALE (NOVOLOG) 1 VIAL SQ SCH ×2 (06:30→17:07)
[2023-01-21] MEDS: cloNIDine HCL 0.1 MG TABLET PO SCH ×2 (09:46→21:44)
[2023-01-21] MEDS: PRENATAL VITAMINS W/ FOLIC ACID TABLET (FP) PO SCH (09:46)
[2023-01-21] MEDS: BACITRACIN ZINC 15 GM TUBE TOPICAL OINTMENT TP SCH ×2 (09:46→21:44)
[2023-01-21] MEDS: ASPIRIN 81 MG CHEWABLE TABLETS PO SCH (09:46)
[2023-01-21] MEDS: SUVOREXANT 15 MG TABLET PO PRN (21:32)
[2023-01-21] MEDS: THIAMINE HCL 100 MG TABLET (FP) PO SCH (21:44)
[2023-01-22] MEDS: IBUPROFEN 400 MG TABLET (FP) PO PRN (06:03)
[2023-01-22] MEDS: INSULIN SLIDING SCALE (NOVOLOG) 1 VIAL SQ SCH ×2 (06:27→17:26)
[2023-01-22] MEDS: ASPIRIN 81 MG CHEWABLE TABLETS PO SCH (09:48)
[2023-01-22] MEDS: BACITRACIN ZINC 15 GM TUBE TOPICAL OINTMENT TP SCH ×2 (09:49→21:49)
[2023-01-22] MEDS: PRENATAL VITAMINS W/ FOLIC ACID TABLET (FP) PO SCH (09:49)
[2023-01-22] MEDS: cloNIDine HCL 0.1 MG TABLET PO SCH ×2 (09:49→21:14)
[2023-01-22] MEDS: IBUPROFEN 600 MG TABLET (FP) PO PRN ×3 (09:50→21:14)
[2023-01-22 11:06] LABS: HEMOGLOBIN 14.6 GM/dL (11.7-16.9); MCHC 34.8 g/dl (32.0-35.9); MEAN CELL VOLUME 91.8 fl (80-96); PLATELET COUNT 434 10^3/uL (134-434); RBC 4.58 M/mm3 (4.00-5.60); RDW 12.8 % (11.9-15.9); WHITE BLOOD COUNT 7.4 K/mm3 (4.0-10.0)
[2023-01-22 11:18] LABS: BLOOD UREA NITROGEN 14.8 mg/dL (7-18); CREATININE 0.9 mg/dL (0.55-1.3)
[2023-01-22 11:19] LABS: BILIRUBIN,TOTAL 0.4 mg/dL (0.2-1)
[2023-01-22 11:20] LABS: TOT PROT 7.8 g/dl (6.4-8.2)
[2023-01-22] MEDS: SUVOREXANT 15 MG TABLET PO PRN (21:13)
[2023-01-22] MEDS: THIAMINE HCL 100 MG TABLET (FP) PO SCH (21:14)
[2023-01-23] MEDS: IBUPROFEN 400 MG TABLET (FP) PO PRN (06:45)
[2023-01-23] MEDS: INSULIN SLIDING SCALE (NOVOLOG) 1 VIAL SQ SCH ×2 (06:48→17:03)
[2023-01-23] MEDS ORDERED: INSULIN (NOVOLOG) ASPART 100 UNITS/ML 10ML VIAL ONE (06:55)
[2023-01-23] MEDS: IBUPROFEN 600 MG TABLET (FP) PO PRN ×3 (09:41→21:41)
[2023-01-23] MEDS: BACITRACIN ZINC 15 GM TUBE TOPICAL OINTMENT TP SCH ×2 (09:41→21:41)
[2023-01-23] MEDS: PRENATAL VITAMINS W/ FOLIC ACID TABLET (FP) PO SCH (09:41)
[2023-01-23] MEDS: cloNIDine HCL 0.1 MG TABLET PO SCH ×2 (09:41→21:40)
[2023-01-23] MEDS: ASPIRIN 81 MG CHEWABLE TABLETS PO SCH (09:41)
[2023-01-23] MEDS: METHYL SALICYLATE/MENTHOL OINT 30 GM TUBE TP SCH (11:29)
[2023-01-23] MEDS: THIAMINE HCL 100 MG TABLET (FP) PO SCH (21:40)
[2023-01-23] MEDS: SUVOREXANT 15 MG TABLET PO PRN (21:42)
[2023-01-23] MEDS: hydrOXYzine PAMOATE 25 MG CAPSULE (FP) PO PRN (21:42)
[2023-01-24] MEDS ORDERED: INSULIN (NOVOLOG) ASPART 100 UNITS/ML 10ML VIAL ONE ×2 (06:01→06:51)
[2023-01-24] MEDS: INSULIN SLIDING SCALE (NOVOLOG) 1 VIAL SQ SCH ×2 (06:01→17:02)
[2023-01-24] MEDS: IBUPROFEN 400 MG TABLET (FP) PO PRN (06:01)
[2023-01-24] MEDS: ASPIRIN 81 MG CHEWABLE TABLETS PO SCH (09:41)
[2023-01-24] MEDS: cloNIDine HCL 0.1 MG TABLET PO SCH ×2 (09:41→23:15)
[2023-01-24] MEDS: PRENATAL VITAMINS W/ FOLIC ACID TABLET (FP) PO SCH (09:42)
[2023-01-24] MEDS: BACITRACIN ZINC 15 GM TUBE TOPICAL OINTMENT TP SCH ×2 (09:43→23:15)
[2023-01-24] MEDS: METHYL SALICYLATE/MENTHOL OINT 30 GM TUBE TP SCH (09:43)
[2023-01-24] MEDS: IBUPROFEN 600 MG TABLET (FP) PO PRN (11:22)
[2023-01-24] MEDS: MAG HYDROX/AL HYDROX/SIMETH 30 ML UNIT-DOSE CUP PO PRN (20:20)
[2023-01-24 20:42] VITALS: BP 187/84; PULSE 82; RESP 18; TEMP 97.1
[2023-01-24] MEDS: THIAMINE HCL 100 MG TABLET (FP) PO SCH (23:15)
== END 2023-01-25 06:00 | disposition short-term general hospital (02) | DRG 772 ==
LOC: YASAS 11:48 → Y3E 15:00
PROVIDERS: ADMIT Allergy & Immunology; ATTEND Psychiatry & Neurology Pain Medicine
PROC: HZ42ZZZ Group Counseling for Substance Abuse Treatment, Cognitive-Behavioral (ICD-10-PCS; principal; 2023-01-07)
DX: F10.20 Alcohol dependence, uncomplicated (principal); F14.20 Cocaine dependence, uncomplicated; F17.210 Nicotine dependence, cigarettes, uncomplicated; F31.9 Bipolar disorder, unspecified; F19.282 Other psychoactive substance dependence with psychoactive substance-induced sleep disorder; F19.24 Other psychoactive substance dependence with psychoactive substance-induced mood disorder; F41.9 Anxiety disorder, unspecified; Z21 Asymptomatic human immunodeficiency virus [HIV] infection status; I10 Essential (primary) hypertension; I73.9 Peripheral vascular disease, unspecified; K21.9 Gastro-esophageal reflux disease without esophagitis; E11.52 Type 2 diabetes mellitus with diabetic peripheral angiopathy with gangrene; I96 Gangrene, not elsewhere classified; E11.610 Type 2 diabetes mellitus with diabetic neuropathic arthropathy; M14.672 Charcot's joint, left ankle and foot; Z79.84 Long term (current) use of oral hypoglycemic drugs; R76.8 Other specified abnormal immunological findings in serum; R07.9 Chest pain, unspecified; R94.31 Abnormal electrocardiogram [ECG] [EKG]; Z95.5 Presence of coronary angioplasty implant and graft; Z86.19 Personal history of other infectious and parasitic diseases; Z91.148 Patient's other noncompliance with medication regimen for other reason
CPT/HCPCS: 36415; 73630-TC-LT; 80053; 81003; 82962; 83036; 85027; 86593; 86780; 86803; 87389; 87811; 93005; 93010; C9803-CS; U0003; U0005

== ENCOUNTER 2023-01-24 21:09 | Inpatient (IN) | payer OTHER ==
[2023-01-24 22:00] LABS: BASO % 0.8 % (0-2.0); EOS % 2.6 % (0-4.5); HEMATOCRIT 41.1 % (35.4-49); HEMOGLOBIN 14.4 GM/dL (11.7-16.9); LYMPH % 35.9 % (8-40); MCH 31.6 pg (25.7-33.7); MCHC 34.9 g/dl (32.0-35.9); MEAN CELL VOLUME 90.5 fl (80-96); MEAN PLT VOLUME 7.8 fl (7.5-11.1); MONO % 7.9 % (3.8-10.2); NEUT % 52.8 % (42.8-82.8); PLATELET COUNT 416 10^3/uL (134-434); RBC 4.54 M/mm3 (4.00-5.60); RDW 12.6 % (11.9-15.9); WHITE BLOOD COUNT 6.8 K/mm3 (4.0-10.0)
[2023-01-24 22:15] LABS: INR 0.95 (0.83-1.09)
[2023-01-24 22:17] LABS: ACTIVATED PTT 31.2 SECONDS (25.2-36.5)
[2023-01-24 22:21] LABS: BLOOD UREA NITROGEN 15.6 mg/dL (7-18)
[2023-01-24 22:24] LABS: CREATININE 0.8 mg/dL (0.55-1.3)
[2023-01-24 22:26] LABS: BILIRUBIN,TOTAL 0.3 mg/dL (0.2-1); TOT PROT 7.7 g/dl (6.4-8.2)
[2023-01-24] MEDS ORDERED: ASPIRIN 81 MG CHEWABLE TABLETS PO ONE (22:49)
[2023-01-24] MEDS ORDERED: NITROGLYCERIN SUBLINGUAL 1/150 0.4 MG TAB SL ONE (22:50)
[2023-01-24] MEDS ORDERED: ACETAMINOPHEN 1000 MG/100 ML BAG IVPB ONE (22:59)
[2023-01-24] MEDS ORDERED: NITROGLYCERIN SUBLINGUAL 1/150 0.4 MG TAB ONE (23:02)
[2023-01-24] MEDS ORDERED: ACETAMINOPHEN INJECTION 100 ML IVPB ONE (23:02)
[2023-01-24] MEDS ORDERED: ASPIRIN 81 MG CHEWABLE TABLETS ONE (23:02)
[2023-01-25] MEDS ORDERED: HEPARIN NA (PORCINE) 5,000 UNITS/ML 1ML VIAL IVPUSH ONE (03:19)
[2023-01-25] MEDS ORDERED: HEPARIN NA (PORCINE) 5,000 UNITS/ML 1ML VIAL IVPUSH PRN ×2 (03:19)
[2023-01-25] MEDS ORDERED: HEPARIN INFUSION - 25,000 UNITS/500 ML INFUS.BAG IVPB ONE (03:29)
[2023-01-25] MEDS ORDERED: HEPARIN NA (PORCINE) 5,000 UNITS/ML 1ML VIAL ONE (03:29)
[2023-01-25] MEDS ORDERED: HEPARIN SOD,PORK IN 0.45% NACL 25,000 UNITS/500 ML INFUS.BAG IVPB SCH (03:30)
[2023-01-25 04:05] LABS: COCAINE, UR NEGATIVE (NEGATIVE); OPIATES, URI NEGATIVE (NEGATIVE); PHENCYCLIDINE,URINE NEGATIVE (NEGATIVE)
[2023-01-25] MEDS ORDERED: ZOLPIDEM TARTRATE 5 MG TABLET PO PRN (04:16)
[2023-01-25] MEDS ORDERED: NITROGLYCERIN SUBLINGUAL 1/150 0.4 MG TAB SL PRN (04:17)
[2023-01-25 04:33] LABS: METHADONE, UR NEGATIVE (NEGATIVE); URINE AMPHETAMINES NEGATIVE (NEGATIVE); URINE BARBITURATES NEGATIVE (NEGATIVE); URINE BENZODIAZEPINES NEGATIVE (NEGATIVE)
[2023-01-25 07:36] VITALS: BMI 30.7
[2023-01-25 08:16] LABS: HEMOGLOBIN 14.8 GM/dL (11.7-16.9); MCH 32.3 pg (25.7-33.7); MCHC 35.3 g/dl (32.0-35.9); MEAN CELL VOLUME 91.5 fl (80-96); MEAN PLT VOLUME 7.9 fl (7.5-11.1); PLATELET COUNT 447 10^3/uL (134-434); RBC 4.59 M/mm3 (4.00-5.60); RDW 12.7 % (11.9-15.9); WHITE BLOOD COUNT 6.6 K/mm3 (4.0-10.0)
[2023-01-25 08:32] LABS: CHLORIDE 98 mmol/L (98-107); SODIUM 134 mmol/L (136-145)
[2023-01-25 08:35] LABS: ANION GAP 5 MMOL/L (8-16); BLOOD UREA NITROGEN 11.7 mg/dL (7-18); CALCIUM 9.7 mg/dL (8.5-10.1); CO2 32 mmol/L (21-32); GLUCOSE,RANDOM 204 mg/dL (74-106)
[2023-01-25 08:37] LABS: CHOLESTEROL 297 mg/dL (50-200)
[2023-01-25 08:38] LABS: CREATININE 0.9 mg/dL (0.55-1.3); LDL CHOLESTEROL (ONLY SJRH) 200 mg/dL (5-100)
[2023-01-25 08:40] LABS: HDL CHOLESTEROL 55 mg/dL (40-60)
[2023-01-25] MEDS: GABAPENTIN 300 MG CAPSULE PO SCH ×2 (09:32→09:33)
[2023-01-25] MEDS: INSULIN SLIDING SCALE (NOVOLOG) 1 VIAL SQ SCH ×2 (09:33→11:03)
[2023-01-25] MEDS ORDERED: FLUoxetine HCL 20 MG CAPSULE PO SCH (10:00)
[2023-01-25] MEDS ORDERED: clonazePAM 0.5 MG TABLET PO SCH (10:00)
[2023-01-25] MEDS ORDERED: CARVEDILOL 12.5 MG TABLET (FP) PO SCH (10:00)
[2023-01-25] MEDS ORDERED: THIAMINE HCL 200 MG/2 ML VIAL IVPB SCH (10:00)
[2023-01-25] MEDS ORDERED: CLOPIDOGREL BISULFATE 75 MG TABLET (FP) PO SCH (10:00)
[2023-01-25] MEDS ORDERED: cloNIDine HCL 0.1 MG TABLET PO SCH (10:00)
[2023-01-25] MEDS ORDERED: ASPIRIN COATED 81 MG TABLET.EC PO SCH (10:00)
[2023-01-25] MEDS ORDERED: LOSARTAN POTASSIUM 50 MG TABLET PO SCH (10:00)
[2023-01-25] MEDS ORDERED: FOLIC ACID 5 MG/1 ML SQ SCH (10:00)
[2023-01-25 14:09] VITALS: RESP 18; TEMP 99.2
[2023-01-25 15:28] VITALS: BP 146/74; PULSE 83
[2023-01-25] MEDS ORDERED: hydrOXYzine PAMOATE 50 MG CAPSULE (FP) PO SCH (22:00)
[2023-01-25] MEDS ORDERED: ATORVASTATIN CA 80 MG TABLET (FP) PO SCH (22:00)
== END 2023-01-25 14:30 | disposition short-term general hospital (02) | DRG 190 ==
LOC: JER 21:09 → JERBED 23:32 → OBSVTOIN 23:32 → J4W 01-25 05:54
PROVIDERS: ADMIT Internal Medicine; ATTEND Internal Medicine
DX: I21.4 Non-ST elevation (NSTEMI) myocardial infarction (principal); I10 Essential (primary) hypertension; E78.5 Hyperlipidemia, unspecified; E11.610 Type 2 diabetes mellitus with diabetic neuropathic arthropathy; E11.52 Type 2 diabetes mellitus with diabetic peripheral angiopathy with gangrene; F31.9 Bipolar disorder, unspecified; F10.10 Alcohol abuse, uncomplicated; F14.10 Cocaine abuse, uncomplicated; I25.10 Atherosclerotic heart disease of native coronary artery without angina pectoris; K21.9 Gastro-esophageal reflux disease without esophagitis; F41.8 Other specified anxiety disorders; M54.50 Low back pain, unspecified; I35.0 Nonrheumatic aortic (valve) stenosis
CPT/HCPCS: 0241U-QW; 36415; 71046-TC-FY; 80048; 80053; 80061; 80307; 82550; 82962; 83735; 84484; 85025; 85027; 85610; 85730; 93005; 93010; 99285-25; J1644

== ENCOUNTER 2023-09-15 08:50 | Inpatient (IN) | payer OTHER ==
[2023-09-15 09:12] VITALS: BMI 29.2
[2023-09-15] MEDS ORDERED: MAG HYDROX/AL HYDROX/SIMETH 30 ML UNIT-DOSE CUP PO PRN (09:42)
[2023-09-15] MEDS ORDERED: NALOXONE HCL 0.4 MG/ML VIAL IM PRN (09:42)
[2023-09-15] MEDS ORDERED: NICOTINE POLACRILEX 2 MG GUM BUC PRN (09:42)
[2023-09-15] MEDS ORDERED: COLLOIDAL OATMEAL 1 BAR EACH TP PRN (09:42)
[2023-09-15] MEDS ORDERED: MAGNESIUM HYDROX 2400MG/30ML ORAL SUSPENSION 30 ML CUP PO PRN (09:42)
[2023-09-15] MEDS ORDERED: POLYETHYLENE GLYCOL (HEALTHYLAX) 3350 17 GM PACKET PO PRN (09:42)
[2023-09-15] MEDS ORDERED: BENZOCAINE/MENTHOL (CHLORASEPTIC ) LOZENGE MM PRN (09:42)
[2023-09-15] MEDS ORDERED: guaiFENesin 600 MG TABLET.ER (FP) PO PRN (09:42)
[2023-09-15] MEDS ORDERED: NALOXONE HCL (KLOXXADO) 8 MG SPRAY NS PRN (09:42)
[2023-09-15] MEDS ORDERED: LOPERAMIDE HCL 2 MG CAPSULE PO PRN (09:42)
[2023-09-15] MEDS ORDERED: BENZONATATE 200 MG CAPSULE PO PRN (09:42)
[2023-09-15] MEDS ORDERED: INSULIN (NOVOLOG) ASPART 100 UNITS/ML 10ML VIAL SQ ONE (10:17)
[2023-09-15] MEDS ORDERED: INSULIN (NOVOLOG) ASPART 100 UNITS/ML 10ML VIAL ONE ×3 (10:38→21:36)
[2023-09-15] MEDS ORDERED: PRENATAL VITAMINS W/ FOLIC ACID TABLET (FP) PO ONE (10:39)
[2023-09-15] MEDS: PRENATAL VITAMINS W/ FOLIC ACID TABLET (FP) PO SCH (10:43)
[2023-09-15 16:28] LABS: HIV INTERPRETATION NEGATIVE (NEGATIVE)
[2023-09-15] MEDS ORDERED: INSULIN SLIDING SCALE (NOVOLOG) 1 VIAL SQ SCH (16:30)
[2023-09-15] MEDS: INSULIN SLIDING SCALE (NOVOLOG) 1 VIAL SQ SCH (16:46)
[2023-09-15] MEDS: THIAMINE HCL 100 MG TABLET (FP) PO SCH (21:19)
[2023-09-15] MEDS: ATORVASTATIN CA 80 MG TABLET (FP) PO SCH (21:20)
[2023-09-15] MEDS: CLOPIDOGREL BISULFATE 75 MG TABLET (FP) PO SCH (21:20)
[2023-09-15] MEDS: SUVOREXANT 10 MG TABLET PO PRN (21:21)
[2023-09-15] MEDS ORDERED: MELATONIN 5 MG TABLETS PO SCH (22:00)
[2023-09-16] MEDS: INSULIN SLIDING SCALE (NOVOLOG) 1 VIAL SQ SCH ×2 (06:00→16:50)
[2023-09-16] MEDS ORDERED: INSULIN (NOVOLOG) ASPART 100 UNITS/ML 10ML VIAL ONE ×2 (06:01→16:47)
[2023-09-16] MEDS: PANTOPRAZOLE 40 MG TABLET PO SCH (06:02)
[2023-09-16] MEDS ORDERED: CARVEDILOL 12.5 MG TABLET (FP) PO SCH ×2 (10:00)
[2023-09-16] MEDS: metoPROLOL SUCCINATE 25 MG TAB.SR.24H (FP) PO SCH (10:24)
[2023-09-16] MEDS: ISOSORBIDE MONONITRATE 30 MG TAB.SR.24H (FP) PO SCH (10:24)
[2023-09-16] MEDS: ASPIRIN COATED 81 MG TABLET.EC PO SCH (10:24)
[2023-09-16] MEDS: cloNIDine HCL 0.1 MG TABLET PO SCH (10:24)
[2023-09-16 10:25] LABS: HEMATOCRIT 44.2 % (35.4-49); HEMOGLOBIN 14.7 GM/dL (11.7-16.9); MCHC 33.3 g/dl (32.0-35.9); MEAN CELL VOLUME 93.2 fl (80-96); PLATELET COUNT 505 10^3/uL (134-434); RBC 4.74 M/mm3 (4.00-5.60); RDW 13.4 % (11.9-15.9); WHITE BLOOD COUNT 6.5 K/mm3 (4.0-10.0)
[2023-09-16] MEDS: CARVEDILOL 12.5 MG TABLET (FP) PO SCH ×2 (10:25→21:35)
[2023-09-16] MEDS: PRENATAL VITAMINS W/ FOLIC ACID TABLET (FP) PO SCH (10:25)
[2023-09-16 11:01] LABS: POTASSIUM 4.3 mmol/L (3.5-5.1)
[2023-09-16 11:11] LABS: CALCIUM 9.2 mg/dL (8.5-10.1)
[2023-09-16 11:12] LABS: ALBUMIN 3.8 g/dl (3.4-5.0); BLOOD UREA NITROGEN 20.9 mg/dL (7-18)
[2023-09-16 11:15] LABS: CREATININE 1.3 mg/dL (0.55-1.3)
[2023-09-16 11:16] LABS: TOT PROT 7.8 g/dl (6.4-8.2)
[2023-09-16 11:17] LABS: BILIRUBIN,TOTAL 0.7 mg/dL (0.2-1)
[2023-09-16 17:49] LABS: PH,URINE 5.5 (5.0-8.0); URINE APPEARANCE CLEAR; URINE BILIRUBIN NEGATIVE (NEGATIVE); URINE COLOR YELLOW; URINE GLUCOSE (UA) 3+ (NEGATIVE); URINE KETONE NEGATIVE (NEGATIVE); URINE LEUK ESTERASE NEGATIVE (NEGATIVE); URINE NITRITE NEGATIVE (NEGATIVE); URINE PROTEIN TRACE (NEGATIVE)
[2023-09-16] MEDS: CLOPIDOGREL BISULFATE 75 MG TABLET (FP) PO SCH (21:34)
[2023-09-16] MEDS: ATORVASTATIN CA 80 MG TABLET (FP) PO SCH (21:34)
[2023-09-16] MEDS: THIAMINE HCL 100 MG TABLET (FP) PO SCH (21:34)
[2023-09-16] MEDS: SUVOREXANT 10 MG TABLET PO PRN (21:36)
[2023-09-17] MEDS: PANTOPRAZOLE 40 MG TABLET PO SCH (06:30)
[2023-09-17] MEDS: INSULIN SLIDING SCALE (NOVOLOG) 1 VIAL SQ SCH ×2 (06:33→17:01)
[2023-09-17] MEDS: cloNIDine HCL 0.1 MG TABLET PO SCH (09:58)
[2023-09-17] MEDS: PRENATAL VITAMINS W/ FOLIC ACID TABLET (FP) PO SCH (09:58)
[2023-09-17] MEDS: ASPIRIN COATED 81 MG TABLET.EC PO SCH (09:59)
[2023-09-17] MEDS: CARVEDILOL 12.5 MG TABLET (FP) PO SCH ×2 (09:59→21:31)
[2023-09-17] MEDS: metoPROLOL SUCCINATE 25 MG TAB.SR.24H (FP) PO SCH (09:59)
[2023-09-17] MEDS: ISOSORBIDE MONONITRATE 30 MG TAB.SR.24H (FP) PO SCH (09:59)
[2023-09-17] MEDS: ATORVASTATIN CA 80 MG TABLET (FP) PO SCH (21:29)
[2023-09-17] MEDS: CLOPIDOGREL BISULFATE 75 MG TABLET (FP) PO SCH (21:29)
[2023-09-17] MEDS: THIAMINE HCL 100 MG TABLET (FP) PO SCH (21:29)
[2023-09-17] MEDS: SUVOREXANT 10 MG TABLET PO PRN (21:30)
[2023-09-18] MEDS: PANTOPRAZOLE 40 MG TABLET PO SCH (06:42)
[2023-09-18] MEDS: cloNIDine HCL 0.1 MG TABLET PO SCH (06:42)
[2023-09-18] MEDS: INSULIN SLIDING SCALE (NOVOLOG) 1 VIAL SQ SCH ×2 (06:43→16:54)
[2023-09-18] MEDS: metoPROLOL SUCCINATE 25 MG TAB.SR.24H (FP) PO SCH (10:11)
[2023-09-18] MEDS: PRENATAL VITAMINS W/ FOLIC ACID TABLET (FP) PO SCH (10:11)
[2023-09-18] MEDS: ISOSORBIDE MONONITRATE 30 MG TAB.SR.24H (FP) PO SCH (10:11)
[2023-09-18] MEDS: ASPIRIN COATED 81 MG TABLET.EC PO SCH (10:11)
[2023-09-18] MEDS: CARVEDILOL 12.5 MG TABLET (FP) PO SCH ×2 (10:12→21:25)
[2023-09-18] MEDS ORDERED: INSULIN (NOVOLOG) ASPART 100 UNITS/ML 10ML VIAL ONE (16:53)
[2023-09-18] MEDS: SUVOREXANT 10 MG TABLET PO PRN (21:24)
[2023-09-18] MEDS: ATORVASTATIN CA 80 MG TABLET (FP) PO SCH (21:25)
[2023-09-18] MEDS: THIAMINE HCL 100 MG TABLET (FP) PO SCH (21:25)
[2023-09-18] MEDS: CLOPIDOGREL BISULFATE 75 MG TABLET (FP) PO SCH (21:25)
[2023-09-18] MEDS: IBUPROFEN 600 MG TABLET (FP) PO PRN (21:25)
[2023-09-19] MEDS: cloNIDine HCL 0.1 MG TABLET PO SCH (06:36)
[2023-09-19] MEDS: PANTOPRAZOLE 40 MG TABLET PO SCH (06:36)
[2023-09-19] MEDS: INSULIN SLIDING SCALE (NOVOLOG) 1 VIAL SQ SCH ×2 (08:10→16:36)
[2023-09-19] MEDS ORDERED: INSULIN (NOVOLOG) ASPART 100 UNITS/ML 10ML VIAL ONE (08:38)
[2023-09-19] MEDS: CARVEDILOL 12.5 MG TABLET (FP) PO SCH ×2 (10:34→21:22)
[2023-09-19] MEDS: ASPIRIN COATED 81 MG TABLET.EC PO SCH (10:34)
[2023-09-19] MEDS: PRENATAL VITAMINS W/ FOLIC ACID TABLET (FP) PO SCH (10:34)
[2023-09-19] MEDS: ISOSORBIDE MONONITRATE 30 MG TAB.SR.24H (FP) PO SCH (10:34)
[2023-09-19] MEDS: metoPROLOL SUCCINATE 25 MG TAB.SR.24H (FP) PO SCH (10:38)
[2023-09-19] MEDS: ATORVASTATIN CA 80 MG TABLET (FP) PO SCH (21:22)
[2023-09-19] MEDS: CLOPIDOGREL BISULFATE 75 MG TABLET (FP) PO SCH (21:22)
[2023-09-19] MEDS: THIAMINE HCL 100 MG TABLET (FP) PO SCH (21:22)
[2023-09-19] MEDS: IBUPROFEN 600 MG TABLET (FP) PO PRN (21:23)
[2023-09-19] MEDS: SUVOREXANT 10 MG TABLET PO PRN (21:23)
[2023-09-20] MEDS: cloNIDine HCL 0.1 MG TABLET PO SCH (06:48)
[2023-09-20] MEDS: PANTOPRAZOLE 40 MG TABLET PO SCH (06:48)
[2023-09-20] MEDS: INSULIN SLIDING SCALE (NOVOLOG) 1 VIAL SQ SCH ×2 (08:07→16:55)
[2023-09-20] MEDS: ASPIRIN COATED 81 MG TABLET.EC PO SCH (09:57)
[2023-09-20] MEDS: ISOSORBIDE MONONITRATE 30 MG TAB.SR.24H (FP) PO SCH (09:57)
[2023-09-20] MEDS: CARVEDILOL 12.5 MG TABLET (FP) PO SCH ×2 (09:57→21:25)
[2023-09-20] MEDS: IBUPROFEN 600 MG TABLET (FP) PO PRN (09:58)
[2023-09-20] MEDS: metoPROLOL SUCCINATE 25 MG TAB.SR.24H (FP) PO SCH (10:00)
[2023-09-20] MEDS: PRENATAL VITAMINS W/ FOLIC ACID TABLET (FP) PO SCH (10:00)
[2023-09-20] MEDS ORDERED: P-EPHED 60MG/TRIPROLIDI 2.5MG TABLET PO PRN (11:12)
[2023-09-20] MEDS ORDERED: P-EPHED 60MG/TRIPROLIDI 2.5MG TABLET PO ONE (11:18)
[2023-09-20] MEDS: FLUTICASONE PROP 0.05% 16 GM NASAL SPRAY NS SCH (13:12)
[2023-09-20] MEDS ORDERED: INSULIN (NOVOLOG) ASPART 100 UNITS/ML 10ML VIAL ONE ×2 (15:15→16:48)
[2023-09-20] MEDS: SUVOREXANT 10 MG TABLET PO PRN (21:23)
[2023-09-20] MEDS: ATORVASTATIN CA 80 MG TABLET (FP) PO SCH (21:24)
[2023-09-20] MEDS: THIAMINE HCL 100 MG TABLET (FP) PO SCH (21:25)
[2023-09-20] MEDS: CLOPIDOGREL BISULFATE 75 MG TABLET (FP) PO SCH (21:25)
[2023-09-21] MEDS: cloNIDine HCL 0.1 MG TABLET PO SCH (06:12)
[2023-09-21] MEDS: ACETAMINOPHEN 325 MG TABLET (FP) PO PRN (06:12)
[2023-09-21] MEDS: SODIUM CHLORIDE NASAL SPRAY 44 ML BOTTLE NS PRN (06:14)
[2023-09-21] MEDS: INSULIN SLIDING SCALE (NOVOLOG) 1 VIAL SQ SCH ×2 (06:28→16:53)
[2023-09-21] MEDS: PANTOPRAZOLE 40 MG TABLET PO SCH (06:29)
[2023-09-21] MEDS: CARVEDILOL 12.5 MG TABLET (FP) PO SCH ×2 (09:52→22:03)
[2023-09-21] MEDS: FLUTICASONE PROP 0.05% 16 GM NASAL SPRAY NS SCH (09:52)
[2023-09-21] MEDS: ASPIRIN COATED 81 MG TABLET.EC PO SCH (09:52)
[2023-09-21] MEDS: PRENATAL VITAMINS W/ FOLIC ACID TABLET (FP) PO SCH (09:52)
[2023-09-21] MEDS: metoPROLOL SUCCINATE 25 MG TAB.SR.24H (FP) PO SCH (09:52)
[2023-09-21] MEDS: ISOSORBIDE MONONITRATE 30 MG TAB.SR.24H (FP) PO SCH (09:52)
[2023-09-21] MEDS ORDERED: INSULIN (NOVOLOG) ASPART 100 UNITS/ML 10ML VIAL ONE (16:47)
[2023-09-21] MEDS: CLOPIDOGREL BISULFATE 75 MG TABLET (FP) PO SCH (22:02)
[2023-09-21] MEDS: ATORVASTATIN CA 80 MG TABLET (FP) PO SCH (22:02)
[2023-09-21] MEDS: THIAMINE HCL 100 MG TABLET (FP) PO SCH (22:02)
[2023-09-22] MEDS: PANTOPRAZOLE 40 MG TABLET PO SCH (06:15)
[2023-09-22] MEDS: cloNIDine HCL 0.1 MG TABLET PO SCH (06:15)
[2023-09-22] MEDS: IBUPROFEN 600 MG TABLET (FP) PO PRN ×2 (06:17→22:04)
[2023-09-22] MEDS: INSULIN SLIDING SCALE (NOVOLOG) 1 VIAL SQ SCH ×2 (07:10→17:00)
[2023-09-22] MEDS ORDERED: INSULIN (NOVOLOG) ASPART 100 UNITS/ML 10ML VIAL ONE ×2 (07:16→17:00)
[2023-09-22] MEDS: ISOSORBIDE MONONITRATE 30 MG TAB.SR.24H (FP) PO SCH (09:57)
[2023-09-22] MEDS: PRENATAL VITAMINS W/ FOLIC ACID TABLET (FP) PO SCH (09:57)
[2023-09-22] MEDS: metoPROLOL SUCCINATE 25 MG TAB.SR.24H (FP) PO SCH (09:58)
[2023-09-22] MEDS: ASPIRIN COATED 81 MG TABLET.EC PO SCH (09:58)
[2023-09-22] MEDS: FLUTICASONE PROP 0.05% 16 GM NASAL SPRAY NS SCH (09:58)
[2023-09-22] MEDS: CARVEDILOL 12.5 MG TABLET (FP) PO SCH ×2 (09:58→22:04)
[2023-09-22] MEDS: ACETAMINOPHEN 325 MG TABLET (FP) PO PRN (10:00)
[2023-09-22] MEDS: SODIUM CHLORIDE NASAL SPRAY 44 ML BOTTLE NS PRN (17:08)
[2023-09-22] MEDS: ATORVASTATIN CA 80 MG TABLET (FP) PO SCH (22:04)
[2023-09-22] MEDS: SUVOREXANT 10 MG TABLET PO PRN (22:04)
[2023-09-22] MEDS: CLOPIDOGREL BISULFATE 75 MG TABLET (FP) PO SCH (22:04)
[2023-09-22] MEDS: THIAMINE HCL 100 MG TABLET (FP) PO SCH (22:04)
[2023-09-23] MEDS: PANTOPRAZOLE 40 MG TABLET PO SCH (06:49)
[2023-09-23] MEDS: INSULIN SLIDING SCALE (NOVOLOG) 1 VIAL SQ SCH ×2 (06:49→17:07)
[2023-09-23] MEDS: cloNIDine HCL 0.1 MG TABLET PO SCH (06:49)
[2023-09-23] MEDS: IBUPROFEN 400 MG TABLET (FP) PO PRN (06:50)
[2023-09-23] MEDS: FLUTICASONE PROP 0.05% 16 GM NASAL SPRAY NS SCH (09:58)
[2023-09-23] MEDS: CARVEDILOL 12.5 MG TABLET (FP) PO SCH ×2 (10:29→21:40)
[2023-09-23] MEDS: ISOSORBIDE MONONITRATE 30 MG TAB.SR.24H (FP) PO SCH (10:30)
[2023-09-23] MEDS: metoPROLOL SUCCINATE 25 MG TAB.SR.24H (FP) PO SCH (10:30)
[2023-09-23] MEDS: ASPIRIN COATED 81 MG TABLET.EC PO SCH (10:30)
[2023-09-23] MEDS: PRENATAL VITAMINS W/ FOLIC ACID TABLET (FP) PO SCH (10:31)
[2023-09-23] MEDS ORDERED: INSULIN (NOVOLOG) ASPART 100 UNITS/ML 10ML VIAL ONE (17:06)
[2023-09-23] MEDS: ATORVASTATIN CA 80 MG TABLET (FP) PO SCH (21:40)
[2023-09-23] MEDS: CLOPIDOGREL BISULFATE 75 MG TABLET (FP) PO SCH (21:40)
[2023-09-23] MEDS: THIAMINE HCL 100 MG TABLET (FP) PO SCH (21:40)
[2023-09-23] MEDS: SUVOREXANT 10 MG TABLET PO PRN (21:41)
[2023-09-23] MEDS: IBUPROFEN 600 MG TABLET (FP) PO PRN (21:42)
[2023-09-23] MEDS: SODIUM CHLORIDE NASAL SPRAY 44 ML BOTTLE NS PRN (21:43)
[2023-09-24] MEDS: INSULIN SLIDING SCALE (NOVOLOG) 1 VIAL SQ SCH ×2 (06:32→16:40)
[2023-09-24] MEDS: cloNIDine HCL 0.1 MG TABLET PO SCH (06:32)
[2023-09-24] MEDS: PANTOPRAZOLE 40 MG TABLET PO SCH (06:32)
[2023-09-24] MEDS: SODIUM CHLORIDE NASAL SPRAY 44 ML BOTTLE NS PRN (06:34)
[2023-09-24] MEDS: CARVEDILOL 12.5 MG TABLET (FP) PO SCH ×2 (07:13→21:26)
[2023-09-24] MEDS: ISOSORBIDE MONONITRATE 30 MG TAB.SR.24H (FP) PO SCH (09:39)
[2023-09-24] MEDS: ASPIRIN COATED 81 MG TABLET.EC PO SCH (09:39)
[2023-09-24] MEDS: metoPROLOL SUCCINATE 25 MG TAB.SR.24H (FP) PO SCH (09:40)
[2023-09-24] MEDS: PRENATAL VITAMINS W/ FOLIC ACID TABLET (FP) PO SCH (09:40)
[2023-09-24] MEDS: IBUPROFEN 600 MG TABLET (FP) PO PRN ×2 (09:41→21:28)
[2023-09-24] MEDS: FLUTICASONE PROP 0.05% 16 GM NASAL SPRAY NS SCH (09:41)
[2023-09-24] MEDS ORDERED: INSULIN (NOVOLOG) ASPART 100 UNITS/ML 10ML VIAL ONE (16:39)
[2023-09-24] MEDS: THIAMINE HCL 100 MG TABLET (FP) PO SCH (21:25)
[2023-09-24] MEDS: ATORVASTATIN CA 80 MG TABLET (FP) PO SCH (21:26)
[2023-09-24] MEDS: CLOPIDOGREL BISULFATE 75 MG TABLET (FP) PO SCH (21:26)
[2023-09-24] MEDS: SUVOREXANT 10 MG TABLET PO PRN (21:28)
[2023-09-25] MEDS: cloNIDine HCL 0.1 MG TABLET PO SCH (06:45)
[2023-09-25] MEDS: PANTOPRAZOLE 40 MG TABLET PO SCH (06:46)
[2023-09-25] MEDS: CARVEDILOL 12.5 MG TABLET (FP) PO SCH ×2 (07:18→21:21)
[2023-09-25] MEDS: INSULIN SLIDING SCALE (NOVOLOG) 1 VIAL SQ SCH ×2 (07:48→16:45)
[2023-09-25] MEDS ORDERED: INSULIN (NOVOLOG) ASPART 100 UNITS/ML 10ML VIAL ONE (07:52)
[2023-09-25] MEDS: metoPROLOL SUCCINATE 25 MG TAB.SR.24H (FP) PO SCH (10:26)
[2023-09-25] MEDS: ASPIRIN COATED 81 MG TABLET.EC PO SCH (10:26)
[2023-09-25] MEDS: PRENATAL VITAMINS W/ FOLIC ACID TABLET (FP) PO SCH (10:26)
[2023-09-25] MEDS: ISOSORBIDE MONONITRATE 30 MG TAB.SR.24H (FP) PO SCH (10:26)
[2023-09-25] MEDS: IBUPROFEN 600 MG TABLET (FP) PO PRN (10:27)
[2023-09-25] MEDS: FLUTICASONE PROP 0.05% 16 GM NASAL SPRAY NS SCH (10:27)
[2023-09-25] MEDS: THIAMINE HCL 100 MG TABLET (FP) PO SCH (21:20)
[2023-09-25] MEDS: CLOPIDOGREL BISULFATE 75 MG TABLET (FP) PO SCH (21:21)
[2023-09-25] MEDS: ATORVASTATIN CA 80 MG TABLET (FP) PO SCH (21:21)
[2023-09-25] MEDS: SODIUM CHLORIDE NASAL SPRAY 44 ML BOTTLE NS PRN (21:22)
[2023-09-25] MEDS: SUVOREXANT 10 MG TABLET PO PRN (21:22)
[2023-09-26] MEDS: cloNIDine HCL 0.1 MG TABLET PO SCH (06:36)
[2023-09-26] MEDS: PANTOPRAZOLE 40 MG TABLET PO SCH (06:37)
[2023-09-26] MEDS: ACETAMINOPHEN 325 MG TABLET (FP) PO PRN (06:39)
[2023-09-26] MEDS: SODIUM CHLORIDE NASAL SPRAY 44 ML BOTTLE NS PRN ×2 (06:41→21:31)
[2023-09-26] MEDS: CARVEDILOL 12.5 MG TABLET (FP) PO SCH ×2 (07:12→21:33)
[2023-09-26] MEDS: INSULIN SLIDING SCALE (NOVOLOG) 1 VIAL SQ SCH ×2 (07:55→17:12)
[2023-09-26] MEDS ORDERED: INSULIN (NOVOLOG) ASPART 100 UNITS/ML 10ML VIAL ONE (07:59)
[2023-09-26] MEDS: ISOSORBIDE MONONITRATE 30 MG TAB.SR.24H (FP) PO SCH (10:12)
[2023-09-26] MEDS: ASPIRIN COATED 81 MG TABLET.EC PO SCH (10:12)
[2023-09-26] MEDS: FLUTICASONE PROP 0.05% 16 GM NASAL SPRAY NS SCH (10:12)
[2023-09-26] MEDS: metoPROLOL SUCCINATE 25 MG TAB.SR.24H (FP) PO SCH (10:12)
[2023-09-26] MEDS: PRENATAL VITAMINS W/ FOLIC ACID TABLET (FP) PO SCH (10:12)
[2023-09-26] MEDS: IBUPROFEN 600 MG TABLET (FP) PO PRN (10:14)
[2023-09-26] MEDS: IBUPROFEN 400 MG TABLET (FP) PO PRN (21:32)
[2023-09-26] MEDS: CLOPIDOGREL BISULFATE 75 MG TABLET (FP) PO SCH (21:33)
[2023-09-26] MEDS: ATORVASTATIN CA 80 MG TABLET (FP) PO SCH (21:33)
[2023-09-26] MEDS: THIAMINE HCL 100 MG TABLET (FP) PO SCH (21:33)
[2023-09-26] MEDS: SUVOREXANT 10 MG TABLET PO PRN (21:34)
[2023-09-27] MEDS: PANTOPRAZOLE 40 MG TABLET PO SCH (06:01)
[2023-09-27] MEDS: IBUPROFEN 600 MG TABLET (FP) PO PRN ×2 (06:03→21:21)
[2023-09-27] MEDS: SODIUM CHLORIDE NASAL SPRAY 44 ML BOTTLE NS PRN (06:04)
[2023-09-27] MEDS: cloNIDine HCL 0.1 MG TABLET PO SCH (06:14)
[2023-09-27] MEDS: INSULIN SLIDING SCALE (NOVOLOG) 1 VIAL SQ SCH ×2 (06:48→16:25)
[2023-09-27] MEDS: CARVEDILOL 12.5 MG TABLET (FP) PO SCH ×2 (07:17→21:20)
[2023-09-27] MEDS: PRENATAL VITAMINS W/ FOLIC ACID TABLET (FP) PO SCH (09:28)
[2023-09-27] MEDS: metoPROLOL SUCCINATE 25 MG TAB.SR.24H (FP) PO SCH (09:28)
[2023-09-27] MEDS: ASPIRIN COATED 81 MG TABLET.EC PO SCH (09:28)
[2023-09-27] MEDS: ISOSORBIDE MONONITRATE 30 MG TAB.SR.24H (FP) PO SCH (09:28)
[2023-09-27] MEDS: FLUTICASONE PROP 0.05% 16 GM NASAL SPRAY NS SCH (09:29)
[2023-09-27] MEDS ORDERED: INSULIN (NOVOLOG) ASPART 100 UNITS/ML 10ML VIAL ONE ×2 (16:25→23:58)
[2023-09-27] MEDS: THIAMINE HCL 100 MG TABLET (FP) PO SCH (21:19)
[2023-09-27] MEDS: ATORVASTATIN CA 80 MG TABLET (FP) PO SCH (21:20)
[2023-09-27] MEDS: CLOPIDOGREL BISULFATE 75 MG TABLET (FP) PO SCH (21:20)
[2023-09-27] MEDS: SUVOREXANT 10 MG TABLET PO PRN (21:20)
[2023-09-27] MEDS ORDERED: SUVOREXANT 10 MG TABLET PO PRN (22:00)
[2023-09-28] MEDS: cloNIDine HCL 0.1 MG TABLET PO SCH (06:34)
[2023-09-28] MEDS: PANTOPRAZOLE 40 MG TABLET PO SCH (06:34)
[2023-09-28] MEDS: SODIUM CHLORIDE NASAL SPRAY 44 ML BOTTLE NS PRN (06:36)
[2023-09-28] MEDS: CARVEDILOL 12.5 MG TABLET (FP) PO SCH ×2 (07:42→21:27)
[2023-09-28] MEDS: INSULIN SLIDING SCALE (NOVOLOG) 1 VIAL SQ SCH ×2 (08:22→17:28)
[2023-09-28] MEDS ORDERED: INSULIN (NOVOLOG) ASPART 100 UNITS/ML 10ML VIAL ONE (08:29)
[2023-09-28] MEDS: ASPIRIN COATED 81 MG TABLET.EC PO SCH (09:54)
[2023-09-28] MEDS: PRENATAL VITAMINS W/ FOLIC ACID TABLET (FP) PO SCH (09:55)
[2023-09-28] MEDS: metoPROLOL SUCCINATE 25 MG TAB.SR.24H (FP) PO SCH (09:55)
[2023-09-28] MEDS: ISOSORBIDE MONONITRATE 30 MG TAB.SR.24H (FP) PO SCH (09:55)
[2023-09-28] MEDS: FLUTICASONE PROP 0.05% 16 GM NASAL SPRAY NS SCH (09:55)
[2023-09-28] MEDS: THIAMINE HCL 100 MG TABLET (FP) PO SCH (21:25)
[2023-09-28] MEDS: ATORVASTATIN CA 80 MG TABLET (FP) PO SCH (21:26)
[2023-09-28] MEDS: CLOPIDOGREL BISULFATE 75 MG TABLET (FP) PO SCH (21:26)
[2023-09-28] MEDS: IBUPROFEN 600 MG TABLET (FP) PO PRN (21:27)
[2023-09-29] MEDS: PANTOPRAZOLE 40 MG TABLET PO SCH (06:28)
[2023-09-29] MEDS: cloNIDine HCL 0.1 MG TABLET PO SCH (06:28)
[2023-09-29] MEDS: ACETAMINOPHEN 325 MG TABLET (FP) PO PRN (06:30)
[2023-09-29] MEDS: SODIUM CHLORIDE NASAL SPRAY 44 ML BOTTLE NS PRN ×2 (06:31→21:42)
[2023-09-29] MEDS: INSULIN SLIDING SCALE (NOVOLOG) 1 VIAL SQ SCH ×2 (06:45→17:37)
[2023-09-29] MEDS: CARVEDILOL 12.5 MG TABLET (FP) PO SCH ×2 (07:30→21:39)
[2023-09-29] MEDS: FLUTICASONE PROP 0.05% 16 GM NASAL SPRAY NS SCH (09:40)
[2023-09-29] MEDS: metoPROLOL SUCCINATE 25 MG TAB.SR.24H (FP) PO SCH (09:41)
[2023-09-29] MEDS: PRENATAL VITAMINS W/ FOLIC ACID TABLET (FP) PO SCH (09:41)
[2023-09-29] MEDS: ASPIRIN COATED 81 MG TABLET.EC PO SCH (09:41)
[2023-09-29] MEDS: ISOSORBIDE MONONITRATE 30 MG TAB.SR.24H (FP) PO SCH (09:41)
[2023-09-29] MEDS: THIAMINE HCL 100 MG TABLET (FP) PO SCH (21:39)
[2023-09-29] MEDS: ATORVASTATIN CA 80 MG TABLET (FP) PO SCH (21:39)
[2023-09-29] MEDS: CLOPIDOGREL BISULFATE 75 MG TABLET (FP) PO SCH (21:39)
[2023-09-29] MEDS ORDERED: SUVOREXANT 10 MG TABLET PO PRN (22:00)
[2023-09-29] MEDS ORDERED: LISINOPRIL 10 MG TABLET PO ONE (22:55)
[2023-09-30] MEDS: cloNIDine HCL 0.1 MG TABLET PO SCH (06:14)
[2023-09-30] MEDS: PANTOPRAZOLE 40 MG TABLET PO SCH (06:15)
[2023-09-30] MEDS: IBUPROFEN 600 MG TABLET (FP) PO PRN (06:17)
[2023-09-30] MEDS: INSULIN SLIDING SCALE (NOVOLOG) 1 VIAL SQ SCH (07:47)
[2023-09-30 08:21] VITALS: RESP 18
[2023-09-30 09:12] VITALS: BP 139/84; PULSE 76; TEMP 97.1
[2023-09-30] MEDS: metoPROLOL SUCCINATE 25 MG TAB.SR.24H (FP) PO SCH (09:17)
[2023-09-30] MEDS: CARVEDILOL 12.5 MG TABLET (FP) PO SCH (09:17)
[2023-09-30] MEDS: PRENATAL VITAMINS W/ FOLIC ACID TABLET (FP) PO SCH (09:17)
[2023-09-30] MEDS: ASPIRIN COATED 81 MG TABLET.EC PO SCH (09:17)
[2023-09-30] MEDS: ISOSORBIDE MONONITRATE 30 MG TAB.SR.24H (FP) PO SCH (09:18)
[2023-09-30] MEDS: FLUTICASONE PROP 0.05% 16 GM NASAL SPRAY NS SCH (09:19)
== END 2023-09-30 09:20 | disposition home or self-care (01) | DRG 775 ==
LOC: YASAS 08:50 → Y3E 13:21
PROVIDERS: ADMIT Allergy & Immunology; ATTEND Psychiatry & Neurology Pain Medicine
PROC: HZ2ZZZZ Detoxification Services for Substance Abuse Treatment (ICD-10-PCS; principal; 2023-09-15)
DX: F10.20 Alcohol dependence, uncomplicated (principal); F17.210 Nicotine dependence, cigarettes, uncomplicated; F31.9 Bipolar disorder, unspecified; F41.9 Anxiety disorder, unspecified; F43.10 Post-traumatic stress disorder, unspecified; I25.10 Atherosclerotic heart disease of native coronary artery without angina pectoris; I10 Essential (primary) hypertension; Z95.5 Presence of coronary angioplasty implant and graft; I73.9 Peripheral vascular disease, unspecified; E78.5 Hyperlipidemia, unspecified; K21.9 Gastro-esophageal reflux disease without esophagitis; E11.9 Type 2 diabetes mellitus without complications; Z99.89 Dependence on other enabling machines and devices
CPT/HCPCS: 36415; 80053; 80305; 80307; 81003; 82962; 85027; 86593; 86780; 87389; 87635; 87811; 93005; 93010

== ENCOUNTER 2024-01-23 07:05 | Inpatient (IN) | payer OTHER ==
[2024-01-23 07:38] VITALS: BMI 31.9
[2024-01-23] MEDS ORDERED: BENZONATATE 200 MG CAPSULE PO PRN (09:25)
[2024-01-23] MEDS ORDERED: NICOTINE POLACRILEX 2 MG GUM BUC PRN (09:25)
[2024-01-23] MEDS ORDERED: NALOXONE HCL (KLOXXADO) 8 MG SPRAY NS PRN (09:25)
[2024-01-23] MEDS ORDERED: LOPERAMIDE HCL 2 MG CAPSULE PO PRN (09:25)
[2024-01-23] MEDS ORDERED: NALOXONE HCL 0.4 MG/ML VIAL IM PRN (09:25)
[2024-01-23] MEDS ORDERED: BENZOCAINE/MENTHOL (CHLORASEPTIC ) LOZENGE MM PRN (09:25)
[2024-01-23] MEDS ORDERED: guaiFENesin 600 MG TABLET.ER (FP) PO PRN (09:25)
[2024-01-23] MEDS ORDERED: IBUPROFEN 400 MG TABLET (FP) PO PRN (09:25)
[2024-01-23] MEDS ORDERED: POLYETHYLENE GLYCOL (HEALTHYLAX) 3350 17 GM PACKET PO PRN (09:25)
[2024-01-23] MEDS ORDERED: INSULIN (NOVOLOG) ASPART 100 UNITS/ML 10ML VIAL ONE ×2 (10:15→10:21)
[2024-01-23] MEDS: INSULIN ASPART SLIDING SCALE (NOVOLOG) 1 VIAL SQ SCH (10:16)
[2024-01-23] MEDS: IBUPROFEN 600 MG TABLET (FP) PO PRN (10:22)
[2024-01-23] MEDS ORDERED: IBUPROFEN 600 MG TABLET (FP) PO ONE (10:22)
[2024-01-23] MEDS ORDERED: PRENATAL VITAMINS W/ FOLIC ACID TABLET (FP) PO ONE (11:42)
[2024-01-23] MEDS: PRENATAL VITAMINS W/ FOLIC ACID TABLET (FP) PO SCH (11:43)
[2024-01-23] MEDS ORDERED: ALBUTEROL SO4 HFA INHALER IH PRN (12:10)
[2024-01-23] MEDS: ACETAMINOPHEN 325 MG TABLET (FP) PO PRN (18:31)
[2024-01-23] MEDS: MAG HYDROX/AL HYDROX/SIMETH 30 ML UNIT-DOSE CUP PO PRN (18:32)
[2024-01-23] MEDS: CARVEDILOL 12.5 MG TABLET (FP) PO SCH (20:56)
[2024-01-23] MEDS: MAGNESIUM HYDROX 2400MG/30ML ORAL SUSPENSION 30 ML CUP PO PRN (22:21)
[2024-01-23] MEDS: ATORVASTATIN CA 80 MG TABLET (FP) PO SCH (22:22)
[2024-01-23] MEDS: THIAMINE 100 MG TABLET PO SCH (22:22)
[2024-01-23] MEDS: CLOPIDOGREL BISULFATE 75 MG TABLET (FP) PO SCH (22:22)
[2024-01-23] MEDS: MELATONIN 5 MG TABLETS PO SCH (22:22)
[2024-01-24] MEDS: LOSARTAN POTASSIUM 50 MG TABLET PO SCH (10:45)
[2024-01-24] MEDS: ASPIRIN COATED 81 MG TABLET.EC PO SCH (10:45)
[2024-01-24 12:01] LABS: HEMATOCRIT 41.3 % (35.4-49); HEMOGLOBIN 13.7 GM/dL (11.7-16.9); MCH 31.2 pg (25.7-33.7); MCHC 33.3 g/dl (32.0-35.9); MEAN CELL VOLUME 93.6 fl (80-96); MEAN PLT VOLUME 8.1 fl (7.5-11.1); PLATELET COUNT 417 10^3/uL (134-434); RBC 4.41 M/mm3 (4.00-5.60); RDW 12.8 % (11.9-15.9); WHITE BLOOD COUNT 7.1 K/mm3 (4.0-10.0)
[2024-01-24 12:07] LABS: CALCIUM 9.4 mg/dL (8.5-10.1); POTASSIUM 4.2 mmol/L (3.5-5.1)
[2024-01-24 12:09] LABS: ALBUMIN 3.7 g/dl (3.4-5.0); BLOOD UREA NITROGEN 14.4 mg/dL (7-18)
[2024-01-24 12:12] LABS: CREATININE 1.1 mg/dL (0.55-1.3)
[2024-01-24 12:14] LABS: BILIRUBIN,TOTAL 0.4 mg/dL (0.2-1)
[2024-01-24] MEDS ORDERED: INSULIN ASPART SLIDING SCALE (NOVOLOG) 1 VIAL SQ ONE (16:33)
[2024-01-24] MEDS: clonazePAM 0.5 MG ODT TABLETS SL PRN (22:37)
[2024-01-25] MEDS: metFORMIN HCL 500 MG TABLET (FP) PO SCH (09:56)
[2024-01-25] MEDS ORDERED: INSULIN ASPART SLIDING SCALE (NOVOLOG) 1 VIAL SQ ONE (12:13)
[2024-01-26] MEDS ORDERED: INSULIN (NOVOLOG) ASPART 100 UNITS/ML 10ML VIAL ONE (16:29)
[2024-01-26] MEDS ORDERED: ATORVASTATIN CA 40 MG TABLET (FP) ONE (18:57)
[2024-01-26 19:26] LABS: URINE APPEARANCE CLEAR; URINE BILIRUBIN NEGATIVE (NEGATIVE); URINE COLOR YELLOW; URINE GLUCOSE (UA) 3+ (NEGATIVE); URINE KETONE NEGATIVE (NEGATIVE); URINE LEUK ESTERASE NEGATIVE (NEGATIVE); URINE NITRITE NEGATIVE (NEGATIVE); URINE PROTEIN NEGATIVE (NEGATIVE); URINE UROBILINOGEN 0.2 mg/dL (0.2-1.0)
[2024-01-27] MEDS ORDERED: metFORMIN HCL 500 MG TABLET (FP) PO SCH (07:50)
[2024-01-27] MEDS: metFORMIN HCL 500 MG TABLET (FP) PO SCH (07:59)
[2024-01-27] MEDS ORDERED: INSULIN (NOVOLOG) ASPART 100 UNITS/ML 10ML VIAL ONE (16:50)
[2024-01-27] MEDS ORDERED: ATORVASTATIN CA 40 MG TABLET (FP) ONE (19:48)
[2024-01-28] MEDS ORDERED: INSULIN (NOVOLOG) ASPART 100 UNITS/ML 10ML VIAL ONE (07:02)
[2024-01-28] MEDS ORDERED: ATORVASTATIN CA 40 MG TABLET (FP) ONE (19:31)
[2024-01-29] MEDS: clonazePAM 0.5 MG ODT TABLETS SL PRN (10:18)
[2024-01-29] MEDS ORDERED: ATORVASTATIN CA 40 MG TABLET (FP) ONE (19:48)
[2024-01-30] MEDS ORDERED: INSULIN (NOVOLOG) ASPART 100 UNITS/ML 10ML VIAL ONE (11:52)
[2024-01-30] MEDS ORDERED: ATORVASTATIN CA 40 MG TABLET (FP) ONE (20:13)
[2024-01-31] MEDS ORDERED: ATORVASTATIN CA 40 MG TABLET (FP) ONE (19:25)
[2024-01-31] MEDS: clonazePAM 0.5 MG ODT TABLETS SL PRN (22:03)
[2024-02-01] MEDS ORDERED: INSULIN (NOVOLOG) ASPART 100 UNITS/ML 10ML VIAL ONE (11:52)
[2024-02-01] MEDS ORDERED: ATORVASTATIN CA 40 MG TABLET (FP) ONE (19:52)
[2024-02-02] MEDS ORDERED: INSULIN (NOVOLOG) ASPART 100 UNITS/ML 10ML VIAL ONE ×2 (06:25→16:43)
[2024-02-02] MEDS ORDERED: ATORVASTATIN CA 40 MG TABLET (FP) ONE (19:46)
[2024-02-02] MEDS: hydrOXYzine PAMOATE 25 MG CAPSULE (FP) PO PRN (21:37)
[2024-02-03] MEDS ORDERED: INSULIN (NOVOLOG) ASPART 100 UNITS/ML 10ML VIAL ONE ×2 (11:47→16:20)
[2024-02-03] MEDS ORDERED: ATORVASTATIN CA 40 MG TABLET (FP) ONE (19:10)
[2024-02-04] MEDS: clonazePAM 1 MG ODT TABLETS SL SCH (10:28)
[2024-02-04] MEDS ORDERED: ATORVASTATIN CA 40 MG TABLET (FP) ONE (19:22)
[2024-02-05] MEDS ORDERED: ACETAMINOPHEN 325 MG TABLET (FP) PO PRN (15:01)
[2024-02-05] MEDS ORDERED: ATORVASTATIN CA 40 MG TABLET (FP) ONE (19:23)
[2024-02-05] MEDS: ACETAMINOPHEN 325 MG TABLET (FP) PO PRN (21:44)
[2024-02-05] MEDS: MELATONIN 5 MG TABLETS PO SCH (22:13)
[2024-02-06] MEDS ORDERED: ATORVASTATIN CA 40 MG TABLET (FP) ONE (20:05)
[2024-02-07] MEDS ORDERED: ATORVASTATIN CA 40 MG TABLET (FP) ONE (20:21)
[2024-02-08] MEDS ORDERED: ATORVASTATIN CA 40 MG TABLET (FP) ONE (20:34)
[2024-02-09] MEDS ORDERED: INSULIN (NOVOLOG) ASPART 100 UNITS/ML 10ML VIAL ONE (16:27)
[2024-02-09] MEDS ORDERED: ATORVASTATIN CA 40 MG TABLET (FP) ONE (22:19)
[2024-02-10] MEDS ORDERED: ATORVASTATIN CA 40 MG TABLET (FP) ONE (19:39)
[2024-02-10 22:54] VITALS: RESP 18
[2024-02-11] MEDS ORDERED: ATORVASTATIN CA 40 MG TABLET (FP) ONE (19:27)
[2024-02-12] MEDS ORDERED: ATORVASTATIN CA 40 MG TABLET (FP) ONE (20:15)
[2024-02-13] MEDS ORDERED: ATORVASTATIN CA 40 MG TABLET (FP) ONE (20:14)
[2024-02-14] MEDS ORDERED: INSULIN (NOVOLOG) ASPART 100 UNITS/ML 10ML VIAL ONE ×3 (16:27→22:46)
[2024-02-14] MEDS ORDERED: ATORVASTATIN CA 40 MG TABLET (FP) ONE (19:43)
[2024-02-15] MEDS ORDERED: INSULIN (NOVOLOG) ASPART 100 UNITS/ML 10ML VIAL ONE (16:17)
[2024-02-15] MEDS ORDERED: ATORVASTATIN CA 40 MG TABLET (FP) ONE (19:15)
[2024-02-15] MEDS ORDERED: INSULIN (LEVEMIR) 100 UNITS/ML UNITS SQ ONE (22:35)
[2024-02-16] MEDS ORDERED: ATORVASTATIN CA 40 MG TABLET (FP) ONE (20:44)
[2024-02-17 06:33] VITALS: BP 134/75; PULSE 76; TEMP 97.5
== END 2024-02-17 10:33 | disposition home or self-care (01) | DRG 772 ==
LOC: YASAS 07:05 → Y3NR 12:18 → Y5N 01-26 11:49
PROVIDERS: ADMIT Allergy & Immunology; ATTEND Psychiatry & Neurology Pain Medicine
PROC: HZ42ZZZ Group Counseling for Substance Abuse Treatment, Cognitive-Behavioral (ICD-10-PCS; principal; 2024-01-23)
DX: F10.20 Alcohol dependence, uncomplicated (principal); F14.20 Cocaine dependence, uncomplicated; F17.210 Nicotine dependence, cigarettes, uncomplicated; F90.9 Attention-deficit hyperactivity disorder, unspecified type; F43.10 Post-traumatic stress disorder, unspecified; F19.982 Other psychoactive substance use, unspecified with psychoactive substance-induced sleep disorder; F19.94 Other psychoactive substance use, unspecified with psychoactive substance-induced mood disorder; F31.9 Bipolar disorder, unspecified; F41.9 Anxiety disorder, unspecified; E78.5 Hyperlipidemia, unspecified; J45.909 Unspecified asthma, uncomplicated; I25.10 Atherosclerotic heart disease of native coronary artery without angina pectoris; K21.9 Gastro-esophageal reflux disease without esophagitis; R01.1 Cardiac murmur, unspecified; M19.90 Unspecified osteoarthritis, unspecified site; I73.9 Peripheral vascular disease, unspecified; E11.9 Type 2 diabetes mellitus without complications; G47.00 Insomnia, unspecified; Z95.5 Presence of coronary angioplasty implant and graft; Z79.84 Long term (current) use of oral hypoglycemic drugs; Z79.4 Long term (current) use of insulin; Z79.82 Long term (current) use of aspirin; Z56.0 Unemployment, unspecified
CPT/HCPCS: 36415; 80053; 80305; 80307; 81003; 82962; 85027; 86593; 86780; 87811; 93005; 93010